=== PATIENT | male | born 1955 | race Caucasian/White ===

== ENCOUNTER 2020-07-02 05:57 | Outpatient (REF) | payer MEDICARE, SELFPAY ==
[2020-07-02 08:02] LABS: Alanine Aminotransferase 30 U/L (0-40); Albumin Level 4.5 g/dL (3.5-5.0); Alkaline Phosphatase 68 U/L (39-117); Anion Gap 14 (12-20); Aspartate Amino Transferase 27 U/L (5-37); Bilirubin Total 0.9 mg/dL (0.0-1.0); Blood Urea Nitrogen 17 mg/dL (9-16); Calcium 8.9 mg/dL (8.4-10.2); Carbon Dioxide 27 mmol/L (22-29); Chloride 102 mmol/L (96-108); Cholesterol 161 mg/dL; Estimated Glomerular Filt Rate > 60; Glucose Fasting 102 mg/dL (60-99); HDL Cholesterol 43 mg/dL; LDL Cholesterol Calculated 74 mg/dl; Potassium 4.5 mmol/l (3.3-5.1); Sodium 138 mmol/L (135-145); Total Protein 7.3 g/dL (6.5-8.0); Triglycerides 222 mg/dL
== END 2020-07-02 05:58 | disposition home or self-care (01) ==
LOC: HO.LAB 05:57
PROVIDERS: Visit Provider Internal Medicine
DX: E78.00 Pure hypercholesterolemia, unspecified (principal)
CPT/HCPCS: 80053; 80061

== ENCOUNTER 2021-02-05 06:29 | Outpatient (REF) | payer MEDICARE, SELFPAY ==
--- NOTE | ~2021-02-05 | US_ITS ---
EXAMINATION: US ABDOMEN COMPLETE CLINICAL INFORMATION: Other specified diseases of liver. COMPARISON: Ultrasound abdomen complete dated 11/26/2019 and 11/29/2018. TECHNIQUE: Real-time imaging of the abdominal viscera. FINDINGS: PANCREAS: Normal. ABDOMINAL AORTA: The proximal, mid, and distal segments are normal in caliber. INFERIOR VENA CAVA: Visualized portions are normal. LIVER: The liver is normal in size. The liver contour is normal. Liver echogenicity is slightly increased. There is a 4.2 x 4.8 x 4.8 cm complex cyst in the left lobe of the liver. This is decreased in size compared to November 2019 exam with measures 6.2 x 5.5 x 6.2 cm. Complexity appears increased with new internal echoes. There is no intrahepatic biliary duct dilatation seen. GALLBLADDER: The gallbladder is contracted. There are gallstones. COMMON BILE DUCT: Normal in caliber measuring 0.31 cm in diameter. RIGHT KIDNEY: There is a 2 x 1.7 x 1.7 cm cyst in the upper pole. No hydronephrosis or renal calculi. The kidney measures 11.0 cm in maximum dimension. LEFT KIDNEY: Normal. No hydronephrosis. No renal calculi or focal parenchymal lesions. The kidney measures 12.2 cm in maximum dimension. SPLEEN: Normal. The spleen measures 9.4 cm in maximum dimension. FREE FLUID: None. US/US abdomen complete IMPRESSION: Interval decrease in size in the cyst in the left lobe of the liver. This now appears to represent a complex cyst with new internal echoes. Liver echotexture is increased probably representing diffuse fatty infiltration. Contracted gallbladder with gallstones. 2 cm simple right renal cyst.
[2021-02-05 08:01] LABS: Alanine Aminotransferase 35 U/L (0-40); Albumin Level 4.5 g/dL (3.5-5.0); Alkaline Phosphatase 61 U/L (39-117); Anion Gap 12 (12-20); Aspartate Amino Transferase 30 U/L (5-37); Bilirubin Total 0.9 mg/dL (0.0-1.0); Blood Urea Nitrogen 15 mg/dL (9-16); Calcium 9.2 mg/dL (8.4-10.2); Carbon Dioxide 25 mmol/L (22-29); Chloride 107 mmol/L (96-108); Estimated Glomerular Filt Rate > 60; Glucose Fasting 103 mg/dL (60-99); Potassium 4.4 mmol/L (3.3-5.1); Sodium 140 mmol/L (135-145); Total Protein 6.9 g/dL (6.5-8.0)
[2021-02-05 08:06] LABS: Prostate Specific Antigen 0.44 ng/mL (<0.05-4.0)
== END 2021-02-05 06:30 | disposition home or self-care (01) ==
LOC: HO.US 06:29
PROVIDERS: Absent Provider Nurse Practitioner Family; PCP Internal Medicine; Visit Provider Internal Medicine
DX: Z12.5 Encounter for screening for malignant neoplasm of prostate (principal); Z13.1 Encounter for screening for diabetes mellitus; K76.89 Other specified diseases of liver
CPT/HCPCS: 36415; 76700; 80053; 84153

== ENCOUNTER → 2021-04-13 15:20 | Outpatient (BNV) | payer MEDICARE, SELFPAY | PROVIDERS: PCP Internal Medicine; Visit Provider Internal Medicine Medical Oncology | DX: C69.92 Malignant neoplasm of unspecified site of left eye (principal) | CPT/HCPCS: 99213 ==

== ENCOUNTER 2021-04-13 16:18 | Outpatient (REF) | payer MEDICARE, SELFPAY ==
--- NOTE | ~2021-04-13 | XR_ITS ---
EXAMINATION: XR CHEST CLINICAL INFORMATION: Followup staging for melanoma. COMPARISON: Chest 04/01/2020 TECHNIQUE: PA and lateral views of the chest are obtained. FINDINGS: No significant abnormality is noted involving the heart, lungs, mediastinum, bony thorax or soft tissues. XR/XR chest 2V IMPRESSION: Unremarkable examination.
== END 2021-04-13 16:19 | disposition home or self-care (01) ==
LOC: HO.XRAY 16:18
PROVIDERS: PCP Internal Medicine; Visit Provider Internal Medicine Medical Oncology
DX: C69.92 Malignant neoplasm of unspecified site of left eye (principal)
CPT/HCPCS: 71046

== ENCOUNTER 2021-09-02 06:05 | Outpatient (REF) | payer MEDICARE, SELFPAY ==
[2021-09-02 08:01] LABS: Alanine Aminotransferase 46 U/L (0-40); Albumin Level 4.5 g/dL (3.5-5.0); Alkaline Phosphatase 62 U/L (39-117); Anion Gap 13 (12-20); Aspartate Amino Transferase 38 U/L (5-37); Bilirubin Total 1.3 mg/dL (0.0-1.0); Blood Urea Nitrogen 14 mg/dL (9-16); Calcium 9.4 mg/dL (8.4-10.2); Carbon Dioxide 26 mmol/L (22-29); Chloride 106 mmol/L (96-108); Cholesterol 167 mg/dL; Estimated Glomerular Filt Rate > 60; Glucose Fasting 102 mg/dL (60-99); HDL Cholesterol 40 mg/dL; LDL Cholesterol Calculated 75 mg/dl; Potassium 4.2 mmol/L (3.3-5.1); Sodium 141 mmol/L (135-145); Total Protein 7.2 g/dL (6.5-8.0); Triglycerides 264 mg/dL
== END 2021-09-02 06:06 | disposition home or self-care (01) ==
LOC: HO.LAB 06:05
PROVIDERS: PCP Internal Medicine; Visit Provider Internal Medicine
DX: E78.5 Hyperlipidemia, unspecified (principal); N28.1 Cyst of kidney, acquired
CPT/HCPCS: 36415; 80053; 80061

== ENCOUNTER 2021-11-04 08:52 | Outpatient (REF) | payer MEDICARE, SELFPAY ==
--- NOTE | ~2021-11-04 | US_ITS ---
EXAMINATION: US COMPLETE ABDOMEN WITH LIVER ELASTOGRAPHY CLINICAL INFORMATION: Liver cyst COMPARISON: Previous abdominal ultrasound most recent January 2021 TECHNIQUE: Real-time imaging of the abdominal viscera. Noninvasive ultrasound liver fibrosis assessment is performed using Joe ElastPQ point quantification shear wave elastography (2D-SWE) with a C5-2 MHz transducer. Multiple elastography samples are obtained. FINDINGS: PANCREAS: The head of the pancreas is normal. The body and tail are not well visualized due to bowel gas. ABDOMINAL AORTA: The proximal, middle, and distal aortic segments are normal in caliber. INFERIOR VENA CAVA: Visualized portions are normal. LIVER: Liver echotexture is increased. There is a 4.0 x 2.9 x 3.9 cm complex cyst in the left lobe of the liver. This is slightly decreased in size measuring 4.2 x 4.8 x 4.8 cm on previous exam. No other focal liver lesion is seen. There is no biliary duct dilatation. The right lobe measures 13 cm in length. The left lobe measures 8.7 cm in length. Portal flow is normal/hepatopedal Shear wave liver elastography median stiffness is 1.2 m/s (reference: normal median stiffness is 1.3 m/s or less). IQR/median stiffness to assess sampling precision is 0.08 (reference: good quality data set is IQR/median stiffness of 0.15 or less). GALLBLADDER: Not well visualized. COMMON BILE DUCT: Normal in caliber measuring 0.4 cm in diameter. RIGHT KIDNEY: There is a 1.7 x 1.9 x 2.1 cm cyst in the upper pole No hydronephrosis. No renal calculi or mass. The kidney measures 11.7 cm in maximum dimension. LEFT KIDNEY: Normal. No hydronephrosis. No renal calculi or focal parenchymal lesions. The kidney measures 12.9 cm in maximum dimension. SPLEEN: Normal. The spleen measures 8 cm in maximum dimension. FREE FLUID: None. US/US abdomen comp w elastography IMPRESSION: 1. Impression: Echogenic liver probably representing fatty infiltration. 4 x 2.9 x 3.9 cm complex cyst in the left lobe of the liver. This is decreased in size from 4.2 x 4.8 x 4.8 cm January 2021. Limited visualization of the pancreas and gallbladder. Right renal cyst. 2. Liver elastography: Adequate liver sampling. Normal liver stiffness. REFERENCE: Society of Radiologists in Ultrasound Liver Stiffness Thresholds (2020): LIVER STIFFNESS THRESHOLDS: *Liver Stiffness equal or less than 1.3 m/s: High probability of being normal. *Liver Stiffness less than 1.7 m/s: In the absence of other known clinical signs, rules out compensated advanced chronic liver disease. *Liver Stiffness 1.7-2.1 m/s: Suggestive of compensated advanced chronic liver disease but need further test for confirmation. *Liver Stiffness over 2.1 m/s: Rules in compensated advanced chronic liver disease. *Liver Stiffness over 2.4 m/s: Suggestive of clinically significant portal hypertension. QUALITY OF DATA SET: *IQR/Median value equal or less than 0.15 implies a quality data set. *IQR/Median value over 0.15 implies a poor quality data set. SIGNIFICANT CHANGE FROM PRIOR EXAM: Significant change if liver stiffness measurement is 10% or greater from prior exam. OTHER CONSIDERATIONS: The stage of liver fibrosis may be overestimated in the setting of acute hepatitis, liver inflammation, elevated liver function tests, hepatic vascular congestion, obstructive cholestasis, non-fasting state, and infiltrative diseases such as amyloidosis and lymphoma. In some patients with NAFLD, the liver stiffness thresholds for compensated advanced chronic liver disease may be lower. In causes other than viral hepatitis and NAFLD, liver stiffness thresholds are not well established.
== END 2021-11-04 08:53 | disposition home or self-care (01) ==
LOC: HO.US 08:52
PROVIDERS: Visit Provider Internal Medicine
DX: K76.89 Other specified diseases of liver (principal)
CPT/HCPCS: 76705; 76981

== ENCOUNTER 2022-01-19 10:15 | Outpatient (REF) | payer MEDICARE, SELFPAY | END 2022-01-19 10:16 | disposition home or self-care (01) | LOC: HO.LAB 10:15 | PROVIDERS: Absent Provider Internal Medicine; PCP Internal Medicine; Visit Provider Internal Medicine Gastroenterology | DX: Z13.89 Encounter for screening for other disorder (principal) ==

== ENCOUNTER 2022-02-08 07:46 | Outpatient (REF) | payer MEDICARE, SELFPAY ==
[2022-02-08 08:57] LABS: Hematocrit 48.6 % (42.0-52.0); Hemoglobin 16.6 g/dl (14.0-18.0); Mean Corpuscular HGB Conc 34.2 g/dl (31.0-36.0); Mean Corpuscular Hemoglobin 32.7 pg (27.0-33.0); Mean Corpuscular Volume 95.9 fL (80.0-98.0); Mean Platelet Volume 9.6 fL (9.4-12.4); Platelet Count 216 X10*3/uL (160-400); Red Blood Count 5.07 X10*6/uL (4.60-5.80); White Blood Count 6.8 X10*3/uL (4.8-10.8)
[2022-02-08 09:23] LABS: Alanine Aminotransferase 39 U/L (0-40); Albumin Level 4.7 g/dL (3.5-5.0); Alkaline Phosphatase 63 U/L (39-117); Aspartate Amino Transferase 30 U/L (5-37); Bilirubin Direct 0.3 mg/dL (0.0-0.5); Bilirubin Total 0.8 mg/dL (0.0-1.0); Iron 202 mcg/dL (45-160); Percent Iron Saturation 55 % (15-50); Total Iron Binding Capacity 369 mcg/dL (228-428); Total Protein 7.2 g/dL (6.5-8.0); Unsaturated Iron Binding 167 ug/dL
[2022-02-08 09:35] LABS: Ferritin 114 ng/mL (20-250); HBS Num1 0.72 mIU/mL (0-7.99); HBc Num1 0.06 S/CO (0.00-0.79); HBsAGNum1 0.22 S/CO (0.00-0.99); Hepatitis B Core Antibody Nonreactive (Nonreactive); Hepatitis B Surface Antigen Negative (Negative); ~HepC Num1 0.07 S/CO (0.00-0.79); ~Hepatitis B Surface Antibody NONREACTIVE (Nonreactive); ~Hepatitis C Antibody Nonreactive (Nonreactive)
[2022-02-10 09:00] LABS: Hepatitis A Antibody IgG Nonreactive (Nonreactive); ~Hepatitis A Antibody IgG 0.26 S/CO (0.00-0.99)
[2022-02-10 14:31] LABS: Anti Nuclear Antibody Screen NEGATIVE (NEGATIVE)
[2022-02-11 23:23] LABS: Smooth Muscle Antibody <20 U (<20)
[2022-02-16 15:52] LABS: Mitochondrial Antibodies NEGATIVE (NEGATIVE)
== END 2022-02-08 07:47 | disposition home or self-care (01) ==
LOC: HO.LAB 07:46
PROVIDERS: PCP Internal Medicine; Visit Provider Internal Medicine Gastroenterology
DX: R94.5 Abnormal results of liver function studies (principal)
CPT/HCPCS: 36415; 80076; 82728; 83540; 85027; 86015; 86038; 86039; 86255; 86256; 86704; 86706; 86708; 86803; 87340

== ENCOUNTER 2023-02-18 05:54 | Outpatient (REF) | payer MEDICARE, SELFPAY | END 2023-02-18 05:55 | disposition home or self-care (01) | LOC: HO.LAB 05:54 | PROVIDERS: PCP Internal Medicine; Visit Provider Urology | DX: Z12.5 Encounter for screening for malignant neoplasm of prostate (principal); Z13.1 Encounter for screening for diabetes mellitus; N40.1 Benign prostatic hyperplasia with lower urinary tract symptoms; E78.5 Hyperlipidemia, unspecified | CPT/HCPCS: 36415; 80048; 80061; 84153; 84154 ==

== ENCOUNTER 2023-04-26 11:07 | Outpatient (AMB) | payer MEDICARE, SELFPAY ==
--- NOTE | 2023-04-26 11:10 | MHC.PC.OV ---
Vital Signs 04/26/23 11:11 Height 5 ft 2 in Weight 188 lb BMI 34.4 BP 144/90 H Blood Pressure Location Lt brachial Position Sitting Pulse 69 Pulse Source Pulse Oximeter Temp Source Skin Pulse Oximetry (%) 97 Oxygen Delivery Method Room Air Intake Visit Reasons: 6m F/U Intake Note: Patient is here to follow up on 6 months Allergies No Known Allergies [No Known Allergies*] Allergy (Verified 04/26/23 11:38) Medication List - Last Reconciled 04/26/23 by JULIOCESAR Shannon omeprazole 20 mg PO DAILY simvastatin 20 mg PO BEDTIME 90 days Tobacco use date assessed: 04/26/23 Fall risk assessment: No Falls in past year Last assessed Fall Risk: 04/26/23 Dental Screening Dental Screen Date: 04/26/23 Did you have a dental visit in the last 12 months?: Yes Did you have a dental problem in the last 6 months where you did not have access to dental care?: No Was dental information given to patient?: Patient has dentist HPI 6m F/U HPI Details Patient is a 67-year-old male presents today to follow-up his chronic conditions. Patient of Dr. Ratliff. Medical history significant for liver cyst-followed by Dr. Hawley-next appointment next month, hyperlipidemia-on simvastatin, GERD-stable with omeprazole-patient reports that acid reflux is well managed and he is wondering if he can stop taking omeprazole, patient can taper down omeprazole if he wants to stop, reports being on omeprazole for many years now. He denies shortness of breath or chest pain. Patient reports that 1 of his brothers due to kidney tumor and patient now is followed by Urology to rule out any kidney issues- patient has an upcoming appointment with Urology tomorrow. PFSH Medical History Transaminitis COVID-19 vaccine series completed Cyst of right kidney Screening for prostate cancer Screening for diabetes mellitus Liver cyst Surgical History History of colonoscopy History of knee replacement procedure of right knee History of eye surgery H/O carpal tunnel repair H/O basal cell carcinoma excision History of ear surgery Family History Father Esophageal cancer Mother Hodgkin disease Brother Kidney malignancy Sibling Brother Kidney malignancy Sibling Social History Household Members: Family Housing: House Are you a primary animal care service worker to a significant other at home: No Do you presently have visiting nurse or other home services: No Alcohol intake: never Patient Tobacco Use Status: Never used Tobacco e-Cigarette/Vaping Use: Never Used Second Hand Smoke Exposure: No service: No Current occupational status: employed and retired Cognitive needs: No Hearing needs: No Vision needs: No Questionnaire Thrive Questionnaire Date Thrive assessed: 10/06/22 AUDIT C Alcohol Use Questionnaire (AUDIT-C) 1. How often do you have a drink containing alcohol?: Never 3. How often do you have six or more drinks on one occasion?: Never Total Score: 0 Score Reviewed/Action Taken: No ERNIE-7 AMB Questionnaire ERNIE-7 Date ERNIE - 7 assessed: 10/06/22 Source: Developed by Drs. Payam Irene, Lora Brooks, Nathan Baker and colleagues, with an educational jovana from [employer]. Review of Systems Const Denies body aches, Denies chills, Denies fever(s) and Denies headache(s) Eyes Denies change in vision ENT Denies dizziness, Denies otalgia, Denies headache(s), Denies nasal discharge, Denies sinus pain and Denies sore throat Card Denies chest pain, Denies edema, Denies lightheadedness and Denies dyspnea Resp Denies chest congestion, Denies cough, Denies hemoptysis, Denies dyspnea and Denies wheezing GI Denies change in bowel habits, Denies diarrhea, Denies nausea and Denies vomiting Denies dysuria Musc Denies myalgias Skin/Breast Denies rash Neuro Denies dizziness and Denies headache(s) Aller/Immun Denies wheezing Physical exam (Primary Care) Vital Signs: Last Vital Signs Pulse 69 04/26/23 11:11 BP 144/90 H 04/26/23 11:11 Pulse Ox 97 04/26/23 11:11 Oxygen Delivery Method Room Air 04/26/23 11:11 BMI result Body Mass Index 34.4 Tobacco/Smoking Status: Tobacco use Status Tobacco use date assessed 04/26/23 04/26/23 11:14 Patient Tobacco Use Status Never used Tobacco 04/26/23 11:14 e-Cigarette/Vaping Use Never Used 04/26/23 11:14 Thrive Assessment: Date of Thrive Assessment Date Thrive assessed 10/06/22 04/26/23 11:14 Const General: cooperative and no acute distress Orientation/consciousness: patient oriented x3 HENMT Head: Yes normocephalic and Yes atraumatic Mouth: oropharynx normal and moist mucous membranes Throat: Yes posterior oropharynx normal Eyes General: appearance normal, both eyes and all related structures Neck Neck: Yes normal visual inspection, Yes full ROM and Yes no lymphadenopathy Resp Effort & Inspection: normal respiratory effort and able to speak in complete sentences Auscultation: clear to auscultation bilaterally, no crackles, no rales, no rhonchi and no wheezes Cardio Rate: regular rate Rhythm: regular rhythm Heart sounds: S1 normal heart sound present and S2 normal heart sound present GI Auscultation: normal bowel sounds Skin General skin exam: no rashes or lesions noted Neuro General: patient oriented x3 Gait exam (Neuro): Normal gait present Extrem General: Yes full ROM and No edema Assessment and Plan Assessment & Plan (1) Intraocular melanoma of left eye: Code(s): C69.92 - Malignant neoplasm of unspecified site of left eye Plan: Continue to follow-up with Dr. Schroeder and ophthalmology in [place] (2) GERD (gastroesophageal reflux disease): Code(s): K21.9 - Gastro-esophageal reflux disease without esophagitis Qualifiers: Esophagitis presence: esophagitis presence not specified Qualified Code(s): K21.9 - Gastro-esophageal reflux disease without esophagitis Plan: Avoid GERD trigger foods Do not lay down 2-3 hours after evening meal Continue omeprazole 20 mg daily-patient reports that he has been on omeprazole for many years now-reports acid reflux is well managed-would like to stop this medication-if he would like to stop this encouraged to taper omeprazole down (3) Hyperlipidemia: Code(s): E78.5 - Hyperlipidemia, unspecified Qualifiers: Hyperlipidemia type: pure hypercholesterolemia Qualified Code(s): E78.00 - Pure hypercholesterolemia, unspecified Plan: Continue simvastatin Low-cholesterol diet (4) Liver cyst: Code(s): K76.89 - Other specified diseases of liver Plan: Continue to follow-up with gastroenterology Dr. Hawley Coding Level of Care Code Est Pt Level 4 (76443) Diagnoses Intraocular melanoma of left eye C69.92 Gastroesophageal reflux disease, unspecified whether esophagitis present K21.9 Esophagitis presence: esophagitis presence not specified Pure hypercholesterolemia E78.00 Hyperlipidemia type: pure hypercholesterolemia Liver cyst K76.89
[2023-04-26 11:11] VITALS: BP 144/90; PULSE 69; O2SAT 97; BMI 34.4
== END 2023-04-26 11:52 | disposition home or self-care (01) ==
PROVIDERS: PCP Internal Medicine; Visit Provider Nurse Practitioner Family
DX: C69.92 Malignant neoplasm of unspecified site of left eye (principal); K21.9 Gastro-esophageal reflux disease without esophagitis; E78.00 Pure hypercholesterolemia, unspecified; K76.89 Other specified diseases of liver
CPT/HCPCS: 99214

== ENCOUNTER 2023-08-03 09:08 | Outpatient (REF) | payer MEDICARE, SELFPAY ==
--- NOTE | ~2023-08-03 | US_ITS ---
EXAMINATION: US ABDOMEN COMPLETE CLINICAL INFORMATION: Fatty change of liver, not elsewhere classified.. COMPARISON: Ultrasound abdomen complete with elastography 11/04/2021. Ultrasound abdomen complete 02/05/2021. TECHNIQUE: Real-time imaging of the abdominal viscera. FINDINGS: PANCREAS: Normal. ABDOMINAL AORTA: The proximal, mid, and distal segments are normal in caliber. INFERIOR VENA CAVA: Visualized portions are normal. LIVER: Diffuse increased echogenicity to the liver parenchyma. 1.7 x 1.7 x 1.8 cm avascular solid appearing left subcapsular lesion is seen. On previous study, surrounding cystic component was seen and is no longer identified. There is no intrahepatic biliary duct dilatation seen. GALLBLADDER: Gallbladder is not identified, patient denies cholecystectomy. No tenderness elicited during study. COMMON BILE DUCT: Common bile duct measures 0.8 cm in diameter. RIGHT KIDNEY: No hydronephrosis. The kidney measures 10.8 cm in maximum dimension. 2.7 x 2.0 x 2.9 cm upper pole cyst. 0.7 x 0.4 x 0.6 cm lower pole nonobstructing renal calculus. LEFT KIDNEY: No hydronephrosis or focal parenchymal lesions. The kidney measures 12.4 cm in maximum dimension. 0.4 x 0.3 x 0.4 cm nonobstructing mid pole calculus. SPLEEN: Normal. The spleen measures 9.5 cm in maximum dimension. FREE FLUID: None. US/US abdomen complete IMPRESSION: 1.8 cm subcapsular left hepatic lobe solid lesion. Surrounding cystic component seen previously is no longer identified. Nonvisualization of the gallbladder and prominent common bile duct in the right state. Liver protocol MRI recommended. Bilateral nonobstructing renal calculi. Right kidney cyst.
== END 2023-08-03 09:09 | disposition home or self-care (01) ==
LOC: HO.US 09:08
PROVIDERS: PCP Internal Medicine; Visit Provider Internal Medicine Gastroenterology
DX: K76.0 Fatty (change of) liver, not elsewhere classified (principal)
CPT/HCPCS: 76700

== ENCOUNTER 2023-09-08 09:38 | Outpatient (REF) | payer MEDICARE, SELFPAY ==
--- NOTE | ~2023-09-08 | MR_ITS ---
EXAMINATION: MR ABDOMEN WITHOUT AND WITH CONTRAST CLINICAL INFORMATION: Liver lesion on recent ultrasound. COMPARISON: Abdominal ultrasound 08/03/2023. TECHNIQUE: MR abdomen was performed without and with use of 9 mL intravenous Gadavist gadolinium contrast. Postcontrast images are performed in multiphase dynamic sequences. Imaging was performed in 3 planes. FINDINGS: LUNG BASES: Partially imaged left-sided hydropneumothorax. LIVER, GALLBLADDER, AND BILIARY TREE: There is signal loss in the opposed phase dual echo images consistent with hepatic steatosis. Otherwise, liver is normal in size and morphology. Corresponding to the abnormality in question in the left hepatic lobe on the recent ultrasound, there is a 1.7 x 1.3 cm observation in the left hepatic lobe (9:25), that demonstrates internal precontrast T1 bright signal, associated capsular retraction, and no definite internal enhancement on postcontrast images. There is a halo of delayed enhancement which is most likely perfusional. This correlates with a previously described complicated cyst on multiple prior ultrasounds study dating back to 02/05/2021, where it measured 4.2 x 4.8 cm. There is a 0.6 cm enhancing observation in the right hepatic lobe with enhancement that persists on delayed postcontrast images (102:19), demonstrating preserved signal compared to the remaining of the parenchyma in the out of phase dual echo images suggestive of fat sparing, and equivocal mild T2 bright signal (8:7), although it is overall not well seen on the T2 images possibly due to small size and volume averaging. PANCREAS: Fatty infiltration. No main ductal dilatation. No lesion. No peripancreatic inflammatory changes. SPLEEN: Normal. ADRENAL GLANDS: Normal. KIDNEYS AND URETERS: The kidneys are normal in size, shape, and enhance symmetrically. No hydronephrosis. No perinephric stranding. A few Bosniak 1 cortical and peripelvic cysts are noted, the largest in the posterior aspect of the upper right kidney measuring 2.7 cm. No imaging follow up is recommended for these cysts. GASTROINTESTINAL TRACT: Fat-containing periumbilical hernias, sac measuring in conjunction approximately 6.3 cm craniocaudally (3:2). No evidence of bowel obstruction. Colonic diverticulosis without significant pericolonic inflammatory changes to suspect acute diverticulitis. Equivocal mild hyperemia of the gastric antrum/duodenal bulb. No ascites. ABDOMINAL WALL: As above, fat-containing umbilical hernia. LYMPH NODES: No lymphadenopathy. VASCULAR: Normal caliber abdominal aorta. OSSEOUS STRUCTURES: Degenerative disease of the spine. No acute or aggressive appearing osseous findings. MR/MR abdomen wo/w con IMPRESSION: 1. Corresponding to the lesion in question on the most recent ultrasound in the left hepatic lobe, there is a 1.7 cm complicated cyst with internal proteinaceous/hemorrhagic products. This cyst has been present dating back to 02/05/2021 where it measured 4.8 cm. There is associated capsular retraction which is most likely sequela of infection/inflammatory process and rupture of the cyst with scarring. On postcontrast images, there is no concerning enhancement. 2. There is a 0.6 cm enhancing observation in the right hepatic lobe with enhancement that persist on later phases of contrast, and possibly demonstrating mild T2 bright signal although it is overall not well seen on the T2 images due to small size and volume averaging. This most likely represents a benign observation such as flash filling hemangioma, although due to its small size it is incompletely characterized and out of precaution follow-up with an abdominal MRI in 6 months is recommended. 3. Hepatic steatosis. 4. Equivocal mild hyperemia of the stomach antrum/duodenal bulb. Recommend clinical correlation for gastritis/peptic ulcer disease and further evaluation with upper endoscopy as clinically warranted. 5. Incidentally noted small left-sided hydropneumothorax. This critical result, specifically the presence of a hydropneumothorax, was discussed with Velma Lou MA at 09/09/2023 9:22 AM and it was ascertained that the content and urgency of the report was understood at the time of direct communication.
[2023-09-08] MEDS: gadobutroL 10 ML VIAL IVPUSH (10:39)
== END 2023-09-08 09:39 | disposition home or self-care (01) ==
LOC: HO.MRI 09:38
PROVIDERS: PCP Internal Medicine; Visit Provider Internal Medicine Gastroenterology
DX: K76.9 Liver disease, unspecified (principal); R93.2 Abnormal findings on diagnostic imaging of liver and biliary tract
CPT/HCPCS: 74183; A9585

== ENCOUNTER 2023-09-12 15:04 | Outpatient (AMB) | payer MEDICARE, SELFPAY ==
--- NOTE | 2023-09-12 15:07 | MHC.OFFVIS ---
Intake Vital Signs 09/12/23 15:15 Height 5 ft 2 in Weight 195 lb BMI 35.7 BP 179/89 H Blood Pressure Location Rt brachial Position Sitting Pulse 68 Intake Visit Reasons: Hydropnemothorax Intake Note: Patient referred by Dr. Hawley for hydropneumothorax. Recent Abdomen MRI on 09-08-23. Patient c/o: denies breathing difficulty, shortness of breath, fatigue. Chief Relay Tester Required: No Accompanied by: Self / Same As Patient Allergies No Known Allergies [No Known Allergies*] Allergy (Verified 09/12/23 15:13) HPI HPI Comments History of Present Illness Details Patient presents with an incidental finding of left hydropneumothorax. He denies any chest trauma respiratory symptoms. This was picked up on an MRI of the abdomen. Nonsmoker. Chart was reviewed patient evaluated. FOR[facility]LY [facility] Medical History Transaminitis COVID-19 vaccine series completed Cyst of right kidney Screening for prostate cancer Screening for diabetes mellitus Liver cyst Surgical History History of colonoscopy History of knee replacement procedure of right knee History of eye surgery H/O carpal tunnel repair H/O basal cell carcinoma excision History of ear surgery Family History Father Esophageal cancer Mother Hodgkin disease Brother Kidney malignancy Sibling Brother Kidney malignancy Sibling Social History Household Members: Family Housing: House Are you a primary rn transitional care to a significant other at home: No Do you presently have visiting nurse or other home services: No Alcohol intake: never Patient Tobacco Use Status: Never used Tobacco e-Cigarette/Vaping Use: Never Used Second Hand Smoke Exposure: No service: No Current occupational status: employed and retired Cognitive needs: No Hearing needs: No Vision needs: No Physical Exam Vital Signs: Last Vital Signs Pulse 68 09/12/23 15:15 BP 179/89 H 09/12/23 15:15 BMI result Body Mass Index 35.7 Neck Other: No obvious cervical, periclavicular, or axillary adenopathy bilaterally. Chest Other: Real chest breath sounds bilaterally. GI Other: Abdomen soft, corpulent, benign Assessment & Plan Assessment & Plan (1) Hemopneumothorax, left: Code(s): J94.2 - Hemothorax Plan: Current plan is to obtain a formal CT scan of the chest because the MRI had a incidental finding of with a limited view of the left hydropneumothorax. This was explained to the patient. He will see me after the study. All questions answered. Orders: Orders CT chest wo con - High Res Today J94.2 - Hemothorax Coding Level of Care Code New Pt Level 4 (39221) Diagnoses Hemopneumothorax, left J94.2
[2023-09-12 15:15] VITALS: BP 179/89; PULSE 68; BMI 35.7
== END 2023-09-12 15:23 | disposition home or self-care (01) ==
PROVIDERS: PCP Internal Medicine; Referring Provider Internal Medicine Gastroenterology; Visit Provider Surgery
DX: J94.2 Hemothorax (principal)
CPT/HCPCS: 99204

== ENCOUNTER → 2023-09-12 15:04 | Outpatient (BNVA) | payer MEDICARE, SELFPAY | PROVIDERS: PCP Internal Medicine; Referring Provider Internal Medicine Gastroenterology; Visit Provider Surgery | DX: J94.2 Hemothorax (principal) | CPT/HCPCS: 99202 ==

== ENCOUNTER 2023-10-12 10:00 | Outpatient (AMB) | payer MEDICARE, SELFPAY ==
--- NOTE | 2023-10-12 10:05 | A.OFFVIS_ITS ---
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 Left eye melanoma is follow by [facility] in [place]. Last colonoscopy was 2019 and needs to be repeated in 2024. He follows with Gastroenterology due to a liver lesion which looks like a benign hemangioma. Had MRI of the abdomen showing left hydropneumothorax and will have CT of the chest done next month. Has healthcare proxy already. PPP handed to patient. [facility] Medical History Transaminitis COVID-19 vaccine series completed Cyst of right kidney Screening for prostate cancer Screening for diabetes mellitus Liver cyst Surgical History History of colonoscopy History of knee replacement procedure of right knee History of eye surgery H/O carpal tunnel repair H/O basal cell carcinoma excision History of ear surgery Family History Father Esophageal cancer Mother Hodgkin disease Brother Kidney malignancy Sibling Brother Kidney malignancy Sibling Social History Household Members: Family Housing: House Are you a primary care connector to a significant other at home: No Do you presently have visiting nurse or other home services: No Alcohol intake: never Patient Tobacco Use Status: Never used Tobacco e-Cigarette/Vaping Use: Never Used Second Hand Smoke Exposure: No service: No Current occupational status: employed and retired Cognitive needs: No Hearing needs: No Vision needs: No Questionnaire Medicare Wellness Checkup [age] What gender do you identify with?: male During the past 4 weeks, how much have you been bothered by emotional problems such as feeling anxious, depressed, irritable, sad or downhearted, and blue?: not at all During the past 4 weeks, has your physical & emotional health limited your social activities with family, friends, neighbors, or groups?: not at all During the past 4 weeks, how much bodily pain have you generally had?: no pain During the past 4 weeks, was someone available to help you if you needed & wanted help?: yes, as much as I wanted During the past 4 weeks, what was the hardest physical activity you could do for at least 2 minutes?: heavy Can you get to places out of walking distance without help? (For eg., can you travel alone on buses, taxis or drive your car?): Yes Can you go shopping for groceries or clothes without someone's help?: Yes Can you prepare your own meals?: Yes Can you do your housework without help?: Yes Because of any health problems, do you need the help of another person with your personal care needs such as eating, bathing, dressing or getting around the house?: Yes Can you handle your own money without help?: Yes During the past 4 weeks, how would you rate your health in general?: excellent During the past 4 weeks how have things been going for you?: very well; could hardly better Are you having difficulties driving your car?: no Do you always fasten your seat belt when you are in a car?: yes, usually During past 4 weeks, have you been bothered by the following: never: Falling or dizzy when standing up, Sexual problems?, Trouble eating well?, Teeth or denture problems?, Problems using the telephone? and Tiredness or fatigue? Have you fallen 2 or more times in the past year?: No Are you afraid of falling?: No Are you a smoker?: no During the past 4 weeks, how many drinks of wine, beer, or other alcoholic beverages did you have?: no alcohol at all Do you exercise for about 20 minutes 3 or more times a week?: yes, most of the time Have you been given information to help with the following?: yes: Hazards in your house that might hurt you? and yes: Keeping track of your medications? How often do you have trouble taking medicines the way you have been told to take them?: I always take medicine as prescribed How confident are you that you can control & manage most of your health problems?: very confident What is your race?: White Mini Mental State Exam (MMSE) Orientation What is the (year) (season) (date) (day) (month)?: year, season, date, day and month Where are we (state) (county) (town or city) (hospital) (floor)?: state, county, town or city, hospital/clinic and floor Registration Name of 3 unrelated objects clearly and slowly, then ask patient to repeat all 3 of them. (1st repeat determines score. Make sure they can repeat all three): object 1, object 2 and object 3 Attention & Calculation (CHOOSE ONE) Spell WORLD backwards (DLROW): 4 letters Recall Ask patient to repeat the 3 items from question #3.: object 1 and object 2 Language Show patient a wristwatch & ask what it is. Repeat for pencil.: watch and pencil Ask the patient to repeat the phrase 'No ifs, ands, or buts' after you.: correct Ask the patient to 'take a piece of paper with their right hand' 'fold paper in half' 'place paper on floor': take paper in right hand, fold paper in half and place paper on floor Print the sentence 'CLOSE YOUR EYES' on a piece. If patient actually closes eyes then score.: followed written direction Give patient a blank piece of paper & ask to write a sentence. Score if it contains a noun & verb.: sentence contains subject and verb Ask patient to copy figure of intersecting pentagons exactly. Score if all 10 angles & 2 intersects are included.: all 10 angles present & 2 are intersected Score Score: 28 Activity of Daily Living Bathing - sponge bath, tub bath or shower: receives no assistance (gets in/out by self, if usual bathing means Dressing - getting clothes from closets & drawers, including inner/outer garments & fasteners.: gets clothes & gets completely dressed without help Toileting - going to the 'toilet room' for urine/bowel elimination & cleaning self/arranging clothes: goes to toilet room, cleans self, arranges clothes without help Transfer: moves in & out of bed and chair without help (may use support object) Continence: controls urination/bowel movements completely by self Feeding: feeds self without help Total Score: 0 Information obtained from: patient Using telephone: independent Traveling: independent Shopping: independent Preparing meals: independent Housework: independent Taking medicine: independent Managing money: independent PHQ-9 Over the last 2 weeks, how often have you been bothered by any of the following problems? 1. Little interest or pleasure in doing things: not at all 2. Feeling down, depressed, or hopeless: not at all 3. Trouble falling or staying asleep, or sleeping too much: not at all 4. Feeling tired or having little energy: not at all 5. Poor appetite or overeating: not at all 6. Feeling bad about yourself - or that you are a failure or have let yourself or your family down: not at all 7. Trouble concentrating on things, such as reading the newspaper or watching television: not at all 8. Moving or speaking so slowly that other people could have noticed. Or the opposite - being so fidgety or restless that you have been moving around a lot more than usual: not at all 9. Thoughts that you would be better off or of hurting yourself in some way: not at all Total score: 0 Depression Screening Interpretation: Negative Depression Screening Done: Yes 77821 - PHQ-9 Billing: Yes Source: Developed by Drs. Payam Irene, Lora Brooks, Nathan Baker and colleagues, with an educational jovana from [employer]. AUDIT C Alcohol Use Questionnaire (AUDIT-C) 1. How often do you have a drink containing alcohol?: Never Total Score: 0 Score Reviewed/Action Taken: No Thrive Questionnaire Date Thrive assessed: 10/12/23 I am a: Patient What is your living situation today?: I have a steady place to live Within the past 12 months, did the food you bought not last and you didn't have the money to get more?: Never true Within the past 12 months, did you worry whether your food would run out before you got money to buy more?: Never true Do you have trouble paying for medicines?: No Do you have trouble getting transportation to medical appointments?: No Do you have trouble paying your heating and electricity bill?: No Do you have trouble taking care of your child, family member or friend?: No Do you have trouble with day-to-day activities such as bathing, preparing meals, shopping, managing finances, etc.?: No Are you currently unemployed and looking for a job?: No Are you interested in more education?: No Please select the resources that you would like help with: None Currently or been in a relationship where the following occur: no concerns reported THRIVE Score: 0 ERNIE-7 AMB Questionnaire ERNIE-7 Date ERNIE - 7 assessed: 10/12/23 Feeling nervous, anxious, or on edge: 0 = Not at all Not being able to stop or control worryin = Not at all Worrying too much about different things: 0 = Not at all Trouble relaxin = Not at all Being so restless that it is hard to sit still: 0 = Not at all Becoming easily annoyed or irritable: 0 = Not at all Feeling afraid as if something awful might happen: 0 = Not at all Total ERNIE-7 score (0-4 normal; 5-9 mild; 10-14 moderate; 15-21 severe): 0 Source: Developed by Drs. Payam Irene, Lora Brooks, Nathan Baker and colleagues, with an educational jovana from [employer]. ERNIE-7 Assessment Billing ERNIE-7 Assessment Tool: ERNIE-7 Assessment 71012 Review of Systems Const All systems reviewed & are unremarkable except as noted in HPI and below Eyes Reports no additional complaints, Denies change in vision and Denies other visual disturbances Card Denies chest pain at rest, Denies chest pain with activity, Denies edema, Denies irregular heart rhythm, Denies claudication, Denies dyspnea, Denies dyspnea on exertion, Denies orthopnea, Denies paroxysmal nocturnal dyspnea and Denies slow heart rate Resp Denies cough, Denies dyspnea and Denies dyspnea on exertion GI Denies abdominal pain, Denies change in bowel habits, Denies excessive flatus, Denies nausea and Denies vomiting Denies urinary hesitancy, Denies urinary incontinence and Denies urinary urgency Physical Exam Vital Signs: Last Vital Signs BP 136/82 10/12/23 10:07 BMI result Body Mass Index 34.6 Neck Neck: Yes normal visual inspection and Yes supple Resp Effort & Inspection: normal respiratory effort Auscultation: clear to auscultation bilaterally Cardio Jugular venous distension: no JVD Rate: regular rate Rhythm: regular rhythm Heart sounds: S1 normal heart sound present and S2 normal heart sound present Neuro Romberg Test: Negative Extrem General: Yes full ROM Psych Appearance: grossly normal Assessment & Plan Assessment & Plan (1) Encounter for annual wellness exam in Medicare patient: Comment: Colonoscopy last 09/2019 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 (2) Intraocular melanoma of left eye: Code(s): C69.92 - Malignant neoplasm of unspecified site of left eye Plan: Follow-up with ophthalmology in [place]. Orders: Orders PSA,Total (Free>4and<10) Today Z12.5 - Encounter for screening for malignant neoplasm of prostate Lipid Panel Today E78.5 - Hyperlipidemia, unspecified Comprehensive [place]. Panel Fast Today R74.01 - Elevation of levels of liver transaminase levels Quality Reporting (2019) Depression/Bipolar (159/160/161/177) PHQ-9: Total score: 0 Coding Level of Care Code Medicare Subsequent (G0439) Diagnoses Encounter for annual wellness exam in Medicare patient Z00.00 Intraocular melanoma of left eye C69.92 CPT Codes Advance Care Planning - Advance Care Planning discussion: On file, no changes ([id number]) Additional Codes ERNIE-7 Assessment Billing - ERNIE-7 Assessment Tool: ERNIE-7 Assessment 80228 ([id number]) Time Spent (min) 33 Advance Care Planning Advance Care Planning discussion: On file, no changes
[2023-10-12 10:07] VITALS: BP 136/82; BMI 34.6
== END 2023-10-12 10:43 | disposition home or self-care (01) ==
PROVIDERS: Visit Provider Internal Medicine
DX: Z00.00 Encounter for general adult medical examination without abnormal findings (principal); C69.92 Malignant neoplasm of unspecified site of left eye
CPT/HCPCS: 1123F; G0439

== ENCOUNTER 2023-10-27 09:36 | Outpatient (REF) | payer MEDICARE, SELFPAY ==
--- NOTE | ~2023-10-27 | CT_ITS ---
EXAMINATION: CT CHEST WITHOUT CONTRAST CLINICAL INFORMATION: Hemothorax. COMPARISON: MR abdomen 09/08/2023: Incidentally noted small left-sided hydropneumothorax. TECHNIQUE: Multidetector volumetric CT imaging of the chest was done. Axial MIP volume rendering provided. Sagittal and coronal reformatted images were obtained. This CT examination was performed using dose optimization techniques as appropriate, variously including the following: *Automated exposure control *Adjustment of mA and/or kV according to patient size (this includes techniques or standardized protocols for targeted exams where dose is matched to indication/reason for exam; i.e. extremities or head) *Use of iterative reconstruction technique DLP: 206 mGy-cm FINDINGS: LUNGS AND PLEURA: There is a small left-sided hydropneumothorax present with air seen in the supine position at the left apex medially as well as around the lingula inferiorly. The largest pocket of air measures about 4.4 x 8.2 x 7.8 cm (5:426). A tiny amount of air is seen along the diaphragm deep in the left lateral costophrenic sulcus that probably is within a potential pleural space rather than below the diaphragm in the peritoneal cavity (see mckeon images). The size of the pleural air collection is not significantly changed when compared to the 08/19/2023 MRI, but there may be slightly more pleural fluid present. No right pleural effusion is seen. A few tiny micronodules are seen, none larger than 2 mm (for example 5:233 and 243). MEDIASTINUM: No pneumomediastinum. The thyroid is unremarkable. No mediastinal or hilar lymphadenopathy seen. Heart size is normal. CORONARY ARTERY CALCIFICATION: None visualized on this study. PLEURA: There is no pleural effusion. No pleural mass or thickening. AXILLA/CHEST WALL: No lymphadenopathy. Minimal bilateral gynecomastia. UPPER ABDOMEN: There is pneumobilia present status post cholecystectomy. A benign partially visualized right upper pole 2.8 cm Bosniak class I renal cyst is noted which requires no additional imaging or followup. No solid renal masses are seen. OSSEOUS STRUCTURES: Unremarkable. No rib fractures are seen. CT/CT chest wo IV con IMPRESSION: 1. Small left-sided hydropneumothorax. The size of the pleural air collection is not significantly changed when compared to 08/19/2023 MRI, but there may be slightly more pleural fluid present. 2. Incidental note made of pneumobilia status post cholecystectomy and a few tiny benign-appearing pulmonary micronodules. Fleischner guidelines were followed.
== END 2023-10-27 09:37 | disposition home or self-care (01) ==
LOC: HO.CT 09:36
PROVIDERS: PCP Internal Medicine; Visit Provider Surgery
DX: J94.2 Hemothorax (principal)
CPT/HCPCS: 71250

== ENCOUNTER 2023-11-09 15:11 | Outpatient (AMB) | payer MEDICARE, SELFPAY ==
--- NOTE | 2023-11-09 15:12 | MHC.OFFVIS ---
Intake Vital Signs 11/09/23 15:13 Height 5 ft 2 in Weight 194 lb BMI 35.5 BP 152/76 H Blood Pressure Location Rt brachial Position Sitting Pulse 73 Intake Visit Reasons: Left hemopneumothorax, CT results Intake Note: Patient here to discuss Lt hemopneumothorax, CT results. Patient c/o: no concerns. Chest CT: 10-27-23. Certified Orthotist/Pedorthist Required: No Accompanied by: Self / Same As Patient Allergies No Known Allergies [No Known Allergies*] Allergy (Verified 11/09/23 15:13) HPI HPI Comments History of Present Illness Details Patient presents for follow-up status post CT scan of chest of incidentally found left hydropneumothorax. Again patient has no respiratory symptoms. His activity levels are baseline. Scan shows the above which is small and stable. PFSH Medical History Transaminitis COVID-19 vaccine series completed Cyst of right kidney Screening for prostate cancer Screening for diabetes mellitus Liver cyst Surgical History History of colonoscopy History of knee replacement procedure of right knee History of eye surgery H/O carpal tunnel repair H/O basal cell carcinoma excision History of ear surgery Family History Father Esophageal cancer Mother Hodgkin disease Brother Kidney malignancy Sibling Brother Kidney malignancy Sibling Social History Household Members: Family Housing: House Are you a primary medicare contact specialist to a significant other at home: No Do you presently have visiting nurse or other home services: No Alcohol intake: never Patient Tobacco Use Status: Never used Tobacco e-Cigarette/Vaping Use: Never Used Second Hand Smoke Exposure: No service: No Current occupational status: employed and retired Cognitive needs: No Hearing needs: No Vision needs: No Physical Exam Vital Signs: Last Vital Signs Pulse 73 11/09/23 15:13 BP 152/76 H 11/09/23 15:13 BMI result Body Mass Index 35.5 HEENT Other: Patient has an incidental finding of a proximally 1/2 cm x 1/2 cm lesion/growth involving the right alar of his nose consistent with a squamous cell or basal cell neoplasm. Chest Other: Chest breath sounds bilaterally. GI Other: Abdomen corpulent, soft, benign Assessment & Plan Assessment & Plan (1) Hemopneumothorax, left: Code(s): J94.2 - Hemothorax (2) Lesion of ala of nose: Code(s): L98.9 - Disorder of the skin and subcutaneous tissue, unspecified Plan Radiating incidentally found hydropneumothorax, no further interventions were needed. Patient will be given a dermatologic consultation regarding the nose lesion. All questions answered. Patient will otherwise follow-up p.r.n.. Orders: Referrals Dermatology Referral L98.9 - Disorder of the skin and subcutaneous tissue, unspecified Coding Level of Care Code Est Pt Level 4 (12161) Diagnoses Hemopneumothorax, left J94.2 Lesion of ala of nose L98.9
[2023-11-09 15:13] VITALS: BP 152/76; PULSE 73; BMI 35.5
== END 2023-11-09 16:03 | disposition home or self-care (01) ==
PROVIDERS: PCP Internal Medicine; Visit Provider Surgery
DX: J94.2 Hemothorax (principal); L98.9 Disorder of the skin and subcutaneous tissue, unspecified
CPT/HCPCS: 99214

== ENCOUNTER → 2023-11-09 15:11 | Outpatient (BNVA) | payer MEDICARE, SELFPAY | PROVIDERS: PCP Internal Medicine; Visit Provider Surgery | DX: J94.2 Hemothorax (principal); L98.9 Disorder of the skin and subcutaneous tissue, unspecified | CPT/HCPCS: 99212 ==

== ENCOUNTER 2024-02-03 06:33 | Outpatient (REF) | payer MEDICARE, SELFPAY ==
--- NOTE | ~2024-02-03 | XR_ITS ---
EXAMINATION: XR KNEE, LEFT CLINICAL INFORMATION: Pain in left knee. COMPARISON: 07/27/2019. TECHNIQUE: AP standing view of bilateral knees as well as 2 views of the left knee. FINDINGS: AP STANDING VIEW RIGHT KNEE: Right knee total arthroplasty in satisfactory position. LEFT KNEE: Diffuse demineralization. Moderate joint effusion. Moderate narrowing of the medial compartment. Small medial marginal and posterior patellar osteophytes. XR/XR knee LT 3V IMPRESSION: Moderate degenerative changes in the left knee.
== END 2024-02-03 06:34 | disposition home or self-care (01) ==
LOC: HO.HOSX 06:33
PROVIDERS: Visit Provider Orthopaedic Surgery
DX: M17.12 Unilateral primary osteoarthritis, left knee (principal); M25.662 Stiffness of left knee, not elsewhere classified
CPT/HCPCS: 73562; 99202

== ENCOUNTER 2024-02-03 10:04 | Outpatient (AMB) | payer MEDICARE, SELFPAY ==
--- NOTE | 2024-02-03 10:16 | MHC.OFFVIS ---
Vital Signs 02/03/24 10:24 Height 5 ft 2 in Weight 195 lb BMI 35.7 Intake Visit Reasons: New Pt - Left Knee Pain Intake Note: Sampson is a 68 year old male who presents today as a new patient with complaints of Left knee pain. Patient reports a few weeks ago he was sitting in his garage and stood up when he stood up due to sudden aching pain and stiffness. He states it wa spainful to stand causing him to fall back and land on his car. He denies recent injury to his left knee knee stating this was random, denies numbness, tingling, and weakness. He expresses he has not had pain since and does not feel it is interferring with his ADLs. Hx of Right TKA 6 years ago in [facility] [place] Allergies No Known Allergies [No Known Allergies*] Allergy (Verified 02/03/24 10:23) HPI HPI New Pt - Left Knee Pain: Details: Sampson is a 68 year old male who presents today as a new patient with complaints of Left knee pain. Patient reports a few weeks ago he was sitting in his garage and stood up when he stood up due to sudden aching pain and stiffness. He states it wa spainful to stand causing him to fall back and land on his car. He denies recent injury to his left knee knee stating this was random, denies numbness, tingling, and weakness. He expresses he has not had pain since and does not feel it is interferring with his ADLs. Hx of Right TKA 6 years ago in [facility] [place] [facility] Medical History Transaminitis COVID-19 vaccine series completed Cyst of right kidney Screening for prostate cancer Screening for diabetes mellitus Liver cyst Surgical History History of colonoscopy History of knee replacement procedure of right knee History of eye surgery H/O carpal tunnel repair H/O basal cell carcinoma excision History of ear surgery Family History Father Esophageal cancer Mother Hodgkin disease Brother Kidney malignancy Sibling Brother Kidney malignancy Sibling Social History (Updated 02/03/24 @ 10:24 by KRISTEN Tim) Household Members: Family Housing: House Are you a primary rental boats caretaker to a significant other at home: No Do you presently have visiting nurse or other home services: No Alcohol intake: never Patient Tobacco Use Status: Never used Tobacco e-Cigarette/Vaping Use: Never Used Second Hand Smoke Exposure: No service: No Current occupational status: employed and 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 Resp Other: No audible wheezing Effort & Inspection: normal respiratory effort Back/Spine/Pelvis Cervical Spine: normal cervical lordosis Skin General skin exam: no rashes or lesions noted Neuro General: no focal motor deficits Extrem Other: 5-125 degrees motion Tenderness to palpation, mild, medial compartment Normal gait mechanics Psych Appearance: grossly normal and well kempt Mental Status: mental status grossly normal Speech and movement: Normal speech and movement present Affect: normal affect Attitude: cooperative Results Reviewed Results Reviewed: right total knee arthroplasty in expected post operative position with no hardware complications or evidence of loosening Left knee with moderate tricompartmental osteoarthritis Assessment & Plan Assessment & Plan (1) Osteoarthritis of left knee: Code(s): M17.12 - Unilateral primary osteoarthritis, left knee Category: Medical Plan: This is a very pleasant 68-year-old gentleman with left knee osteoarthritis. He had a successful right knee replacement many years ago. Had an incident that caused pain and swelling in his left knee but that has since resolved. I reviewed the pathophysiology of knee arthritis and if he has any problems in the future he will return to see me. At this time, however, there is no orthopedic intervention warranted. Orders: Orders XR knee LT 3V Today M25.562 - Pain in left knee Coding Level of Care Code New Pt Level 3 (58961) Diagnoses Osteoarthritis of left knee M17.12
[2024-02-03 10:24] VITALS: BMI 35.7
== END 2024-02-03 10:45 | disposition home or self-care (01) ==
PROVIDERS: PCP Internal Medicine; Visit Provider Orthopaedic Surgery
DX: M17.12 Unilateral primary osteoarthritis, left knee (principal)
CPT/HCPCS: 99203

== ENCOUNTER 2024-04-19 10:40 | Outpatient (REF) | payer MEDICARE, SELFPAY ==
--- NOTE | ~2024-04-19 | XR_ITS ---
EXAMINATION: XR CHEST CLINICAL INFORMATION: Pulmonary nodules. X-ray done with nipple markers. COMPARISON: CT chest 10/27/2023. TECHNIQUE: 2 views of the chest were obtained. FINDINGS: There is no gross pneumothorax. Lung volumes are low. Heart size is normal. Left basilar consolidation with [id number] left pleural effusion. Bilateral nipple markers placed as requested by referring provider. No gross pulmonary nodules appreciated. CT scan of the chest is much more sensitive for evaluation of pulmonary nodules and should be obtained if there is clinical concern. Moderate degenerative changes in the thoracic spine. XR/XR chest 2V IMPRESSION: 1. Left basilar consolidation with [id number] left pleural effusion. 2. Bilateral nipple markers placed as requested by referring provider. No gross pulmonary nodules appreciated. CT scan of the chest is much more sensitive for evaluation of pulmonary nodules and should be obtained if there is clinical concern. Electronically signed by: Sheeba Lucas MD 05/07/2024 02:13 PM EDT
== END 2024-04-19 10:41 | disposition home or self-care (01) ==
LOC: HO.XRAY 10:40
PROVIDERS: PCP Internal Medicine; Visit Provider Internal Medicine Medical Oncology
DX: C69.92 Malignant neoplasm of unspecified site of left eye (principal)
CPT/HCPCS: 71046

== ENCOUNTER 2024-05-28 06:01 | Outpatient (REF) | payer MEDICARE, SELFPAY ==
[2024-05-28 07:47] LABS: Alanine Aminotransferase 32 U/L (0-40); Albumin Level 4.3 g/dL (3.5-5.0); Alkaline Phosphatase 52 U/L (39-117); Anion Gap 13 (12-20); Aspartate Amino Transferase 28 U/L (5-37); Bilirubin Total 1.1 mg/dL (0.0-1.0); Blood Urea Nitrogen 17 mg/dL (9-16); Carbon Dioxide 25 mmol/L (22-29); Chloride 108 mmol/L (96-108); Cholesterol 174 mg/dL (<200); Estimated Glomerular Filt Rate > 60; Glucose Fasting 100 mg/dL (60-99); HDL Cholesterol 38 mg/dL (>40); LDL Cholesterol Calculated 96 mg/dL (<100); Potassium 4.1 mmol/L (3.3-5.1); Sodium 142 mmol/L (135-145); Total Protein 6.7 g/dL (6.5-8.0); Triglycerides 201 mg/dL (<150)
[2024-05-28 08:08] LABS: PSA,Total (Free>4and<10) 0.98 ng/mL (0.00-4.00)
== END 2024-05-28 06:02 | disposition home or self-care (01) ==
LOC: HO.LAB 06:01
PROVIDERS: PCP Internal Medicine; Visit Provider Internal Medicine
DX: R74.01 Elevation of levels of liver transaminase levels (principal); E78.5 Hyperlipidemia, unspecified; Z12.5 Encounter for screening for malignant neoplasm of prostate
CPT/HCPCS: 36415; 80053; 80061; 84153

== ENCOUNTER 2024-05-29 15:07 | Outpatient (AMB) | payer MEDICARE, SELFPAY ==
--- NOTE | 2024-05-29 15:12 | MHC.PC.OV ---
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 Left eye melanoma is follow by Ophthalmology in [place]. Complains of occasional knee pain due to osteoarthritis and this is follow by ortho. Recent labs were done showing elevated triglycerides and dietary changes were recommended. He has 2 liver lesion that are follow by Gastroenterology. One of them has been present since 2020 and has decrease in size. Denies any jaundice, chest pain or shortness on breath. [facility] Medical History (Updated 05/29/24 @ 17:31 by Elvira Grimes MD) Transaminitis COVID-19 vaccine series completed Cyst of right kidney Screening for prostate cancer Screening for diabetes mellitus Liver cyst Surgical History History of colonoscopy History of knee replacement procedure of right knee History of eye surgery H/O carpal tunnel repair H/O basal cell carcinoma excision History of ear surgery Family History Father Esophageal cancer Mother Hodgkin disease Brother Kidney malignancy Sibling Brother Kidney malignancy Sibling Social History Household Members: Family Housing: House Are you a primary child care worker to a significant other at home: No Do you presently have visiting nurse or other home services: No Alcohol intake: never Patient Tobacco Use Status: Never used Tobacco e-Cigarette/Vaping Use: Never Used Second Hand Smoke Exposure: No service: No Current occupational status: employed and retired 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 How often do you have a drink containing alcohol?: Never 3. How often do you have six or more drinks on one occasion?: Never Total Score: 0 Score Reviewed/Action Taken: No ERNIE-7 AMB Questionnaire ERNIE-7 Date ERNIE - 7 assessed: 10/12/23 Source: Developed by Drs. Payam Irene, Lora Brooks, Nathan Baker and colleagues, with an educational jovana from [employer]. Review of Systems Const All systems reviewed & are unremarkable except as noted in HPI and below Card Denies chest pain at rest, Denies chest pain with activity, Denies edema, Denies irregular heart rhythm, Denies claudication, Denies dyspnea, Denies dyspnea on exertion, Denies orthopnea, Denies paroxysmal nocturnal dyspnea and Denies slow heart rate Resp Denies cough, Denies dyspnea and Denies dyspnea on exertion GI Denies abdominal pain, Denies change in bowel habits, Denies excessive flatus, Denies nausea and Denies vomiting Physical exam (Primary Care) Vital Signs: Last Vital Signs Pulse 60 05/29/24 15:13 BP 140/82 H 05/29/24 15:13 Pulse Ox 96 05/29/24 15:13 Oxygen Delivery Method Room Air 05/29/24 15:13 BMI result Body Mass Index 34.9 BMI Assessment/Plan discussion: High BMI High, discussed plan: lifestyle, weight reduction, dietary and physical activity Tobacco/Smoking Status: Tobacco use Status Tobacco use date assessed 05/29/24 05/29/24 15:16 Patient Tobacco Use Status Never used Tobacco 05/29/24 15:16 e-Cigarette/Vaping Use Never Used 05/29/24 15:16 Thrive Assessment: Date of Thrive Assessment Date Thrive assessed 10/12/23 05/29/24 15:16 Resp Effort & Inspection: normal respiratory effort Auscultation: clear to auscultation bilaterally Cardio Jugular venous distension: no JVD Rate: regular rate Rhythm: regular rhythm Heart sounds: S1 normal heart sound present and S2 normal heart sound present Extrem General: Yes full ROM Office Procedures Flu Questionnaire Does the patient have a severe egg allergy?: No Does the patient have severe life threatening allergies?: No Does the patient have a fever or illness today?: No Has the patient ever had Guillain-[place] Syndrome?: No Has the patient ever had any past reaction to a flu shot?: No Immunizations Fluarix Triv [id number] (PF) 45 mcg (15 mcg x 3)/0.5 mL IM syringe Performing Provider: Elvira Grimes MD [place] [facility] [facility] [place] [facility] Administered by: KRISTEN Weinstein on 05/29/24 15:38 Dose Route Admin Location Dispensed Lot Number Expiration Date [facility] Multifocal Button Inspector 0.5 mL IM Left Deltoid 0.5 mL [id number] 02/11/25 [id number] [employer] VIS Given Date VIS Provided VIS Publication Date 05/29/24 Single Vaccine 21 Eligibility Eligibility Date Funding Source Not [facility] Eligible 05/29/24 Private Coding Level of Care Code Est Pt Level 4 (90697) Complex EM visit Add On G2211 Diagnoses Liver lesion K76.9 Primary osteoarthritis of left knee M17.12 Osteoarthritis type: primary Hypertriglyceridemia E78.1 Intraocular melanoma of left eye C69.92 Time Spent (min) 21 Assessment & Plan Assessment & Plan (1) Liver lesion: Code(s): K76.9 - Liver disease, unspecified Category: Medical Plan: Follow-up with Gastroenterology. (2) Osteoarthritis of left knee: Code(s): M17.12 - Unilateral primary osteoarthritis, left knee Category: Medical Qualifiers: Osteoarthritis type: primary Qualified Code(s): M17.12 - Unilateral primary osteoarthritis, left knee Plan: Follow-up with ortho. (3) Hypertriglyceridemia: Code(s): E78.1 - Pure hyperglyceridemia Category: Medical Plan: Advised to do some dietary changes. (4) Intraocular melanoma of left eye: Code(s): C69.92 - Malignant neoplasm of unspecified site of left eye Category: Medical Plan: Follow-up with ophthalmology. Orders: Orders Influenza [id number] Immunization Today Z23 - Encounter for immunization
[2024-05-29 15:13] VITALS: BP 140/82; PULSE 60; O2SAT 96; BMI 34.9
== END 2024-05-29 15:38 | disposition home or self-care (01) ==
PROVIDERS: PCP Internal Medicine; Visit Provider Internal Medicine
DX: K76.9 Liver disease, unspecified (principal); M17.12 Unilateral primary osteoarthritis, left knee; E78.1 Pure hyperglyceridemia; C69.92 Malignant neoplasm of unspecified site of left eye; Z23 Encounter for immunization

== ENCOUNTER → 2024-05-29 15:07 | Outpatient (BNVA) | payer MEDICARE, SELFPAY | PROVIDERS: PCP Internal Medicine; Visit Provider Internal Medicine | DX: Z23 Encounter for immunization (principal); M17.12 Unilateral primary osteoarthritis, left knee; K76.9 Liver disease, unspecified; E78.1 Pure hyperglyceridemia; C69.92 Malignant neoplasm of unspecified site of left eye | CPT/HCPCS: 90471; 90656; 99212 ==

== ENCOUNTER 2024-07-15 11:55 | Outpatient (REF) | payer MEDICARE, SELFPAY ==
--- NOTE | ~2024-07-15 | MR_ITS ---
EXAMINATION: MR ABDOMEN WITHOUT AND WITH CONTRAST CLINICAL INFORMATION: Liver lesion COMPARISON: MRI 09/08/2023 , CT chest 10/27/2023 TECHNIQUE: MR abdomen was performed without and with use of 8.5 mL intravenous Gadavist gadolinium contrast. Postcontrast images are performed in multiphase dynamic sequences. Imaging was performed in 3 planes. FINDINGS: LUNG BASES: There is a left-sided hydropneumothorax which appears similar to the prior MR August 2023. LIVER, GALLBLADDER, AND BILIARY TREE: The liver is normal in size and there is loss of signal intensity on in and out of phase imaging compatible with fatty infiltration, similar to the prior study. At the liver dome there is a 1.3 x 1 cm lesion with increased signal intensity on T1-weighted images (image 14, series 12), and is not well visualized on T2-weighted images. On the prior MRI this measured 5 to 6 mm. Postcontrast evaluation is slightly limited given the intense increased T1 signal intensity, though on subtraction images there is likely some degree of contrast enhancement. There is a similar 3 mm observation within the posterior lateral aspect of segment 7 (image 13, series 2) and within segment 5 (image 31, series 12). These were not well visualized on the prior study. The previously described probable degenerated cyst within the left hepatic lobe measures 1.5 x 1.3 cm and is overall not significant change from the prior study (image 27, series 12). There is a small distended cystic duct remnant. There is no intra or extra hepatic duct dilation. PANCREAS: Long the anterior aspect of the distal pancreatic body there is a 3 mm cystic structure with increased signal intensity in T2-weighted images and no postcontrast enhancement. No definite communication with the duct is identified. Pancreas is otherwise unremarkable. SPLEEN: Spleen is normal in size and overall signal Cardura 6. Adjacent to the lower pole of the spleen there is a 1.1 cm splenule. ADRENAL GLANDS: Normal. KIDNEYS AND URETERS: The kidneys are normal in size, shape, and enhance symmetrically. At the midpole the right kidney there is a nonenhancing 2.7 x 2.2 cm simple cyst which would not require routine radiographic follow-up. There are a few small renal sinus cysts on the left without concerning features. No hydronephrosis. No perinephric stranding. GASTROINTESTINAL TRACT: No bowel obstruction. No ascites or fluid collection. ABDOMINAL WALL: On sagittal images there is a fat-containing periumbilical hernia that measures 2.3 cm craniocaudal. LYMPH NODES: No lymphadenopathy. VASCULAR: Unremarkable. OSSEOUS STRUCTURES: Marrow signal normal. MR/MR abdomen wo/w con IMPRESSION: Left-sided hydropneumothorax. The appearance is overall similar to the prior MRI and CT. This finding was communicated with Sanchez Hawley M.D by Isael Gasca M.D. at approximately 1601 hours. Increase in the size of a 1.3 x 1 cm observation at the liver dome with increased signal intensity in T1-weighted images and possible postcontrast enhancement. Previously this measured 0.6 cm. There is likely some degree of postcontrast enhancement. There is also development of 2 additional 3 mm lesions with increased signal intensity on T1-weighted images. 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 3 mm cystic structure associated with the anterior aspect of the distal body of the pancreas. Follow-up imaging in 6-12 months should be considered. Unchanged appearance of complicated cyst within the anterior left hepatic lobe. Electronically signed by: Bishop Gasca MD 07/16/2024 04:23 PM [facility]
[2024-07-15] MEDS: gadobutroL 10 ML VIAL IVPUSH (13:16)
== END 2024-07-15 11:56 | disposition home or self-care (01) ==
LOC: HO.MRI 11:55
PROVIDERS: PCP Internal Medicine; Visit Provider Internal Medicine Gastroenterology
DX: R93.2 Abnormal findings on diagnostic imaging of liver and biliary tract (principal)
CPT/HCPCS: 74183; A9585

== ENCOUNTER 2024-07-31 09:58 | Outpatient (AMB) | payer MEDICARE, SELFPAY ==
--- NOTE | 2024-07-31 09:55 | MHC.OFFVIS ---
Vital Signs 07/31/24 10:01 Height 5 ft 2 in Weight 192 lb BMI 35.1 BP 165/73 H Blood Pressure Location Rt brachial Position Sitting Pulse 75 Intake Visit Reasons: Liver lesion~MRI 07-15-24 Intake Note: Patient referred by Dr. Hawley for lesion on liver noted on Abdomen/ MRI 07-15-2024. Patient c/o: overwhelmed with too many appointments. 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 Patient is known to me from a thoracic issue/Hydrogel pneumothorax as well as from previously diagnosed bridge of nose basal cell carcinoma. Patient states he is doing well. Starting a diet. Having regular bowel habits. He is energy, appetite, weight are stable. Chart was reviewed and patient evaluated. 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 [facility] Medical History Transaminitis COVID-19 vaccine series completed Cyst of right kidney Screening for prostate cancer Screening for diabetes mellitus Liver cyst Surgical History History of colonoscopy History of knee replacement procedure of right knee History of eye surgery H/O carpal tunnel repair H/O basal cell carcinoma excision History of ear surgery Family History Father Esophageal cancer Mother Hodgkin disease Brother Kidney malignancy Sibling Brother Kidney malignancy Sibling Social History Household Members: Family Housing: House Are you a primary urgent care physician to a significant other at home: No Do you presently have visiting nurse or other home services: No Alcohol intake: never Patient Tobacco Use Status: Never used Tobacco e-Cigarette/Vaping Use: Never Used Second Hand Smoke Exposure: No service: No Current occupational status: employed and retired 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 GI Other: Abdomen corpulent, soft, benign. Moderately sized umbilical hernia (3 cm reducible) Assessment & Plan Assessment & Plan (1) Liver mass: Code(s): R16.0 - Hepatomegaly, not elsewhere classified Category: Surgical Plan: Options were reviewed with the patient which would include repeating a scan in 3-6 months time or biopsy of his liver lesion. I recommend the latter. This will be done by Interventional Radiology. Discussion with the patient he is in agreement with this. Arrangements were made for the above-mentioned procedure and patient will see me afterwards to review the pathology indirect further interventions and studies based on the results. All questions answered. Orders: Orders CT biopsy liver Today R16.0 - Hepatomegaly, not elsewhere classified Coding Level of Care Code Est Pt Level 4 (47481) Diagnoses Liver mass R16.0
[2024-07-31 10:01] VITALS: BP 165/73; PULSE 75; BMI 35.1
== END 2024-07-31 10:08 | disposition home or self-care (01) ==
PROVIDERS: PCP Internal Medicine; Visit Provider Surgery
DX: R16.0 Hepatomegaly, not elsewhere classified (principal)
CPT/HCPCS: 99214

== ENCOUNTER → 2024-07-31 09:58 | Outpatient (BNVA) | payer MEDICARE, SELFPAY | PROVIDERS: PCP Internal Medicine; Visit Provider Surgery | DX: R16.0 Hepatomegaly, not elsewhere classified (principal) | CPT/HCPCS: 99212 ==

== ENCOUNTER 2024-08-27 08:21 | Day surgery (SDC) | payer MEDICARE, SELFPAY ==
--- OUTSIDE RECORDS SUMMARY | 2024-08-03 08:36 | XMS_ITS ---
Author Organization [facility] Address [address] [place] [id number] Care Team Providers Care Banana Carrier Name Role Phone Elvira Pang Primary Care Provider Unavailab Sanchez Perez Jr Unavailable ALLERGIES No Known Allergies REASON FOR VISIT Patient presents today for abdominal pain VITAL SIGNS BMI 32.28 kg/m2 06/27/2024 Blood pressure systolic 000 mm Hg 06/27/20 24 Blood pressure diastolic 00 mm Hg 024 Height 64.5 in 06/27/2024 Temperature 97.5 degrees Fahrenheit 06/27/20 24 Weight 191 lbs 06/27/2024 Encounters Encounter Location Date Provider Diagnosis [facility] [address] [place] [phone] 06/27/2024 Sanchez Hawley Jr Colon cancer screening Z12.11 ; Abnormal magnetic resonance imaging of liver R93.2 and Gastroesophageal reflux disease without esophagitis K21.9 ASSESSMENTS Encounter Date Diagnosis Assessment Notes Treatment Notes Treatment Clinical Notes 06/27/2024 Colon cancer screeni ng (ICD-10 - Z12.11) Colonoscopy material was printed 06/27/2024 Abnormal magnetic resonance imaging of liver (ICD-10 - R93.2) 06/27/2024 Gastroesophageal reflux disease without esophagitis (ICD-10 - K21.9) PLAN OF TREATMENT Treatment Notes Assessment Notes Colon cancer screening Colonoscopy mater ial was printed Pending Test Test Name Order Date BUN 06/27/2024 CREATININE 06/27/2024 LIVER PROFILE 06/27/2024 CBC w/o DIFF 06/27/2024 MRI ABD W&WO CONTRAST 06/27/2024 Future Test Test Name Order Date COLONOSCOPY 06/27/2024 Next Appt Details Follow Up: 1 Year, Reason: Provider Name:Sanchez levin Jr, 10/09/2024 08:30:00 AM, [address] [place] [address] , [place], [place], [phone],
--- OUTSIDE RECORDS SUMMARY | 2024-08-03 08:36 | XMS_ITS | Patient Health Record ---
Author Organization [facility] [place] Address [address] [place] [address] Care Team Providers Care Otologist Name Role Phone Elvira Pang Primary Care Provider Unavailab Sanchez Perez Jr Unavailable [phone] ALLERGIES No Known Allergies RESULTS Component Value Reference Range Notes US abdomen complete Reviewed date:08/18/2023 11:06:24 AM Interpretation: Performing Lab: Notes/Report: [address] [address] Ultrasound Report Signed Patient: Sampson Mackey MR#: [id number] 963 : 1955 Acct:[id number] Age/Sex: 68 / M ADM Date: 08/03/23 Loc: HO.US Attending Dr: Sanchez Hawley MD Ordering Physician: Sanchez Hawley MD Date of Service: 08/03/23 Procedure(s): US abdomen complete Accession Number(s): [id number] cc: Sanchez Hawley MD; Elvira Pang MD EXAMINATION: US ABDOMEN COMPLETE CLINICAL INFORMATION: Fatty change of liver, not elsewhere classified.. COMPARISON: Ultrasound abdomen complete with elastography 11/04/2021. Ultrasound abdomen complete 02/05/2021. TECHNIQUE: Real-time imaging of the abdominal viscera. FINDINGS: PANCREAS: Normal. ABDOMINAL AORTA: The proximal, mid, and distal segments are normal in caliber. INFERIOR VENA CAVA: Visualized portions are normal. LIVER: Diffuse increased echogenicity to the liver parenchyma. 1.7 x 1.7 x 1.8 cm avascular solid appearing left subcapsular lesion is seen. On previous study, surrounding cystic component was seen and is no longer identified. There is no intrahepatic biliary duct dilatation seen. GALLBLADDER: Gallbladder is not identified, patient denies cholecystectomy. No tenderness elicited during study. COMMON BILE DUCT: Common bile duct measures 0.8 cm in diameter. RIGHT KIDNEY: No hydronephrosis. The kidney measures 10.8 cm in maximum dimension. 2.7 x 2.0 x 2.9 cm upper pole cyst. 0.7 x 0.4 x 0.6 cm lower pole nonobstructing renal calculus. LEFT KIDNEY: No hydronephrosis or focal parenchymal lesions. The kidney measures 12.4 cm in maximum dimension. 0.4 x 0.3 x 0.4 cm nonobstructing mid pole calculus. SPLEEN: Normal. The spleen measures 9.5 cm in maximum dimension. FREE FLUID: None. US/US abdomen complete IMPRESSION: 1.8 cm subcapsular left hepatic lobe solid lesion. Surrounding cystic component seen previously is no longer identified. Nonvisualization of the gallbladder and prominent common bile duct in the right state. Liver protocol MRI recommended. Bilateral nonobstructing renal calculi. Right kidney cyst. Dictated By: Anamika Camp MD Signed By: <Electronically signed by Anamika Camp MD in OV> 08/09/23 1708 DD/ 0955 TD/TT: Customs Collector: MR abdomen wo/w leilani Reviewed date:09/09/2023 02:00:16 PM Interpretation: Performing Lab: Notes/Report: [address] [address] Magnetic Resonance Report Signed Patient: Sampson Mackey MR#: [id number] 963 : 1955 Acct:[id number] Age/Sex: 68 / M ADM Date: 09/08/23 Loc: HO.MRI Attending Dr: Sanchez Hawley MD Ordering Physician: Sanchez Hawley MD Date of Service: 09/08/23 Procedure(s): MR abdomen wo/w con Accession Number(s): [id number] cc: Sanchez Hawley MD; Evlira Pang MD EXAMINATION: MR ABDOMEN WITHOUT AND WITH CONTRAST CLINICAL INFORMATION: Liver lesion on recent ultrasound. COMPARISON: Abdominal ultrasound 08/03/2023. TECHNIQUE: MR abdomen was performed without and with use of 9 mL intravenous Gadavist gadolinium contrast. Postcontrast images are performed in multiphase dynamic sequences. Imaging was performed in 3 planes. FINDINGS: LUNG BASES: Partially imaged left-sided hydropneumothorax. LIVER, GALLBLADDER, AND BILIARY TREE: There is signal loss in the opposed phase dual echo images consistent with hepatic steatosis. Otherwise, liver is normal in size and morphology. Corresponding to the abnormality in question in the left hepatic lobe on the recent ultrasound, there is a 1.7 x 1.3 cm observation in the left hepatic lobe (9:25), that demonstrates internal precontrast T1 bright signal, associated capsular retraction, and no definite internal enhancement on postcontrast images. There is a halo of delayed enhancement which is most likely perfusional. This correlates with a previously described complicated cyst on multiple prior ultrasounds study dating back to 02/05/2021, where it measured 4.2 x 4.8 cm. There is a 0.6 cm enhancing observation in the right hepatic lobe with enhancement that persists on delayed postcontrast images (102:19), demonstrating preserved signal compared to the remaining of the parenchyma in the out of phase dual echo images suggestive of fat sparing, and equivocal mild T2 bright signal (8:7), although it is overall not well seen on the T2 images possibly due to small size and volume averaging. PANCREAS: Fatty infiltration. No main ductal dilatation. No lesion. No peripancreatic inflammatory changes. SPLEEN: Normal. ADRENAL GLANDS: Normal. KIDNEYS AND URETERS: The kidneys are normal in size, shape, and enhance symmetrically. No hydronephrosis. No perinephric stranding. A few Bosniak 1 cortical and peripelvic cysts are noted, the largest in the posterior aspect of the upper right kidney measuring 2.7 cm. No imaging follow up is recommended for these cysts. GASTROINTESTINAL TRACT: Fat-containing periumbilical hernias, sac measuring in conjunction approximately 6.3 cm craniocaudally (3:2). No evidence of bowel obstruction. Colonic diverticulosis without significant pericolonic inflammatory changes to suspect acute diverticulitis. Equivocal mild hyperemia of the gastric antrum/duodenal bulb. No ascites. ABDOMINAL WALL: As above, fat-containing umbilical hernia. LYMPH NODES: No lymphadenopathy. VASCULAR: Normal caliber abdominal aorta. OSSEOUS STRUCTURES: Degenerative disease of the spine. No acute or aggressive appearing osseous findings. MR/MR abdomen wo/w con IMPRESSION: 1. Corresponding to the lesion in question on the most recent ultrasound in the left hepatic lobe, there is a 1.7 cm complicated cyst with internal proteinaceous/hemorrhagic products. This cyst has been present dating back to 02/05/2021 where it measured 4.8 cm. There is associated capsular retraction which is most likely sequela of infection/inflammatory process and rupture of the cyst with scarring. On postcontrast images, there is no concerning enhancement. 2. There is a 0.6 cm enhancing observation in the right hepatic lobe with enhancement that persist on later phases of contrast, and possibly demonstrating mild T2 bright signal although it is overall not well seen on the T2 images due to small size and volume averaging. This most likely represents a benign observation such as flash filling hemangioma, although due to its small size it is incompletely characterized and out of precaution follow-up with an abdominal MRI in 6 months is recommended. 3. Hepatic steatosis. 4. Equivocal mild hyperemia of the stomach antrum/duodenal bulb. Recommend clinical correlation for gastritis/peptic ulcer disease and further evaluation with upper endoscopy as clinically warranted. 5. Incidentally noted small left-sided hydropneumothorax. This critical result, specifically the presence of a hydropneumothorax, was discussed with Velma Lou MA at 09/09/2023 9:22 AM and it was ascertained that the content and urgency of the report was understood at the time of direct communication. Dictated By: Tiara Irizarry Signed By: <Electronically signed by Tiara Irizarry in OV> 09/09/23 0939 DD/ 1030 TD/TT: Customs Collector: MR abdomen wo/w con Reviewed date:07/18/2024 08:21:58 AM Interpretation: Performing Lab: Notes/Report: [address] [address] Magnetic Resonance Report Signed Patient: Sampson Mackey MR#: [id number] 963 : 1955 Acct:[id number] Age/Sex: 69 / M ADM Date: 07/15/24 Loc: HO.MRI Attending Dr: Sanchez Hawley MD Ordering Physician: Sanchez Hawley MD Date of Service: 07/15/24 Procedure(s): MR abdomen wo/w con Accession Number(s): [id number] cc: Sanchez Hawley MD; Elvira Pang MD EXAMINATION: MR ABDOMEN WITHOUT AND WITH CONTRAST CLINICAL INFORMATION: Liver lesion COMPARISON: MRI 09/08/2023 , CT chest 10/27/2023 TECHNIQUE: MR abdomen was performed without and with use of 8.5 mL intravenous Gadavist gadolinium contrast. Postcontrast images are performed in multiphase dynamic sequences. Imaging was performed in 3 planes. FINDINGS: LUNG BASES: There is a left-sided hydropneumothorax which appears similar to the prior MR August 2023. LIVER, GALLBLADDER, AND BILIARY TREE: The liver is normal in size and there is loss of signal intensity on in and out of phase imaging compatible with fatty infiltration, similar to the prior study. At the liver dome there is a 1.3 x 1 cm lesion with increased signal intensity on T1-weighted images (image 14, series 12), and is not well visualized on T2-weighted images. On the prior MRI this measured 5 to 6 mm. Postcontrast evaluation is slightly limited given the intense increased T1 signal intensity, though on subtraction images there is likely some degree of contrast enhancement. There is a similar 3 mm observation within the posterior lateral aspect of segment 7 (image 13, series 2) and within segment 5 (image 31, series 12). These were not well visualized on the prior study. The previously described probable degenerated cyst within the left hepatic lobe measures 1.5 x 1.3 cm and is overall not significant change from the prior study (image 27, series 12). There is a small distended cystic duct remnant. There is no intra or extra hepatic duct dilation. PANCREAS: Long the anterior aspect of the distal pancreatic body there is a 3 mm cystic structure with increased signal intensity in T2-weighted images and no postcontrast enhancement. No definite communication with the duct is identified. Pancreas is otherwise unremarkable. SPLEEN: Spleen is normal in size and overall signal Cardura 6. Adjacent to the lower pole of the spleen there is a 1.1 cm splenule. ADRENAL GLANDS: Normal. KIDNEYS AND URETERS: The kidneys are normal in size, shape, and enhance symmetrically. At the midpole the right kidney there is a nonenhancing 2.7 x 2.2 cm simple cyst which would not require routine radiographic follow-up. There are a few small renal sinus cysts on the left without concerning features. No hydronephrosis. No perinephric stranding. GASTROINTESTINAL TRACT: No bowel obstruction. No ascites or fluid collection. ABDOMINAL WALL: On sagittal images there is a fat-containing periumbilical hernia that measures 2.3 cm craniocaudal. LYMPH NODES: No lymphadenopathy. VASCULAR: Unremarkable. OSSEOUS STRUCTURES: Marrow signal normal. MR/MR abdomen wo/w con IMPRESSION: Left-sided hydropneumothorax. The appearance is overall similar to the prior MRI and CT. This finding was communicated with Sanchez Hawley M.D by Isael Gasca M.D. at approximately 1601 hours. Increase in the size of a 1.3 x 1 cm observation at the liver dome with increased signal intensity in T1-weighted images and possible postcontrast enhancement. Previously this measured 0.6 cm. There is likely some degree of postcontrast enhancement. There is also development of 2 additional 3 mm lesions with increased signal intensity on T1-weighted images. 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 3 mm cystic structure associated with the anterior aspect of the distal body of the pancreas. Follow-up imaging in 6-12 months should be considered. Unchanged appearance of complicated cyst within the anterior left hepatic lobe. Electronically signed by: Bishop Gasca MD 07/16/2024 04:23 PM [facility] Workstation: [id number] Dictated By: Isael Gasca MD Signed By: <Electronically signed by Isael Gasca MD in OV> 07/16/24 1623 DD/ 1240 TD/TT: 07/15/24 1315 Customs Collector: JANENE REASON FOR REFERRAL No Information IMMUNIZATIONS Vaccine Route Administration Date Status Comme nts Influenza Unknown 07/15/2019 Administered Influenza Unknown 03/15/2021 Administered Influenza Unknown 06/20/2024 Administered Influenza Unknown 06/27/2023 Refused SOCIAL HISTORY Sex Assigned At : Social History Observation Description Sex Assigned At Unknown PROBLEMS Problem Type ICD Code Onset Dates Problem Status W/U Status Risk SNOMED Code Notes Problem Colon cancer screening (Z12.11) Active confirmed 301742023 Problem Diverticulosis (K57.90) Active confirmed Diverticular disease of colon (489189936) Problem Gastroesophageal reflux disease without esophagitis (K21.9) Active confirmed 006639245 Problem Fatty liver (K76.0) Active confirmed 19 2185581 Problem Liver lesion (K76.9) Active confirmed 090817753 Problem Abnormal magnetic resonance imaging of liver (R93.2) Active confirmed 533422794 VITAL SIGNS Temperature 97.5 degrees Fahrenheit 06/27/2024 Blood pressure diastolic 00 mm Hg 06/27/2024 Height 64.5 in 06/27/2024 Blood pressure systolic 000 mm Hg 06/27/2024 Weight 191 lbs 06/27/2024 BMI 32.28 kg/m2 06/27/2024 Encounters Encounter Location Date Provider Diagnosis [facility] [address] [place] [phone] 06/27/2024 Sanchez Hawley Jr Colon cancer screening Z12.11 ; Abnormal magnetic resonance imaging of liver R93.2 and Gastroesophageal reflux disease without esophagitis K21.9 [facility] [address] [place] [phone] 08/18/2023 Sanchez Hawley Jr Liver lesion K76.9 and Abnormal ultrasound of liver R93.2 [facility] [address] [place] [phone] 09/09/2023 Sanchez Hawley Jr Abnormal magnetic resonance imaging of liver R93.2 [facility] [address] [place] [phone] 07/18/2024 Sanchez Hawley Jr Abnormal magnetic resonance imaging of liver R93.2 ASSESSMENTS Encounter Date Diagnosis Assessment Notes Treatment Notes Treatment Clinical Notes 06/27/2024 Colon cancer screeni ng (ICD-10 - Z12.11) Colonoscopy material was printed 06/27/2024 Abnormal magnetic resonance imaging of liver (ICD-10 - R93.2) 08/18/2023 Liver lesion (ICD-10 - K76.9) 08/18/2023 Abnormal ultrasound of liver (ICD-10 - R93.2) 09/09/2023 Abnormal magnetic resonance imaging of liver (ICD-10 - R93.2) MRI to be done in 6 months 07/18/2024 Abnormal magnetic resonance imaging of liver (ICD-10 - R93.2) 06/27/2024 Gastroesophageal reflux disease without esophagitis (ICD-10 - K21.9) PLAN OF TREATMENT Pending Test Test Name Order Date BUN 06/27/2024 CREATININE 06/27/2024 LIVER PROFILE 06/27/2024 CBC w/o DIFF 06/27/2024 MRI ABD W&WO CONTRAST 08/18/2023 MRI ABD W&WO CONTRAST 06/27/2024 MRI ABD W&WO CONTRAST 09/09/2023 XR GI SERIES 11/01/2012 XR GI SERIES 11/01/2013 US ABD 06/27/2023 MR abdomen wo/w con 07/18/2024 Future Test Test Name Order Date UPPER GI ENDOSCOPY 08/28/2012 COLONOSCOPY 01/28/2016 COLONOSCOPY 07/25/2019 COLONOSCOPY 06/27/2024 Next Appt Details Provider Name:Sanchez levin , 10/09/2024 08:30:00 AM, [address] [place] [address] , [place], [place], [phone], Insurance Providers Payer Name Payer Address Payer Phone Subscriber Number Group Number Insured Name Patient Relationship to Insured Coverage Start Date Coverage End Date MEDICARE OF [place] [address] [place] [address] [id number] SAMPSON MACKEY Self - patient is the insured [employer] ATTN CLAIMS [address] [place] [address] [id number] SAMPSON MACKEY Self - patient is the insured MEDICAL (GENERAL) HISTORY Medical History History ICD Code colonoscopy 10/12/19, tubular adenoma x1, five-year followup onychomycosis carpal tunnel syndrome Basal cell skin cancers GERD, EGD 11/01/12 elevated cholesterol Intraocular melanoma, left eye, 2018, 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 Bach carpal tunnel
--- OUTSIDE RECORDS SUMMARY | 2024-08-03 08:36 | XMS_ITS ---
Author Organization [facility] Address [address] [place] [phone] Care Team Providers Care Forest Fire Lookout Name Role Phone Elvira Pang Primary Care Provider Unavailab Sanchez Perez Jr REASON FOR VISIT MRI results PROBLEMS Problem Type ICD Code Onset Dates Problem Status W/U Status Risk SNOMED Code Notes Problem Abnormal magnetic resonance imaging of liver (R93.2) Active confirmed 156953206 Encounters Encounter Location Date Provider Diagnosis [facility] [address] [place] [phone] 09/09/2023 Sanchez Hawley Jr Abnormal magnetic resonance imaging of liver R93.2 ASSESSMENTS Encounter Date Diagnosis Assessment Notes Treatment Notes Treatment Clinical Notes 09/09/2023 Abnormal magnetic resonance imaging of liver (ICD-10 - R93.2) MRI to be done in 6 months PLAN OF TREATMENT Treatment Notes Assessment Notes Abnormal magnetic resonance imaging of l iver MRI to be done in 6 months Pending Test Test Name Order Date MRI ABD W&WO CONTRAST 09/09/2023 Next Appt Details Provider Name:Sanchez levin Jr, 10/09/2024 08:30:00 AM, [address] [place] [address] , [place], [place], [phone],
[2024-08-27] VITALS (19 sets, daily range): BP systolic 109–160; BP diastolic 71–93; PULSE 59–68; RESP 10–16; TEMP 36.5–36.7; O2SAT 93–97; BMI 31.4
--- NOTE | ~2024-08-27 | US_ITS ---
History of ocular melanoma. Right lobe liver lesion in dome of liver. PROCEDURES: 1. Limited preprocedure ultrasound of the abdomen. Permanent images saved in PACS. 2. Ultrasound-guided biopsy of the right lobe liver mass. 3. Limited preprocedure ultrasound of the abdomen. Permanent images saved in PACS. CLINICIANS: Isael Hart PA-C MEDICATIONS: -Versed 1.5 mg, Fentanyl 75 mcg, and lidocaine 1% 10 mL SQ -Antibiotics: None -For additional details, please see nursing flowsheet. COMPLICATIONS: None ESTIMATED BLOOD LOSS: < 5 ml CONTRAST: None SPECIMENS: 3 x 20 g cores were sent to pathology MODERATE SEDATION TIME: 30 min PROCEDURE NOTE: The procedure, risks, benefits, and alternatives were carefully explained to the patient and written informed consent was obtained. The patient was placed supine on the exam table. A timeout was performed. A limited ultrasound of the abdomen was performed to localize the right lobe liver lesion and choose appropriate needle entry and trajectory. The patient was prepped and draped in usual sterile fashion. The skin and deeper soft tissues were anesthetized with lidocaine. Under ultrasound guidance, a 19 gague trocar needle was advanced to the liver lesion. A 20 gauge biopsy device was inserted through the trocar needle advanced into the liver lesion. A total of 3, 20 gague cores were performed. The specimens were placed in formalin. A total of 2 Gelfoam torpedoes were then administered through the trocar needle into the biopsy tract and at the level of the liver capsule. The needle was removed. A limited post procedure ultrasound was then performed. Images were saved in PACS. A dry dressing was applied and secured with Tegaderm. There were no immediate complications. The patient was stable after the procedure and was transferred to the post anesthesia care unit. The procedure was done under moderate sedation with a dedicated nurse for monitoring of vital signs. US/US biopsy liver Impression: Ultrasound-guided biopsy of a right lobe liver mass. This procedure was performed by Isael Hart PA-C and supervised by Dr. Scott. Electronically signed by: Tej Scott MD 08/31/2024 02:18 PM [facility]
--- OUTSIDE RECORDS SUMMARY | 2024-08-27 08:31 | XMS_ITS ---
Author Organization [facility] Address [address] [place] [phone] Care Team Providers Care Wet Cotton Feeder Name Role Phone Elvira Pang Primary Care Provider Unavailab Sanchez Perez Jr Unavailable [phone] REASON FOR VISIT records Encounters Encounter Location Date Provider Diagnosis [facility] [address] [place] [phone] 08/03/2024 Sanchez Hawley Jr PLAN OF TREATMENT Next Appt Details Provider Name:Sanchez levin Jr, 10/09/2024 08:30:00 AM, [address] [place] [address] , [place], [place], [phone],
--- OUTSIDE RECORDS SUMMARY | 2024-08-27 08:31 | XMS_ITS ---
Author Organization [facility] Address [address] [place] [phone] Care Team Providers Care Geothermal Powerplant Mechanic Name Role Phone Elvira Pang Primary Care [...] 06/27/2024 Encounters Encounter Location Date Provider Diagnosis [facility] [address] [place] [phone] 06/27/2024 Sanchez Hawley Jr Colon cancer screening [...] Provider Name:Sanchez levin Jr, 10/09/2024 08:30:00 AM, [address] [place] [address] , [place], [place], [phone],
--- OUTSIDE RECORDS SUMMARY | 2024-08-27 08:31 | XMS_ITS ---
Author Organization [facility] Address [address] [place] [phone] Care Team Providers Care Straddle Truck Operator Name Role Phone Elvira Pang Primary Care Provider Unavailab Sanchez Perez Jr REASON FOR VISIT MRI Encounters Encounter Location Date Provider Diagnosis [facility] [address] [place] [phone] 07/18/2024 Sanchez Hawley Jr Abnormal magnetic resonance imaging of liver R93.2 ASSESSMENTS Encounter Date Diagnosis Assessment Notes Treatment Notes Treatment Clinical Notes 07/18/2024 Abnormal magnetic resonance imaging of liver (ICD-10 - R93.2) PLAN OF TREATMENT Pending Test Test Name Order Date MR abdomen wo/w con 07/18/2024 Next Appt Details Provider Name:Sanchez levin Jr, 10/09/2024 08:30:00 AM, [address] [place] [address] , [place], [place], [phone],
--- OUTSIDE RECORDS SUMMARY | 2024-08-27 08:32 | XMS_ITS | Patient Health Record ---
Author Organization [facility] Address [address] [place] [address] Care Team Providers Care Automotive Engineering Teacher Name Role Phone Elvira Pang Primary Care Provider Unavailab Sanchez Perez Jr Unavailable ALLERGIES No Known Allergies RESULTS Component Value Reference Range Notes MR abdomen wo/w con Reviewed date:09/09/2023 02:00:16 PM Interpretation: Performing Lab: Notes/Report: [address] [address] Magnetic Resonance Report Signed Patient: Sampson Mackey MR#: [id number] 963 : 1955 Acct:[id number] Age/Sex: 68 / M ADM Date: 09/08/23 Loc: HO.MRI Attending Dr: Sanchez Hawley MD Ordering Physician: Sanchez Hawley MD Date of Service: 09/08/23 Procedure(s): MR abdomen wo/w con Accession Number(s): [id number] cc: Sanchez Hawley MD; Elvira Pang MD [...] in OV> 09/09/23 0939 DD/ 1030 TD/TT: Hogshead Packer: MR abdomen wo/w con Reviewed date:07/18/2024 08:21:58 AM Interpretation: Performing Lab: Notes/Report: [address] [address] Magnetic Resonance Report Signed Patient: Sampson Mackey MR#: [id number] 963 : 1955 Acct:[id number] Age/Sex: 69 / M ADM Date: 07/15/24 Loc: HO.MRI Attending Dr: Sanchez Hawley MD Ordering Physician: Sanchez Hawley MD Date of Service: 07/15/24 Procedure(s): MR abdomen wo/w con Accession Number(s): [id number] cc: Sanchez Hawley MD; Elvira Pang MD [...] by: Bishop Gasca MD 07/16/2024 04:23 PM [facility] Workstation: Fondu Dictated By: Isael Gasca MD Signed By: <Electronically signed by Isael Gasca MD in OV> 07/16/24 1623 DD/ 1240 TD/TT: 07/15/24 1315 Hogshead Packer: JANENE REASON FOR REFERRAL No Information IMMUNIZATIONS [...] Problem Colon cancer screening (Z12.11) Active confirmed 435990938 Problem Diverticulosis (K57.90) Active confirmed Diverticular disease of colon (928356202) Problem Gastroesophageal reflux disease without esophagitis (K21.9) Active confirmed 943832549 Problem Fatty liver (K76.0) Active confirmed 19 6571059 Problem Liver lesion (K76.9) Active confirmed 375203143 Problem Abnormal magnetic resonance imaging of liver (R93.2) Active confirmed 466111353 VITAL SIGNS Temperature 97.5 degrees Fahrenheit 06/27/2024 Blood pressure diastolic 00 mm Hg 06/27/2024 Height 64.5 in 06/27/2024 Blood pressure systolic 000 mm Hg 06/27/2024 Weight 191 lbs 06/27/2024 BMI 32.28 kg/m2 06/27/2024 Encounters Encounter Location Date Provider Diagnosis [facility] [address] [place] [address] [place] [address] 06/27/2024 Sanchez Hawley Jr Colon cancer screening Z12.11 ; Abnormal magnetic resonance imaging of liver R93.2 and Gastroesophageal reflux disease without esophagitis K21.[address] [facility] [address] [place] [phone] 09/09/2023 Sanchez Hawley Jr Abnormal magnetic resonance imaging of liver R93.[address] [facility] [address] [place] [address] 07/18/2024 Sanchez Hawley Jr Abnormal magnetic resonance imaging of liver R93.[address] [facility] [address] [place] [phone] 08/03/2024 Sanchez Hawley Jr ASSESSMENTS Encounter Date Diagnosis Assessment Notes Treatment Notes Treatment Clinical Notes 06/27/2024 Colon cancer screeni ng (ICD-10 - Z12.11) Colonoscopy material was printed 06/27/2024 Abnormal magnetic resonance imaging of liver (ICD-10 - R93.2) 09/09/2023 Abnormal [...] COLONOSCOPY 06/27/2024 Next Appt Details Provider Name:Sanchez Chester levin Jr, 10/09/2024 08:30:00 AM, [address] [place] [address] , [place], [place], [phone], Insurance Providers Payer Name Payer Address Payer Phone Subscriber Number Group Number Insured Name Patient Relationship to Insured Coverage Start Date Coverage End Date MEDICARE [place] [address] [place] [address] [id number] SAMPSON MACKEY Self - patient is the insured MEDEX ATTN CLAIMS [address] [place] [address] [phone] [id number] SAMPSON MACKEY Self - patient is the insured MEDICAL (GENERAL) HISTORY Medical History History ICD Code colonoscopy 10/12/19, tubular adenoma x1, five-year followup onychomycosis carpal tunnel syndrome Basal cell skin cancers GERD, EGD 11/01/12 elevated cholesterol Intraocular melanoma, left eye, 2018, 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 Bach carpal tunnel
--- NOTE | 2024-08-27 10:34 | MHC.SHP ---
Pre-Procedural Eval Section A - 24 Hr Update-Section A only Date of Service: 08/27/24 Section B - Complete if H&P > 30 days Chief Complaint: liver disease Details of Present Illness: 69 y/o man with an enlarging right lobe 1.3 cm liver lesion. Relevant Family History (Specify if Yes): No Relevant Social History: None Present Medications: see Short Stay Collaborative assessment Medical History: Significant History (ocular melanoma) History of Previous Operations: Relevant previous surgery/procedure and date(s) Allergies: Allergies Allergy/AdvReac Type Severity Reaction Status Date / Time No Known Allergies Allergy Verified 07/31/24 10:03 [No Known Allergies*] Review of Systems Sugical H&P ROS: Negative: Constitution, Cardiovascular, Respiratory and Gastrointestinal Exam Surgical H&P Exam: Normal: Heart, Normal: Lungs, Normal: Abdomen, Normal: Skin and Normal: Neurological Plan Diagnosis/Plan: Unchanged 69 y/o man with hx of ocular melanoma and an enlarging right lobe liver lesion on MRI. -Image guided liver lesion biopsy. Time Spent With Patient Time: Total time managing care of this patient today ____ minutes.
[2024-08-27 11:11] LABS: MANUAL DIFF FLAG NO
[2024-08-27 11:21] LABS: Prothrombin Time 11.2 SEC (10.9-12.4)
--- NOTE | 2024-08-27 11:22 | PC.NURSE ---
Case delayed as no screening labs drawn in preop.labs drawn in exam room.awaiting results
[2024-08-27 11:24] LABS: Partial Thromboplastin Time 29.5 SEC (26.0-36.8)
[2024-08-27 11:24] LABS: Basophils Percent Auto 0.3 % (0-2); Eosinophils Percent Auto 0.3 % (0-4); Hematocrit 47.1 % (42.0-52.0); Hemoglobin 16.4 g/dl (14.0-18.0); Imm Gran Abs Auto 0.02 X10*3/uL (0.00-0.03); Imm Gran Pct Auto 0.3 % (0.0-0.4); Lymphocytes Absolute Auto 1.7 X10*3/uL (1.2-4.9); Lymphocytes Percent Auto 26.5 % (20-40); Mean Corpuscular HGB Conc 34.8 g/dl (31.0-36.0); Mean Corpuscular Hemoglobin 33.5 pg (27.0-33.0); Mean Corpuscular Volume 96.3 fL (80.0-98.0); Mean Platelet Volume 9.6 fL (9.4-12.4); Monocytes Absolute Auto 0.7 X10*3/uL (0.1-1.2); Monocytes Percent Auto 10.5 % (2-11); Neutrophils Absolute Auto 4.1 x10*3/uL (2.0-8.3); Neutrophils Percent Auto 62.1 % (45-73); Platelet Count 188 X10*3/uL (160-400); Red Blood Count 4.89 X10*6/uL (4.60-5.80); Red Cell Distribution Width 11.9 % (11.0-16.0); White Blood Count 6.6 X10*3/uL (4.8-10.8)
[2024-08-27] MEDS: Acetaminophen 1,000 MG/100 ML PIGGYBACK 400 MG IV (11:27)
[2024-08-27] MEDS: Midazolam HCl 2 MG/2 ML VIAL 1 MG IVPUSH ×2 (11:30→11:35)
[2024-08-27] MEDS: fentaNYL citrate/PF 100 MCG/2 ML VIAL 50 MCG IVPUSH (11:30)
[2024-08-27] MEDS: fentaNYL citrate/PF 100 MCG/2 ML VIAL 25 MCG IVPUSH (11:36)
[2024-08-27] MEDS: Lidocaine HCl 1 % MPF 5 ML VIAL 10 ML SUBCUT (12:09)
== END 2024-08-27 14:29 | disposition home or self-care (01) ==
PROVIDERS: Pathology Anatomic Pathology & Clinical Pathology; Physician Assistant Surgical; Student in an Organized Health Care Education/Training Program; PCP Internal Medicine; Visit Provider Internal Medicine Medical Oncology
DX: C78.7 Secondary malignant neoplasm of liver and intrahepatic bile duct (principal); Z85.820 Personal history of malignant melanoma of skin; Z85.840 Personal history of malignant neoplasm of eye
CPT/HCPCS: 36415; 47000; 76942; 85025; 85610; 85730; 86850; 86900; 86901; 88307; 88313; 88341; 88342; 99152; 99153; J0131; J2003; J2250; J2310; J3010

== ENCOUNTER → 2024-08-27 10:06 | Outpatient (BNV) | payer MEDICARE, SELFPAY | PROVIDERS: PCP Internal Medicine; Visit Provider Physician Assistant Surgical | DX: K76.89 Other specified diseases of liver (principal) | CPT/HCPCS: 47000; 76942 ==

== ENCOUNTER → 2024-09-24 11:06 | Day surgery (SDC) | payer MEDICARE, SELFPAY ==
[2024-09-24 12:12] VITALS: BP 141/102; PULSE 143; RESP 16; TEMP 36.4; O2SAT 95
--- NOTE | 2024-09-24 12:23 | PC.NURSE ---
denies chest pain, sob or dizziness. states the last couple days hes been having some congestion. nonproductive cough. dry cough. denies a smoker. reached out to khushi linton pa regarding patients vital signs.
[2024-09-24 12:35] VITALS: BP 129/104; PULSE 138; RESP 16; TEMP 36.8
[2024-09-24 13:53] VITALS: BP 160/107; PULSE 138; RESP 16; TEMP 37.7
--- NOTE | 2024-09-24 13:53 | PM.EVENT ---
Event Note Date of Service: 09/24/24 Event Note: Patient arrives to [facility] for repeat biopsy of his right lobe liver lesion for molecular testing. He reports facial congestion and illness. He is afebrile and tachycardic to 140s. He denies chest pain or shortness of breath. He is hypertensive. Discussed with Dr. Scott. Will postpone biopsy at this time. Offered patient transfer to ED given tachycardia, however, he wishes to be seen by his PCP rather than go to the ED. Isael FERGUSON Time Spent With Patient Time: Total time managing care of this patient today ____ minutes.
[2024-09-24 14:09] VITALS: O2SAT 96
--- NOTE | 2024-09-24 14:13 | PC.NURSE ---
tried calling pcp brandon figueroa for an appt for the patient and no answer put on hold over 15 minutes. patient left and was going to call himself or go to a walk in clinic.
== END ==
LOC: HO.SSS 11:08
PROVIDERS: Student in an Organized Health Care Education/Training Program; PCP Internal Medicine; Visit Provider Internal Medicine Medical Oncology
DX: K76.9 Liver disease, unspecified (principal); C43.9 Malignant melanoma of skin, unspecified; Z53.09 Procedure and treatment not carried out because of other contraindication; R00.0 Tachycardia, unspecified; I10 Essential (primary) hypertension; R09.81 Nasal congestion
CPT/HCPCS: 86850; 86900; 86901; J2003

== ENCOUNTER 2024-09-25 13:20 | Outpatient (REF) | payer MEDICARE, SELFPAY ==
[2024-09-25 14:15] LABS: Influenza A PCR NEGATIVE (Negative); Influenza B PCR NEGATIVE (Negative); Resp Syncy Virus RNA Qual PCR NEGATIVE (Negative); SARS COV2 PCR INHOUSE NEGATIVE (Negative)
--- OUTSIDE RECORDS SUMMARY | 2024-09-25 14:29 | XMS_ITS ---
Author Organization [facility] Address [address] [place] [address] Care Team Providers Care Supervisor Engine Repair Name Role Phone Elvira Pang Primary Care [...] 06/27/2024 Encounters Encounter Location Date Provider Diagnosis [facility] [address] [place] [phone] 06/27/2024 Sanchez Hawley Jr Colon cancer screening [...] Provider Name:Sanchez levin Jr, 10/09/2024 08:30:00 AM, [address] [place] [address] , [place], [place], [phone],
--- OUTSIDE RECORDS SUMMARY | 2024-09-25 14:29 | XMS_ITS ---
Author Organization [facility] Address [address] [place] [address] Care Team Providers Care Director Informatics Name Role Phone Elvira Pang Primary Care Provider Unavailab Sanchez Perez Jr Unavailable [phone] REASON FOR VISIT records Encounters Encounter Location Date Provider Diagnosis [facility] [address] [place] [phone] 08/03/2024 Sanchez Hawley Jr PLAN OF TREATMENT Next Appt Details Provider Name:Sanchez levin Jr, 10/09/2024 08:30:00 AM, [address] [place] [address] , [place], [place], [phone],
--- OUTSIDE RECORDS SUMMARY | 2024-09-25 14:29 | XMS_ITS | Patient Health Record ---
Author Organization [facility] Address [address] [place] [address] Care Team Providers Care Road Mechanic Name Role Phone Elvira Pang Primary Care Provider Unavailab Sanchez Perez Jr Unavailable ALLERGIES No Known Allergies RESULTS Component Value Reference Range Notes MR abdomen wo/w con Reviewed date:07/18/2024 08:21:58 AM Interpretation: Performing Lab: Notes/Report: [address] [address] Magnetic Resonance Report Signed Patient: Sampson Mackey MR#: [id number] 963 : 1955 Acct:[id number] Age/Sex: 69 / M ADM Date: 07/15/24 Loc: HO.MRI Attending Dr: Sanchez Hawley MD Ordering Physician: Sanchez Hawley MD Date of Service: 07/15/24 Procedure(s): MR abdomen wo/w con Accession Number(s): [id number] cc: Sanchez Hawley MD; Elvira Pang MD [...] by: Bishop Gasca MD 07/16/2024 04:23 PM [facility] Dictated By: Isael Gasca MD Signed By: <Electronically signed by Isael Gasca MD in OV> 07/16/24 1623 DD/ 1240 TD/TT: 07/15/24 1315 Senior Staff Consultant: JANENE REASON FOR REFERRAL No Information IMMUNIZATIONS [...] Problem Colon cancer screening (Z12.11) Active confirmed 981276111 Problem Diverticulosis (K57.90) Active confirmed Diverticular disease of colon (424471702) Problem Gastroesophageal reflux disease without esophagitis (K21.9) Active confirmed 355174362 Problem Fatty liver (K76.0) Active confirmed 19 4411685 Problem Liver lesion (K76.9) Active confirmed 736299566 Problem Abnormal magnetic resonance imaging of liver (R93.2) Active confirmed 490988162 VITAL SIGNS Temperature 97.5 degrees Fahrenheit 06/27/2024 Blood pressure diastolic 00 mm Hg 06/27/2024 Height 64.5 in 06/27/2024 Blood pressure systolic 000 mm Hg 06/27/2024 Weight 191 lbs 06/27/2024 BMI 32.28 kg/m2 06/27/2024 Encounters Encounter Location Date Provider Diagnosis [facility] [address] [place] [address] 06/27/2024 Sanchez Hawley Jr Colon cancer screening Z12.11 ; Abnormal magnetic resonance imaging of liver R93.2 and Gastroesophageal reflux disease without esophagitis K21.9 [facility] [address] [place] [address] 07/18/2024 Sanchez Hawley Jr Abnormal magnetic resonance imaging of liver R93.2 [facility] [address] [place] [address] 08/03/2024 Sanchez Hawley Jr ASSESSMENTS Encounter Date Diagnosis Assessment Notes Treatment Notes Treatment Clinical Notes 06/27/2024 Colon cancer screeni ng (ICD-10 - Z12.11) Colonoscopy material was printed 06/27/2024 Abnormal magnetic resonance imaging of liver (ICD-10 - R93.2) 07/18/2024 Abnormal magnetic resonance imaging of liver [...] 06/27/2024 Next Appt Details Provider Name:Sanchez levin Jr, 10/09/2024 08:30:00 AM, [address] [facility] , [place], [place], [phone], Insurance Providers Payer Name Payer Address Payer Phone Subscriber Number Group Number Insured Name Patient Relationship to Insured Coverage Start Date Coverage End Date MEDICARE [place] [address] [place] [address] [id number] SAMPSON MACKEY Self - patient is the insured MED[employer] ATTN CLAIMS [address] [place] [address] [id number] SAMPSON MACKEY Self - patient is the insured MEDICAL (GENERAL) HISTORY Medical History History ICD Code colonoscopy 10/12/19, tubular adenoma x1, five-year followup onychomycosis carpal tunnel syndrome Basal cell skin cancers GERD, EGD 11/01/12 elevated cholesterol Intraocular melanoma, left eye, 2018, 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 Bach carpal tunnel
--- OUTSIDE RECORDS SUMMARY | 2024-09-25 14:30 | XMS_ITS ---
Author Organization [facility] Address [address] [place] [address] Care Team Providers Care Counter Waitress/Waiter Name Role Phone Elvira Pang Primary Care Provider Unavailab Sanchez Perez Jr [phone] REASON FOR VISIT MRI Encounters Encounter Location Date Provider Diagnosis [facility] [address] [place] [phone] 07/18/2024 Sanchez Hawley Jr Abnormal magnetic resonance imaging of liver R93.2 ASSESSMENTS Encounter Date Diagnosis Assessment Notes Treatment Notes Treatment Clinical Notes 07/18/2024 Abnormal magnetic resonance imaging of liver (ICD-10 - R93.2) PLAN OF TREATMENT Pending Test Test Name Order Date MR abdomen wo/w con 07/18/2024 Next Appt Details Provider Name:Sanchez levin Jr, 10/09/2024 08:30:00 AM, [address] [place] [address] , [place], [place], [phone],
== END 2024-09-25 13:21 | disposition home or self-care (01) ==
LOC: HO.LAB 13:20
PROVIDERS: PCP Internal Medicine; Visit Provider Internal Medicine
DX: Z13.89 Encounter for screening for other disorder (principal)
CPT/HCPCS: 0241U

== ENCOUNTER 2024-09-26 15:31 | Outpatient (AMB) | payer MEDICARE, SELFPAY ==
--- NOTE | 2024-09-26 15:40 | A.OFFPC_ITS ---
Vital Signs 09/26/24 15:42 Height 5 ft 5 in Weight 184 lb 2 oz BMI 30.6 BP 130/90 H Blood Pressure Location Lt brachial Position Sitting Pulse 80 Pulse Source Pulse Oximeter Temp 97.3 F Temp Source Skin Pulse Oximetry (%) 93 Oxygen Delivery Method Room Air Intake Visit Reasons: same day tested neg for flu, covid, rsv Intake Note: Patient is here to follow up on Coughing, difficulty breathing, congestion, elevated bp and heart rate. No fever or chills. Covid, RSV and Flu was neg. Mainframe Systems Administrator Required: No Mission Analyst: Not Required per policy Accompanied by: Self / Same As Patient Allergies No Known Allergies [No Known Allergies*] Allergy (Verified 09/27/24 02:04) Medication List - Last Reconciled 09/26/24 by SOPHIA Lozano No Known Home Meds Tobacco use date assessed: 09/26/24 Fall risk assessment: No Falls in past year Last assessed Fall Risk: 09/26/24 Dental Screening Dental Screen Date: 09/26/24 Did you have a dental visit in the last 12 months?: Yes Did you have a dental problem in the last 6 months where you did not have access to dental care?: No Was dental information given to patient?: Patient has dentist HPI same day tested neg for flu, covid, rsv HPI Details The patient is a 69-year-old male with significant past medical history of 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, intra-ocular melanoma of the left eye, pancreatic cancer Patient is presenting today with ongoing cough and mild shortness of breath Reports that he had been tested for COVID, flu and RSV and all came back negative Reports that he has been using cough medicine with no improvement Reports that other day his heart rate was extremely high and he had some difficulty breathing Patient reports that his cough is productive, at first it was yellow stuff for a while and now it is phlegm He denies nasal congestion, sore throat and sinus pressure Patient also denies chest pain On exam: The patient was noted to have diminished sounds in lower lobes We will send the patient for a stat chest x-ray to rule out pneumonia or potential lung mass [facility] Medical History Transaminitis COVID-19 vaccine series completed Cyst of right kidney Screening for prostate cancer Screening for diabetes mellitus Liver cyst Surgical History History of colonoscopy History of knee replacement procedure of right knee History of eye surgery H/O carpal tunnel repair H/O basal cell carcinoma excision History of ear surgery Family History Father Esophageal cancer Mother Hodgkin disease Brother Kidney malignancy Sibling Brother Kidney malignancy Sibling Social History Household Members: None Housing: House Are you a primary resident care assistant to a significant other at home: No Do you presently have visiting nurse or other home services: No Alcohol intake: never Patient Tobacco Use Status: Never used Tobacco e-Cigarette/Vaping Use: Never Used Second Hand Smoke Exposure: No service: No Current occupational status: employed and 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 1. Little interest or pleasure in doing things: not at all 2. Feeling down, depressed, or hopeless: not at all 3. Trouble falling or staying asleep, or sleeping too much: not at all 4. Feeling tired or having little energy: not at all 5. Poor appetite or overeating: not at all 6. Feeling bad about yourself - or that you are a failure or have let yourself or your family down: not at all 7. Trouble concentrating on things, such as reading the newspaper or watching television: not at all 8. Moving or speaking so slowly that other people could have noticed. Or the opposite - being so fidgety or restless that you have been moving around a lot more than usual: not at all 9. Thoughts that you would be better off or of hurting yourself in some way: not at all Total score: 0 Depression Screening Interpretation: Negative Depression Screening Done: Yes 96708 - PHQ-9 Billing: Yes Source: Developed by Drs. Payam Irene, Lora Brooks, Nathan Baker and colleagues, with an educational jovana from [employer]. Thrive Questionnaire Date Thrive assessed: 09/26/24 I am a: Patient What is your living situation today?: I have a steady place to live Within the past 12 months, did the food you bought not last and you didn't have the money to get more?: Never true Within the past 12 months, did you worry whether your food would run out before you got money to buy more?: Never true Do you have trouble paying for medicines?: No Do you have trouble getting transportation to medical appointments?: No Do you have trouble paying your heating and electricity bill?: No Do you have trouble taking care of your child, family member or friend?: No Do you have trouble with day-to-day activities such as bathing, preparing meals, shopping, managing finances, etc.?: No Are you currently unemployed and looking for a job?: No Are you interested in more education?: No Please select the resources that you would like help with: None Currently or been in a relationship where the following occur: No concerns reported THRIVE Score: 0 AUDIT C Alcohol Use Questionnaire (AUDIT-C) 1. How often do you have a drink containing alcohol?: Never 3. How often do you have six or more drinks on one occasion?: Never Total Score: 0 Score Reviewed/Action Taken: Yes ERNIE-7 AMB Questionnaire ERNIE-7 Date ERNIE - 7 assessed: 09/26/24 Feeling nervous, anxious, or on edge: 0 = Not at all Not being able to stop or control worryin = Not at all Worrying too much about different things: 0 = Not at all Trouble relaxin = Not at all Being so restless that it is hard to sit still: 0 = Not at all Becoming easily annoyed or irritable: 0 = Not at all Feeling afraid as if something awful might happen: 0 = Not at all Total ERNIE-7 score (0-4 normal; 5-9 mild; 10-14 moderate; 15-21 severe): 0 Source: Developed by Drs. Payam Irene, Lora Brooks, Nathan Baker and colleagues, with an educational jovana from [employer]. ERNIE-7 Assessment Billing ERNIE-7 Assessment Tool: ERNIE-7 Assessment 96322 Review of Systems Const Details: Denies chills, Denies fatigue, Denies fever(s), Denies headache(s) and Denies weakness HEENT Denies change in vision, Denies dizziness, Denies headache(s), Denies hearing loss, +intermittent nasal congestion, Denies sinus pain, Denies sinus pressure and Denies sore throat Card Denies chest pain, Denies lightheadedness, + mild dyspnea and Denies other ( palpitations) + elevated blood pressure Resp + productive cough, + mild dyspnea and Denies wheezing GI Denies abdominal pain, Denies melena, Denies hematochezia, Denies change in bowel habits, Denies dyspepsia and Denies nausea Denies hematuria and Denies dysuria Musc Denies abnormal gait, Denies myalgias, Denies arthralgias, Denies numbness and Denies tingling Skin/Breast Denies rash, Denies unusual bruising and Denies wounds Neuro Denies abnormal gait, Denies dizziness, Denies headache(s), Denies memory loss, Denies numbness, Denies Sensory deficit (Neuro), Denies tingling and Denies weakness Psych Denies anxiety, Denies depression and Denies memory loss Endo Denies cold intolerance, Denies fatigue, Denies heat intolerance, Denies polydipsia and Denies polyuria Tal/Lymph Denies easy bleeding and Denies easy bruising Aller/Immun Denies wheezing Physical exam (Primary Care) Vital Signs: Last Vital Signs Temp 97.3 F 09/26/24 15:42 Pulse 80 09/26/24 15:42 BP 130/90 H 09/26/24 15:42 Pulse Ox 93 09/26/24 15:42 Oxygen Delivery Method Room Air 09/26/24 15:42 BMI result Body Mass Index 30.6 Tobacco/Smoking Status: Tobacco use Status Tobacco use date assessed 09/26/24 09/26/24 15:49 Patient Tobacco Use Status Never used Tobacco 09/26/24 15:49 e-Cigarette/Vaping Use Never Used 09/26/24 15:49 PHQ-9: PHQ-9 Score PHQ-9: Total score 0 09/27/24 02:17 Depression Screening Interpretation: Negative Thrive Assessment: Date of Thrive Assessment Date Thrive assessed 09/26/24 09/26/24 15:49 Currently or been in a relationship where the following occur: No concerns reported Const Other: General: no acute distress, well developed, alert and awake Nutritional Appearance: well nourished Orientation/consciousness: patient oriented x3 HENMT Head: Yes normocephalic and Yes atraumatic Ears: hearing grossly normal bilaterally and TM's normal bilaterally General nose exam: Normal external nose present and bilateral nares erythema Mouth: Normal oral and palatal mucosa present and moist mucous membranes Eyes Pupils: Equal, round and reactive pupils present and Pupil accommodation reflex normal EOM: EOMs intact bilaterally Neck Neck: Yes normal visual inspection, Yes no lymphadenopathy Thyroid: Thyroid normal Lymphatic: no lymphadenopathy noted Chest Chest palpation & inspection: normal inspection of the chest Resp Effort & Inspection: normal respiratory effort Auscultation: clear to auscultation bilaterally upper lobes, diminished lower lobes bilaterally Cardio Rate: regular rate Rhythm: regular rhythm Heart sounds: S1 normal heart sound present, S2 normal heart sound present, no gallops, no murmurs and no rubs Bruits: no abdominal aortic bruits and no carotid bruits GI Palpation (GI): No Abdominal aortic bruit present, Soft to palpation, nontender, No hepatosplenomegaly present and No Rebound tenderness present Auscultation: normal bowel sounds General: Yes no CVA tenderness Skin General: warm and dry. Normal skin color. Normal skin turgor Lesions: no lesions Nails: normal Neuro General: patient oriented x3, gait normal Cranial nerves: Yes Equal, round and reactive pupils present Cognition (Neuro): normal cognition Gait exam (Neuro): Normal gait present Extrem General: Yes normal to inspection, No edema and No calf tenderness Psych Appearance: grossly normal Affect: normal affect Attitude: cooperative Thought process: Normal thought process present Coding Level of Care Code Est Pt Level 4 (13673) Diagnoses Pneumonia due to infectious organism, unspecified laterality, unspecified part of lung J18.9 Laterality: unspecified laterality Lung location: unspecified part of lung Pneumonia type: due to unspecified organism Melanoma metastatic to liver C78.7 Cough, unspecified type R05.9 Cough type: unspecified Mild shortness of breath R06.02 Additional Codes ERNIE-7 Assessment Billing - ERNIE-7 Assessment Tool: ERNIE-7 Assessment 81951 ([id number]) PHQ-9 - 90259 - PHQ-9 Billing: Yes ([id number]) Time Spent (min) 26 Assessment & Plan Assessment & Plan (1) Pneumonia: Code(s): J18.9 - Pneumonia, unspecified organism Category: Medical Qualifiers: Laterality: unspecified laterality Lung location: unspecified part of lung Pneumonia type: due to unspecified organism Qualified Code(s): J18.9 - Pneumonia, unspecified organism Plan: Emergent chest x-ray ordered (2) Melanoma metastatic to liver: Code(s): C78.7 - Secondary malignant neoplasm of liver and intrahepatic bile duct Category: Medical Plan: Concern for lung mass, chest x-ray ordered (3) Cough: Code(s): R05.9 - Cough, unspecified Category: Medical Qualifiers: Cough type: unspecified Qualified Code(s): R05.9 - Cough, unspecified Plan: Prolonged cough with unknown cause, considering allergy, pneumonia or lung mass Chest x-ray ordered, Flonase nose spray and loratadine ordered; dextromethorphan ER prescribed for symptomatic relief (4) Mild shortness of breath: Code(s): R06.02 - Shortness of breath Category: Medical Plan: Chest x-ray are ordered Plan Follow-up with PCP as scheduled next month Orders: Orders XR chest 2V 09/26/24 C43.9 - Malignant melanoma of skin, unspecified, J18.9 - Pneumonia, unspecified organism, R06.89 - Other abnormalities of breathing, R16.0 - Hepatomegaly, not elsewhere classified Medications: New dextromethorphan polistirex ER (Delsym 12 hour) 10 mL PO Q12H PRN 89 mL 0RF cough loratadine (Allergy Relief (loratadine)) 10 mg PO DAILY PRN 30 tabs 1RF allergy symptoms fluticasone propionate 50 mcg/actuation (Flonase Allergy Relief) administer into each nostril 1 spray intranasal BID 16 grams 0RF
[2024-09-26 15:42] VITALS: BP 130/90; PULSE 80; TEMP 36.3; O2SAT 93; BMI 30.6
--- OUTSIDE RECORDS SUMMARY | 2024-09-26 16:22 | XMS_ITS ---
Author Organization [facility] Address [address] [place] [phone] Care Team Providers Care Armored Car Guard Name Role Phone Elvira Pang Primary Care Provider Unavailab Sanchez Perez Jr [phone] REASON FOR VISIT MRI Encounters Encounter Location Date Provider Diagnosis [facility] [address] [place] [phone] 07/18/2024 Sanchez Hawley Jr Abnormal magnetic resonance imaging of liver R93.2 ASSESSMENTS Encounter Date Diagnosis Assessment Notes Treatment Notes Treatment Clinical Notes 07/18/2024 Abnormal magnetic resonance imaging of liver (ICD-10 - R93.2) PLAN OF TREATMENT Pending Test Test Name Order Date MR abdomen wo/w con 07/18/2024 Next Appt Details Provider Name:Sanchez levin Jr, 10/09/2024 08:30:00 AM, [address] [place] [address] , [place], [place], [phone],
--- OUTSIDE RECORDS SUMMARY | 2024-09-26 16:22 | XMS_ITS ---
Author Organization [facility] Address [address] [place] [phone] Care Team Providers Care Hot Box Operator Name Role Phone Elvira Pang Primary Care Provider Unavailab Sanchez Perez Jr Unavailable REASON FOR VISIT records Encounters Encounter Location Date Provider Diagnosis [facility] [address] [place] [phone] 08/03/2024 Sanchez Hawley Jr PLAN OF TREATMENT Next Appt Details Provider Name:Sanchez levin Jr, 10/09/2024 08:30:00 AM, [address] [place] [address] , [place], [place], [phone],
--- OUTSIDE RECORDS SUMMARY | 2024-09-26 16:22 | XMS_ITS ---
Author Organization [facility] Address [address] [place] [phone] Care Team Providers Care Intertype Operator Name Role Phone Elvira Pang Primary [...] 06/27/2024 Encounters Encounter Location Date Provider Diagnosis [facility] [address] [place] [phone] 06/27/2024 Sanchez Hawley Jr Colon cancer screening [...] Provider Name:Sanchez levin Jr, 10/09/2024 08:30:00 AM, [address] [place] [address] , [place], [place], [phone],
--- OUTSIDE RECORDS SUMMARY | 2024-09-26 16:22 | XMS_ITS | Patient Health Record ---
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 Name Role Phone Elvira Pang Primary Care Provider Unavailab Sanchez Perez Jr Unavailable ALLERGIES No Known Allergies RESULTS Component Value Reference Range Notes MR abdomen wo/w con Reviewed date:07/18/2024 08:21:58 AM Interpretation: Performing Lab: Notes/Report: [address] [address] Magnetic Resonance Report Signed Patient: Sampson Mackey MR#: [id number] : 1955 Acct:[id number] Age/Sex: 69 / M ADM Date: 07/15/24 Loc: HO.MRI Attending Dr: Sanchez Hawley MD Ordering Physician: Sanchez Hawley MD Date of Service: 07/15/24 Procedure(s): MR abdomen wo/w con Accession Number(s): [id number] cc: Sanchez Hawley MD; Elvira Pang MD [...] by: Bishop Gasca MD 07/16/2024 04:23 PM [facility] Dictated By: Isael Gasca MD Signed By: <Electronically signed by Isael Gasca MD in OV> 07/16/24 1623 DD/ 1240 TD/TT: 07/15/24 1315 System Auditor: JANENE REASON FOR REFERRAL No Information IMMUNIZATIONS [...] Problem Colon cancer screening (Z12.11) Active confirmed 036571764 Problem Diverticulosis (K57.90) Active confirmed Diverticular disease of colon (715136016) Problem Gastroesophageal reflux disease without esophagitis (K21.9) Active confirmed 128851479 Problem Fatty liver (K76.0) Active confirmed 19 9778454 Problem Liver lesion (K76.9) Active confirmed 525485672 Problem Abnormal magnetic resonance imaging of liver (R93.2) Active confirmed 311957316 VITAL SIGNS Temperature 97.5 degrees Fahrenheit 06/27/2024 Blood pressure diastolic 00 mm Hg 06/27/2024 Height 64.5 in 06/27/2024 Blood pressure systolic 000 mm Hg 06/27/2024 Weight 191 lbs 06/27/2024 BMI 32.28 kg/m2 06/27/2024 Encounters Encounter Location Date Provider Diagnosis [facility] [address] [place] [address] 06/27/2024 Sanchez Hawley Jr Colon cancer screening Z12.11 ; Abnormal magnetic resonance imaging of liver R93.2 and Gastroesophageal reflux disease without esophagitis K21.9 [facility] [address] [place] [address] 07/18/2024 Sanchez Hawley Jr Abnormal magnetic resonance imaging of liver R93.2 [facility] [address] [place] [address] 08/03/2024 Sanchez Hawley Jr ASSESSMENTS Encounter Date [...] Name:Sanchez levin Jr, 10/09/2024 08:30:00 AM, [address] [facility] , [place], [place], [phone], Insurance Providers Payer Name Payer Address Payer Phone Subscriber Number Group Number Insured Name Patient Relationship to Insured Coverage Start Date Coverage End Date MEDICARE OF [place] [address] [place] [address] [id number] SAMPSON MACKEY Self - patient is the insured [employer] ATT[employer] CLAIMS [address] [place] [address] [id number] SAMPSON MACKEY Self - patient is the insured MEDICAL (GENERAL) HISTORY Medical History History ICD Code colonoscopy 10/12/19, tubular adenoma x1, five-year followup onychomycosis carpal tunnel syndrome Basal cell skin cancers GERD, EGD 11/01/12 elevated cholesterol Intraocular melanoma, left eye, 2018, 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 Bach carpal tunnel
== END 2024-09-26 16:09 | disposition home or self-care (01) ==
PROVIDERS: PCP Internal Medicine
DX: J18.9 Pneumonia, unspecified organism (principal); C78.7 Secondary malignant neoplasm of liver and intrahepatic bile duct; R05.9 Cough, unspecified; R06.02 Shortness of breath

== ENCOUNTER 2024-09-26 15:31 | Outpatient (REF) | payer MEDICARE, SELFPAY ==
--- NOTE | ~2024-09-26 | XR_ITS ---
EXAMINATION: XR CHEST CLINICAL INFORMATION: R16.0 - Hepatomegaly, not elsewhere classified COMPARISON: 04/19/2024. TECHNIQUE: 2 views of the chest were obtained. FINDINGS: The cardiac, hilar, and mediastinal contours are normal. There is a moderate to large left-sided pneumothorax with associated hydrothorax. This is new from the prior. Patchy opacity in the partially collapsed left lung base is present. Mild apical left pleural thickening, with mild tethering of the partially collapsed left lung. Right lung is clear. No right effusion or right-sided pneumothorax. There is no focal osseous or soft tissue abnormality. XR/XR chest 2V IMPRESSION: Moderate to large LEFT PNEUMOTHORAX with associated effusion. These results were communicated to our Farrukh Ruiz NP, via secure text at 4:49 PM, 09/26/2024. Electronically signed by: Epi Nolasco MD 09/26/2024 04:51 PM [facility] [place]
== END 2024-09-26 15:32 | disposition home or self-care (01) ==
LOC: HO.XRAY 15:31
PROVIDERS: PCP Internal Medicine
DX: Z13.89 Encounter for screening for other disorder (principal)
CPT/HCPCS: 71046

== ENCOUNTER → 2024-09-26 16:21 | Outpatient (BNV) | payer MEDICARE, SELFPAY | PROVIDERS: PCP Internal Medicine; Visit Provider Radiology Diagnostic Radiology | DX: J93.9 Pneumothorax, unspecified (principal) | CPT/HCPCS: 71046 ==

== ENCOUNTER 2024-09-26 17:03 | Inpatient (IN) | payer MEDICARE, SELFPAY ==
--- NOTE | ~2024-09-26 | XR_ITS ---
EXAMINATION: XR CHEST CLINICAL INFORMATION: confirm chest tube placement COMPARISON: September 26, 2024. TECHNIQUE: Frontal view of the chest was obtained. FINDINGS: Left-sided pigtail chest catheter inserted in the left lateral mid hemithorax and 7 the medial upper left hemithorax. There is an opacity with a meniscal shaped pattern from the mid to lower left hemithorax. There is an expanded left lung with questionable residual tiny left apical pneumothorax. Cardiomediastinal silhouette is midline and slightly to the left hemithorax due to patient's positioning. No gross acute airspace disease in the right lung. Degenerative changes in the right shoulder. XR/XR chest 1V IMPRESSION: Status post left-sided pigtail catheter chest tube placement in the upper medial left hemithorax with the newly complete reexpansion of the left lung. Left-sided pleural effusion, moderate volume. Questionable tiny left apical pneumothorax. Recommend follow-up. Electronically signed by: Weston Herbert MD 09/27/2024 08:10 AM [facility]
--- NOTE | ~2024-09-26 | XR_ITS ---
CLINICAL HISTORY: f u left pneumo 1 view chest x-ray Comparison: CR/SR - XR CHEST 1V - 09/28/24 06:47 EST Findings: Pigtail catheter within the left upper chest is again seen. Tiny left apical pneumothorax is suggested measuring less than 5 mm in size. There is consolidation within the medial aspect of the left lung base with small left pleural effusion. Cardiac silhouette is unchanged in size. No mediastinal shift. IMPRESSION: 1. Likely small left apical pneumothorax with chest tube in place. 2. Left basilar consolidation with small left pleural effusion. This document has been electronically signed by: Henri Ghotra MD on 09/29/2024 08:15:40
--- NOTE | ~2024-09-26 | XR_ITS ---
EXAMINATION: XR CHEST 1 VIEW HISTORY: f/u left pneumothorax COMPARISON: Comparison is made with the prior examination dated 09/27/2024. FINDINGS: A single AP portable view of the chest performed at 6:47 AM is submitted. A left-sided chest tube is again seen in place. There are low lung volumes. Patchy opacity at the left lung base may represent atelectasis or pneumonia. The right lung is clear. There is no pleural effusion, pneumothorax, or pulmonary vascular congestion. The heart is normal in size. The bones are intact. XR/XR chest 1V IMPRESSION: Left chest tube in place. No pneumothorax. Left basilar atelectasis versus pneumonia. Electronically signed by: Payam Alberts MD 09/28/2024 08:17 AM [facility]
--- NOTE | ~2024-09-26 | XR_ITS ---
CLINICAL HISTORY: follow up on pneumothorax 1 view chest x-ray Comparison: CR - XR CHEST 1V - 09/29/24 15:40 EST Findings: AP lordotic chest x-ray is obtained. The tiny left apical pneumothorax seen on the study from 1 day prior is no longer identified. Cardiac silhouette is within normal limits. Continued consolidation within the left cardiophrenic angle. Right lung is clear. IMPRESSION: Left apical pneumothorax seen on the patient's study from 1 day prior is no longer identified. Unchanged left basilar consolidation. This document has been electronically signed by: Henri Ghotra MD on 09/30/2024 08:14:30
--- NOTE | ~2024-09-26 | CT_ITS ---
CLINICAL HISTORY: Further clarify left-sided hydropneumothorax CT chest with contrast Comparison: CR/SR - XR CHEST 2V - 09/26/24 16:[address]/AR/SR - CT CHEST WO IV CON - 10/27/23 09:44 EDT Findings: The heart size is normal. The visualized thyroid and mediastinum are unremarkable. Large left pneumothorax. Moderate left pleural effusion. Atelectasis of the left upper lobe and lower lobe. Hepatic steatosis. Status post cholecystectomy. There is pneumobilia. The bones are intact. IMPRESSION: Large left pneumothorax. Moderate left pleural effusion. This document has been electronically signed by: Mendez Greene MD on 09/26/2024 20:49:12
--- NOTE | ~2024-09-26 | XR_ITS ---
CLINICAL HISTORY: Status post left chest tube removal 1 view chest x-ray Comparison: CR - XR CHEST 1V - 09/29/24 07:56 EST Findings: The left chest tube has been removed. There is a tiny left apical pneumothorax. No shift. Heart size is stable. Trace left effusion. IMPRESSION: 1. Tiny left apical pneumothorax after chest tube removal. This document has been electronically signed by: Fifi Negrete MD on 09/29/2024 18:23:58
--- NOTE | 2024-09-26 17:51 | ED.SOB ---
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 Schroeder) with plan for immunotherapy with ipilimumab and nivolumab who presents to the emergency department due to ?1 month? of shortness of breath which worsened over the last couple of days and has been associated with a cough productive of sputum. Patient states he had testing for COVID-19 and influenza yesterday that was unremarkable. He was sent to the emergency department after outpatient chest x-ray today showed a moderate to large left-sided pneumothorax with associated fusion. The patient denies any other symptoms today. He denies any recent falls or trauma. He denies ever using tobacco products. Related Data Previous Rx's ?Medication ?Instructions ?Recorded dextromethorphan polistirex 30 10 ml PO Q12H PRN cough #89 mL 09/26/24 mg/5 mL oral susp ext.release 12hr (Delsym 12 hour) fluticasone propionate 50 1 spray intranasal BID #16 grams 09/26/24 mcg/actuation nasal spray,suspension (Flonase Allergy Relief) loratadine 10 mg disintegrating 10 mg PO DAILY PRN allergy 09/26/24 tablet (Allergy Relief symptoms #30 tabs (loratadine)) Allergies Allergy/AdvReac Type Severity Reaction Status Date / Time No Known Allergies Allergy Verified 09/26/24 19:16 [No Known Allergies*] Review of Systems Review of Systems: Yes all other systems are reviewed and are negative PMFSH Past Medical History Medical History Transaminitis COVID-19 vaccine series completed Cyst of right kidney Screening for prostate cancer Screening for diabetes mellitus Liver cyst Surgical History History of colonoscopy History of knee replacement procedure of right knee History of eye surgery H/O carpal tunnel repair H/O basal cell carcinoma excision History of ear surgery Family History Family History Father Esophageal cancer Mother Hodgkin disease Brother Kidney malignancy Sibling Brother Kidney malignancy Sibling Social History Social History Household Members: Family Housing: House Are you a primary home health care coordinator to a significant other at home: No Do you presently have visiting nurse or other home services: No Alcohol intake: never Patient Tobacco Use Status: Never used Tobacco e-Cigarette/Vaping Use: Never Used Second Hand Smoke Exposure: No Advance Directives: No Advance Directives Information Provided: No Do you have a plan to hurt others: No Plan service: No Current occupational status: employed and retired 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 ?Moist mucous membranes Eyes: ?PERRL, EOMI Neck: ?Supple, nontender Chest: ?No chest wall tenderness, no crepitus. Respiratory: ?Diminished breath sounds noted to the left-sided lung del cid, no increased work of breathing. Cardio: ?Regular rate and rhythm, no murmur, 2+ radial and DP pulses symmetrically GI: ?Soft, nondistended, nontender Back: ?Normal range of motion, nontender Skin: ?No rash, no lesions Neuro: ?Alert and oriented to person, place and time, moves all 4 extremities, no focal deficits Extremities: ?No swelling or tenderness, full range of motion Psych: ?Calm, alert and cooperative, appropriate behavior Medications Administered Discontinued Medications Generic Name Dose Route Start Last Admin Trade Name Freq PRN Reason Stop Dose Admin Iohexol 85 ml 09/26/24 20:01 09/26/24 20:02 Iohexol 350 Mg/Ml 100 Ml Infus..Btl IV 09/26/24 20:02 85 ml ONCE ONE Administration Medical Decision Making Medical Decision Making [facility] Narrative: Patient presenting with increased shortness of breath and cough and positive left-sided pneumothorax with no tension physiology. This appears to be spontaneous. There is concern for malignant effusion. The patient is saturating well at 94-96% with good waveform. Page sent out to his oncologist who is on-call. Case discussed with oncologist who agrees with plan for admission with thoracic surgery with planned procedure. CT imaging has been ordered. Venous blood gas shows some evidence of falling off CO2 but is otherwise unremarkable. BMP and CBC are unremarkable, no severe leukocytosis. Case also discussed with thoracic surgery and hospitalist. Patient will be admitted to medicine for further management with thoracic surgery consultation. I reassessed the patient multiple times and he had no desaturations or increased work of breathing. Admission/Observation Consideration of admission/observation: Escalation of care including admission/observation considered Consult Healthcare Provider Management of the patient was discussed with: Hospitalist and Director [employer] (Oncologist, thoracic surgery) Lab Data [facility] Lab Attestation statement: I reviewed the patient's lab results. 09/26/24 19:07 09/26/24 19:07 Labs: Lab Results 09/26/24 09/26/24 Range/Units 19:07 19:10 WBC 8.4 (4.8-10.8) X10*3/uL RBC 4.81 (4.60-5.80) X10*6/uL Hgb 16.2 (14.0-18.0) g/dl Hct 45.5 (42.0-52.0) % MCV 94.6 (80.0-98.0) fL MCH 33.7 H (27.0-33.0) pg MCHC 35.6 (31.0-36.0) g/dl RDW 12.0 (11.0-16.0) % Plt Count 191 (160-400) X10*3/uL MPV 9.0 L (9.4-12.4) fL Immature Gran % (Auto) 0.4 (0.0-0.4) % Neut % (Auto) 57.7 (45-73) % Lymph % (Auto) 29.6 (20-40) % [place] % (Auto) 10.6 (2-11) % Eos % (Auto) 1.3 (0-4) % Baso % (Auto) 0.4 (0-2) % Lymph # (Auto) 2.5 (1.2-4.9) X10*3/uL [place] # (Auto) 0.9 (0.1-1.2) X10*3/uL Eos # (Auto) 0.1 (0.0-0.4) X10*3/uL Baso # (Auto) 0.0 (0.0-0.2) X10*3/uL Abs Immat Gran (auto) 0.03 (0.00-0.03) X10*3/uL Absolute Neuts (auto) 4.8 (2.0-8.3) x10*3/uL Absolute Nucleated RBC 0.000 (0.0-0.012) X10*3/uL Nucleated RBC % (auto) 0.0 (0.0-0.2) /100WBC VBG pH 7.47 H (7.32-7.43) VBG pCO2 33 mmHg VBG pO2 58 mmHg VBG HCO3 24 (22-26) mmol/L VBG O2 Saturation 92.0 % VBG Base Excess 1.8 mmol/L Sodium 141 (135-145) mmol/L Potassium 4.0 (3.3-5.1) mmol/L Chloride 112 H (96-108) mmol/L Carbon Dioxide 20 L (22-29) mmol/L Anion Gap 13 (12-20) BUN 20 H (9-16) mg/dL Creatinine 0.88 (0.5-1.4) mg/dL Estim Creat Clear Calc 78.5 Estimated GFR > 60 Random Glucose 105 (60-115) mg/dL Calcium 8.4 (8.4-10.2) mg/dL Independent Interpretation I performed an independent interpretation of an: Plain X-Ray Interpretation: Chest x-ray per my independent interpretation shows a left-sided pneumothorax with a left-sided effusion. No tension pneumothorax noted. Discharge Plan Discharge Clinical Impression: Hydropneumothorax, Melanoma metastatic to liver Patient Disposition: Admitted As Inpatient Prescriptions: No Action dextromethorphan polistirex [Delsym 12 hour] 30 mg/5 mL suspension,extended rel 12 hr 10 ml PO Q12H PRN (Reason: cough) Qty: 89 0RF fluticasone propionate [Flonase Allergy Relief] 50 mcg/actuation spray,suspension 1 spray intranasal BID Qty: 16 0RF Rx Instructions: administer into each nostril loratadine [Allergy Relief (loratadine)] 10 mg tablet,disintegrating 10 mg PO DAILY PRN (Reason: allergy symptoms) Qty: 30 1RF Print Language: Ukrainian
[2024-09-26 18:26] VITALS: BP 135/82; PULSE 75; RESP 14; O2SAT 94
[2024-09-26 19:12] LABS: MANUAL DIFF FLAG NO
[2024-09-26 19:14] VITALS: BP 133/88; PULSE 75; RESP 16; TEMP 36.6; O2SAT 95; BMI 32.3
[2024-09-26 19:15] LABS: Basophils Percent Auto 0.4 % (0-2); Eosinophils Absolute Auto 0.1 X10*3/uL (0.0-0.4); Eosinophils Percent Auto 1.3 % (0-4); Hematocrit 45.5 % (42.0-52.0); Hemoglobin 16.2 g/dl (14.0-18.0); Imm Gran Abs Auto 0.03 X10*3/uL (0.00-0.03); Imm Gran Pct Auto 0.4 % (0.0-0.4); Lymphocytes Absolute Auto 2.5 X10*3/uL (1.2-4.9); Lymphocytes Percent Auto 29.6 % (20-40); Mean Corpuscular HGB Conc 35.6 g/dl (31.0-36.0); Mean Corpuscular Hemoglobin 33.7 pg (27.0-33.0); Mean Corpuscular Volume 94.6 fL (80.0-98.0); Monocytes Absolute Auto 0.9 X10*3/uL (0.1-1.2); Monocytes Percent Auto 10.6 % (2-11); Neutrophils Absolute Auto 4.8 x10*3/uL (2.0-8.3); Neutrophils Percent Auto 57.7 % (45-73); Platelet Count 191 X10*3/uL (160-400); Red Blood Count 4.81 X10*6/uL (4.60-5.80); White Blood Count 8.4 X10*3/uL (4.8-10.8)
[2024-09-26 19:17] LABS: VBG Base Excess 1.8 mmol/L; VBG HCO3 24 mmol/L (22-26); VBG pCO2 33 mmHg; VBG pH 7.47 (7.32-7.43); VBG pO2 58 mmHg
[2024-09-26 19:17] LABS: Venous Blood Gas Refer to POC result
[2024-09-26 19:26] LABS: Anion Gap 13 (12-20); Blood Urea Nitrogen 20 mg/dL (9-16); Calcium 8.4 mg/dL (8.4-10.2); Carbon Dioxide 20 mmol/L (22-29); Chloride 112 mmol/L (96-108); Creatinine Clr Calc Pharmacy 78.5; Estimated Glomerular Filt Rate > 60; Glucose Random 105 mg/dL (60-115); Sodium 141 mmol/L (135-145)
[2024-09-26] MEDS: iohexoL 350 MG/ML 100 ML INFUS..BTL 85 ML IV (20:02)
--- NOTE | 2024-09-26 21:00 | P.HPHOSP_ITS ---
History of Present Illness Date of Service: 09/26/24 Chief Complaint: Chest pain This is a 69-year-old male with pertinent history of metastatic melanoma, former tobacco use disorder, mixed hyperlipidemia who presents to the emergency department for evaluation of abnormal chest x-ray. Patient was seen outpatient at his PCP's office for evaluation of chest pain which is worse with inspiration, coughing and upper respiratory symptoms. Patient states his symptoms have been ongoing for a week. Patient's cough was initially productive but has been improving over the last few days. Tested negative for COVID-19 and Influenza A. No fever or chills. Chest x-ray outpatient revealed moderate pneumothorax and patient was sent to the ER for further evaluation. Patient states he stopped smoking many years ago. No History of COPD that he knows of. No trauma. No history of pneumothorax in the past. Does complain of mild intermittent dyspnea with exertion but denies any complaints at the time of my evaluation at rest. States his pleuritic chest discomfort is also better. No palpitations, abdominal pain, changes in urinary or bowel habits. In the emergency department, patient maintaining normal oxygen saturation on room air. Normotensive with vital signs within normal limits. Thoracic surgery was consulted who requested admission to hospitalist service. CT imaging with large left pneumothorax with moderate left effusion. Review of Systems 2 Constitutional: Constitutional: Reports no additional constitutional complaints Cardiovascular: Cardiovascular: Reports chest pain Respiratory: Respiratory: Reports cough Gastrointestinal: Gastrointestinal: Reports no additional gastrointestinal complaints Genitourinary: Genitourinary: Reports no additional male genitourinary complaints [facility] Medical History Transaminitis COVID-19 vaccine series completed Cyst of right kidney Screening for prostate cancer Screening for diabetes mellitus Liver cyst Family History Father Esophageal cancer Mother Hodgkin disease Brother Kidney malignancy Sibling Brother Kidney malignancy Sibling Surgical History History of colonoscopy History of knee replacement procedure of right knee History of eye surgery H/O carpal tunnel repair H/O basal cell carcinoma excision History of ear surgery Social History Household Members: Family Housing: House Are you a primary disabilities caregiver to a significant other at home: No Do you presently have visiting nurse or other home services: No Alcohol intake: never Patient Tobacco Use Status: Never used Tobacco e-Cigarette/Vaping Use: Never Used Second Hand Smoke Exposure: No Advance Directives: No Advance Directives Information Provided: No Do you have a plan to hurt others: No Plan service: No Current occupational status: employed and retired 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 Cognitive needs: No Hearing needs: No Vision needs: No Meds Allergies Allergy/AdvReac Type Severity Reaction Status Date / Time No Known Allergies Allergy Verified 09/26/24 19:16 [No Known Allergies*] Physical Exam 2 Vital Signs and Narrative: Vital Signs: Last Vital Signs Temp 98 F 09/26/24 19:14 Pulse 75 09/26/24 19:14 Resp 16 09/26/24 19:14 BP 133/88 09/26/24 19:14 Pulse Ox 95 09/26/24 19:14 O2 Del Method Room Air 09/26/24 19:14 BMI result Body Mass Index 32.3 Middle-aged male lying in bed in no distress Neck supple, no JVD Regular rate and rhythm, S1-S2 heard Diminished left-sided breath sounds Abdomen soft nontender, no guarding, no rigidity Patient is awake, alert and oriented to self, place, time and person ; no focal motor deficit Psych: Normal mood No pedal edema Results Labs 09/26/24 19:07 09/26/24 19:07 Labs: Laboratory Results - last 24 hr 09/26/24 09/26/24 19:07 19:10 MCV 94.6 MCH 33.7 H MCHC 35.6 RDW 12.0 Plt Count 191 MPV 9.0 L Immature Gran % (Auto) 0.4 Neut % (Auto) 57.7 Lymph % (Auto) 29.6 [place] % (Auto) 10.6 Eos % (Auto) 1.3 Baso % (Auto) 0.4 Lymph # (Auto) 2.5 [place] # (Auto) 0.9 Eos # (Auto) 0.1 Baso # (Auto) 0.0 Abs Immat Gran (auto) 0.03 Absolute Neuts (auto) 4.8 Absolute Nucleated RBC 0.000 Nucleated RBC % (auto) 0.0 VBG pH 7.47 H VBG pCO2 33 VBG pO2 58 VBG HCO3 24 VBG O2 Saturation 92.0 VBG Base Excess 1.8 Anion Gap 13 Estim Creat Clear Calc 78.5 Estimated GFR > 60 Random Glucose 105 Calcium 8.4 Assessment and Plan (1) Hydropneumothorax: Status: Acute Plan This is a 69-year-old male with pertinent history of metastatic melanoma, former tobacco use disorder, mixed hyperlipidemia who presents to the emergency department for evaluation of abnormal chest x-ray. #. Left-sided pneumothorax, primary spontaneous: Large pneumothorax noted on CT. Patient is hemodynamically stable and maintaining normal oxygen saturation on room air. Able to speak in full sentences. Consulted thoracic surgery, appreciate assistance. Analgesia p.r.n.. Denies current tobacco use or history of COPD. #. Metastatic melanoma: Outpatient follow-up with Oncology Med rec pending DVT prophylaxis: SCDs DNR/DNI. Discussed with patient at bedside Admit as inpatient and will require two night minimum hospital stay for evaluation and management of large pneumothorax (as above), which is not possible in a lesser acute setting. Thoracic surgery consult pending Quality Stroke Does the patient have a stroke diagnosis?: No VTE Prior VTE?: No VTE Risk Level:: Medical - moderate - high VTE Device Contraindication: N/A - Device Ordered VTE Drug Contraindication: Treatment Not Indicated
--- NOTE | 2024-09-26 21:42 | PHA.MEDREC ---
Addendum entered by Juan Manuel Abbott 09/26/24 21:44: reviewed Original Note: Pharmacy Consult ? Medication Reconciliation Pharmacy has completed the medication reconciliation. Spoke with patient and he confirmed he is not taking any medications; prescription or OTC at this time.
--- NOTE | 2024-09-26 22:05 | PC.NURSE ---
Provider into discuss plan of care, belongings completed, pt assisted with urinal, provided pt with sandwich, chips and a drink.
[2024-09-26 22:10] LABS: Appearance Urine Cloudy; Color Urine Yellow; Glucose Urine UA Negative (Negative); Leukocyte Esterase Urine Negative (Negative); Nitrite Urine Negative (Negative); UMIC TRIGGER UACC YES; Urine Blood Trace (Negative); Urine Ketones Negative (Negative); Urine Protein Negative (Neg-Trace)
[2024-09-26 22:15] LABS: Bacteria Urine None Seen (None Seen); Squamous Epithelial Cell Urine 0-2 /HPF (0-2); WBC Urine 0-5 /HPF (0-5)
[2024-09-27] VITALS (8 sets, daily range): BP systolic 112–160; BP diastolic 55–88; PULSE 62–73; RESP 12–18; TEMP 36.3–36.9; O2SAT 93–97
--- NOTE | 2024-09-27 02:31 | PC.NURSE ---
no pain at this time pt is sleeping, no sign of distress.
[2024-09-27] MEDS: 0.9 % Sodium Chloride Flush 3 ML SYRINGE IVFLUSH ×4 (05:59→23:05)
[2024-09-27 06:04] LABS: MANUAL DIFF FLAG NO
[2024-09-27 06:14] LABS: Anion Gap 12 (12-20); Blood Urea Nitrogen 19 mg/dL (9-16); Calcium 8.4 mg/dL (8.4-10.2); Carbon Dioxide 22 mmol/L (22-29); Chloride 111 mmol/L (96-108); Creatinine Clr Calc Pharmacy 80.3; Estimated Glomerular Filt Rate > 60; Glucose Random 98 mg/dL (60-115); Potassium 4.1 mmol/L (3.3-5.1); Sodium 141 mmol/L (135-145)
[2024-09-27 06:16] LABS: Basophils Percent Auto 0.5 % (0-2); Eosinophils Absolute Auto 0.2 X10*3/uL (0.0-0.4); Eosinophils Percent Auto 2.5 % (0-4); Hematocrit 45.8 % (42.0-52.0); Hemoglobin 15.9 g/dl (14.0-18.0); Imm Gran Abs Auto 0.01 X10*3/uL (0.00-0.03); Imm Gran Pct Auto 0.2 % (0.0-0.4); Lymphocytes Absolute Auto 1.9 X10*3/uL (1.2-4.9); Lymphocytes Percent Auto 29.3 % (20-40); Mean Corpuscular HGB Conc 34.7 g/dl (31.0-36.0); Mean Corpuscular Hemoglobin 33.6 pg (27.0-33.0); Mean Corpuscular Volume 96.8 fL (80.0-98.0); Mean Platelet Volume 9.1 fL (9.4-12.4); Monocytes Absolute Auto 0.7 X10*3/uL (0.1-1.2); Monocytes Percent Auto 11.1 % (2-11); Neutrophils Absolute Auto 3.7 x10*3/uL (2.0-8.3); Neutrophils Percent Auto 56.4 % (45-73); Platelet Count 185 X10*3/uL (160-400); Red Blood Count 4.73 X10*6/uL (4.60-5.80); Red Cell Distribution Width 11.9 % (11.0-16.0); White Blood Count 6.5 X10*3/uL (4.8-10.8)
--- NOTE | 2024-09-27 06:56 | PC.NURSE ---
pt oob to bathroom with a steady gait.
[2024-09-27] MEDS: HYDROmorphone HCl 0.5 MG/0.5 ML SYRINGE IVPUSH (07:28)
[2024-09-27] MEDS: Lidocaine HCl 1 % 20 ML VIAL INFILTRATI (07:29)
--- NOTE | 2024-09-27 07:41 | PC.NURSE ---
Dr Kendrick at bedside to insert L sided chest tube; pt pre-medicated per orders; pt tolerated procedure well and denies any pain; pigtail tube to L upper chest connected to suction with yellow, serous fluid out
--- NOTE | 2024-09-27 08:08 | HO.PM.IMPN ---
Subjective Subjective Date of Service: 09/27/24 Interval History: f/u on spontaneous pneumothorax s/p chest tube this morning and doing well Physical Exam Vital Signs: Vital Signs: Last Vital Signs Temp 97.7 F 09/27/24 06:25 Pulse 68 09/27/24 06:25 Resp 16 09/27/24 06:25 BP 118/55 L 09/27/24 06:25 Pulse Ox 96 09/27/24 06:25 O2 Del Method Room Air 09/27/24 06:25 BMI result Body Mass Index 32.3 Const: Other: General: AO X 3, no acute distress Resp: clear mirta, normal effort CVS: S1,S2,RRR GI: +BS, NT, no distention Skin: No rash Neuro: motor grossly intact Psych: appropriate affect Objective Data Active Medications Acetaminophen (Acetaminophen 325 Mg Tablet) 650 mg PO Q6H PRN PRN Reason: Pain, Mild 1-3,fever,headache Calcium Carbonate (Calcium Carbonate 750 Mg Tab.Chew) 750 mg PO Q4H PRN PRN Reason: Heartburn Magnesium Hydroxide (Milk Of Magnesia 30 Ml Oral.Susp) 30 ml PO DAILY PRN PRN Reason: Constipation Melatonin (Melatonin 3 Mg Tablet) 6 mg PO BEDTIME PRN PRN Reason: Insomnia Morphine Sulfate (Morphine Sulfate 4 Mg/Ml Cartridge) 3 mg IVPUSH Q4H PRN; Protocol PRN Reason: Pain, Severe (Pain Scale 7-10) Ondansetron HCl (Ondansetron Hcl 4 Mg/2 Ml Vial) 4 mg IVPUSH Q8H PRN PRN Reason: Nausea and Vomiting Sodium Chloride (0.9 % Sodium Chloride Flush 3 Ml Syringe) 3 ml IVFLUSH [facility] Last Admin: 09/27/24 07:29 Dose: 3 ml Documented By: GWENDOLYN Labs 09/27/24 05:55 09/27/24 05:55 Labs: Laboratory Results - last 24 hr 09/26/24 09/26/24 09/26/24 19:07 19:10 21:56 MCV 94.6 MCH 33.7 H MCHC 35.6 RDW 12.0 Plt Count 191 MPV 9.0 L Immature Gran % (Auto) 0.4 Neut % (Auto) 57.7 Lymph % (Auto) 29.6 [place] % (Auto) 10.6 Eos % (Auto) 1.3 Baso % (Auto) 0.4 Lymph # (Auto) 2.5 [place] # (Auto) 0.9 Eos # (Auto) 0.1 Baso # (Auto) 0.0 Abs Immat Gran (auto) 0.03 Absolute Neuts (auto) 4.8 Absolute Nucleated RBC 0.000 Nucleated RBC % (auto) 0.0 VBG pH 7.47 H VBG pCO2 33 VBG pO2 58 VBG HCO3 24 VBG O2 Saturation 92.0 VBG Base Excess 1.8 Anion Gap 13 Estim Creat Clear Calc 78.5 Estimated GFR > 60 Random Glucose 105 Calcium 8.4 Urine Color Yellow Urine Appearance Cloudy Urine pH 7.0 Ur Specific [place] 1.020 Urine Protein Negative Urine Glucose (UA) Negative Urine Ketones Negative Urine Blood Trace H Urine Nitrite Negative Ur Leukocyte Esterase Negative Urine RBC 6-10 H Urine WBC 0-5 Ur Squamous Epith Cells 0-2 Urine Bacteria None Seen Hyaline Casts 3-5 09/27/24 05:55 MCV 96.8 MCH 33.6 H MCHC 34.7 RDW 11.9 Plt Count 185 MPV 9.1 L Immature Gran % (Auto) 0.2 Neut % (Auto) 56.4 Lymph % (Auto) 29.3 [place] % (Auto) 11.1 H Eos % (Auto) 2.5 Baso % (Auto) 0.5 Lymph # (Auto) 1.9 [place] # (Auto) 0.7 Eos # (Auto) 0.2 Baso # (Auto) 0.0 Abs Immat Gran (auto) 0.01 Absolute Neuts (auto) 3.7 Absolute Nucleated RBC 0.000 Nucleated RBC % (auto) 0.0 VBG pH VBG pCO2 VBG pO2 VBG HCO3 VBG O2 Saturation VBG Base Excess Anion Gap 12 Estim Creat Clear Calc 80.3 Estimated GFR > 60 Random Glucose 98 Calcium 8.4 Urine Color Urine Appearance Urine pH Ur Specific [place] Urine Protein Urine Glucose (UA) Urine Ketones Urine Blood Urine Nitrite Ur Leukocyte Esterase Urine RBC Urine WBC Ur Squamous Epith Cells Urine Bacteria Hyaline Casts Assessment and Plan (1) Hemopneumothorax, left: Status: Acute Plan 69-year-old male with pertinent history of metastatic melanoma, former tobacco use disorder, mixed hyperlipidemia who presents to the emergency department for evaluation of abnormal chest x-ray. Left-sided, large spontaneous pneumothorax on CT. hemodynamically, on room air s/p chest tube this morning without complications morphine for pain serial CXRs Metastatic melanoma: Outpatient follow-up with Oncology DVT prophylaxis: SCDs, heparin DNR/DNI. Discussed with patient at bedside need for inpt: spontaneous PTX needing chest tub Quality Stroke Does the patient have a stroke diagnosis?: No VTE Prior VTE?: No VTE Risk Level:: Medical - moderate - high VTE Device Contraindication: N/A - Device Ordered VTE Drug Contraindication: Treatment Not Indicated
--- NOTE | 2024-09-27 09:15 | HO.THORCON_ITS ---
History of Present Illness Consult details Consult date: 09/27/24 Reason for consult: other (left pneumothorax) Requesting physician: Siria Borja Narrative: 69-year-old male with pertinent history of metastatic melanoma, former tobacco use disorder, mixed hyperlipidemia who presented to the ED for evaluation of abnormal chest x-ray. Patient was seen at his PCP's office for evaluation of chest pain and shortness of breath, coughing and congestion. His symptoms have been ongoing for a week. No fever or chills. Chest x-ray outpatient revealed moderate pneumothorax and patient was sent to the ER for further evaluation. Patient states he stopped smoking many years ago. No trauma to the chest. He had a history of hydropneumothorax found as incidental finding on abdominal MRI in early 2023. He had f/u CT scan chest and he denied any respiratory symptoms and no intervention was needed. Work up in the ED showed CXR and CT scan chest with large left pneumothorax with moderate left effusion. He was maintaining normal oxygen saturation on room air, regular rate, normotensive. Thoracic surgery was consulted for further treatment of the left pneumothorax. Review of Systems 2 Review of Systems: Yes all other systems are reviewed and are negative [facility] Past Medical History Medical History Transaminitis COVID-19 vaccine series completed Cyst of right kidney Screening for prostate cancer Screening for diabetes mellitus Liver cyst Family History Family History Father Esophageal cancer Mother Hodgkin disease Brother Kidney malignancy Sibling Brother Kidney malignancy Sibling Surgical History Surgical History History of colonoscopy History of knee replacement procedure of right knee History of eye surgery H/O carpal tunnel repair H/O basal cell carcinoma excision History of ear surgery Social History Social History Household Members: Family Housing: House Are you a primary care professionals to a significant other at home: No Do you presently have visiting nurse or other home services: No Alcohol intake: never Patient Tobacco Use Status: Never used Tobacco Smoked in Last 30 Days: No e-Cigarette/Vaping Use: Never Used Second Hand Smoke Exposure: No Use of substances other than those prescribed or required for medical reasons: No Advance Directives: No Advance Directives Information Provided: No Do you have a plan to hurt others: No Plan service: No Current occupational status: employed and retired 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 [employer] Cognitive needs: No Hearing needs: No Vision needs: No Meds Allergies Allergy/AdvReac Type Severity Reaction Status Date / Time No Known Allergies Allergy Verified 09/27/24 02:04 [No Known Allergies*] Active Medications: Current Medications Acetaminophen (Acetaminophen 325 Mg Tablet) 650 mg PO Q6H PRN PRN Reason: Pain, Mild 1-3,fever,headache Calcium Carbonate (Calcium Carbonate 750 Mg Tab.Chew) 750 mg PO Q4H PRN PRN Reason: Heartburn Magnesium Hydroxide (Milk Of Magnesia 30 Ml Oral.Susp) 30 ml PO DAILY PRN PRN Reason: Constipation Melatonin (Melatonin 3 Mg Tablet) 6 mg PO BEDTIME PRN PRN Reason: Insomnia Morphine Sulfate (Morphine Sulfate 4 Mg/Ml Cartridge) 3 mg IVPUSH Q4H PRN; Protocol PRN Reason: Pain, Severe (Pain Scale 7-10) Ondansetron HCl (Ondansetron Hcl 4 Mg/2 Ml Vial) 4 mg IVPUSH Q8H PRN PRN Reason: Nausea and Vomiting Sodium Chloride (0.9 % Sodium Chloride Flush 3 Ml Syringe) 3 ml IVFLUSH [facility] Last Admin: 09/27/24 07:29 Dose: 3 ml Home Medications ?Medication ?Instructions ?Recorded ?Confirmed ?Last Taken ?Type No Known Home Meds 09/26/24 09/26/24 Unknown History Physical Exam 2 Vital Signs: Vital Signs: Last Vital Signs Temp 97.9 F 09/27/24 08:24 Pulse 66 09/27/24 08:24 Resp 12 09/27/24 08:24 BP 136/88 09/27/24 08:24 Pulse Ox 96 09/27/24 08:24 O2 Del Method Room Air 09/27/24 08:24 BMI result Body Mass Index 32.3 Const: General: comfortable, no acute distress and alert; No ill appearing Orientation/consciousness: patient oriented x3 Chest: Chest palpation & inspection: normal inspection of the chest and normal palpation of entire chest wall Resp: Effort & Inspection: normal respiratory effort, not tachypneic, no tracheal deviation and no use of accessory muscles Skin: General skin exam: no rashes or lesions noted Neuro: General: patient oriented x3 and moves all extremities Results Labs 09/27/24 05:55 09/27/24 05:55 Labs: Abnormal lab results 09/26/24 09/26/24 09/26/24 Range/Units 19:07 19:10 21:56 MCH 33.7 H (27.0-33.0) pg MPV 9.0 L (9.4-12.4) fL [place] % (Auto) (2-11) % VBG pH 7.47 H (7.32-7.43) Chloride 112 H (96-108) mmol/L Carbon Dioxide 20 L (22-29) mmol/L BUN 20 H (9-16) mg/dL Urine Blood Trace H (Negative) Urine RBC 6-10 H (0-2) /HPF 09/27/24 Range/Units 05:55 MCH 33.6 H (27.0-33.0) pg MPV 9.1 L (9.4-12.4) fL [place] % (Auto) 11.1 H (2-11) % VBG pH (7.32-7.43) Chloride 111 H (96-108) mmol/L Carbon Dioxide (22-29) mmol/L BUN 19 H (9-16) mg/dL Urine Blood (Negative) Urine RBC (0-2) /HPF Short CBC 09/26/24 09/27/24 Range/Units 19:07 05:55 WBC 8.4 6.5 (4.8-10.8) X10*3/uL Hgb 16.2 15.9 (14.0-18.0) g/dl Hct 45.5 45.8 (42.0-52.0) % Plt Count 191 185 (160-400) X10*3/uL BMP 09/26/24 09/27/24 19:07 05:55 Sodium 141 141 Potassium 4.0 4.1 Chloride 112 H 111 H Carbon Dioxide 20 L 22 BUN 20 H 19 H Creatinine 0.88 0.86 Calcium 8.4 8.4 Urine 09/26/24 Range/Units 21:56 Urine Color Yellow Urine Appearance Cloudy Urine pH 7.0 (5.0-9.0) Ur Specific [place] 1.020 (1.005-1.025) Urine Protein Negative (Neg-Trace) mg/dL Urine Glucose (UA) Negative (Negative) mg/dL All other labs normal. Imaging Chest x-ray: report reviewed and image reviewed CT scan - chest: report reviewed and image reviewed Assessment and Plan (1) Hydropneumothorax: Status: Acute Plan 69-year-old male with pertinent history of metastatic melanoma, former tobacco use disorder, mixed hyperlipidemia presenting with dyspnea on exertion found to have left hydropneumothorax on imaging. Treatment options were discussed with the patient and recommended left chest tube insertion. He is in agreement and this was performed at bedside uneventfully. See procedure note below. Post procedure film shows improvement in the left pneumothorax and pleural fluid. Chest tube management orders placed. Repeat CXR in AM. Cytology orders sent. The risks and benefits, alternatives were discussed with the patient and informed consent was obtained. An area of the patient's left anterior chest was prepped with chloraprep and draped in the usual sterile fashion. 10 mL of 1% lidocaine was used for local anesthesia of the skin and subcutaneous tissues. A hypodermic needle was introduced to demonstrate a safe access route with alvarez of air obtained. A [employer] catheter was then used to access the pleural cavity. A guidewire was then placed through the catheter and into the chest cavity. The access site was then dilated. A 14 fr locking catheter was then advanced over the wire and into the chest cavity. The wire was removed and the catheter was secured to the skin with a single silk suture and a sterile dressing was applied over the site. The catheter was then connected to a closed chest drainage system. The patient tolerated the procedure well. No immediate complications. Post procedure film obtained as above. Procedures Date of Service Date of Service: 09/27/24 Chest Tube Chest Tube 1: Chest tube location: Mid-Clavicular Chest Size of tube: 14 Chest tube procedure: Yes sterile drapes applied (chloraprep) Tube sutured to skin: Yes Sterile dressing applied: Yes Anesthesia: 1% Lidocaine Volume anesthetic (ml): 10 Incision made with: #11 blade Post procedure: sutured to skin and sterile dressing applied Alvarez of air heard: Yes Tube Drainage: fluid (serous, scant ) Post procedure CXR?: Yes Patient tolerated procedure: Yes
[2024-09-27] MEDS: Heparin Sodium,Porcine 5,000 UNIT/ML VIAL 5000 UNIT SUBCUT ×2 (14:00→23:03)
--- NOTE | 2024-09-27 15:47 | PC.NURSE ---
Pt arrived from ED to s3 A&Ox4 and cooperative with care. Pt was able to take a few steps into bed. Pt lung sounds dim throughout 95% on room air, chest tube located in anterior left upper chest, no crepitus noted, -20 water seal and wall suction, 70ml of serosanguineous noted in chest tube (marked with tape and maker), no air leak noted. All needs met at this time, safety measures in place. MD Swartz notified Jardiance ordered, per pt, pt does not take any medications at home and is not diabetic. Per hold med.
--- NOTE | 2024-09-27 16:03 | MHC.CM.PN ---
PT REPORTS HE LIVES ALONE AND IS INDEPENDENT WITH CARE PT HAS NO DME AND NO SERVICES PT SAYS HE HAS A HCP, COPY REQUESTED PCP: ERIN ELIAS IMM DELIVERED DCP: HOME NO SERVICES PTS CAR IS IN LOT, HE WILL DRIVE HOME IF MD FEELS IT IS SAFE TO DO SO
[2024-09-28 03:45] VITALS: BP 139/80; PULSE 60; RESP 16; TEMP 36.5; O2SAT 93
[2024-09-28 07:28] VITALS: BP 127/84; PULSE 68; RESP 16; TEMP 36.7; O2SAT 93
--- NOTE | 2024-09-28 08:00 | PC.NURSE ---
MARTY Reveles at bedside, removed suction from chest tube, per MARTY ok to be at water seal. Pt tolerated well, denies SOB.
[2024-09-28] MEDS: 0.9 % Sodium Chloride Flush 3 ML SYRINGE IVFLUSH ×3 (08:06→23:03)
--- NOTE | 2024-09-28 08:57 | PM.PNTS ---
Subjective Subjective Date of Service: 09/28/24 Interval history: Feels well. Denies shortness of breath. Physical Exam Vital Signs: Vital Signs: Last Vital Signs Temp 98.0 F 09/28/24 07:28 Pulse 68 09/28/24 07:28 Resp 16 09/28/24 07:28 BP 127/84 09/28/24 07:28 Pulse Ox 93 09/28/24 07:28 O2 Del Method Room Air 09/28/24 07:28 BMI result Body Mass Index 30.0 Const: General: comfortable, no acute distress and alert Orientation/consciousness: patient oriented x3 Chest: Other: chest tube in place anterior left chest no air leak on pleurvac Resp: Effort & Inspection: normal respiratory effort Skin: General skin exam: no rashes or lesions noted Neuro: General: patient oriented x3 Procedures Date of Service Date of Service: 09/28/24 Progress Note: A&P Assessment and plan (1) Hydropneumothorax: Status: Acute Plan Underwent left anterior chest tube placement for left hydropneumothorax yesterday. Lung remains up, improvement in effusion on this morning CXR. Will place to water seal and repeat CXR tomorrow. Place back to suction if becomes symptomatic. Await cytology results- if fluid comes back malignant, would benefit from sclerosis prior to chest tube removal. Time Spent With Patient Time: Total time managing care of this patient today ____ minutes. Quality Stroke Does the patient have a stroke diagnosis?: No VTE Prior VTE?: No VTE Risk Level:: Medical - moderate - high VTE Device Contraindication: N/A - Device Ordered VTE Drug Contraindication: Treatment Not Indicated
--- NOTE | 2024-09-28 10:32 | HO.PM.IMPN ---
Subjective Subjective Date of Service: 09/28/24 Interval History: s/p chest tube for left spontaneous pneumothorax status post chest tube No chest pain, no shortness of breath vital stable. Physical Exam Vital Signs: Vital Signs: Last Vital Signs Temp 98.0 F 09/28/24 07:28 Pulse 68 09/28/24 07:28 Resp 16 09/28/24 07:28 BP 127/84 09/28/24 07:28 Pulse Ox 93 09/28/24 07:28 O2 Del Method Room Air 09/28/24 07:28 BMI result Body Mass Index 30.0 Const: Other: General: AO X 3, no acute distress Resp: clear mirta, normal effort, left chest tube in CVS: S1,S2,RRR GI: +BS, NT, no distention Skin: No rash Neuro: motor grossly intact Psych: appropriate affect Objective Data Active Medications Acetaminophen (Acetaminophen 325 Mg Tablet) 650 mg PO Q6H PRN PRN Reason: Pain, Mild 1-3,fever,headache Calcium Carbonate (Calcium Carbonate 750 Mg Tab.Chew) 750 mg PO Q4H PRN PRN Reason: Heartburn Heparin Sodium (Porcine) (Heparin Sodium,Porcine 5,000 Unit/Ml Vial) 5,000 unit SUBCUT Q12H [facility] Last Admin: 09/27/24 23:03 Dose: 5,000 unit Documented By: ELISE Magnesium Hydroxide (Milk Of Magnesia 30 Ml Oral.Susp) 30 ml PO DAILY PRN PRN Reason: Constipation Melatonin (Melatonin 3 Mg Tablet) 6 mg PO BEDTIME PRN PRN Reason: Insomnia Morphine Sulfate (Morphine Sulfate 4 Mg/Ml Cartridge) 3 mg IVPUSH Q4H PRN; Protocol PRN Reason: Pain, Severe (Pain Scale 7-10) Ondansetron HCl (Ondansetron Hcl 4 Mg/2 Ml Vial) 4 mg IVPUSH Q8H PRN PRN Reason: Nausea and Vomiting Sodium Chloride (0.9 % Sodium Chloride Flush 3 Ml Syringe) 3 ml IVFLUSH QSHIFT [facility] Last Admin: 09/28/24 08:06 Dose: 3 ml Documented By: HUMBERTO Labs 09/27/24 05:55 09/27/24 05:55 Assessment and Plan (1) Hemopneumothorax, left: Status: Acute Plan 69-year-old male with pertinent history of metastatic melanoma, former tobacco use disorder, mixed hyperlipidemia who presents to the emergency department for evaluation of abnormal chest x-ray. Left-sided, large spontaneous pneumothorax on CT. hemodynamically, on room air s/p chest tube this morning without complications morphine for pain CXR today, no PTX, Pleural fluid cytology pending Metastatic melanoma: Outpatient follow-up with Oncology DVT prophylaxis: SCDs, heparin DNR/DNI. Discussed with patient at bedside need for inpt: spontaneous PTX needing chest tub Quality Stroke Does the patient have a stroke diagnosis?: No VTE Prior VTE?: No VTE Risk Level:: Medical - moderate - high VTE Device Contraindication: N/A - Device Ordered VTE Drug Contraindication: Treatment Not Indicated
--- NOTE | 2024-09-28 10:53 | PC.NURSE ---
Per MARTY Reveles pt needs cytology lab off of plural fluid and to send via chest tube container. Jeffery in histology contacted and stated it was ok to send the whole chest tube with fluid down to lab. Chest tube container changed via sterile technique, old chest tube container labeled and walked down to cytology by this RN.
[2024-09-28] MEDS: Heparin Sodium,Porcine 5,000 UNIT/ML VIAL 5000 UNIT SUBCUT ×2 (11:14→23:01)
[2024-09-28 11:57] VITALS: BP 143/82; PULSE 74; RESP 18; TEMP 36.7; O2SAT 97
--- NOTE | 2024-09-28 13:52 | MHC.CM.PN ---
EMR reviewed and per MD rounds, pt is not medically cleared for discharge due to management of pneumothorax with chest tube in place.
[2024-09-28 15:20] VITALS: BP 138/74; PULSE 75; RESP 18; TEMP 36.6; O2SAT 96
[2024-09-28 19:33] VITALS: BP 155/85; PULSE 80; RESP 18; TEMP 37.7; O2SAT 92
[2024-09-28] MEDS: guaiFEN/Codeine SF 200/20/10ML 10 ML LIQUID 5 ML PO (23:37)
[2024-09-28 23:50] VITALS: BP 137/80; PULSE 77; RESP 18; TEMP 37.7; O2SAT 91
[2024-09-29 03:26] VITALS: BP 111/64; PULSE 71; RESP 18; TEMP 36.7; O2SAT 93
[2024-09-29 06:56] LABS: Anion Gap 14 (12-20); Blood Urea Nitrogen 20 mg/dL (9-16); Calcium 8.7 mg/dL (8.4-10.2); Carbon Dioxide 22 mmol/L (22-29); Chloride 109 mmol/L (96-108); Creatinine Clr Calc Pharmacy 71.7; Estimated Glomerular Filt Rate > 60; Glucose Random 105 mg/dL (60-115); Potassium 4.6 mmol/L (3.3-5.1); Sodium 140 mmol/L (135-145)
[2024-09-29 07:14] LABS: Hematocrit 49.8 % (42.0-52.0); Hemoglobin 17.1 g/dl (14.0-18.0); Mean Corpuscular HGB Conc 34.3 g/dl (31.0-36.0); Mean Corpuscular Hemoglobin 33.4 pg (27.0-33.0); Mean Corpuscular Volume 97.3 fL (80.0-98.0); Mean Platelet Volume 9.7 fL (9.4-12.4); Platelet Count 179 X10*3/uL (160-400); Red Blood Count 5.12 X10*6/uL (4.60-5.80); Red Cell Distribution Width 11.9 % (11.0-16.0); White Blood Count 8.8 X10*3/uL (4.8-10.8)
[2024-09-29 08:00] VITALS: BP 133/81; RESP 16; TEMP 36.7; O2SAT 94
[2024-09-29] MEDS: Milk of Magnesia 30 ML ORAL.SUSP PO (09:16)
--- NOTE | 2024-09-29 09:55 | HO.PM.IMPN ---
Subjective Subjective Date of Service: 09/29/24 Interval History: s/p chest tube for left spontaneous pneumothorax status post chest tube No chest pain, no shortness of breath vital stable. Physical Exam Vital Signs: Vital Signs: Last Vital Signs Temp 98.1 F 09/29/24 08:00 Pulse 71 09/29/24 03:26 Resp 16 09/29/24 08:00 BP 133/81 09/29/24 08:00 Pulse Ox 94 09/29/24 08:00 O2 Del Method Room Air 09/29/24 08:00 BMI result Body Mass Index 30.0 Const: Other: General: AO X 3, no acute distress Resp: clear mirta, normal effort, left chest tube in CVS: S1,S2,RRR GI: +BS, NT, no distention Skin: No rash Neuro: motor grossly intact Psych: appropriate affect Objective Data Active Medications Acetaminophen (Acetaminophen 325 Mg Tablet) 650 mg PO Q6H PRN PRN Reason: Pain, Mild 1-3,fever,headache Calcium Carbonate (Calcium Carbonate 750 Mg Tab.Chew) 750 mg PO Q4H PRN PRN Reason: Heartburn Guaifenesin/Codeine Phosphate (Guaifen/Codeine Sf 200/20/10ml 10 Ml Liquid) 5 ml PO Q6H PRN PRN Reason: Cough Last Admin: 09/28/24 23:37 Dose: 5 ml Documented By: ROXI Heparin Sodium (Porcine) (Heparin Sodium,Porcine 5,000 Unit/Ml Vial) 5,000 unit SUBCUT Q12H [facility] Last Admin: 09/28/24 23:01 Dose: 5,000 unit Documented By: ROXI Magnesium Hydroxide (Milk Of Magnesia 30 Ml Oral.Susp) 30 ml PO DAILY PRN PRN Reason: Constipation Last Admin: 09/29/24 09:16 Dose: 30 ml Documented By: GERMAN Melatonin (Melatonin 3 Mg Tablet) 6 mg PO BEDTIME PRN PRN Reason: Insomnia Morphine Sulfate (Morphine Sulfate 4 Mg/Ml Cartridge) 3 mg IVPUSH Q4H PRN; Protocol PRN Reason: Pain, Severe (Pain Scale 7-10) Ondansetron HCl (Ondansetron Hcl 4 Mg/2 Ml Vial) 4 mg IVPUSH Q8H PRN PRN Reason: Nausea and Vomiting Sodium Chloride (0.9 % Sodium Chloride Flush 3 Ml Syringe) 3 ml IVFLUSH QSHIFT [facility] Last Admin: 09/29/24 08:59 Dose: Not Given Documented By: GERMAN Non-Admin Reason: Previously Administered Labs 09/29/24 06:07 09/29/24 06:07 Labs: Laboratory Results - last 24 hr 09/29/24 06:07 MCV 97.3 MCH 33.4 H MCHC 34.3 RDW 11.9 Plt Count 179 MPV 9.7 Absolute Nucleated RBC 0.000 Nucleated RBC % (auto) 0.0 Anion Gap 14 Estim Creat Clear Calc 71.7 Estimated GFR > 60 Random Glucose 105 Calcium 8.7 Assessment and Plan (1) Hemopneumothorax, left: Status: Acute Plan 69-year-old male with pertinent history of metastatic melanoma, former tobacco use disorder, mixed hyperlipidemia who presents to the emergency department for evaluation of abnormal chest x-ray. Left-sided, large spontaneous pneumothorax on CT. hemodynamically, on room air s/p chest tube this morning without complications morphine for pain CXR today, small left apical pneumothorax Pleural fluid cytology pending He might need pleurodesis depending on cytology Metastatic melanoma: Outpatient follow-up with Oncology DVT prophylaxis: SCDs, heparin DNR/DNI. Discussed with patient at bedside need for inpt: spontaneous PTX needing chest tub Quality Stroke Does the patient have a stroke diagnosis?: No VTE Prior VTE?: No VTE Risk Level:: Medical - moderate - high VTE Device Contraindication: N/A - Device Ordered VTE Drug Contraindication: Treatment Not Indicated
[2024-09-29 12:00] VITALS: BP 133/75; PULSE 72; RESP 16; TEMP 37.3; O2SAT 93
[2024-09-29] MEDS: Heparin Sodium,Porcine 5,000 UNIT/ML VIAL 5000 UNIT SUBCUT ×2 (12:35→23:11)
--- NOTE | 2024-09-29 14:51 | PM.PNTS ---
Subjective Subjective Date of Service: 09/29/24 Interval history: No respiratory issues or complaints. Minimal output from Pleur-evac. No air leak. Chest x-ray demonstrated essentially no pneumothorax. Physical Exam Vital Signs: Vital Signs: Last Vital Signs Temp 99.1 F 09/29/24 12:00 Pulse 72 09/29/24 12:00 Resp 16 09/29/24 12:00 BP 133/75 09/29/24 12:00 Pulse Ox 93 09/29/24 12:00 O2 Del Method Room Air 09/29/24 12:00 BMI result Body Mass Index 30.0 Chest: Other: Chest tube dressing clean dry and intact. Chest tube removed uneventfully with occlusive dressing. Well-tolerated. Procedures Date of Service Date of Service: 09/29/24 Progress Note: A&P Assessment and plan (1) Pneumothorax, left: Status: Acute Plan Patient is status post chest tube removal. For postprocedure chest x-ray. Follow up with me in the office once discharged in roughly 1 week's time. Time Spent With Patient Time: Total time managing care of this patient today ____ minutes. Quality Stroke Does the patient have a stroke diagnosis?: No VTE Prior VTE?: No VTE Risk Level:: Medical - moderate - high VTE Device Contraindication: N/A - Device Ordered VTE Drug Contraindication: Treatment Not Indicated
[2024-09-29 16:00] VITALS: BP 124/74; PULSE 71; RESP 16; TEMP 36.6; O2SAT 95
[2024-09-29] MEDS: guaiFEN/Codeine SF 200/20/10ML 10 ML LIQUID 5 ML PO ×2 (17:43→23:16)
[2024-09-29 19:35] VITALS: BP 127/64; PULSE 76; RESP 18; TEMP 37.1; O2SAT 93
[2024-09-29] MEDS: 0.9 % Sodium Chloride Flush 3 ML SYRINGE IVFLUSH (23:10)
[2024-09-29 23:32] VITALS: BP 124/67; PULSE 79; RESP 17; TEMP 36.7; O2SAT 94
[2024-09-30 03:06] VITALS: BP 134/76; PULSE 65; RESP 16; TEMP 37.2; O2SAT 93
[2024-09-30 07:47] VITALS: BP 117/64; PULSE 70; RESP 16; TEMP 36.4; O2SAT 95
--- NOTE | 2024-09-30 11:45 | PM.DS ---
DS: Providers Provider Date of Service: 09/30/24 Date of admission: 09/26/24 20:58 Date of discharge: 09/30/24 Primary care physician: Elvira Grimes MD Consults: 09/26/24 20:58 Consult to Thoracic Surgery Routine Consulting Provider: Mayo Kendrick Reason for consultation: Large left pneumothorax. Moderate left pleural effusion. DS: Diagnosis Discharge Diagnosis (1) Pneumothorax, left: Status: Acute DS: Summary Hospital Course Hospital Course: admission hpi Chief Complaint: Chest pain This is a 69-year-old male with pertinent history of metastatic melanoma, former tobacco use disorder, mixed hyperlipidemia who presents to the emergency department for evaluation of abnormal chest x-ray. Patient was seen outpatient at his PCP's office for evaluation of chest pain which is worse with inspiration, coughing and upper respiratory symptoms. Patient states his symptoms have been ongoing for a week. Patient's cough was initially productive but has been improving over the last few days. Tested negative for COVID-19 and Influenza A. No fever or chills. Chest x-ray outpatient revealed moderate pneumothorax and patient was sent to the ER for further evaluation. Patient states he stopped smoking many years ago. No History of COPD that he knows of. No trauma. No history of pneumothorax in the past. Does complain of mild intermittent dyspnea with exertion but denies any complaints at the time of my evaluation at rest. States his pleuritic chest discomfort is also better. No palpitations, abdominal pain, changes in urinary or bowel habits. In the emergency department, patient maintaining normal oxygen saturation on room air. Normotensive with vital signs within normal limits. Thoracic surgery was consulted who requested admission to hospitalist service. CT imaging with large left pneumothorax with moderate left effusion. Hospital course: Patient presented with left-sided chest pain and was found to have a left pneumothorax with a moderate left pleural effusion. Thoracic surgery inserted a chest tube on 09/27/24, resulting in the resolution of the pneumothorax. A small amount of fluid was also drained and sent for cytology, which is pending. He had daily chest X-rays, and the chest tube was eventually removed on 09/29 after being on a water seal without a leak for 24 hours. A chest X-ray on 09/30/24 showed no pneumothorax. He will follow up with thoracic surgery (Dr. Kendrick) on an outpatient basis. Time Attestation Discharge Coordination Time (in mins): 40 Quality: Safe Use of Opioids Does Pt have an Active Cancer Diagnosis on the Problem List?: No Quality: Stroke Does the patient have a stroke diagnosis?: No Physical Exam Vital Signs: Vital Signs: Last Vital Signs Temp 97.5 F 09/30/24 07:47 Pulse 70 09/30/24 07:47 Resp 16 09/30/24 07:47 BP 117/64 09/30/24 07:47 Pulse Ox 95 09/30/24 07:47 O2 Del Method Room Air 09/30/24 07:47 BMI result Body Mass Index 30.0 DS: Data Data Completed and Pending Pending studies at discharge: Pending at discharge 09/27/24 09:34 Cytology [PTH] Routine Discharge Plan Discharge Anticipated Discharge Date/Time: 09/30/24 11:41 Patient Disposition: Home, Self-Care Discharge Diagnosis: Spontanous pneumothorax Referrals: Elvira Pang MD [Primary Care Provider] - 1 Week Mayo Kendrick MD [Physician] - 1 Week Discharge Medications: No Action No Known Home Meds Discharge Orders: Discharge Order (Routine); Ordered 09/30/24 Ordered By: Aric Swartz Diet: Advance to usual diet Activity on Discharge: No heavy lifting Stand Alone Forms: Patient Portal Discharge page Print Language: Azeri Activity Restrictions/Additional Instructions: Change chest tube dressing every other day or as needed. Care Plan Goals: recovery from pneumothorax Health Concerns: underlying melanoma pneumothorax now resolved Plan of Treatment: Outpatient follow up with thoracic surgery (Dr. Kendrick) Assessment: see above Patient Instructions: Spontaneous Pneumothorax (DC)
[2024-09-30 12:17] VITALS: BP 133/68; PULSE 72; RESP 20; TEMP 36.6; O2SAT 94
== END 2024-09-30 12:25 | disposition home or self-care (01) | DRG 200 ==
LOC: HO.ED 20:18 → HO.EDOVER 21:04 → HO.S3 09-27 14:36
PROVIDERS: Admitting Provider Student in an Organized Health Care Education/Training Program; Emergency Provider Emergency Medicine; PCP Internal Medicine; Visit Provider Internal Medicine
DX: J93.11 Primary spontaneous pneumothorax (principal); C78.7 Secondary malignant neoplasm of liver and intrahepatic bile duct; J91.8 Pleural effusion in other conditions classified elsewhere; Z66 Do not resuscitate; E78.2 Mixed hyperlipidemia; C69.92 Malignant neoplasm of unspecified site of left eye; Z87.891 Personal history of nicotine dependence; Z79.899 Other long term (current) drug therapy
CPT/HCPCS: 0241U; 36415; 71045; 71046; 71260; 80048; 81001; 82803; 85025; 85027; 86850; 86900; 86901; 88112; 88305; 88341; 88342; 99285; J1171; J1644; J2003; Q9967

== ENCOUNTER 2024-09-26 20:58 | Outpatient (BNV) | payer MEDICARE, SELFPAY | END 2024-09-28 07:00 | PROVIDERS: Admitting Provider Student in an Organized Health Care Education/Training Program; Emergency Provider Emergency Medicine; PCP Internal Medicine; Visit Provider Radiology Diagnostic Radiology | DX: Z46.82 Encounter for fitting and adjustment of non-vascular catheter (principal) | CPT/HCPCS: 71045 ==

== ENCOUNTER 2024-09-26 20:58 | Outpatient (BNV) | payer MEDICARE, SELFPAY | END 2024-09-27 08:00 | PROVIDERS: Admitting Provider Student in an Organized Health Care Education/Training Program; Emergency Provider Emergency Medicine; PCP Internal Medicine; Visit Provider Radiology Diagnostic Radiology | DX: J90 Pleural effusion, not elsewhere classified (principal) | CPT/HCPCS: 71045 ==

== ENCOUNTER 2024-09-26 20:58 | Outpatient (BNV) | payer MEDICARE, SELFPAY | END 2024-09-30 07:45 | PROVIDERS: Admitting Provider Student in an Organized Health Care Education/Training Program; Emergency Provider Emergency Medicine; PCP Internal Medicine; Visit Provider Radiology Diagnostic Radiology | DX: J93.9 Pneumothorax, unspecified (principal) | CPT/HCPCS: 71045 ==

== ENCOUNTER 2024-09-26 20:58 | Outpatient (BNV) | payer MEDICARE, SELFPAY | END 2024-09-29 07:00 | PROVIDERS: Admitting Provider Student in an Organized Health Care Education/Training Program; Emergency Provider Emergency Medicine; PCP Internal Medicine; Visit Provider Radiology Diagnostic Radiology | DX: J90 Pleural effusion, not elsewhere classified (principal); Z46.82 Encounter for fitting and adjustment of non-vascular catheter | CPT/HCPCS: 71045 ==

== ENCOUNTER → 2024-09-26 20:58 | Outpatient (BNV) | payer MEDICARE, SELFPAY | PROVIDERS: Admitting Provider Student in an Organized Health Care Education/Training Program; Emergency Provider Emergency Medicine; PCP Internal Medicine; Visit Provider Student in an Organized Health Care Education/Training Program | DX: J94.2 Hemothorax (principal) | CPT/HCPCS: 99222; 99232 ==

== ENCOUNTER → 2024-09-26 20:58 | Outpatient (BNV) | payer MEDICARE, SELFPAY | PROVIDERS: Admitting Provider Student in an Organized Health Care Education/Training Program; Emergency Provider Emergency Medicine; PCP Internal Medicine; Visit Provider Physician Assistant Surgical | DX: J93.9 Pneumothorax, unspecified (principal) | CPT/HCPCS: 32556; 99223; 99232 ==

== ENCOUNTER 2024-10-03 09:13 | Outpatient (AMB) | payer MEDICARE, SELFPAY ==
--- OUTSIDE RECORDS SUMMARY | 2024-10-03 09:26 | XMS_ITS ---
Author Organization [facility] Address [address] [place] [phone] Care Team Providers Care Shake Table Operator Name Role Phone Elvira Pang Primary Care Provider Unavailab Sanchez Perez Jr Unavailable REASON FOR VISIT records Encounters Encounter Location Date Provider Diagnosis [facility] [address] [place] [id number] 08/03/2024 Sanchez Hawley Jr PLAN OF TREATMENT Next Appt Details Provider Name:Sanchez levin Jr, 10/09/2024 08:30:00 AM, [address] [place] [address] , [place], [place], [phone],
--- OUTSIDE RECORDS SUMMARY | 2024-10-03 09:26 | XMS_ITS | Patient Health Record ---
Author Organization [facility] Address [address] [place] [address] Care Team Providers Care Hotel Operations Manager Name Role Phone Elvira Pang Primary Care Provider Unavailab Sanchez Perez Jr Unavailable ALLERGIES No Known Allergies RESULTS Component Value Reference Range Notes MR abdomen wo/w con Reviewed date:07/18/2024 08:21:58 AM Interpretation: Performing Lab: Notes/Report: [address] [address] Magnetic Resonance Report Signed Patient: Sampson Mackey MR#: [id number] : 1955 Acct:[id number] Age/Sex: 69 / M ADM Date: 07/15/24 Loc: HO.MRI Attending Dr: Sanchez Hawley MD Ordering Physician: Sanchez Hawley MD Date of Service: 07/15/24 Procedure(s): MR abdomen wo/w con Accession Number(s): [id number] cc: Sanchez Hawley MD; Elvira Pang MD [...] by: Bishop Gasca MD 07/16/2024 04:23 PM [facility] Dictated By: Isael Gasca MD Signed By: <Electronically signed by Isael Gasca MD in OV> 07/16/24 1623 DD/ 1240 TD/TT: 07/15/24 1315 Removable Prosthodontist: JANENE REASON FOR REFERRAL No Information IMMUNIZATIONS [...] Problem Colon cancer screening (Z12.11) Active confirmed 529932196 Problem Diverticulosis (K57.90) Active confirmed Diverticular disease of colon (963878887) Problem Gastroesophageal reflux disease without esophagitis (K21.9) Active confirmed 482483876 Problem Fatty liver (K76.0) Active confirmed 19 1348544 Problem Liver lesion (K76.9) Active confirmed 357156693 Problem Abnormal magnetic resonance imaging of liver (R93.2) Active confirmed 661362347 VITAL SIGNS Temperature 97.5 degrees Fahrenheit 06/27/2024 Blood pressure diastolic 00 mm Hg 06/27/2024 Height 64.5 in 06/27/2024 Blood pressure systolic 000 mm Hg 06/27/2024 Weight 191 lbs 06/27/2024 BMI 32.28 kg/m2 06/27/2024 Encounters Encounter Location Date Provider Diagnosis [facility] [address] [place] [address] 06/27/2024 Sanchez Hawley Jr Colon cancer screening Z12.11 ; Abnormal magnetic resonance imaging of liver R93.2 and Gastroesophageal reflux disease without esophagitis K21.9 [facility] [address] [place] [address] 07/18/2024 Sanchez Hawley Jr Abnormal magnetic resonance imaging of liver R93.2 [facility] [address] [place] [address] 08/03/2024 Sanchez Hawley Jr ASSESSMENTS Encounter Date [...] Name:Sanchez levin Jr, 10/09/2024 08:30:00 AM, [address] [facility] [place] , [place], [place], [phone], Insurance Providers Payer Name Payer Address Payer Phone Subscriber Number Group Number Insured Name Patient Relationship to Insured Coverage Start Date Coverage End Date [place] [address] [place] [address] [id number] SAMPSON MACKEY Self - patient is the insured [employer] ATTN CLAIMS [address] [place] [address] [id number] SAMPSON MACKEY Self - patient is the insured MEDICAL (GENERAL) HISTORY Medical History History ICD Code colonoscopy 10/12/19, tubular adenoma x1, five-year followup onychomycosis carpal tunnel syndrome Basal cell skin cancers GERD, EGD 11/01/12 elevated cholesterol Intraocular melanoma, left eye, 2018, 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 Bach carpal tunnel
--- OUTSIDE RECORDS SUMMARY | 2024-10-03 09:26 | XMS_ITS ---
Author Organization [facility] Address [address] [place] [address] Care Team Providers Care Solar Project Manager Name Role Phone Elvira Pang Primary Care Provider Unavailab Sanchez Perez Jr Unavailable [phone] ALLERGIES No Known Allergies REASON FOR VISIT Patient presents today for abdominal pain VITAL SIGNS BMI 32.28 kg/m2 06/27/2024 Blood pressure systolic 000 mm Hg 06/27/20 24 Blood pressure diastolic 00 mm Hg 024 Height 64.5 in 06/27/2024 Temperature 97.5 degrees Fahrenheit 06/27/20 24 Weight 191 lbs 06/27/2024 Encounters Encounter Location Date Provider Diagnosis [facility] [address] [place] [phone] 06/27/2024 Sanchez Hawley Jr Colon cancer screening [...] Name:Sanchez levin Jr, 10/09/2024 08:30:00 AM, [address] [place] [address] , [place], [place], [phone],
--- OUTSIDE RECORDS SUMMARY | 2024-10-03 09:26 | XMS_ITS ---
Author Organization [facility] Address [address] [place] [address] Care Team Providers Care Call Worker Person Name Role Phone Elvira Pang Primary Care Provider Unavailab Sanchez Perez Jr REASON FOR VISIT MRI Encounters Encounter Location Date Provider Diagnosis [facility] [address] [place] [phone] 07/18/2024 Sanchez Hawley Jr Abnormal magnetic resonance imaging of liver R93.2 ASSESSMENTS Encounter Date Diagnosis Assessment Notes Treatment Notes Treatment Clinical Notes 07/18/2024 Abnormal magnetic resonance imaging of liver (ICD-10 - R93.2) PLAN OF TREATMENT Pending Test Test Name Order Date MR abdomen wo/w con 07/18/2024 Next Appt Details Provider Name:Sanchez levin Jr, 10/09/2024 08:30:00 AM, [address] [place] [address] , [place], [place], [phone],
--- NOTE | 2024-10-03 09:36 | MHC.PC.OV ---
Vital Signs 10/03/24 09:38 Height 5 ft 5 in Weight 181 lb BMI 30.1 BP 112/68 Blood Pressure Location Lt brachial Position Sitting Pulse 81 Pulse Source Pulse Oximeter Temp 96.9 F Temp Source Temporal Artery Scan Pulse Oximetry (%) 96 Oxygen Delivery Method Room Air Intake Visit Reasons: TCM 10/02 CHEST XRAY AND DEPRESSION Intake Note: Patient is here for hospital discharge follow up. Patient was [place] [facility] [place]. Air Dispatcher Required: No Greenhouse Transplanter: Not Required per policy Accompanied by: Self / Same As Patient Allergies No Known Allergies [No Known Allergies*] Allergy (Verified 10/03/24 09:37) Medication List - Last Reconciled 10/03/24 by Jennifer Amato PA-C No Known Home Meds Tobacco use date assessed: 10/03/24 Fall risk assessment: No Falls in past year Last assessed Fall Risk: 10/03/24 Dental Screening Dental Screen Date: 09/26/24 HPI TCM 10/02 CHEST XRAY AND DEPRESSION HPI Details 69-year-old male with past medical history of hyperlipidemia, GERD, liver mass, pancreatic cancer, melanoma last seen 09/26/2024 by nurse practitioner coming in for hospital discharge follow up. In review of the notes, patient was seen in [facility] 09/26/2024 for evaluation of abnormal chest x-ray found to have left pneumothorax with moderate left pleural effusion.?Chest tube was inserted 09/27/2024 with resolution of pneumothorax and fluid was sent for cytology.?Chest tube was removed 09/29/2024 and chest x-ray on 09/30 showed no pneumothorax advised to follow up with Dr. Kendrick. Patient was discharged home 09/30/2024 to follow up with PCP, Oncology for metastatic melanoma and thoracic surgery. Patient tells us today he has an appointment with Dr. Kendrick tomorrow to follow up on his lungs. He is also being followed by Dr. Schroeder but is unsure of his next appointment and will reach out to her to reschedule. He endorses a mild dry cough that has been persistent since hospitilization. He also endorses feelings of depression surrouding his current diagnosis and highlights family stressors that contribute to these feelings. [facility] TCM Information Date of Discharge 09/30/24 Discharged From [facility] Interactive Contact Date (Reference documentation from this date) 10/02/24 [facility] Medical History Melanoma metastatic to liver Transaminitis COVID-19 vaccine series completed Cyst of right kidney Screening for prostate cancer Screening for diabetes mellitus Liver cyst Surgical History History of colonoscopy History of knee replacement procedure of right knee History of eye surgery H/O carpal tunnel repair H/O basal cell carcinoma excision History of ear surgery Family History Father Esophageal cancer Mother Hodgkin disease Brother Kidney malignancy Sibling Brother Kidney malignancy Sibling Social History Household Members: None Housing: House Are you a primary behavioral health care manager to a significant other at home: No Do you presently have visiting nurse or other home services: No Alcohol intake: never Patient Tobacco Use Status: Never used Tobacco e-Cigarette/Vaping Use: Never Used Second Hand Smoke Exposure: No service: No Current occupational status: employed and 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 Payam Irene, Lora Brooks, Nathan Baker and colleagues, with an educational jovana from [employer]. Review of Systems Const Denies body aches, Denies chills, Denies fever(s), Denies headache(s) and Denies poor appetite Eyes Reports no additional complaints ENT Denies dysphagia, Denies dizziness, Denies headache(s) and Denies odynophagia Card Denies chest pain, Denies syncope, Denies edema, Denies irregular heart rhythm, Denies lightheadedness and Denies dyspnea Resp Denies cough and Denies dyspnea GI Denies abdominal pain, Denies constipation, Denies dysphagia, Denies diarrhea, Denies nausea, Denies odynophagia and Denies vomiting Reports no additional complaints Musc Reports no additional complaints and Denies abnormal gait Skin/Breast Reports system reviewed and no additional complaints, except as documented Neuro Denies abnormal gait, Denies dizziness, Denies syncope and Denies headache(s) Psych Reports no additional complaints Physical exam (Primary Care) Vital Signs: Last Vital Signs Temp 96.9 F 10/03/24 09:38 Pulse 81 10/03/24 09:38 BP 112/68 10/03/24 09:38 Pulse Ox 96 10/03/24 09:38 Oxygen Delivery Method Room Air 10/03/24 09:38 BMI result Body Mass Index 30.1 Tobacco/Smoking Status: Tobacco use Status Tobacco use date assessed 10/03/24 10/03/24 09:41 Patient Tobacco Use Status Never used Tobacco 10/03/24 09:41 e-Cigarette/Vaping Use Never Used 10/03/24 09:41 Thrive Assessment: Date of Thrive Assessment Date Thrive assessed 09/27/24 10/03/24 09:41 Const General: cooperative, healthy appearing, comfortable and no acute distress Orientation/consciousness: patient oriented x3 HENMT Head: Yes normocephalic Ears: hearing grossly normal bilaterally General nose exam: Normal external nose present Eyes General: appearance normal, both eyes and all related structures Conjunctivae: conjunctivae normal Neck Neck: Yes full ROM and Yes no lymphadenopathy Resp Effort & Inspection: normal respiratory effort Auscultation: clear to auscultation bilaterally, no crackles, no rales, no rhonchi and no wheezes Cardio Rate: regular rate Rhythm: regular rhythm Skin General skin exam: no rashes or lesions noted Neuro General: patient oriented x3 Gait exam (Neuro): Normal gait present Extrem General: Yes normal to inspection, Yes full ROM and No edema Psych Affect: normal affect Attitude: cooperative Insight: Good insight present (Psych) Judgement: Good judgement present (Psych) Coding Level of Care Code TCM Mod MDM <= 7 Days Complex EM visit Add On G2211 Diagnoses Melanoma C43.9 Liver mass R16.0 Pancreatic cancer C25.9 Gastroesophageal reflux disease, unspecified whether esophagitis present K21.9 Esophagitis presence: esophagitis presence not specified Pure hypercholesterolemia E78.00 Hyperlipidemia type: pure hypercholesterolemia Pleural effusion J90 Depression F32.A Assessment & Plan Assessment & Plan (1) Melanoma: Code(s): C43.9 - Malignant melanoma of skin, unspecified Category: Medical Plan: Continue to follow with hematology/oncology. (2) Liver mass: Code(s): R16.0 - Hepatomegaly, not elsewhere classified Category: Surgical Plan: Following with hematology/oncology for this concern. Agrees to reach out to the office today to reschedule his appointment. (3) Pancreatic cancer: Code(s): C25.9 - Malignant neoplasm of pancreas, unspecified Category: Medical Plan: Following with hematology/oncology for this concern. Agrees to reach out to the office today to reschedule his appointment. (4) GERD (gastroesophageal reflux disease): Code(s): K21.9 - Gastro-esophageal reflux disease without esophagitis Category: Medical Qualifiers: Esophagitis presence: esophagitis presence not specified Qualified Code(s): K21.9 - Gastro-esophageal reflux disease without esophagitis Plan: Avoid trigger foods such as citrus, tomato products, soda, caffeine, spicy foods and other foods that may be irritating to your stomach. Avoid laying flat 3-4 hours after eating and elevate the head of the bed 30 degrees to prevent acid from moving into the esophagus. (5) Hyperlipidemia: Code(s): E78.5 - Hyperlipidemia, unspecified Category: Medical Qualifiers: Hyperlipidemia type: pure hypercholesterolemia Qualified Code(s): E78.00 - Pure hypercholesterolemia, unspecified Plan: Avoid foods that are high in cholesterol such as red meat, fried foods, eggs and baked goods. (6) Pleural effusion: Code(s): J90 - Pleural effusion, not elsewhere classified Category: Medical Plan: Patient states he is seeing Dr. Kendrick tomorrow for follow up and to discuss further steps. Continue to follow with cardiothoracic surgeon and I reviewed with the patient red flag symptoms and when to present for reevaluation. Cytology still pending. (7) Depression: Code(s): F32.A - Depression, unspecified Category: Medical Plan: Patient endorsing feelings of depression surrounding his current diagnosis. He is interested in support groups and other social supports. I referred him to community navigation as I feel they would be helpful in this case. I also started his on Zoloft but did inform him it could take some time to take effect. HE will follow up with his PCP at his next visit to review this concern. Plan This note was constructed using voice recognition software. While every effort has been made to ensure accuracy and wharf builder, still areas may have been included sometimes these areas may affect the content or meeting of the given symptoms. Total time spent caring for the patient today was 30 minutes. This includes time spent before the visit reviewing the chart, time spent during the visit, and time spent after the visit and documentation. Orders: Referrals Nurse Navigator Referral C43.9 - Malignant melanoma of skin, unspecified, F32.A - Depression, unspecified Medications: New sertraline 25 mg PO DAILY 90 tabs 1RF benzonatate 100 mg PO BID PRN 20 caps 0RF cough
[2024-10-03 09:38] VITALS: BP 112/68; PULSE 81; TEMP 36.1; O2SAT 96; BMI 30.1
== END 2024-10-03 10:24 | disposition home or self-care (01) ==
PROVIDERS: PCP Internal Medicine
DX: C43.9 Malignant melanoma of skin, unspecified (principal); C25.9 Malignant neoplasm of pancreas, unspecified; R16.0 Hepatomegaly, not elsewhere classified; K21.9 Gastro-esophageal reflux disease without esophagitis; E78.00 Pure hypercholesterolemia, unspecified; J90 Pleural effusion, not elsewhere classified; F32.A Depression, unspecified

== ENCOUNTER → 2024-10-03 09:13 | Outpatient (BNVA) | payer MEDICARE, SELFPAY | PROVIDERS: PCP Internal Medicine | DX: C43.9 Malignant melanoma of skin, unspecified (principal); R16.0 Hepatomegaly, not elsewhere classified; C25.9 Malignant neoplasm of pancreas, unspecified; K21.9 Gastro-esophageal reflux disease without esophagitis; E78.00 Pure hypercholesterolemia, unspecified; J90 Pleural effusion, not elsewhere classified; F32.A Depression, unspecified | CPT/HCPCS: 99495 ==

== ENCOUNTER 2024-10-08 08:53 | Outpatient (AMB) | payer MEDICARE, SELFPAY ==
--- NOTE | 2024-10-08 08:53 | MHC.OFFVIS ---
Intake Visit Reasons: status post chest tube removal Intake Note: Patient here s/o chest tube removal. Hx of Lt pneumothorax. Patient c/o: Lt leg feels swollen since yesterday. Chest X-ray: 09-30-2024 Flying Shear Operator Required: No Accompanied by: Self / Same As Patient Allergies No Known Allergies [No Known Allergies*] Allergy (Verified 10/08/24 08:57) HPI Comments Details: Patient presents for follow-up. He was complaining of some chest heaviness as well as significant left lower leg swelling. Patient is status post recent hospitalization for a spontaneous left pneumothorax. Cytology was negative for neoplasia. [facility] Medical History (Updated 10/05/24 @ 13:37 by Michelle Joseph RN) Hyperlipidemia Arthritis GERD (gastroesophageal reflux disease) Depression Melanoma metastatic to liver Transaminitis Cyst of right kidney Liver cyst Surgical History (Updated 10/08/24 @ 09:27 by Mayo Kendrick MD) History of liver biopsy History of colonoscopy History of knee replacement procedure of right knee History of eye surgery H/O carpal tunnel repair H/O basal cell carcinoma excision History of ear surgery Family History Father Esophageal cancer Mother Hodgkin disease Brother Kidney malignancy Sibling Brother Kidney malignancy Sibling Social History Household Members: None Housing: House Are you a primary rn medicare to a significant other at home: No Do you presently have visiting nurse or other home services: No Alcohol intake: never Patient Tobacco Use Status: Never used Tobacco e-Cigarette/Vaping Use: Never Used Second Hand Smoke Exposure: No service: No Current occupational status: employed and retired 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 He was ambulating with difficulty secondary to the left leg swelling. Chest Other: Chest markedly diminished breath sounds left. Right clear. Chest tube site well healed GI Other: Abdomen corpulent, soft, benign Extrem Other: Right lower extremity within normal limits marked swelling/edema of left lower extremity. Grossly neurovascularly intact. Assessment & Plan Assessment & Plan (1) Melanoma: Code(s): C43.9 - Malignant melanoma of skin, unspecified Category: Surgical (2) Edema of left lower extremity: Code(s): R60.0 - Localized edema Category: Surgical (3) Decreased breath sounds at left lung base: Code(s): R06.89 - Other abnormalities of breathing Category: Surgical Plan Patient will be transferred directly to the ER to rule out DVT left lower extremity as well as to rule out recurrent left pneumothorax. Patient understands. Further interventions and studies will be directed by ER workup. Patient was accompanied to ER by YEISON Mackenzie. Coding Level of Care Code Est Pt Level 4 (47243) Diagnoses Melanoma C43.9 Edema of left lower extremity R60.0 Decreased breath sounds at left lung base R06.89
--- OUTSIDE RECORDS SUMMARY | 2024-10-08 09:23 | XMS_ITS ---
Author Organization [facility] Address [address] [place] [address] Care Team Providers Care Paste Plant Supervisor Name Role Phone Elvira Pang Primary Care Provider Unavailab Sanchez Perez Jr REASON FOR VISIT records Encounters Encounter Location Date Provider Diagnosis [facility] [address] [place] [address] 08/03/2024 Sanchez Hawley Jr PLAN OF TREATMENT No Information
--- OUTSIDE RECORDS SUMMARY | 2024-10-08 09:23 | XMS_ITS ---
Author Organization [facility] Address [address] [place] [address] Care Team Providers Care Chain Saw Operator Name Role Phone Elvira Pang Primary Care Provider Unavailab Sanchez Perez Jr Unavailable [phone] REASON FOR VISIT MRI Encounters Encounter Location Date Provider Diagnosis [facility] [address] [place] [address] 07/18/2024 Sanchez Hawley Jr Abnormal magnetic resonance imaging of liver R93.2 ASSESSMENTS Encounter Date Diagnosis Assessment Notes Treatment Notes Treatment Clinical Notes 07/18/2024 Abnormal magnetic resonance imaging of liver (ICD-10 - R93.2) PLAN OF TREATMENT Pending Test Test Name Order Date MR abdomen wo/w con 07/18/2024
== END 2024-10-08 09:09 | disposition home or self-care (01) ==
LOC: HO.HGS 08:53
PROVIDERS: PCP Internal Medicine; Visit Provider Surgery
DX: C43.9 Malignant melanoma of skin, unspecified (principal); R60.0 Localized edema; R06.89 Other abnormalities of breathing
CPT/HCPCS: 99024

== ENCOUNTER 2024-10-08 09:10 | Inpatient (IN) | payer MEDICARE, SELFPAY ==
--- NOTE | ~2024-10-08 | XR_ITS ---
EXAMINATION: XR CHEST CLINICAL INFORMATION: Follow-up left pneumothorax status post pleurodesi COMPARISON: October 11, 2024. TECHNIQUE: Frontal view of the chest was obtained. FINDINGS: Left-sided tunneled catheter overlaps the medial upper left hemithorax. Questionable small volume left sided pneumothorax. Opacity of the left lower hemithorax with the horizontal morphology. Poor inspiration. Aerated right lung. Cardiomediastinal silhouette size is normal. XR/XR chest 1V IMPRESSION: Questionable small volume left-sided pneumothorax. Left-sided pleural effusion, moderate volume. Stable position of the left-sided pigtail chest tube. Electronically signed by: Weston Herbert MD 10/12/2024 10:42 AM [facility]
--- NOTE | ~2024-10-08 | XR_ITS ---
EXAMINATION: XR CHEST CLINICAL INFORMATION: f/u lfet hydropneumothorax COMPARISON: Prior day at 12:08 PM. TECHNIQUE: Frontal view of the chest was obtained. FINDINGS: Left pleural catheter again present, tip terminating in the medial left apex. The cardiac, hilar, and mediastinal contours are normal. Previously seen tiny apical left pneumothorax is again noted, unchanged. No right pneumothorax. Stable minimal blunting left costophrenic angle. Right lung clear. No focal osseous or soft tissue abnormality. XR/XR chest 1V IMPRESSION: No significant interval change. Electronically signed by: Epi Nolasco MD 10/11/2024 08:05 AM [facility]
--- NOTE | ~2024-10-08 | XR_ITS ---
EXAMINATION: XR CHEST 1 VIEW HISTORY: f/u left pneumo COMPARISON: Comparison is made with the prior examination dated 10/09/2024. FINDINGS: Two AP portable views of the chest performed at 7:09 AM are submitted. A left-sided chest tube is unchanged in position. Again seen is a trace left apical pneumothorax. The lungs are clear. There is no pleural effusion or pulmonary vascular congestion. The heart is normal in size. The bones are intact. XR/XR chest 1V IMPRESSION: Left chest tube in place. Trace left apical pneumothorax. Electronically signed by: Payam Alberts MD 10/10/2024 08:13 AM [facility] [place]
--- NOTE | ~2024-10-08 | XR_ITS ---
EXAMINATION: XR CHEST CLINICAL INFORMATION: SOB COMPARISON: September 30, 2024. TECHNIQUE: 2 views of the chest were obtained. FINDINGS: There is a large volume of fluid and gas within the left hemithorax with a collapsed appearance of the left lung. Cardiomediastinal silhouette is midline. Right lung is aerated and expanded. No acute cortical disruption in the ribs. XR/XR chest 2V IMPRESSION: Large volume hydropneumothorax/hydro hemothorax, left-sided. Collapsed left lung. Discussed with the emergency department the physician bilingual teacher assistant at 10:25 AM.. Electronically signed by: Weston Herbert MD 10/08/2024 10:25 AM [facility]
--- NOTE | ~2024-10-08 | XR_ITS ---
CLINICAL HISTORY: Status post left chest tube removal 1 view chest x-ray Comparison: CR/SR - XR CHEST 1V - 10/12/24 09:59 EST Findings: Left-sided chest tube removed. Very small recurrent left apical pneumothorax. Cardiac and mediastinal contours are prominent but stable. Elevation of the left hemidiaphragm with blunting of the left costophrenic margin. No acute fracture. IMPRESSION: Very small recurrent left apical pneumothorax. Follow-up recommended. This document has been electronically signed by: Pito Middleton MD on 10/13/2024 08:03:57
--- NOTE | ~2024-10-08 | XR_ITS ---
EXAMINATION: XR CHEST 1 VIEW HISTORY: f/u left hydropneumothorax COMPARISON: Comparison is made with the prior examination dated 10/08/2024. FINDINGS: A single AP portable view of the chest performed at 7:06 AM is submitted. A left-sided chest tube is again noted. There is a trace left apical pneumothorax. There is improved aeration of the left lung base since the prior study. The right lung is clear. No pleural effusion is seen. The heart is normal in size. The bones are intact. XR/XR chest 1V IMPRESSION: Left chest tube in place. Trace left apical pneumothorax. Improved aeration of the left lung base. Electronically signed by: Payam Alberts MD 10/09/2024 08:14 AM [facility]
--- NOTE | ~2024-10-08 | US_ITS ---
EXAMINATION: US TRIPLEX LOWER EXTREMITY, LEFT CLINICAL INFORMATION: Left lower extremity swelling. COMPARISON: None available. TECHNIQUE: Color-flow triplex imaging with spectral analysis and compression Doppler were performed on the left lower extremity. FINDINGS: There is noncompressible thrombus within the left femoral vein, mid and distal aspect, the popliteal vein, and throughout the deep calf veins. There is no Isaac's cyst. US/US venous duplex LE IMPRESSION: POSITIVE examination for left lower extremity DVT, with noncompressible thrombus within the left mid and distal femoral vein, popliteal vein, and throughout the deep calf veins. Electronically signed by: Epi Nolasco MD 10/08/2024 12:13 PM [facility]
--- NOTE | ~2024-10-08 | XR_ITS ---
EXAMINATION: XR CHEST CLINICAL INFORMATION: f/u left pneumo on water seal COMPARISON: None available. TECHNIQUE: Frontal view of the chest was obtained. FINDINGS: Left pleural catheter again present, tip terminating in the medial left apex. The cardiac, hilar, and mediastinal contours are normal. Previously seen small apical left pneumothorax is again noted but appears slightly smaller. It is trace. No right pneumothorax. Stable minimal blunting left costophrenic angle. Right lung clear. No focal osseous or soft tissue abnormality. XR/XR chest 1V IMPRESSION: 1. Left apical pleural catheter unchanged in position. 2. Slightly smaller trace left apical pneumothorax. 3. Similar mild blunting left costophrenic sulcus. 4. Right lung remains clear. Electronically signed by: Epi Nolasco MD 10/10/2024 12:34 PM [facility]
--- NOTE | ~2024-10-08 | XR_ITS ---
EXAMINATION: XR CHEST 1 VIEW HISTORY: chest tube placement COMPARISON: Comparison is made with the prior examination performed earlier in the day at 10:15 AM. FINDINGS: A single AP portable view of the chest performed at 12:45 PM is submitted. There is been interval insertion of a left chest tube. There is a tiny residual left apical pneumothorax. There is patchy airspace opacity at the left lung base which may represent atelectasis or pneumonia. The right lung is clear. There is no pulmonary vascular congestion. The heart is normal in size. The bones are intact. XR/XR chest 1V IMPRESSION: Interval placement of a left chest tube. Tiny residual left apical pneumothorax. Electronically signed by: Payam Alberts MD 10/08/2024 01:02 PM [facility]
--- NOTE | ~2024-10-08 | XR_ITS ---
CLINICAL HISTORY: f up L small ptx 1 view chest x-ray. Comparison: 10/13/2024 Findings: The lungs are adequately expanded. No focal consolidation. Trace left apical pneumothorax, stable. Cardiac and mediastinal contours are within normal limits. No acute osseous abnormality Impression: Stable trace left apical pneumothorax. This document has been electronically signed by: Pito Middleton MD on 10/13/2024 13:37:09
[2024-10-08 09:39] VITALS: BP 129/87; PULSE 79; RESP 18; TEMP 36.7; O2SAT 96; BMI 29.6
--- NOTE | 2024-10-08 09:42 | ECG_ITS ---
Test Reason : sob Blood Pressure : */* mmHG Vent. Rate : 78 BPM Atrial Rate : 78 BPM P-R Int : 88 ms QRS Dur : 126 ms QT Int : 416 ms P-R-T Axes : 68 72 251 degrees QTcB Int : 474 ms Sinus rhythm with short MA Non-specific intra-ventricular conduction block Nonspecific ST and T wave abnormality Abnormal ECG No significant changes seen Referred By: Generic ED Physician Electronically Signed By: JOSE CARLOS LEWIS
[2024-10-08 10:05] LABS: MANUAL DIFF FLAG NO
[2024-10-08 10:07] LABS: Basophils Percent Auto 0.3 % (0-2); Eosinophils Percent Auto 0.3 % (0-4); Hemoglobin 15.8 g/dl (14.0-18.0); Imm Gran Abs Auto 0.05 X10*3/uL (0.00-0.03); Imm Gran Pct Auto 0.4 % (0.0-0.4); Lymphocytes Absolute Auto 1.1 X10*3/uL (1.2-4.9); Mean Corpuscular HGB Conc 34.3 g/dl (31.0-36.0); Mean Corpuscular Hemoglobin 33.3 pg (27.0-33.0); Mean Platelet Volume 9.4 fL (9.4-12.4); Monocytes Absolute Auto 1.3 X10*3/uL (0.1-1.2); Neutrophils Absolute Auto 9.3 x10*3/uL (2.0-8.3); Platelet Count 223 X10*3/uL (160-400); Red Blood Count 4.74 X10*6/uL (4.60-5.80); White Blood Count 11.8 X10*3/uL (4.8-10.8)
[2024-10-08 10:26] LABS: Alanine Aminotransferase 30 U/L (0-40); Albumin Level 3.9 g/dL (3.5-5.0); Alkaline Phosphatase 66 U/L (39-117); Anion Gap 14 (12-20); Aspartate Amino Transferase 29 U/L (5-37); Bilirubin Total 1.2 mg/dL (0.0-1.0); Blood Urea Nitrogen 20 mg/dL (9-16); Calcium 8.6 mg/dL (8.4-10.2); Carbon Dioxide 22 mmol/L (22-29); Chloride 107 mmol/L (96-108); Creatinine Clr Calc Pharmacy 73.7; Estimated Glomerular Filt Rate > 60; Glucose Random 123 mg/dL (60-115); Sodium 139 mmol/L (135-145); Total Protein 6.9 g/dL (6.5-8.0)
[2024-10-08 10:30] LABS: B Type Natriuretic Peptide 46 pg/mL (<100)
--- NOTE | 2024-10-08 10:42 | PC.NURSE ---
Addendum entered by Mishel Rivers RN 10/08/24 10:45: patient resp even and unlabored, patient left sided auscultation no breath sounds, normal breath sounds on right. Original Note: patient presents to the ED with increased sob, patient noticed this morning when he got in shower that his left leg was swollen. patient left leg noted to be swollen, 2+ pitting edema, no redness/abnormal warmth. patient has bilat pedal pulses present. patient is alert and oriented x4, ambulatory. patient placed on 2lNC for comfort as ED provider requested. patient changed into hospital attire, placed on tele monitor sinus rhythm 70s-80s. #20 placed in left hand.
--- NOTE | 2024-10-08 10:43 | ED_ITS ---
HPI - SOB/Dyspnea General Chief Complaint: Extremity Injury, Lower Stated Complaint: quest l leg DVT Time Seen by Provider: 10/08/24 10:41 Source: patient Mode of arrival: ambulatory Limitations: no limitations History of Present Illness HPI Narrative: This is a 69 years old male with a history of pneumothorax presented to the emergency room complaining of shortness of breath. He was sent here by Dr. Kendrick office. He denies any fever chills vomiting and diarrhea. He has a history of melanoma of the left eye history of depression MD elicited complaint: shortness of breath Onset (ago): day(s) (1) Severity: moderate Exacerbating factors: nothing Associated symptoms: denies other symptoms Related Data Previous Rx's ?Medication ?Instructions ?Recorded benzonatate 100 mg capsule 100 mg PO BID PRN cough #20 caps 10/03/24 sertraline 25 mg tablet 25 mg PO DAILY #90 tabs 10/03/24 Allergies Allergy/AdvReac Type Severity Reaction Status Date / Time No Known Allergies Allergy Verified 10/08/24 09:40 [No Known Allergies*] Review of Systems 2 Constitutional: Constitutional: Reports no additional constitutional complaints ENT: Reports system reviewed and no additional complaints, except as documented Endocrine: Endocrine: Reports no additional endocrine complaints PMFSH Past Medical History Attestation statement: The following information was validated with the patient. Medical History Hyperlipidemia Arthritis GERD (gastroesophageal reflux disease) Depression Melanoma metastatic to liver Transaminitis Cyst of right kidney Liver cyst Surgical History History of liver biopsy History of colonoscopy History of knee replacement procedure of right knee History of eye surgery H/O carpal tunnel repair H/O basal cell carcinoma excision History of ear surgery Family History Family History Father Esophageal cancer Mother Hodgkin disease Brother Kidney malignancy Sibling Brother Kidney malignancy Sibling Social History Social History Household Members: None Housing: House Are you a primary home care rn to a significant other at home: No Do you presently have visiting nurse or other home services: No Alcohol intake: never Patient Tobacco Use Status: Never used Tobacco e-Cigarette/Vaping Use: Never Used Second Hand Smoke Exposure: No Advance Directives: Yes Advance Directives Information Provided: No Advance Directives on File: No service: No Current occupational status: employed and retired 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 Cognitive needs: No Hearing needs: No Vision needs: No Physical Exam 2 Vital Signs: Vital Signs: Last Vital Signs Temp 98.1 F 10/08/24 09:39 Pulse 76 10/08/24 11:55 Resp 20 10/08/24 11:55 BP 126/76 10/08/24 11:55 Pulse Ox 95 10/08/24 11:55 O2 Del Method Nasal Cannula 10/08/24 11:55 O2 Flow Rate 2 10/08/24 11:55 BMI result Body Mass Index 29.6 Not acute distress Const: General: cooperative Orientation/consciousness: patient oriented x3 Limitations: no limitations HEENT: Head: Yes normal to inspection General nose exam: Normal external nose present Face and sinus: Yes normal facial exam Mouth: Normal oral and palatal mucosa present Neck: Neck: Yes normal visual inspection Chest: Chest palpation & inspection: normal inspection of the chest Resp: Other: Decreased breath sound in the left Cardio: Jugular venous distension: no JVD Rate: regular rate Rhythm: r egular rhythm GI: Inspection: Yes normal to inspection Palpation (GI): Soft to palpation, not firm and nontender Skin: General skin exam: no rashes or lesions noted and elasticity normal L esions: no lesions Rashes: no rashes Neuro: General: patient oriented x3 Course Reevaluation(s) Reevaluation #1: Chest x-ray showed recurrent hydropneumothorax in the left discussed with Dr. Kendrick will see the patient shortly Time: 10:54 Reevaluation #2: Seen by Dr Kendrick Chest tube placed by dr Kendrick Time: 12:51 Medical Decision Making Medical Decision Making MDM Narrative: Patient is here complaining of shortness of breath we will do a chest x-ray Differential Diagnosis Pneumonia/pneumothorax Admission/Observation Consideration of admission/observation: Escalation of care including admission/observation considered Consult Healthcare Provider Management of the patient was discussed with: Product Manufacturing Professional Dr Kendrick Thoracic surgery Lab Data [facility] Lab Attestation statement: I reviewed the patient's lab results. 10/08/24 09:57 10/08/24 00:08 Labs: Lab Results 10/08/24 10/08/24 Range/Units 00:08 09:57 WBC 11.8 H (4.8-10.8) X10*3/uL RBC 4.74 (4.60-5.80) X10*6/uL Hgb 15.8 (14.0-18.0) g/dl Hct 46.0 (42.0-52.0) % MCV 97.0 (80.0-98.0) fL MCH 33.3 H (27.0-33.0) pg MCHC 34.3 (31.0-36.0) g/dl RDW 12.0 (11.0-16.0) % Plt Count 223 (160-400) X10*3/uL MPV 9.4 (9.4-12.4) fL Immature Gran % (Auto) 0.4 (0.0-0.4) % Neut % (Auto) 79.0 H (45-73) % Lymph % (Auto) 9.0 L (20-40) % [place] % (Auto) 11.0 (2-11) % Eos % (Auto) 0.3 (0-4) % Baso % (Auto) 0.3 (0-2) % Lymph # (Auto) 1.1 L (1.2-4.9) X10*3/uL [place] # (Auto) 1.3 H (0.1-1.2) X10*3/uL Eos # (Auto) 0.0 (0.0-0.4) X10*3/uL Baso # (Auto) 0.0 (0.0-0.2) X10*3/uL Abs Immat Gran (auto) 0.05 H (0.00-0.03) X10*3/uL Absolute Neuts (auto) 9.3 H (2.0-8.3) x10*3/uL Absolute Nucleated RBC 0.000 (0.0-0.012) X10*3/uL Nucleated RBC % (auto) 0.0 (0.0-0.2) /100WBC Sodium 139 (135-145) mmol/L Potassium 4.0 (3.3-5.1) mmol/L Chloride 107 (96-108) mmol/L Carbon Dioxide 22 (22-29) mmol/L Anion Gap 14 (12-20) BUN 20 H (9-16) mg/dL Creatinine 0.90 (0.5-1.4) mg/dL Estim Creat Clear Calc 73.7 Estimated GFR > 60 Random Glucose 123 H (60-115) mg/dL Calcium 8.6 (8.4-10.2) mg/dL Total Bilirubin 1.2 H (0.0-1.0) mg/dL AST 29 (5-37) U/L ALT 30 (0-40) U/L Alkaline Phosphatase 66 (39-117) U/L B-Natriuretic Peptide 46 (<100) pg/mL Total Protein 6.9 (6.5-8.0) g/dL Albumin 3.9 (3.5-5.0) g/dL Independent Interpretation I performed an independent interpretation of an: Plain X-Ray Interpretation: I personally reviewed interpreted the chest x-ray as left-sided pneumothorax Radiology Impression Discussion of test interpretation with radiology: I have reviewed the radiologist's reading. Radiologist Impression: FINDINGS: There is a large volume of fluid and gas within the left hemithorax with a collapsed appearance of the left lung. Cardiomediastinal silhouette is midline. Right lung is aerated and expanded. No acute cortical disruption in the ribs. XR/XR chest 2V IMPRESSION: Large volume hydropneumothorax/hydro hemothorax, left-sided. Collapsed left lung. Discussed with the emergency department the physician obstetric assistant at 10:25 AM.. Electronically signed by: Weston Herbert MD 10/08/2024 10:25 AM [facility] Dictated By: Weston Taylor MD Signed By: <Electronically signed by Weston Lozano MD in OV> 10/08/24 1025 External Record Review External record reviewed: Inpatient record Chronic Conditions Patient?s care impacted by: Cancer Critical Care Time Critical Care Time Critical Care Time: Yes Total Critical Care Time: 60 Attestation: Taking care of the pt consulting Dr Kendrick thoracic surgery Discharge Plan Discharge Clinical Impression: Pneumothorax Qualifiers: Pneumothorax type: unspecified pneumothorax Qualified Code(s): J93.9 - Pneumothorax, unspecified DVT (deep venous thrombosis) Qualifiers: DVT location: lower extremity Affected thrombotic vein of extremity: femoral C hronicity: acute Laterality: left Qualified Code(s): I82.412 - Acute embolism and thrombosis of left femoral vein Patient Disposition: Admitted As Inpatient Print Language: S[place]an
[2024-10-08 11:55] VITALS: BP 126/76; PULSE 76; RESP 20; O2SAT 95
--- OUTSIDE RECORDS SUMMARY | 2024-10-08 12:17 | XMS_ITS ---
Author Organization [facility] Address [address] [place] [address] Care Team Providers Care Process Planner Name Role Phone Elvira Pang Primary Care Provider Unavailab Sanchez Perez Jr REASON FOR VISIT cancelling his colonoscopy for 09/2024 Encounters Encounter Location Date Provider Diagnosis [facility] [address] [place] [address] 10/03/2024 Sanchez Hawley Jr PLAN OF TREATMENT No Information
--- OUTSIDE RECORDS SUMMARY | 2024-10-08 12:17 | XMS_ITS | Patient Health Record ---
Author Organization [facility] Address [address] [place] [address] Care Team Providers Care Shove Up Name Role Phone Elvira Pang Primary Care Provider Unavailab Sanchez Perez Jr Unavailable ALLERGIES No Known Allergies RESULTS Component Value Reference Range Notes MR abdomen wo/w con Reviewed date:07/18/2024 08:21:58 AM Interpretation: Performing Lab: Notes/Report: [address] [address] Magnetic Resonance Report Signed Patient: Sampson Mackey MR#: [id number] : 1955 Acct:[id number] Age/Sex: 69 / M ADM Date: 07/15/24 Loc: HO.MRI Attending Dr: Sanchez Hawley MD Ordering Physician: Sanchez Hawley MD Date of Service: 07/15/24 Procedure(s): MR abdomen wo/w con Accession Number(s): [id number] cc: Sanchez Hawley MD; Elvira Pang MD [...] by: Bishop Gasca MD 07/16/2024 04:23 PM [facility] Dictated By: Isael Gasca MD Signed By: <Electronically signed by Isael Gasca MD in OV> 07/16/24 1623 DD/ 1240 TD/TT: 07/15/24 1315 Traffic Circuit Engineer: JANENE REASON FOR REFERRAL No Information IMMUNIZATIONS [...] Problem Colon cancer screening (Z12.11) Active confirmed 861280269 Problem Diverticulosis (K57.90) Active confirmed Diverticular disease of colon (089791833) Problem Gastroesophageal reflux disease without esophagitis (K21.9) Active confirmed 607499886 Problem Fatty liver (K76.0) Active confirmed 19 9087501 Problem Liver lesion (K76.9) Active confirmed 185640221 Problem Abnormal magnetic resonance imaging of liver (R93.2) Active confirmed 157545520 VITAL SIGNS Temperature 97.5 degrees Fahrenheit 06/27/2024 Blood pressure diastolic 00 mm Hg 06/27/2024 Height 64.5 in 06/27/2024 Blood pressure systolic 000 mm Hg 06/27/2024 Weight 191 lbs 06/27/2024 BMI 32.28 kg/m2 06/27/2024 Encounters Encounter Location Date Provider Diagnosis [facility] [address] [place] [address] 06/27/2024 Sanchez Hawley Jr Colon cancer screening Z12.11 ; Abnormal magnetic resonance imaging of liver R93.2 and Gastroesophageal reflux disease without esophagitis K21.9 [facility] [address] [place] [address] 07/18/2024 Sanchez Hawley Jr Abnormal magnetic resonance imaging of liver R93.2 [facility] [address] [place] [phone] 08/03/2024 Sanchez Hawley Jr [facility] [address] [place] [address] 10/03/2024 Sanchez Hawley Jr ASSESSMENTS Encounter Date Diagnosis [...] DIFF 06/27/2024 MRI ABD W&WO CONTRAST 06/27/2024 MRI ABD W&WO CONTRAST 08/18/2023 MRI ABD W&WO CONTRAST 09/09/2023 XR GI SERIES 11/01/2012 XR GI SERIES 11/01/2013 US ABD 06/27/2023 MR abdomen wo/w con 07/18/2024 Future Test Test Name Order Date UPPER GI ENDOSCOPY 08/28/2012 COLONOSCOPY 01/28/2016 COLONOSCOPY 07/25/2019 COLONOSCOPY 06/27/2024 Insurance Providers Payer Name Payer Address Payer Phone Subscriber Number Group Number Insured Name Patient Relationship to Insured Coverage Start Date Coverage End Date MEDICARE OF [place] [address] [place] [address] [id number] SAMPSON MACKEY Self - patient is the insured MEDEX ATTN CLAIMS [address] [place] [address] [id number] SAMPSON MACKEY Self - patient is the insured MEDICAL (GENERAL) HISTORY Medical History History ICD Code colonoscopy 10/12/19, tubular adenoma x1, five-year followup onychomycosis carpal tunnel syndrome Basal cell skin cancers GERD, EGD 11/01/12 elevated cholesterol Intraocular melanoma, left eye, 2018, 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 Bach carpal tunnel
[2024-10-08] MEDS: Lidocaine HCl 1 % 10 ML VIAL 30 ML INFILTRATI (12:24)
[2024-10-08] MEDS: HYDROmorphone HCl 0.5 MG/0.5 ML SYRINGE IVPUSH (12:24)
--- NOTE | 2024-10-08 12:50 | PM.PROC ---
Brief Operative Note Date of procedure: 10/08/24 Pre-op diagnosis: left pneumothorax Post-op diagnosis: same (hydropneumothorax) Procedure: The risks and benefits, alternatives were discussed with the patient and informed consent was obtained. An area of the patient's left anterior chest at the second intercostal space was prepped with chloraprep and draped in the usual sterile fashion. 10 mL of 1% lidocaine was used for local anesthesia of the skin and subcutaneous tissues. A argentine Yueh catheter was then used to access the pleural cavity. A alvarez of air was obtained. A guidewire was then placed through the catheter and into the chest cavity. The access site was then dilated. A 14 fr locking catheter was then advanced over the wire and into the chest cavity. The wire was removed and the catheter was secured to the skin with a single silk suture and a sterile dressing was applied over the site. The catheter was then connected to a closed chest drainage system. The patient tolerated the procedure well. No immediate complications. Post procedure CXR was obtained which showed improvement in the left pneumothorax and the left lung was up. Anesthesia: local Surgeon: Clarita Reveles Estimated blood loss (mL): 2 Pathology: none sent Condition: stable Disposition: no change
--- NOTE | 2024-10-08 12:58 | PC.NURSE ---
Dr Kendrick and Clarita FERGUSON at bedside in ED for left chest tube placement, patient pre medicated with .5mg Dilaudid IVP for procedure, patient remained at baseline mentation alert and oriented x4. chest tube insertion successful, dressing done by ENRIKE, dry and intact. patient set up to -20 on pleura evac, 80MM on wall suction. patient had 110ml of serous drainage after insertion, patient remains on 3lNc for comfort but states he feels better after chest tube insertion. patient resp even and unlabored.
--- NOTE | 2024-10-08 13:15 | PHA.MEDREC ---
Addendum entered by Gagandeep Cadena RPh 10/08/24 13:33: Med rec was reviewed by Lucas. Original Note: Pharmacy Consult ? Medication Reconciliation Pharmacy has completed the medication reconciliation. Spoke with patient to confirm. he is not taking sertraline or anything for cough. No OTC.
--- NOTE | 2024-10-08 13:46 | HO.THORCONS ---
History of Present Illness Consult details Consult date: 10/08/24 Reason for consult: other Narrative: 69 year old male with PMH of metastatic melanoma, former tobacco use disorder, mixed hyperlipidemia who initially presented to the office today for follow up. He was recently admitted to [facility] 09/27-09/30 for left hydropneumothorax requiring chest tube placement. This was uneventfully removed on 09/29/24 and he was discharged to home feeling improved. Cytology came back negative. He had complaints of some chest heaviness as well as significant left lower leg swelling in the office today and his left lower leg was markedly enlarged and edematous and there was concern for DVT of the left lower extremity and possible recurrent left pneumothorax. He was therefore brought to the ED. Work up included CXR which showed large volume left hydropneumothorax with collapsed left lung. US left lower extremity was positive for left lower extremity DVT, with noncompressible thrombus within the left mid and distal femoral vein, popliteal vein, and throughout the deep calf veins. Thoracic surgery was consulted for management of the left hydropneumothorax. Review of Systems Constitutional: Constitutional: Denies chills, Reports fatigue and Denies fever(s) ENT: Denies dizziness Cardiovascular: Cardiovascular: Reports chest pain, Denies radiating jaw, neck or arm pain and Denies palpitations Gastrointestinal: Gastrointestinal: Denies abdominal pain and Denies vomiting Integumentary/Breasts: Skin/Breast: Denies rash and Denies jaundice Neurologic: Denies dizziness Endocrine: Endocrine: Reports fatigue and Denies palpitations PMFSH Past Medical History Medical History Hyperlipidemia Arthritis GERD (gastroesophageal reflux disease) Depression Melanoma metastatic to liver Transaminitis Cyst of right kidney Liver cyst Family History Family History Father Esophageal cancer Mother Hodgkin disease Brother Kidney malignancy Sibling Brother Kidney malignancy Sibling Surgical History Surgical History History of liver biopsy History of colonoscopy History of knee replacement procedure of right knee History of eye surgery H/O carpal tunnel repair H/O basal cell carcinoma excision History of ear surgery Social History Social History Household Members: None Housing: House Are you a primary multi care technician to a significant other at home: No Do you presently have visiting nurse or other home services: No Alcohol intake: never Patient Tobacco Use Status: Never used Tobacco e-Cigarette/Vaping Use: Never Used Second Hand Smoke Exposure: No Advance Directives: Yes Advance Directives Information Provided: No Advance Directives on File: No service: No Current occupational status: employed and retired 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 Cognitive needs: No Hearing needs: No Vision needs: No Meds Allergies Allergy/AdvReac Type Severity Reaction Status Date / Time No Known Allergies Allergy Verified 10/08/24 09:40 [No Known Allergies*] Home Medications ?Medication ?Instructions ?Recorded ?Confirmed ?Last Taken ?Type No Known Home Meds 10/08/24 10/08/24 Unknown History Physical Exam Vital Signs: Vital Signs: Last Vital Signs Temp 98.1 F 10/08/24 09:39 Pulse 76 10/08/24 11:55 Resp 20 10/08/24 11:55 BP 126/76 10/08/24 11:55 Pulse Ox 95 10/08/24 11:55 O2 Del Method Nasal Cannula 10/08/24 11:55 O2 Flow Rate 2 10/08/24 11:55 BMI result Body Mass Index 29.6 Const: General: alert and tired appearing; No acute distress Orientation/consciousness: patient oriented x3 Neck: Neck: Yes no JVD Resp: Effort & Inspection: normal respiratory effort, able to speak in complete sentences, not labored, not tachypneic and no use of accessory muscles Cardio: Rate: regular rate Skin: General skin exam: no rashes or lesions noted Neuro: General: patient oriented x3 Extrem: Other: LLE markedly edematous and enlarged when compared to RLE, tender at the left calf, no erythema Results Labs 10/08/24 09:57 10/08/24 00:08 Labs: Abnormal lab results 10/08/24 10/08/24 Range/Units 00:08 09:57 WBC 11.8 H (4.8-10.8) X10*3/uL MCH 33.3 H (27.0-33.0) pg Neut % (Auto) 79.0 H (45-73) % Lymph % (Auto) 9.0 L (20-40) % Lymph # (Auto) 1.1 L (1.2-4.9) X10*3/uL [place] # (Auto) 1.3 H (0.1-1.2) X10*3/uL Abs Immat Gran (auto) 0.05 H (0.00-0.03) X10*3/uL Absolute Neuts (auto) 9.3 H (2.0-8.3) x10*3/uL BUN 20 H (9-16) mg/dL Random Glucose 123 H (60-115) mg/dL Total Bilirubin 1.2 H (0.0-1.0) mg/dL Short CBC 10/08/24 Range/Units 09:57 WBC 11.8 H (4.8-10.8) X10*3/uL Hgb 15.8 (14.0-18.0) g/dl Hct 46.0 (42.0-52.0) % Plt Count 223 (160-400) X10*3/uL BMP 10/08/24 00:08 Sodium 139 Potassium 4.0 Chloride 107 Carbon Dioxide 22 BUN 20 H Creatinine 0.90 Calcium 8.6 Liver Function 10/08/24 Range/Units 00:08 Total Bilirubin 1.2 H (0.0-1.0) mg/dL AST 29 (5-37) U/L ALT 30 (0-40) U/L Alkaline Phosphatase 66 (39-117) U/L Albumin 3.9 (3.5-5.0) g/dL All other labs normal. Imaging Chest x-ray: report reviewed and image reviewed Assessment and Plan (1) DVT (deep venous thrombosis): Qualifiers: Affected thrombotic vein of extremity: femoral Chronicity: acute DVT location: lower extremity Laterality: left Qualified Code(s): I82.412 - Acute embolism and thrombosis of left femoral vein Status: Acute (2) Pneumothorax: Qualifiers: Pneumothorax type: unspecified pneumothorax Qualified Code(s): J93.9 - Pneumothorax, unspecified Status: Acute Plan 69 year old male with PMH of metastatic melanoma, former tobacco use disorder, mixed hyperlipidemia presenting with recurrent left hydropneumothorax and collapsed left lung and LLE DVT. Left chest tube insertion was discussed at bedside with the patient who was in agreement and this was performed uneventfully (please see separate procedure note). Discussed pleurodesis during the stay to prevent recurrence once effusion resolves. Medical management as per hospitalist team, ok to start anticoagulation from surgical aspect. Will continue to follow. Procedures Date of Service Date of Service: 10/08/24
[2024-10-08 14:11] VITALS: BP 118/60; PULSE 68; RESP 16; O2SAT 97
[2024-10-08 14:25] LABS: Hematocrit 44.3 % (42.0-52.0); Hemoglobin 15.5 g/dl (14.0-18.0); Mean Corpuscular Hemoglobin 34.1 pg (27.0-33.0); Mean Corpuscular Volume 97.4 fL (80.0-98.0); Mean Platelet Volume 9.5 fL (9.4-12.4); Platelet Count 201 X10*3/uL (160-400); Red Blood Count 4.55 X10*6/uL (4.60-5.80); Red Cell Distribution Width 12.2 % (11.0-16.0); White Blood Count 10.8 X10*3/uL (4.8-10.8)
--- NOTE | 2024-10-08 14:25 | P.HPHOSP_ITS ---
History of Present Illness Date of Service: 10/08/24 Chief Complaint: sent from thoracic clinic The patient is a 69-year-old male with a past medical history of metastatic malignant melanoma, former tobacco use disorder, mixed hyperlipidemia who presents from the thoracic surgery clinic after he heard for left DVT and left- sided hydropneumothorax. The patient states that he was following up with the thoracic clinic for a routine visit after recent hospitalization for a large left hydropneumothorax. He reports that after his discharge from the hospital on 09/30/2024, he felt his shortness of breath was improved, however about 3-4 days prior to this hospitalization he began feeling increasing short of breath with minimal exertion. He denied any chest pain but did endorse chest discomfort. He reports intermittently productive cough. He denies any fevers or chills. He denies any trauma. Workup thus far shows a chest x-ray with large left hydropneumothorax. DVT studies are positive for left lower extremity DVT in the left mid and distal femoral vein, popliteal vein and throughout the deep calf veins. The patient has been evaluated by thoracic surgery, with chest tube placement. Post chest tube insertion chest x-ray shows, tiny residual left apical pneumothorax. Patient is seen and examined in the emergency room. He reports significant improvement after chest tube placement. He denies any current pain. He reports discomfort in his left leg. Review of Systems 2 Review of Systems: Negative except HPI/interval history. [facility] Medical History Hyperlipidemia Arthritis GERD (gastroesophageal reflux disease) Depression Melanoma metastatic to liver Transaminitis Cyst of right kidney Liver cyst Family History Father Esophageal cancer Mother Hodgkin disease Brother Kidney malignancy Sibling Brother Kidney malignancy Sibling Surgical History History of liver biopsy History of colonoscopy History of knee replacement procedure of right knee History of eye surgery H/O carpal tunnel repair H/O basal cell carcinoma excision History of ear surgery Social History Household Members: None Housing: House Are you a primary coronary care unit nurse to a significant other at home: No Do you presently have visiting nurse or other home services: No Alcohol intake: never Patient Tobacco Use Status: Never used Tobacco e-Cigarette/Vaping Use: Never Used Second Hand Smoke Exposure: No Advance Directives: Yes Advance Directives Information Provided: No Advance Directives on File: No service: No Current occupational status: employed and 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 Cognitive needs: No Hearing needs: No Vision needs: No Meds Allergies Allergy/AdvReac Type Severity Reaction Status Date / Time No Known Allergies Allergy Verified 10/08/24 09:40 [No Known Allergies*] Home Medications ?Medication ?Instructions ?Recorded ?Confirmed ?Last Taken ?Type No Known Home Meds 10/08/24 10/08/24 Unknown History Physical Exam 2 Vital Signs and Narrative: Vital Signs: Last Vital Signs Temp 98.1 F 10/08/24 09:39 Pulse 68 10/08/24 14:11 Resp 16 10/08/24 14:11 BP 118/60 10/08/24 14:11 Pulse Ox 97 10/08/24 14:11 O2 Del Method Nasal Cannula 10/08/24 14:11 O2 Flow Rate 3 10/08/24 14:11 BMI result Body Mass Index 29.6 Const: Other: Constitutional - Awake and Alert, No apparent distress Eyes - PERRLA, EOMI Cardiovascular - S1S2, RRR, No edema Respiratory - +b/l air entry; no respiratory distress Gastrointestinal - NT / ND; +BS; No rebound or guarding - No CVA tenderness Extremities - LLE diffuse edema Musculoskeletal - Normal inspection, normal ROM Skin - Warm/Dry Neurological - Alert & oriented x3, No focal deficit Psychological - Appropriate affect Results Labs 10/08/24 14:19 10/08/24 00:08 Labs: Laboratory Results - last 24 hr 10/08/24 10/08/24 00:08 09:57 MCV 97.0 MCH 33.3 H MCHC 34.3 RDW 12.0 Plt Count 223 MPV 9.4 Immature Gran % (Auto) 0.4 Neut % (Auto) 79.0 H Lymph % (Auto) 9.0 L [place] % (Auto) 11.0 Eos % (Auto) 0.3 Baso % (Auto) 0.3 Lymph # (Auto) 1.1 L [place] # (Auto) 1.3 H Eos # (Auto) 0.0 Baso # (Auto) 0.0 Abs Immat Gran (auto) 0.05 H Absolute Neuts (auto) 9.3 H Absolute Nucleated RBC 0.000 Nucleated RBC % (auto) 0.0 Anion Gap 14 Estim Creat Clear Calc 73.7 Estimated GFR > 60 Random Glucose 123 H Calcium 8.6 Total Bilirubin 1.2 H AST 29 ALT 30 Alkaline Phosphatase 66 B-Natriuretic Peptide 46 Total Protein 6.9 Albumin 3.9 Imaging Radiologist's Impressions: Impressions Chest X-Ray 10/08/24 09:42 IMPRESSION: Large volume hydropneumothorax/hydro hemothorax, left-sided. Collapsed left lung. Discussed with the emergency department the physician neurology physician assistant at 10:25 AM.. Electronically signed by: Weston Herbert MD 10/08/2024 10:25 AM EST RP Venous Duplex 10/08/24 11:00 IMPRESSION: POSITIVE examination for left lower extremity DVT, with noncompressible thrombus within the left mid and distal femoral vein, popliteal vein, and throughout the deep calf veins. Electronically signed by: Epi Nolasco MD 10/08/2024 12:13 PM EST RP Chest X-Ray 10/08/24 12:40 IMPRESSION: Interval placement of a left chest tube. Tiny residual left apical pneumothorax. Electronically signed by: Payam Alberts MD 10/08/2024 01:02 PM EST RP Assessment and Plan (1) DVT (deep venous thrombosis): Qualifiers: Affected thrombotic vein of extremity: femoral Chronicity: acute DVT location: lower extremity Laterality: left Qualified Code(s): I82.412 - Acute embolism and thrombosis of left femoral vein Status: Acute (2) Hydropneumothorax: Status: Acute Plan 69-year-old male with a history of malignant metastatic melanoma who presents with left lower extremity swelling and left-sided chest discomfort. Diagnosed with acute left DVT as well as large left hydropneumothorax. He is status post chest tube insertion and will be admitted to the hospital for further care. 1. Recurrent Large left hydropneumothorax Status post chest tube insertion by thoracic surgery Possibly due to underlying metastatic disease - will send pleural fluid for analysis including cytology, gram stain, culture Chest tube management per thoracic surgery 2. Left-sided DVT Likely related to underlying cancer On Lovenox 1 mg/kg bid We will ask vascular to see if any surgical intervention is appropriate 3. Metastatic melanoma possibly the underlying cause of #1 and #2 will need outpt f/u DNR/DNI (confirmed with pt) Reports Son is HCP Patient with large left-sided hydropneumothorax requiring chest tube placement and management as well as left-sided DVT possibly requiring vascular intervention, therefore expected to require at least 2 midnights in the hospital for management. Hence, the patient will be admitted to inpatient. Quality Stroke Does the patient have a stroke diagnosis?: No VTE Prior VTE?: No VTE Risk Level:: Medical - moderate - high VTE Device Contraindication: Treatment Not Indicated VTE Drug Contraindication: N/A - Med Ordered
[2024-10-08 14:31] LABS: INTERNATIONAL NORM RATIO 1.2 (0.9-1.1); Prothrombin Time 13.6 SEC (10.9-12.4)
[2024-10-08 14:34] LABS: Partial Thromboplastin Time 26.7 SEC (26.0-36.8)
[2024-10-08] MEDS: Enoxaparin Sodium 80 MG/0.8 ML SYRINGE SUBCUT (15:01)
[2024-10-08 17:05] VITALS: BP 122/63; PULSE 80; RESP 12; TEMP 36.5; O2SAT 99
[2024-10-08 19:36] VITALS: BP 116/67; PULSE 73; RESP 21; TEMP 37.1; O2SAT 93
[2024-10-08 23:13] VITALS: BP 112/67; PULSE 73; RESP 21; TEMP 36.8; O2SAT 95
[2024-10-09] VITALS (9 sets, daily range): BP systolic 107–125; BP diastolic 60–74; PULSE 64–76; RESP 16–20; TEMP 36.1–37.1; O2SAT 93–97; BMI 28.7
[2024-10-09] MEDS: Enoxaparin Sodium 80 MG/0.8 ML SYRINGE SUBCUT ×2 (01:31→14:57)
[2024-10-09 04:16] LABS: MN% 51.5 %; PMN% 48.5 %; RBC Pleural Fluid 0.002 X10*6/uL; WBC Pleural Fluid 1.609 X10*3/uL
[2024-10-09 04:42] LABS: BF Shift QC OK YES; Eosinophils Pleural Fluid 11 %; Lymphocytes Pleural Fluid 34 %; Monocytes Pleural Fluid 24 %; Neutrophils Pleural Fluid 31 %
--- NOTE | 2024-10-09 07:51 | P.PNIM_ITS ---
Subjective Subjective Date of Service: 10/09/24 Interval History: f/u on recurrent hydropneumothorax and now left LE DVT Physical Exam 2 Vital Signs: Vital Signs: Last Vital Signs Temp 97.4 F 10/09/24 03:12 Pulse 64 10/09/24 03:12 Resp 18 10/09/24 03:12 BP 108/60 10/09/24 03:12 Pulse Ox 97 10/09/24 03:12 O2 Del Method Nasal Cannula 10/09/24 03:12 O2 Flow Rate 2 10/09/24 03:12 BMI result Body Mass Index 28.7 Const: Other: General: AO X 3, no acute distress Resp: CTA bilateral CVS: S1,S2,RRR GI: +BS, NT, no distention Skin: No rash ext: Neuro: motor grossly intact Psych: appropriate affect Objective Data Active Medications Enoxaparin Sodium (Enoxaparin Sodium 80 Mg/0.8 Ml Syringe) 80 mg SUBCUT Q12H LEILANI Last Admin: 10/09/24 01:31 Dose: 80 mg Documented By: [facility] Labs 10/10/24 08:41 10/10/24 08:41 Labs: Laboratory Results - last 24 hr 10/08/24 10/08/24 10/08/24 00:08 09:57 14:19 MCV 97.0 97.4 MCH 33.3 H 34.1 H MCHC 34.3 35.0 RDW 12.0 12.2 Plt Count 223 201 MPV 9.4 9.5 Immature Gran % (Auto) 0.4 Neut % (Auto) 79.0 H Lymph % (Auto) 9.0 L [place] % (Auto) 11.0 Eos % (Auto) 0.3 Baso % (Auto) 0.3 Lymph # (Auto) 1.1 L [place] # (Auto) 1.3 H Eos # (Auto) 0.0 Baso # (Auto) 0.0 Abs Immat Gran (auto) 0.05 H Absolute Neuts (auto) 9.3 H Absolute Nucleated RBC 0.000 0.000 Nucleated RBC % (auto) 0.0 0.0 PT 13.6 H D INR 1.2 H APTT 26.7 Anion Gap 14 Estim Creat Clear Calc 73.7 Estimated GFR > 60 Random Glucose 123 H Calcium 8.6 Total Bilirubin 1.2 H AST 29 ALT 30 Alkaline Phosphatase 66 B-Natriuretic Peptide 46 Total Protein 6.9 Albumin 3.9 Pleural WBC Pleural RBC Pleural Neutrophils Pleural Lymphocytes Pleural Monocytes Pleural Eosinophils 10/09/24 03:15 MCV MCH MCHC RDW Plt Count MPV Immature Gran % (Auto) Neut % (Auto) Lymph % (Auto) [place] % (Auto) Eos % (Auto) Baso % (Auto) Lymph # (Auto) [place] # (Auto) Eos # (Auto) Baso # (Auto) Abs Immat Gran (auto) Absolute Neuts (auto) Absolute Nucleated RBC Nucleated RBC % (auto) PT INR APTT Anion Gap Estim Creat Clear Calc Estimated GFR Random Glucose Calcium Total Bilirubin AST ALT Alkaline Phosphatase B-Natriuretic Peptide Total Protein Albumin Pleural WBC 1.609 Pleural RBC 0.002 Pleural Neutrophils 31 Pleural Lymphocytes 34 Pleural Monocytes 24 Pleural Eosinophils 11 Assessment and Plan (1) Liver lesion: Status: Acute (2) Liver mass: Status: Acute (3) Pleural effusion: Status: Acute (4) Hydropneumothorax: Status: Acute (5) Left leg DVT: Status: Acute Plan 69-year-old male with a history of malignant metastatic melanoma who presents with left lower extremity swelling and left-sided chest discomfort. Diagnosed with acute left DVT as well as large left hydropneumothorax. He is status post chest tube insertion and will be admitted to the hospital for further care. 1. Recurrent Large left hydropneumothorax, probably malignant cytology from last hospitalization was negative Status post chest tube insertion by thoracic surgery Possibly due to underlying metastatic disease - sent pleural fluid for analysis including cytology, gram stain, culture Chest tube management per thoracic surgery, may need pleurodesis 2. Left-sided DVT Likely related to underlying cancer On Lovenox 1 mg/kg bid, change to eliquis at discharge Vascular surgery evaluation for possible clot extraction 3. Metastatic melanoma possibly the underlying cause of #1 and #2 will need outpt f/u DNR/DNI (confirmed with pt) Reports Son is HCP Patient with large left-sided hydropneumothorax requiring chest tube placement and management as well as left-sided DVT possibly requiring vascular intervention, therefore expected to require at least 2 midnights in the hospital for management. Hence, the patient will be admitted to inpatient. Quality Stroke Does the patient have a stroke diagnosis?: No VTE Prior VTE?: No VTE Risk Level:: Medical - moderate - high VTE Device Contraindication: Treatment Not Indicated VTE Drug Contraindication: N/A - Med Ordered
--- NOTE | 2024-10-09 08:30 | P.PNTS_ITS ---
Subjective Subjective Date of Service: 10/09/24 Interval history: Feels ok. Denies shortness of breath. Denies pain at chest tube site. Physical Exam Vital Signs: Vital Signs: Last Vital Signs Temp 96.9 F 10/09/24 08:00 Pulse 68 10/09/24 08:00 Resp 19 10/09/24 08:00 BP 110/67 10/09/24 08:00 Pulse Ox 95 10/09/24 08:00 O2 Del Method Nasal Cannula 10/09/24 08:00 O2 Flow Rate 2 10/09/24 08:00 BMI result Body Mass Index 28.7 Const: General: comfortable, no acute distress and alert Chest: Other: left anterior chest tube in place, dressing dry pleurvac with serous drainage, very small air leak this morning Resp: Effort & Inspection: normal respiratory effort, able to speak in complete sentences, not tachypneic, no tracheal deviation and no use of accesso ry muscles Skin: General skin exam: no rashes or lesions noted Procedures Date of Service Date of Service: 10/09/24 Progress Note: A&P Assessment and plan (1) Hydropneumothorax: Status: Acute Plan Admitted with recurrent left hydropneumothorax, s/p left chest tube insertion yesterday. Stable from respiratory standpoint. Chest tube with >1.5 L drainage yesterday. Small air leak on exam this morning. Will therefore continue chest tube to suction. Reassess in the AM. Will perform sclerosis once hydropneumothorax resolves to hopefully prevent recurrence. Encouraged incentive spirometer, OOB to recliner at least. Time Spent With Patient Time: Total time managing care of this patient today ____ minutes. Quality Stroke Does the patient have a stroke diagnosis?: No VTE Prior VTE?: No VTE Risk Level:: Medical - moderate - high VTE Device Contraindication: Treatment Not Indicated VTE Drug Contraindication: N/A - Med Ordered
[2024-10-09 08:46] LABS: Mean Corpuscular HGB Conc 33.3 g/dl (31.0-36.0); Mean Corpuscular Hemoglobin 33.2 pg (27.0-33.0); Mean Corpuscular Volume 99.6 fL (80.0-98.0); Mean Platelet Volume 9.5 fL (9.4-12.4); Platelet Count 223 X10*3/uL (160-400); Red Blood Count 4.52 X10*6/uL (4.60-5.80); Red Cell Distribution Width 12.1 % (11.0-16.0); White Blood Count 9.4 X10*3/uL (4.8-10.8)
[2024-10-09 09:05] LABS: Anion Gap 12 (12-20); Blood Urea Nitrogen 19 mg/dL (9-16); Calcium 8.5 mg/dL (8.4-10.2); Carbon Dioxide 24 mmol/L (22-29); Chloride 108 mmol/L (96-108); Creatinine Clr Calc Pharmacy 75.9; Estimated Glomerular Filt Rate > 60; Glucose Random 100 mg/dL (60-115); Sodium 139 mmol/L (135-145)
--- NOTE | 2024-10-09 10:00 | P.CONGS_ITS ---
<Statement entered by Sigifredo Roca MD - 10/09/24 11:54> No intervention indicated. Can follow up with primary care team in regards to anticoagulation. Thank you for allowing us to participate in his care. History of Present Illness Consult details Consult date: 10/09/24 Narrative: We are consulted on Sampson, a pleasant 69-year-old male patient, for findings DVT in the left lower extremity. He presented to the ER yesterday after a follow up with Dr. Kendrick for shortness of breath. He recently was discharged on 09/30 due to a left-sided pneumothorax with moderate pleural effusions, requiring a chest tube. In the ER yesterday he required another chest tube due to collapsed lung, secondary to recurrent hydropneumothorax. A venous duplex ultrasound was performed, which revealed non compressible thrombus within the left mid and distal femoral vein, popliteal, and deep calf veins. Was placed on Lovenox. The patient states this morning that he was having left lower extremity pain since Tuesday, but was more concerned about his shortness of breath. He denies any pain in his left lower extremity today. He denies any shortness of breath, difficulty breathing, or chest pain. The chest tube remains in. Review of Systems 2 Constitutional: Constitutional: Reports as per HPI and Denies weakness ENT: Reports Normal hearing present and Denies dizziness Cardiovascular: Cardiovascular: Reports as per HPI, Denies chest pain, Denies chest pain at rest, Denies chest pain with activity, Denies dyspnea and Denies dyspnea on exertion Respiratory: Respiratory: Reports as per HPI, Denies cough, Denies dyspnea and Denies dyspnea on exertion Gastrointestinal: Gastrointestinal: Reports as per HPI, Denies abdominal pain, Denies nausea and Denies vomiting Musculoskeletal: Musculoskeletal: Denies numbness Integumentary/Breasts: Skin/Breast: Reports as per HPI, Denies erythema and Denies wounds Neurologic: Reports Normal hearing present, Denies dizziness, Denies numbness, Denies Sensory deficit (Neuro) and Denies weakness Psychiatric: Psychiatric: Reports no additional psychiatric complaints Endocrine: Endocrine: Reports no additional endocrine complaints [facility] Past Medical History Medical History Hyperlipidemia Arthritis GERD (gastroesophageal reflux disease) Depression Melanoma metastatic to liver Transaminitis Cyst of right kidney Liver cyst Family History Family History Father Esophageal cancer Mother Hodgkin disease Brother Kidney malignancy Sibling Brother Kidney malignancy Sibling Surgical History Surgical History History of liver biopsy History of colonoscopy History of knee replacement procedure of right knee History of eye surgery H/O carpal tunnel repair H/O basal cell carcinoma excision History of ear surgery Social History Social History Household Members: None Housing: House Are you a primary respiratory care assistant to a significant other at home: No Do you presently have visiting nurse or other home services: No Alcohol intake: never Patient Tobacco Use Status: Former Tobacco user e-Cigarette/Vaping Use: Never Used Second Hand Smoke Exposure: No Use of substances other than those prescribed or required for medical reasons: No Have you been hit, kicked, punched, or otherwise hurt by someone within the past year? If so, by whom?: No Do you feel safe in your current relationship?: Yes Is there a partner from a previous relationship who is making you feel unsafe now?: No Are you made to feel afraid or neglected: No Advance Directives: Yes Advance Directives Information Provided: No Advance Directives on File: No Advance Directives Date on File: 10/08/24 Do you have a plan to hurt others: No Plan Recently lost weight without trying: Yes How much weight loss: 2-13 pounds Eating poorly because of decreased appetite: No Nutrition screen score: 3 Nutrition Risks: No Nutritional Risk Poor oral hygiene: No service: No Current occupational status: employed and retired 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 Cognitive needs: No Hearing needs: No Vision needs: No Meds Allergies Allergy/AdvReac Type Severity Reaction Status Date / Time No Known Allergies Allergy Verified 10/08/24 09:40 [No Known Allergies*] Active Medications: Current Medications Enoxaparin Sodium (Enoxaparin Sodium 80 Mg/0.8 Ml Syringe) 80 mg SUBCUT Q12H LEILANI Last Admin: 10/09/24 01:31 Dose: 80 mg Home Medications ?Medication ?Instructions ?Recorded ?Confirmed ?Last Taken ?Type No Known Home Meds 10/08/24 10/08/24 Unknown History Physical Exam 2 Vital Signs: Vital Signs: Last Vital Signs Temp 96.9 F 10/09/24 08:00 Pulse 68 10/09/24 08:00 Resp 19 10/09/24 08:00 BP 110/67 10/09/24 08:00 Pulse Ox 95 10/09/24 08:00 O2 Del Method Nasal Cannula 10/09/24 08:00 O2 Flow Rate 2 10/09/24 08:00 BMI result Body Mass Index 28.7 Const: General: comfortable and no acute distress O rientation/consciousness: patient oriented x3 HEENT: Ears: hearing grossly normal bilaterally Resp: Effort & Inspection: normal respiratory effort and able to speak in complete sentences Auscultation: clear to auscultation bilaterally Cardio: Rate: regular rate Rhythm: regular rhythm Heart sounds: S1 normal heart sound present and S2 normal heart sound present Bruits: no abdominal aortic bruits, no carotid bruits, no femoral bruits and no renal bruits GI: Palpation (GI): No Abdominal aortic bruit present Neuro: General: patient oriented x3 Cranial nerves: Yes Normal hearing present Sensory Exam: No Sensory deficit (Neuro) Extrem: Other: Left lower extremity: Palpable DP pulses. No erythema or discoloration noted. Not painful to palpation. Trace peripheral edema noted. Results Labs 10/09/24 08:16 10/09/24 08:16 Labs: Abnormal lab results 10/08/24 10/08/24 10/08/24 Range/Units 00:08 09:57 14:19 WBC 11.8 H (4.8-10.8) X10*3/uL RBC 4.55 L (4.60-5.80) X10*6/uL MCV (80.0-98.0) fL MCH 33.3 H 34.1 H (27.0-33.0) pg Neut % (Auto) 79.0 H (45-73) % Lymph % (Auto) 9.0 L (20-40) % Lymph # (Auto) 1.1 L (1.2-4.9) X10*3/uL [place] # (Auto) 1.3 H (0.1-1.2) X10*3/uL Abs Immat Gran (auto) 0.05 H (0.00-0.03) X10*3/uL Absolute Neuts (auto) 9.3 H (2.0-8.3) x10*3/uL PT 13.6 H D (10.9-12.4) SEC INR 1.2 H (0.9-1.1) BUN 20 H (9-16) mg/dL Random Glucose 123 H (60-115) mg/dL Total Bilirubin 1.2 H (0.0-1.0) mg/dL 10/09/24 Range/Units 08:16 WBC (4.8-10.8) X10*3/uL RBC 4.52 L (4.60-5.80) X10*6/uL MCV 99.6 H (80.0-98.0) fL MCH 33.2 H (27.0-33.0) pg Neut % (Auto) (45-73) % Lymph % (Auto) (20-40) % Lymph # (Auto) (1.2-4.9) X10*3/uL [place] # (Auto) (0.1-1.2) X10*3/uL Abs Immat Gran (auto) (0.00-0.03) X10*3/uL Absolute Neuts (auto) (2.0-8.3) x10*3/uL PT (10.9-12.4) SEC INR (0.9-1.1) BUN 19 H (9-16) mg/dL Random Glucose (60-115) mg/dL Total Bilirubin (0.0-1.0) mg/dL Short CBC 10/08/24 10/08/24 10/09/24 Range/Units 09:57 14:19 08:16 WBC 11.8 H 10.8 9.4 (4.8-10.8) X10*3/uL Hgb 15.8 15.5 15.0 (14.0-18.0) g/dl Hct 46.0 44.3 45.0 (42.0-52.0) % Plt Count 223 201 223 (160-400) X10*3/uL BMP 10/08/24 10/09/24 00:08 08:16 Sodium 139 139 Potassium 4.0 5.0 D Chloride 107 108 Carbon Dioxide 22 24 BUN 20 H 19 H Creatinine 0.90 0.86 Calcium 8.6 8.5 Liver Function 10/08/24 Range/Units 00:08 Total Bilirubin 1.2 H (0.0-1.0) mg/dL AST 29 (5-37) U/L ALT 30 (0-40) U/L Alkaline Phosphatase 66 (39-117) U/L Albumin 3.9 (3.5-5.0) g/dL All other labs normal. Assessment and Plan (1) DVT (deep venous thrombosis): Qualifiers: Affected thrombotic vein of extremity: femoral Chronicity: acute DVT location: lower extremity Laterality: left Qualified Code(s): I82.412 - Acute embolism and thrombosis of left femoral vein Status: Acute Plan We are consulted on Sampson, a pleasant 69-year-old male patient, for findings of DVT on venous duplex. He states he was having some left lower extremity pain since Tuesday but denies any pain today. He states his left leg was a little swollen but is much less swollen today. He was started on Lovenox. We recommend continuing on anticoagulation. There is no acute vascular surgery intervention needed at this time. We will continue to monitor. If there are any questions or concerns, please do not hesitate to reach out to us. Procedures Date of Service Date of Service: 10/09/24
--- NOTE | 2024-10-09 11:11 | P.CONPL_ITS ---
History of Present Illness History of Present Illness Consult date: 10/09/24 Chief complaint: hydropneomothorax Narrative: 69-year-old gentleman with underlying history of metastatic melanoma with recent admission for dyspnea and associated left-sided hydropneumothorax at that trying drained with chest tube, readmitted on 10/08/2024 with dyspnea and recurrence of left sided hydropneumothorax, now status post left-sided chest with dementia current 1 L and improvement in his symptoms. Patient has been followed by thoracic surgery with provisional plan for pleurodesis. Review of Systems 2 Constitutional: Constitutional: Denies daytime sleepiness, Denies excessive sweating, Denies fatigue, Denies fever(s), Denies lethargy, Denies malaise, Denies night sweats, Denies snoring and Denies weight loss Eyes: Eyes: Denies blurry vision and Denies itchy eyes ENT: Denies nasal congestion, Denies post nasal drip, Denies sinus pain, Denies sinus pressure and Denies other ( Thrush) Cardiovascular: Cardiovascular: Denies chest pain, Denies pedal edema, Denies dyspnea, Denies orthopnea and Denies paroxysmal nocturnal dyspnea Respiratory: Respiratory: Denies cough, Denies hemoptysis, Denies excessive phlegm production, Denies dyspnea, Denies snoring and Denies wheezing Gastrointestinal: Gastrointestinal: Denies abdominal pain and Denies heartburn Musculoskeletal: Musculoskeletal: Denies myalgias, Denies arthralgias and Denies joint swelling Integumentary/Breasts: Skin/Breast: Denies rash Neurologic: Denies memory loss and Denies seizure-like activity Psychiatric: Psychiatric: Denies abnormal sleep pattern, Denies anxiety and Denies memory loss Endocrine: Endocrine: Denies excessive sweating, Denies fatigue and Denies heat intolerance Hematologic/Lymphatic: Hematologic/Lymphatic: Denies easy bruising Allergic/Immunologic: Allergic/Immunologic: Denies itchy eyes, Denies seasonal rhinorrhea and Denies wheezing PMFSH Past Medical History Medical History Hyperlipidemia Arthritis GERD (gastroesophageal reflux disease) Depression Melanoma metastatic to liver Transaminitis Cyst of right kidney Liver cyst Family History Family History Father Esophageal cancer Mother Hodgkin disease Brother Kidney malignancy Sibling Brother Kidney malignancy Sibling Surgical History Surgical History History of liver biopsy History of colonoscopy History of knee replacement procedure of right knee History of eye surgery H/O carpal tunnel repair H/O basal cell carcinoma excision History of ear surgery Social History Social History Household Members: None Housing: House Are you a primary human services care specialist to a significant other at home: No Do you presently have visiting nurse or other home services: No Alcohol intake: never Patient Tobacco Use Status: Former Tobacco user e-Cigarette/Vaping Use: Never Used Second Hand Smoke Exposure: No Use of substances other than those prescribed or required for medical reasons: No Have you been hit, kicked, punched, or otherwise hurt by someone within the past year? If so, by whom?: No Do you feel safe in your current relationship?: Yes Is there a partner from a previous relationship who is making you feel unsafe now?: No Are you made to feel afraid or neglected: No Advance Directives: Yes Advance Directives Information Provided: No Advance Directives on File: No Advance Directives Date on File: 10/08/24 Do you have a plan to hurt others: No Plan Recently lost weight without trying: Yes How much weight loss: 2-13 pounds Eating poorly because of decreased appetite: No Nutrition screen score: 3 Nutrition Risks: No Nutritional Risk Poor oral hygiene: No service: No Current occupational status: employed and retired 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 Cognitive needs: No Hearing needs: No Vision needs: No Meds Allergies Allergy/AdvReac Type Severity Reaction Status Date / Time No Known Allergies Allergy Verified 10/08/24 09:40 [No Known Allergies*] Active Medications: Current Medications Enoxaparin Sodium (Enoxaparin Sodium 80 Mg/0.8 Ml Syringe) 80 mg SUBCUT Q12H LEILANI Last Admin: 10/09/24 01:31 Dose: 80 mg Home Medications ?Medication ?Instructions ?Recorded ?Confirmed ?Last Taken ?Type No Known Home Meds 10/08/24 10/08/24 Unknown History Physical Exam 2 Vital Signs: Vital Signs: Last Vital Signs Temp 96.9 F 10/09/24 08:00 Pulse 68 10/09/24 08:00 Resp 19 10/09/24 08:00 BP 110/67 10/09/24 08:00 Pulse Ox 95 10/09/24 08:00 O2 Del Method Nasal Cannula 10/09/24 08:00 O2 Flow Rate 2 10/09/24 08:00 BMI result Body Mass Index 28.7 Const: General: no acute distress and alert Nutritional Appearance: not obese Orientation/consciousness: Other orientation findings ( oriented) HEENT: Head: Yes atraumatic Eyes: General: appearance normal, both eyes and all related structures S clerae: sclerae normal EOM: EOMs intact bilaterally Neck: Neck: Yes supple Lymphatic: no lymphadenopathy noted Resp: Effort & Inspection: normal respiratory effort and no use of accessory muscles Auscultation: clear to auscultation bilaterally Cardio: Rate: regular rate Rhythm: regular rhythm Heart sounds: no gallops, no murmurs and no rubs Skin: General skin exam: other ( warm) Extrem: General: No clubbing, No cyanosis and No edema Results Laboratory Findings 10/09/24 08:16 10/09/24 08:16 ABG, PT/INR, D-dimer: PT/INR, D-dimer PT 13.6 SEC (10.9-12.4) H D 10/08/24 14:19 INR 1.2 (0.9-1.1) H 10/08/24 14:19 Abnormal lab findings: Abnormal Labs 10/08/24 10/08/24 10/08/24 00:08 09:57 14:19 WBC 11.8 H RBC 4.55 L MCV MCH 33.3 H 34.1 H Neut % (Auto) 79.0 H Lymph % (Auto) 9.0 L Lymph # (Auto) 1.1 L [place] # (Auto) 1.3 H Abs Immat Gran (auto) 0.05 H Absolute Neuts (auto) 9.3 H PT 13.6 H D INR 1.2 H BUN 20 H Random Glucose 123 H Total Bilirubin 1.2 H 10/09/24 08:16 WBC RBC 4.52 L MCV 99.6 H MCH 33.2 H Neut % (Auto) Lymph % (Auto) Lymph # (Auto) [place] # (Auto) Abs Immat Gran (auto) Absolute Neuts (auto) PT INR BUN 19 H Random Glucose Total Bilirubin Microbiology: Microbiology 10/09/24 03:15 Thoracentesis Fluid Gram Stain - Final Assessment and Plan (1) Trapped lung: Status: Acute (2) Hydropneumothorax: Status: Acute Plan Impression: 69-year-old gentleman with underlying metastatic melanoma readmitted with recurrence of large left-sided hydropneumothorax on a background of trapped lung. Recommendation: Would suggest considering placement of PleurX catheter before proceeding with decortication with mechanical pleurodesis. Procedures Date of Service Date of Service: 10/09/24
--- NOTE | 2024-10-09 12:17 | MHC.CM.PN ---
Addendum entered by Lucy Hearn RN 10/09/24 12:23: REF ALSO PLACED TO [facility] IN CASE OF NEED FOR VNA/PT Original Note: IMM 10/09/24, PT W/HYDROPNEUMOTHORAX AND DVT, CM MET W/PT WHO IS A&O, PT REPORTS HIS LEG WAS SWOLLEN AND WHEN HE WENT TO HIS FOLLOW-UP W/DR. BUCIO PT WAS SENT TO ED. PT REPORTS HE LIVES ALONE, DENIES USE OF DME/SERVICES AND REPORTS HE NEEDS HELP AROUND THE HOUSE, PT AGREEABLE TO A REF TO [facility], TASK SENT. PT ALSO OPEN TO [facility] SERVICES IF RECOMMENDED. PT VERIFIES PC AND HCP ON FILE, HCP FOUND IN [employer] AND UPLOADED TO [employer] AND COPY PLACED IN CHART. [facility] ALSO ON ON FILE UNDER SCANNED DOCUMENTS/LEGAL. CM WILL CONT TO FOLLOW DC NEEDS.
[2024-10-09 14:22] LABS: INTERNATIONAL NORM RATIO 1.1 (0.9-1.1); Prothrombin Time 13.2 SEC (10.9-12.4)
[2024-10-10 03:13] VITALS: BP 121/75; PULSE 71; RESP 17; TEMP 36.6; O2SAT 96
[2024-10-10] MEDS: Enoxaparin Sodium 80 MG/0.8 ML SYRINGE SUBCUT ×2 (03:16→16:20)
[2024-10-10 06:56] VITALS: BP 115/63; PULSE 66; RESP 17; TEMP 36; O2SAT 93
[2024-10-10 07:58] LABS: Albumin Pleural Fluid 2.5; Total Protein Pleural Fluid 3.5
[2024-10-10 07:59] LABS: Glucose Pleural Fluid 98; LDH Pleural Fluid 666
--- NOTE | 2024-10-10 08:08 | P.PNTS_ITS ---
Subjective Subjective Date of Service: 10/10/24 Interval history: Feels well this morning. Denies shortness of breath. Physical Exam Vital Signs: Vital Signs: Last Vital Signs Temp 96.8 F 10/10/24 06:56 Pulse 66 10/10/24 06:56 Resp 17 10/10/24 06:56 BP 115/63 10/10/24 06:56 Pulse Ox 93 10/10/24 06:56 O2 Del Method Room Air 10/10/24 06:56 O2 Flow Rate 2 10/09/24 08:00 BMI result Body Mass Index 28.7 Const: General: comfortable, no acute distress and alert Orientation/con sciousness: patient oriented x3 Chest: Other: chest tube left anterior chest, dressing intact scant serous drainage over past 24h very minimal air leak vs titaling Resp: Effort & Inspection: normal respiratory effort Neuro: General: patient oriented x3 and moves all extremities Procedures Date of Service Date of Service: 10/10/24 Progress Note: A&P Assessment and plan (1) Hydropneumothorax: Status: Acute Plan Appears clinically improved this morning. Scant drainage from chest tube now, very minimal if any air leak. Left lung completely reexpanded on f/u imaging and effusion improved, clinically no trapped lung. Continue to recommend pleurodesis as this will hopefully help prevent the recurrent pneumothorax and effusion. Will place to water seal and repeat CXR later this morning. If lung remains up, plan to sclerose with doxycycline later today and then hopefully remove chest tube in AM. Can discuss pleurx catheter if effusion recurs but this would not treat the recurrent pneumo. Time Spent With Patient Time: Total time managing care of this patient today ____ minutes. Quality Stroke Does the patient have a stroke diagnosis?: No VTE Prior VTE?: No VTE Risk Level:: Medical - moderate - high VTE Device Contraindication: Treatment Not Indicated VTE Drug Contraindication: N/A - Med Ordered
[2024-10-10 09:19] LABS: Hematocrit 44.4 % (42.0-52.0); Hemoglobin 15.2 g/dl (14.0-18.0); Mean Corpuscular HGB Conc 34.2 g/dl (31.0-36.0); Mean Corpuscular Volume 99.3 fL (80.0-98.0); Mean Platelet Volume 9.5 fL (9.4-12.4); Platelet Count 256 X10*3/uL (160-400); Red Blood Count 4.47 X10*6/uL (4.60-5.80); White Blood Count 8.6 X10*3/uL (4.8-10.8)
[2024-10-10 09:27] LABS: Anion Gap 12 (12-20); Blood Urea Nitrogen 16 mg/dL (9-16); Calcium 8.4 mg/dL (8.4-10.2); Carbon Dioxide 26 mmol/L (22-29); Chloride 108 mmol/L (96-108); Creatinine Clr Calc Pharmacy 82.7; Estimated Glomerular Filt Rate > 60; Glucose Random 98 mg/dL (60-115); Potassium 4.7 mmol/L (3.3-5.1); Sodium 141 mmol/L (135-145)
--- NOTE | 2024-10-10 11:14 | P.PNIM_ITS ---
Subjective Subjective Date of Service: 09/09/24 Interval History: f/u on recurrent hydropneumothorax and now left LE DVT Physical Exam 2 Vital Signs: Vital Signs: Last Vital Signs Temp 96.8 F 10/10/24 06:56 Pulse 66 10/10/24 06:56 Resp 17 10/10/24 06:56 BP 115/63 10/10/24 06:56 Pulse Ox 93 10/10/24 06:56 O2 Del Method Room Air 10/10/24 06:56 O2 Flow Rate 2 10/09/24 08:00 BMI result Body Mass Index 28.7 Objective Data Active Medications Enoxaparin Sodium (Enoxaparin Sodium 80 Mg/0.8 Ml Syringe) 80 mg SUBCUT Q12H LEILANI Last Admin: 10/10/24 03:16 Dose: 80 mg Documented By: HERMELINDA Labs 10/10/24 08:41 10/10/24 08:41 Labs: Laboratory Results - last 24 hr 10/09/24 10/09/24 10/10/24 03:15 13:57 08:41 MCV 99.3 H MCH 34.0 H MCHC 34.2 RDW 12.0 Plt Count 256 MPV 9.5 Absolute Nucleated RBC 0.000 Nucleated RBC % (auto) 0.0 PT 13.2 H INR 1.1 Anion Gap 12 Estim Creat Clear Calc 82.7 Estimated GFR > 60 Random Glucose 98 Calcium 8.4 Pleural Total Protein 3.5 Pleural Albumin 2.5 Pleural LDH 666 Pleural Glucose 98 Microbiology Microbiology Results: Microbiology 10/09/24 03:15 Gram Stain - Final Thoracentesis Fluid Anaerobic Culture - Preliminary No growth to date. Body Fluid Culture - Preliminary No growth to date. Assessment and Plan (1) Liver lesion: Status: Acute (2) Liver mass: Status: Acute (3) Pleural effusion: Status: Acute (4) Hydropneumothorax: Status: Acute (5) Left leg DVT: Status: Acute Plan 69-year-old male with a history of malignant metastatic melanoma who presents with left lower extremity swelling and left-sided chest discomfort. Diagnosed with acute left DVT as well as large left hydropneumothorax. He is status post chest tube insertion and will be admitted to the hospital for further care. 1. Recurrent Large left hydropneumothorax, probably malignant cytology from last hospitalization was negative, repeat cytology Status post chest tube insertion by thoracic surgery Possibly due to underlying metastatic disease - sent pleural fluid for analysis including cytology, gram stain, culture Chest tube management per thoracic surgery, may need pleurodesis 2. Left-sided DVT Likely related to underlying cancer On Lovenox 1 mg/kg bid, change to eliquis at discharge Vascular surgery evaluation for possible clot extraction 3. Metastatic melanoma possibly the underlying cause of #1 and #2 will need outpt f/u DNR/DNI (confirmed with pt) Reports Son is HCP Patient with large left-sided hydropneumothorax requiring chest tube placement and management as well as left-sided DVT possibly requiring vascular intervention, therefore expected to require at least 2 midnights in the hospital for management. Hence, the patient will be admitted to inpatient. Quality Stroke Does the patient have a stroke diagnosis?: No VTE Prior VTE?: No VTE Risk Level:: Medical - moderate - high VTE Device Contraindication: Treatment Not Indicated VTE Drug Contraindication: N/A - Med Ordered
--- NOTE | 2024-10-10 11:19 | MHC.CM.PN ---
Per MD rounds patient not medically cleared for dc. Plan for chest tube removal tomorrow. [facility] following.
[2024-10-10] MEDS: Lidocaine HCl 1 % MPF 30 ML VIAL INTRAPLEUR (14:39)
[2024-10-10] MEDS: Doxycycline Hyclate 400 MG in Syringe 60 ML 999 MG INTRAPLEUR (14:42)
[2024-10-10] MEDS: Morphine Sulfate 2 MG/ML CARTRIDGE IVPUSH ×2 (14:54→15:16)
--- NOTE | 2024-10-10 14:59 | PM.EVENT ---
Event Note Date of Service: 10/10/24 Event Note: Pleurodesis performed at bedside at 1445. 30cc 1% lidocaine followed by 60cc doxycyline was administered into the chest tube uneventfully. Chest tube clamped for 1hr. Will unclamp following and place back to water seal. RN at bedside during procedure and aware of plan. Can unclamp sooner if he develops shortness of breath. Time Spent With Patient Time: Total time managing care of this patient today ____ minutes.
[2024-10-10 15:00] VITALS: BP 174/86; PULSE 84; RESP 20; TEMP 37.2; O2SAT 95
[2024-10-10] MEDS: Acetaminophen 1,000 MG/100 ML PIGGYBACK 400 MG IV (15:26)
[2024-10-10 15:42] VITALS: BP 140/84; PULSE 86; RESP 18; TEMP 36.6; O2SAT 94
--- NOTE | 2024-10-10 17:26 | PC.NURSE ---
Pt had significant pain with the 60cc injection of doxy for the pleuraldesis performed by MD to prepare for removal of chest tube (tomorrow). PA/ alerted to pain, pt received extra one time dose of morphine and IV tylenol. Much improved. PT resting more comfortably now.
[2024-10-10 19:13] VITALS: BP 133/81; PULSE 75; RESP 18; TEMP 36.6; O2SAT 97
[2024-10-11] MEDS: Enoxaparin Sodium 80 MG/0.8 ML SYRINGE SUBCUT ×2 (02:33→15:33)
[2024-10-11 04:00] VITALS: BP 131/80; PULSE 68; RESP 18; TEMP 36; O2SAT 98
[2024-10-11 08:02] VITALS: BP 129/72; PULSE 77; RESP 18; TEMP 37; O2SAT 95
--- NOTE | 2024-10-11 08:45 | PM.PNTS ---
Subjective Subjective Date of Service: 10/11/24 Interval history: Had pain following sclerosis but improved this morning. Denies shortness of breath. Physical Exam Vital Signs: Vital Signs: Last Vital Signs Temp 98.6 F 10/11/24 08:02 Pulse 77 10/11/24 08:02 Resp 18 10/11/24 08:02 BP 129/72 10/11/24 08:02 Pulse Ox 95 10/11/24 08:02 O2 Del Method Room Air 10/11/24 08:02 O2 Flow Rate 2 10/10/24 19:13 BMI result Body Mass Index 28.7 Const: Orientation/consciousness: patient oriented x3 Chest: Other: left anterior chest tube in place ~100cc drainage since yesterday, consistent with fluid from sclerosis no air leak this AM Resp: Effort & Inspection: normal respiratory effort, able to speak in complete sentences and not tachypneic Neuro: General: patient oriented x3 and moves all extremities Procedures Date of Service Date of Service: 10/11/24 Progress Note: A&P Assessment and plan (1) Hydropneumothorax: Status: Acute Plan Underwent sclerosis with doxycycline yesterday. Small pneumothorax on CXR this morning, unchanged. Cont chest tube to water seal for now. Time Spent With Patient Time: Total time managing care of this patient today ____ minutes. Quality Stroke Does the patient have a stroke diagnosis?: No VTE Prior VTE?: No VTE Risk Level:: Medical - moderate - high VTE Device Contraindication: Treatment Not Indicated VTE Drug Contraindication: N/A - Med Ordered
[2024-10-11 10:12] VITALS: BP 129/72; PULSE 77; O2SAT 95
--- NOTE | 2024-10-11 10:25 | P.PNIM_ITS ---
Subjective Subjective Date of Service: 10/11/24 Interval History: f/u on recurrent hydropneumothorax and now left LE DVT Pleurodesis performed on 10/10 Physical Exam 2 Vital Signs: Vital Signs: Last Vital Signs Temp 98.6 F 10/11/24 08:02 Pulse 77 10/11/24 10:12 Resp 18 10/11/24 08:02 BP 129/72 10/11/24 10:12 Pulse Ox 95 10/11/24 10:12 O2 Del Method Room Air 10/11/24 08:02 O2 Flow Rate 2 10/10/24 19:13 BMI result Body Mass Index 28.7 Const: Other: General: AO X 3, no acute distress Resp: CTA bilateral, left sided chest tube still in place CVS: S1,S2,RRR GI: +BS, NT, no distention Skin: No rash Neuro: motor grossly intact Psych: appropriate affect Objective Data Active Medications Acetaminophen (Acetaminophen 325 Mg Tablet) 650 mg PO Q6H PRN PRN Reason: Pain, Mild 1-3,fever,headache Docusate Sodium (Docusate Sodium 100 Mg Capsule) 100 mg PO BID LEILANI Enoxaparin Sodium (Enoxaparin Sodium 80 Mg/0.8 Ml Syringe) 80 mg SUBCUT Q12H LEILANI Last Admin: 10/11/24 02:33 Dose: 80 mg Documented By: HERMELINDA Magnesium Hydroxide (Milk Of Magnesia 30 Ml Oral.Susp) 30 ml PO DAILY PRN PRN Reason: Constipation Morphine Sulfate (Morphine Sulfate 2 Mg/Ml Cartridge) 2 mg IVPUSH Q2H PRN; Protocol PRN Reason: Pain, Severe (Pain Scale 7-10) Last Admin: 10/10/24 14:54 Dose: 2 mg Documented By: SHAYY Oxycodone HCl (Oxycodone Hcl Immed Release 5 Mg Tablet) 5 mg PO Q4H PRN PRN Reason: Pain, Moderate(Pain Scale 4-6) Polyethylene Glycol (Polyethylene Glycol 3350 17 Gm Powd.Pack) 17 gm PO DAILY PRN PRN Reason: Constipation Labs 10/10/24 08:41 10/10/24 08:41 Microbiology Microbiology Results: Microbiology 10/09/24 03:15 Gram Stain - Final Thoracentesis Fluid Anaerobic Culture - Preliminary No growth to date. Body Fluid Culture - Final No growth after 2 days Assessment and Plan (1) Liver lesion: Status: Acute (2) Liver mass: Status: Acute (3) Pleural effusion: Status: Acute (4) Hydropneumothorax: Status: Acute (5) Left leg DVT: Status: Acute Plan 69-year-old male with a history of malignant metastatic melanoma who presents with left lower extremity swelling and left-sided chest discomfort. Diagnosed with acute left DVT as well as large left hydropneumothorax. He is status post chest tube insertion and will be admitted to the hospital for further care. 1. Recurrent Large left hydropneumothorax, probably malignant cytology from last hospitalization was negative, repeat cytology Status post chest tube insertion by thoracic surgery Possibly due to underlying metastatic disease - sent pleural fluid for analysis including cytology, gram stain, culture Chest tube management per thoracic surgery, pleurodesis performed 10/10 2. Left-sided DVT Likely related to underlying cancer On Lovenox 1 mg/kg bid, change to eliquis at discharge Vascular surgery evaluation for possible clot extraction 3. Metastatic melanoma possibly the underlying cause of #1 and #2 will need outpt f/u DNR/DNI (confirmed with pt) Reports Son is HCP PT eval Patient with large left-sided hydropneumothorax requiring chest tube placement and management as well as left-sided DVT possibly requiring vascular intervention, therefore expected to require at least 2 midnights in the hospital for management. Hence, the patient will be admitted to inpatient. Quality Stroke Does the patient have a stroke diagnosis?: No VTE Prior VTE?: No VTE Risk Level:: Medical - moderate - high VTE Device Contraindication: Treatment Not Indicated VTE Drug Contraindication: N/A - Med Ordered
--- NOTE | 2024-10-11 11:11 | MHC.CM.PN ---
PT rec STR. CM reviewed w/ patient who is agreeable to plan. No facility preference. Referrals to local facilities via [facility]. Awaiting bed offer. Potential plan for dc tomorrow if medically cleared.
[2024-10-11] MEDS: Docusate Sodium 100 MG CAPSULE PO ×2 (11:30→20:47)
[2024-10-11 16:16] VITALS: BP 130/68; PULSE 68; RESP 18; TEMP 36.4; O2SAT 95
[2024-10-11 19:08] VITALS: BP 118/63; PULSE 74; RESP 18; TEMP 36.2; O2SAT 93
[2024-10-12] MEDS: Enoxaparin Sodium 80 MG/0.8 ML SYRINGE SUBCUT ×2 (02:54→15:31)
[2024-10-12 03:22] VITALS: BP 122/72; PULSE 66; RESP 18; TEMP 36.7; O2SAT 94
--- NOTE | 2024-10-12 05:42 | PC.NURSE ---
no new output noted for chest tube [id number]
[2024-10-12] MEDS: Docusate Sodium 100 MG CAPSULE PO ×2 (08:03→20:02)
[2024-10-12 08:04] VITALS: BP 118/74; PULSE 65; RESP 12; TEMP 36.7; O2SAT 93
--- NOTE | 2024-10-12 08:13 | PM.PNTS ---
Subjective Subjective Date of Service: 10/12/24 Interval history: Feels well. Denies shortness of breath. Has not gotten out of bed much. Plan for STR upon discharge. Physical Exam Vital Signs: Vital Signs: Last Vital Signs Temp 98.1 F 10/12/24 08:04 Pulse 65 10/12/24 08:04 Resp 12 10/12/24 08:04 BP 118/74 10/12/24 08:04 Pulse Ox 93 10/12/24 08:04 O2 Del Method Room Air 10/12/24 08:04 O2 Flow Rate 2 10/10/24 19:13 BMI result Body Mass Index 28.7 Const: General: comfortable, no acute distress and alert Orientation/consciousness: patient oriented x3 Chest: Other: chest tube in place left anterior chest no air leak ~100cc drainage overnight Resp: Effort & Inspection: normal respiratory effort, not labored, no respiratory distress, not tachypneic and no tracheal deviation Skin: General skin exam: no rashes or lesions noted Neuro: General: patient oriented x3 Procedures Date of Service Date of Service: 10/12/24 Progress Note: A&P Assessment and plan (1) Hydropneumothorax: Status: Acute (2) Left leg DVT: Status: Acute Plan Chest tube drainage 100cc over 12hrs. Possibly due to inflammation created due to sclerosis. Will monitor for now, if output remains low and lung up on imaging tomorrow, can remove chest tube and f/u in office in 1 week. Time Spent With Patient Time: Total time managing care of this patient today ____ minutes. Quality Stroke Does the patient have a stroke diagnosis?: No VTE Prior VTE?: No VTE Risk Level:: Medical - moderate - high VTE Device Contraindication: Treatment Not Indicated VTE Drug Contraindication: N/A - Med Ordered
[2024-10-12 08:23] VITALS: BP 118/74; PULSE 65; O2SAT 93
[2024-10-12] MEDS: polyethylene glycoL 3350 17 GM POWD.PACK PO (09:50)
--- NOTE | 2024-10-12 11:40 | P.PNIM_ITS ---
Subjective Subjective Date of Service: 10/12/24 Interval History: f/u on recurrent hydropneumothorax and now left LE DVT Pleurodesis performed on 10/10, doing well. Physical Exam 2 Vital Signs: Vital Signs: Last Vital Signs Temp 98.1 F 10/12/24 08:04 Pulse 65 10/12/24 08:23 Resp 12 10/12/24 08:04 BP 118/74 10/12/24 08:23 Pulse Ox 93 10/12/24 08:23 O2 Del Method Room Air 10/12/24 08:04 O2 Flow Rate 2 10/10/24 19:13 BMI result Body Mass Index 28.7 Objective Data Active Medications Acetaminophen (Acetaminophen 325 Mg Tablet) 650 mg PO Q6H PRN PRN Reason: Pain, Mild 1-3,fever,headache Docusate Sodium (Docusate Sodium 100 Mg Capsule) 100 mg PO BID [facility] Last Admin: 10/12/24 08:03 Dose: 100 mg Documented By: SRINIVAS Enoxaparin Sodium (Enoxaparin Sodium 80 Mg/0.8 Ml Syringe) 80 mg SUBCUT Q12H [facility] Last Admin: 10/12/24 02:54 Dose: 80 mg Documented By: ALEJANDRINA Magnesium Hydroxide (Milk Of Magnesia 30 Ml Oral.Susp) 30 ml PO DAILY PRN PRN Reason: Constipation Morphine Sulfate (Morphine Sulfate 2 Mg/Ml Cartridge) 2 mg IVPUSH Q2H PRN; Protocol PRN Reason: Pain, Severe (Pain Scale 7-10) Last Admin: 10/10/24 14:54 Dose: 2 mg Documented By: SHAYY Oxycodone HCl (Oxycodone Hcl Immed Release 5 Mg Tablet) 5 mg PO Q4H PRN PRN Reason: Pain, Moderate(Pain Scale 4-6) Polyethylene Glycol (Polyethylene Glycol 3350 17 Gm Powd.Pack) 17 gm PO DAILY PRN PRN Reason: Constipation Last Admin: 10/12/24 09:50 Dose: 17 gm Documented By: SRINIVAS Labs 10/10/24 08:41 10/10/24 08:41 Microbiology Microbiology Results: Microbiology 10/09/24 03:15 Gram Stain - Final Thoracentesis Fluid Anaerobic Culture - Preliminary No growth to date. Body Fluid Culture - Final No growth after 2 days Assessment and Plan (1) Liver lesion: Status: Acute (2) Liver mass: Status: Acute (3) Pleural effusion: Status: Acute (4) Hydropneumothorax: Status: Acute (5) Left leg DVT: Status: Acute Plan 69-year-old male with a history of malignant metastatic melanoma who presents with left lower extremity swelling and left-sided chest discomfort. Diagnosed with acute left DVT as well as large left hydropneumothorax. He is status post chest tube insertion and will be admitted to the hospital for further care. 1. Recurrent Large left hydropneumothorax, probably malignant cytology from last hospitalization was negative, repeat cytology Status post chest tube insertion by thoracic surgery Possibly due to underlying metastatic disease - sent pleural fluid for analysis including cytology, gram stain, culture Chest tube management per thoracic surgery, pleurodesis performed 10/10, probably to be removed today 2. Left-sided DVT Likely related to underlying cancer On Lovenox 1 mg/kg bid, change to eliquis at discharge Vascular surgery evaluation for possible clot extraction, but opeted for med management 3. Metastatic melanoma possibly the underlying cause of #1 and #2 will need outpt f/u DNR/DNI (confirmed with pt) Reports Son is HCP PT rec STR Patient with large left-sided hydropneumothorax requiring chest tube placement and management as well as left-sided DVT possibly requiring vascular intervention, therefore expected to require at least 2 midnights in the hospital for management. Hence, the patient will be admitted to inpatient. Quality Stroke Does the patient have a stroke diagnosis?: No VTE Prior VTE?: No VTE Risk Level:: Medical - moderate - high VTE Device Contraindication: Treatment Not Indicated VTE Drug Contraindication: N/A - Med Ordered
--- NOTE | 2024-10-12 15:29 | MHC.CM.PN ---
Patient not medically cleared for dc. Chest tube in place. DP remains STR @ [facility]. CM will continue to follow.
[2024-10-12 15:49] VITALS: BP 134/78; PULSE 74; RESP 18; TEMP 36.1; O2SAT 93
[2024-10-12 19:09] VITALS: BP 134/74; PULSE 68; RESP 16; TEMP 36.6; O2SAT 94
--- NOTE | 2024-10-12 19:34 | PC.NURSE ---
Dr. Kendrick instructed pt to lay on left side and put chest tube to wall suction for @ 30 min. 15cc yellow drainage after disconnected from suction. Dr. Kendrick notified.
[2024-10-13] MEDS: Enoxaparin Sodium 80 MG/0.8 ML SYRINGE SUBCUT (01:48)
[2024-10-13 04:00] VITALS: BP 120/68; PULSE 63; RESP 16; TEMP 36.4; O2SAT 93
--- NOTE | 2024-10-13 07:06 | PM.PNTS ---
Subjective Subjective Date of Service: 10/13/24 Interval history: No acute respiratory issues or complaints. Pleur-evac with minimal output and no air leak demonstrated. Physical Exam Vital Signs: Vital Signs: Last Vital Signs Temp 97.6 F 10/13/24 04:00 Pulse 63 10/13/24 04:00 Resp 16 10/13/24 04:00 BP 120/68 10/13/24 04:00 Pulse Ox 93 10/13/24 04:00 O2 Del Method Room Air 10/13/24 04:00 O2 Flow Rate 2 10/10/24 19:13 BMI result Body Mass Index 28.7 Chest: Other: With the occlusive dressing, patient underwent uneventfully chest tube removal. Well tolerated. Procedures Date of Service Date of Service: 10/13/24 Progress Note: A&P Assessment and plan (1) Pneumothorax: Status: Acute (2) Pleural effusion: Status: Acute Plan Post chest x-ray removal ordered. From surgical perspective, patient can be discharged with follow-up with me next week. Discharge instructions reviewed with the patient. Time Spent With Patient Time: Total time managing care of this patient today ____ minutes. Quality Stroke Does the patient have a stroke diagnosis?: No VTE Prior VTE?: No VTE Risk Level:: Medical - moderate - high VTE Device Contraindication: Treatment Not Indicated VTE Drug Contraindication: N/A - Med Ordered
[2024-10-13 07:10] LABS: Hematocrit 46.1 % (42.0-52.0); Hemoglobin 15.3 g/dl (14.0-18.0); Mean Corpuscular HGB Conc 33.2 g/dl (31.0-36.0); Mean Corpuscular Hemoglobin 32.6 pg (27.0-33.0); Mean Corpuscular Volume 98.3 fL (80.0-98.0); Mean Platelet Volume 9.5 fL (9.4-12.4); Platelet Count 346 X10*3/uL (160-400); Red Blood Count 4.69 X10*6/uL (4.60-5.80); White Blood Count 7.3 X10*3/uL (4.8-10.8)
[2024-10-13 07:36] VITALS: BP 129/75; PULSE 62; RESP 18; TEMP 36.5; O2SAT 93
[2024-10-13] MEDS: Docusate Sodium 100 MG CAPSULE PO (08:48)
--- NOTE | 2024-10-13 08:57 | PC.NURSE ---
chest tube removed at bedside by Dr. Kendrick at 0700. STAT CXR ordered.
--- NOTE | 2024-10-13 11:14 | P.DS_ITS ---
DS: Providers Provider Date of Service: 10/13/24 Date of admission: 10/08/24 14:24 Date of discharge: 10/13/24 Primary care physician: Elvira Grimes MD Consults: 10/08/24 14:34 Consult to Thoracic Surgery Routine Consulting Provider: Mayo Kendrick Reason for consultation: left hydropneumothorax Has provider been notified: Yes Consult to Vascular Surgery Routine Consulting Provider: [facility] Reason for consultation: extensive LLE dvt 10/09/24 09:12 Consult to Pulmonology Routine Consulting Provider: [facility] Reason for consultation: recurrent hydropneumothrorax Has provider been notified: No DS: Diagnosis Discharge Diagnosis (1) Pneumothorax: Status: Acute (2) Pleural effusion: Status: Acute DS: Summary Hospital Course Hospital Course: Chief Complaint: sent from thoracic clinic The patient is a 69-year-old male with a past medical history of metastatic malignant melanoma, former tobacco use disorder, mixed hyperlipidemia who presents from the thoracic surgery clinic after he heard for left DVT and left- sided hydropneumothorax. The patient states that he was following up with the thoracic clinic for a routine visit after recent hospitalization for a large left hydropneumothorax. He reports that after his discharge from the hospital on 09/30/2024, he felt his shortness of breath was improved, however about 3-4 days prior to this hospitalization he began feeling increasing short of breath with minimal exertion. He denied any chest pain but did endorse chest discom fort. He reports intermittently productive cough. He denies any fevers or chills. He denies any trauma. Workup thus far shows a chest x-ray with large left hydropneumothorax. DVT studies are positive for left lower extremity DVT in the left mid and distal femoral vein, popliteal vein and throughout the deep calf veins. The patient has been evaluated by thoracic surgery, with chest tube placement. Post chest tube insertion chest x-ray shows, tiny residual left apical pneumothorax. Patient is seen and examined in the emergency room. He reports significant improvement after chest tube placement. He denies any current pain. He reports discomfort in his left leg. hsoptial course: 69-year-old male with a history of malignant metastatic melanoma who presents with left lower extremity swelling and left-sided chest discomfort. Diagnosed with acute left DVT as well as large left hydropneumothorax. He is status post chest tube insertion and will be admitted to the hospital for further care. 1. Recurrent Large left hydropneumothorax, probably malignant. He previously had achest tube during last hospitalization with resolution. Another chest tube was inserted on this occasion. Cytology cytology from last hospitalization was negative, repeat cytology is pending. Patient was evaluated by thoracic surgery, had pleuridisy on with doxycyline and chest tube removed on 10/13/24. Post removal CXR showed a tiny apical pneumothorax. 2. Left lowe extremity ided DVT left mid and distal femoral vein, popliteal vein, and throughout the deep calf veins. likely related to underlying cancer Started on Lovenox which is being changed to eliquis 10 mg bid x 7 days, followed by 5 mg daily. Vascular surgery evaluation for possible clot extraction, but opeted for med management 3. Metastatic melanoma possibly the underlying cause of #1 and #2 will need outpt f/u with Dr. Schroeder Time Attestation Discharge Coordination Time (in mins): 45 Quality: Safe Use of Opioids Does Pt have an Active Cancer Diagnosis on the Problem List?: Yes Opioid Measure Date for [facility] Report: 09/13/24 Opioid Measure Time for [facility] Report: 15:24 Quality: Stroke Does the patient have a stroke diagnosis?: No Physical Exam Vital Signs: Vital Signs: Last Vital Signs Temp 97.7 F 10/13/24 07:36 Pulse 62 10/13/24 07:36 Resp 18 10/13/24 07:36 BP 129/75 10/13/24 07:36 Pulse Ox 93 10/13/24 07:36 O2 Del Method Room Air 10/13/24 07:36 O2 Flow Rate 2 10/10/24 19:13 BMI result Body Mass Index 28.7 Const: Other: General: AO X 3, no acute distress Resp: CTA bilateral CVS: S1,S2,RRR GI: +BS, NT, no distention Skin: No rash Neuro: motor grossly intact Psych: appropriate affect DS: Data Data Completed and Pending Completed studies during hospitalization [Text1]: Procedures Drainage of Left Pleural Cavity with Drainage Device, Percutaneous Approach (09/26/24) Pending studies at discharge: Pending at discharge 10/08/24 14:20 Cytology [PTH] Routine Labs on day of discharge: Laboratory Results - last 24 hr 10/13/24 05:48 WBC 7.3 RBC 4.69 Hgb 15.3 Hct 46.1 MCV 98.3 H MCH 32.6 MCHC 33.2 RDW 12.0 Plt Count 346 D MPV 9.5 Absolute Nucleated RBC 0.000 Nucleated RBC % (auto) 0.0 Preliminary micro results at discharge 10/09/24 03:15 Anaerobic Culture - Preliminary Thoracentesis Fluid No growth to date. Discharge Plan Discharge Anticipated Discharge Date/Time: 10/13/24 11:14 Patient Disposition: Xfer SNF Discharge Diagnosis: Hydropneumothorax Referrals: [facility] [Outside] - 1 Week Elvira Pang MD [Primary Care Provider] - 1 Week Mayo Kendrick MD [Physician] - 1 Week Discharge Medications: New Eliquis DVT-PE Treat 30D Start 5 mg (74 tabs) tablets,dose pack See Rx Instructions .ROUTE .COMPLEX Qty: 74 0RF Rx Instructions: Tae 2 tabs (10 mg ) twice daily for 7 days, then 5 mg twice daily Continued ondansetron 8 mg Tablet,Disintegrating 8 mg PO Q8H Qty: 60 3RF Discharge Orders: Discharge Order (Routine); Ordered 10/13/24 Ordered By: Aric Swartz Diet: Advance to usual diet Activity on Discharge: As tolerated Stand Alone Forms: Patient Portal Discharge page Print Language: Lao Care Plan Goals: recovery from pneumothorax DVT Health Concerns: metastatic melananoma recurent hydropneumothorax Plan of Treatment: Take Eliqis as directe: 10 mg twice daily for 7 days (27 more doses), then 5 mg twice daily (First dose given in the hospital before DC around 4pm, next dose can be around 6 am tomorrow) and then continued at a reasonbable bid timing Assessment: Occlusive dressing over chest tube site. May shower tomorrow. Call office for follow-up next week. No strenuous activities.
--- NOTE | 2024-10-13 12:40 | MHC.CM.PN ---
PT EXPECTED TO BE CLEARED TO DC TODAY [facility] PT IS AWARE AND FEELS HE WILL NEED BLS TRANSPORT TRANSPORT BOOKED WITH [facility] FOR 1500 HOURS CM SPOKE TO SNF RN, HYACINTH [phone] AND DCS WAS FAXED TO HER AT [phone]
[2024-10-13 15:21] VITALS: BP 138/54; PULSE 65; RESP 18; TEMP 36.4; O2SAT 96
[2024-10-13] MEDS: Apixaban 5 MG TABLET 10 MG PO (15:30)
== END 2024-10-13 15:55 | disposition skilled nursing facility (03) | DRG 200 ==
LOC: HO.ED 12:49 → HO.EDOVER 14:25 → HO.IMC 23:42 → HO.S3 10-09 17:38
PROVIDERS: Admitting Provider Family Medicine; Emergency Provider Emergency Medicine; PCP Internal Medicine; Visit Provider Internal Medicine
DX: J93.9 Pneumothorax, unspecified (principal); C78.02 Secondary malignant neoplasm of left lung; I82.412 Acute embolism and thrombosis of left femoral vein; J98.19 Other pulmonary collapse; E78.2 Mixed hyperlipidemia; Z66 Do not resuscitate; C69.92 Malignant neoplasm of unspecified site of left eye; Z87.891 Personal history of nicotine dependence; Z79.899 Other long term (current) drug therapy
CPT/HCPCS: 36415; 71045; 71046; 80048; 80053; 82042; 82945; 83615; 83880; 84157; 85025; 85027; 85610; 85730; 87070; 87073; 87205; 88112; 88305; 88341; 88342; 89051; 93005; 93971; 97116; 97162; 99212; 99285; J0131; J1171; J1650; J2003; J2270

== ENCOUNTER → 2024-10-08 09:42 | Outpatient (BNV) | payer MEDICARE, SELFPAY | PROVIDERS: Admitting Provider Family Medicine; Emergency Provider Emergency Medicine; PCP Internal Medicine; Visit Provider Internal Medicine | DX: R94.31 Abnormal electrocardiogram [ECG] [EKG] (principal); R06.02 Shortness of breath | CPT/HCPCS: 93010 ==

== ENCOUNTER → 2024-10-08 09:42 | Outpatient (BNV) | payer MEDICARE, SELFPAY | PROVIDERS: Emergency Provider Emergency Medicine; PCP Internal Medicine; Visit Provider Radiology Diagnostic Radiology | DX: J93.9 Pneumothorax, unspecified (principal); Z45.02 Encounter for adjustment and management of automatic implantable cardiac defibrillator; I82.402 Acute embolism and thrombosis of unspecified deep veins of left lower extremity | CPT/HCPCS: 71046; 93971 ==

== ENCOUNTER → 2024-10-08 10:49 | Outpatient (BNV) | payer MEDICARE, SELFPAY | PROVIDERS: Emergency Provider Emergency Medicine; PCP Internal Medicine; Visit Provider Physician Assistant Surgical | DX: I82.412 Acute embolism and thrombosis of left femoral vein (principal); J93.9 Pneumothorax, unspecified | CPT/HCPCS: 32556; 99222 ==

== ENCOUNTER 2024-10-08 14:24 | Outpatient (BNV) | payer MEDICARE, SELFPAY | END 2024-10-13 07:25 | PROVIDERS: Admitting Provider Family Medicine; Emergency Provider Emergency Medicine; PCP Internal Medicine; Visit Provider Radiology Vascular & Interventional Radiology | DX: J93.9 Pneumothorax, unspecified (principal) | CPT/HCPCS: 71045 ==

== ENCOUNTER 2024-10-08 14:24 | Outpatient (BNV) | payer MEDICARE, SELFPAY | END 2024-10-11 07:00 | PROVIDERS: Admitting Provider Family Medicine; Emergency Provider Emergency Medicine; PCP Internal Medicine; Visit Provider Radiology Diagnostic Radiology | DX: J93.9 Pneumothorax, unspecified (principal) | CPT/HCPCS: 71045 ==

== ENCOUNTER 2024-10-08 14:24 | Outpatient (BNV) | payer MEDICARE, SELFPAY | END 2024-10-10 07:00 | PROVIDERS: Admitting Provider Family Medicine; Emergency Provider Emergency Medicine; PCP Internal Medicine; Visit Provider Radiology Diagnostic Radiology | DX: J93.9 Pneumothorax, unspecified (principal) | CPT/HCPCS: 71045 ==

== ENCOUNTER 2024-10-08 14:24 | Outpatient (BNV) | payer MEDICARE, SELFPAY | END 2024-10-12 10:05 | PROVIDERS: Admitting Provider Family Medicine; Emergency Provider Emergency Medicine; PCP Internal Medicine; Visit Provider Radiology Diagnostic Radiology | DX: J93.9 Pneumothorax, unspecified (principal) | CPT/HCPCS: 71045 ==

== ENCOUNTER 2024-10-08 14:24 | Outpatient (BNV) | payer MEDICARE, SELFPAY | END 2024-10-09 07:00 | PROVIDERS: Admitting Provider Family Medicine; Emergency Provider Emergency Medicine; PCP Internal Medicine; Visit Provider Radiology Diagnostic Radiology | DX: J93.9 Pneumothorax, unspecified (principal) | CPT/HCPCS: 71045 ==

== ENCOUNTER → 2024-10-08 14:24 | Outpatient (BNV) | payer MEDICARE, SELFPAY | PROVIDERS: Admitting Provider Family Medicine; Emergency Provider Emergency Medicine; PCP Internal Medicine; Visit Provider Internal Medicine Pulmonary Disease | DX: J98.19 Other pulmonary collapse (principal); J94.8 Other specified pleural conditions | CPT/HCPCS: 99222 ==

== ENCOUNTER → 2024-10-08 14:24 | Outpatient (BNV) | payer MEDICARE, SELFPAY | PROVIDERS: Admitting Provider Family Medicine; Emergency Provider Emergency Medicine; PCP Internal Medicine; Visit Provider Family Medicine | DX: K76.9 Liver disease, unspecified (principal); R16.0 Hepatomegaly, not elsewhere classified; J90 Pleural effusion, not elsewhere classified; J94.8 Other specified pleural conditions; I82.402 Acute embolism and thrombosis of unspecified deep veins of left lower extremity | CPT/HCPCS: 99232; 99233 ==

== ENCOUNTER → 2024-10-08 14:24 | Outpatient (BNV) | payer MEDICARE, SELFPAY | PROVIDERS: Admitting Provider Family Medicine; Emergency Provider Emergency Medicine; PCP Internal Medicine; Visit Provider Physician Assistant Surgical | DX: I82.412 Acute embolism and thrombosis of left femoral vein (principal) | CPT/HCPCS: 99222 ==

== ENCOUNTER 2024-10-19 09:17 | Outpatient (AMB) | payer MEDICARE, SELFPAY ==
[2024-10-19 09:19] VITALS: BP 122/82; PULSE 82; TEMP 36.3; O2SAT 99
--- NOTE | 2024-10-19 09:19 | MHC.PC.OV ---
Vital Signs 10/19/24 09:19 Weight 179 lb BP 122/82 Blood Pressure Location Lt brachial Position Sitting Pulse 82 Pulse Source Pulse Oximeter Temp 97.3 F Temp Source Oral Pulse Oximetry (%) 99 Oxygen Delivery Method Room Air Intake Visit Reasons: [facility] 10/18 [employer] Scheduler Required: No Accompanied by: Self / Same As Patient Allergies No Known Allergies [No Known Allergies*] Allergy (Verified 10/19/24 09:20) Tobacco use date assessed: 10/19/24 Fall risk assessment: No Falls in past year Last assessed Fall Risk: 10/19/24 Dental Screening Dental Screen Date: 10/19/24 Did you have a dental visit in the last 12 months?: Yes Did you have a dental problem in the last 6 months where you did not have access to dental care?: No Was dental information given to patient?: Patient has dentist HPI HPI Comments History of Present Illness Details 69 y/o male patient who presents to the clinic for HDF. Pmhx significant for past medical history of metastatic malignant melanoma, former tobacco use disorder, mixed hyperlipidemia who was admitted at [facility] on 10/08/24 for left DVT and left-sided hydropneumothorax. DVT studies are positive for left lower extremity DVT in the left mid and distal femoral vein, popliteal vein and throughout the deep calf veins. He was started on Eliquis 5 mg Daily. [facility]. He continues to follow up with Thoracic General surgeons (last seen 10/13/24 and next Appointment 10/25/24). Chest Tube was removed with complications. Pt is to start Chemo next week with his Oncologist. [facility] Medical History Hyperlipidemia Arthritis GERD (gastroesophageal reflux disease) Depression Melanoma metastatic to liver Transaminitis Cyst of right kidney Liver cyst Surgical History History of liver biopsy History of colonoscopy History of knee replacement procedure of right knee History of eye surgery H/O carpal tunnel repair H/O basal cell carcinoma excision History of ear surgery Family History Father Esophageal cancer Mother Hodgkin disease Brother Kidney malignancy Sibling Brother Kidney malignancy Sibling Social History Household Members: None Housing: House Are you a primary manager progressive care to a significant other at home: No Do you presently have visiting nurse or other home services: No Alcohol intake: never Patient Tobacco Use Status: Former Tobacco user e-Cigarette/Vaping Use: Never Used Second Hand Smoke Exposure: No Advance Directives Date on File: 10/08/24 service: No Current occupational status: employed and retired 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 Payam Irene, Lora Brooks, Nathan Baker and colleagues, with an educational jovana from [employer]. Review of Systems Const All systems reviewed & are unremarkable except as noted in HPI and below Physical exam (Primary Care) Vital Signs: Last Vital Signs Temp 97.3 F 10/19/24 09:19 Pulse 82 10/19/24 09:19 BP 122/82 10/19/24 09:19 Pulse Ox 99 10/19/24 09:19 Oxygen Delivery Method Room Air 10/19/24 09:19 Tobacco/Smoking Status: Tobacco use Status Tobacco use date assessed 10/19/24 10/19/24 09:27 Patient Tobacco Use Status Former Tobacco user 10/19/24 09:27 e-Cigarette/Vaping Use Never Used 10/19/24 09:27 Thrive Assessment: Date of Thrive Assessment Date Thrive assessed 10/09/24 10/19/24 09:27 Const General: cooperative and no acute distress Nutritional Appearance: overweight Orientation/consciousness: patient oriented x3 HENMT Head: Yes normocephalic Resp Effort & Inspection: normal respiratory effort and able to speak in complete sentences Auscultation: clear to auscultation bilaterally, no crackles, no rales, no rhonchi and no wheezes Cardio Heart sounds: S1 normal heart sound present and S2 normal heart sound present Neuro General: patient oriented x3, gait normal and moves all extremities Psych Speech and movement: Normal speech and movement present Coding Level of Care Code Est Pt Level 4 (87334) Diagnoses Acute deep vein thrombosis (DVT) of left lower extremity, unspecified vein I82.402 Affected thrombotic vein of extremity: unspecified vein of extremity Chronicity: acute Hydropneumothorax J94.8 Time Spent (min) 20 Comment Spent on reviewing hospital notes Assessment & Plan Assessment & Plan (1) Left leg DVT: Code(s): I82.402 - Acute embolism and thrombosis of unspecified deep veins of left lower extremity Category: Medical Qualifiers: Affected thrombotic vein of extremity: unspecified vein of extremity Chronicity: acute Qualified Code(s): I82.402 - Acute embolism and thrombosis of unspecified deep veins of left lower extremity Plan: Continue on Eliquis as directed. (2) Hydropneumothorax: Code(s): J94.8 - Other specified pleural conditions Category: Medical Plan: Chest Tube was removed at the hospital He continues to f/u with Thoracic surgeons. Next Appointment 10/25/24
--- OUTSIDE RECORDS SUMMARY | 2024-10-19 09:56 | XMS_ITS | Encounter Summary ---
Author Organization [facility] Address [address] [place] [address] Care Team Providers Care Hotel Administrative Assistant Name Role Phone Bari Rick MD Primary Care Provider [phone] Encounter Details Date Type Department Care Team (Late st Contact Info) Description 10/15/2024 Lab Requisition [facility] - Main Lab [address] [facility] [place] [address] Bari Rick MD [address] [place] [address] Acute embolism and thrombosis of unspecified deep veins of unspecified lower extremity (CMS/HCC); Weakness; Malignant melanoma of skin, unspecified (CMS/HCC) Social History Tobacco Use Types Packs/Day Years Used Date Smoking Tobacco: Never Assessed Sex and Gender Information Value Date Recorded Sex Assigned at Not on file Legal Sex Male 4:06 PM EST Gender Identity Not on file Sexual Orientation Not on file documented as of this encounter Plan of Treatment Not on file documented as of this encounter Procedures Procedure Name Priority Date/Time Associated Diagnosis Comments COMPLETE BLOOD COUNT Routine 10/15/2024 5:42 AM EST Acute embolism and thrombosis of unspecified deep veins of unspecified lower extremity (CMS/HCC) Weakness Malignant melanoma of skin, unspecified (CMS/HCC) COMPREHENSIVE METABOLIC PANEL Routine 10/15/2024 5:42 AM EST Acute embolism and thrombosis of unspecified deep veins of unspecified lower extremity (CMS/HCC) Weakness Malignant melanoma of skin, unspecified (CMS/HCC) documented in this encounter Results * (ABNORMAL) Comprehensive metabolic panel (10/15/2024 5:42 AM EST) Sodium 142 133 - 145 mmol/L LAB CHEMISTRY METHOD 10/15/2024 1:40 PM [facility] Potassium 5.0 3.5 - 5.5 mmol/L LAB CHEMISTRY METHOD 10/15/2024 1:40 PM [facility] Chloride 108 96 - 110 mmol/L LAB CHEMISTRY METHOD 10/15/2024 1:40 PM [facility] CO2 23 21 - 32 mmol/L LAB CHEMISTRY METHOD 10/15/2024 1:40 PM [facility] Anion Gap 11 3 - 11 LAB CHEMISTRY METHOD 10/15/2024 1:40 PM [facility] Glucose 71 70 - 100 mg/dL LAB CHEMISTRY METHOD 10/15/2024 1:40 PM [facility] BUN 18 5 - 25 mg/dL LAB CHEMISTRY METHOD 10/15/2024 1:40 PM [facility] Creatinine 0.81 0.70 - 1.30 mg/dL LAB CHEMISTRY METHOD 10/15/2024 1:40 PM [facility] eGFR 94 >=60 mL/min/1. 73m2 LAB CHEMISTRY METHOD 10/15/2024 1:40 PM [facility] Comment:Calculation based on the??Chronic Kidney Disease Epidemiology Collaboration (CKD-EPI) equation refit??without adjustment for race. BUN/Creatinine Ratio 22.2 LAB CHEMISTRY METHOD 10/15/2024 1:40 PM [facility] Calcium 8.4(L) 8.5 - 10.5 mg/dL LAB CHEMISTRY METHOD 10/15/2024 1:40 PM [facility] AST (SGOT) 36 10 - 42 unit/L LAB CHEMISTRY METHOD 10/15/2024 1:40 PM [facility] ALT (SGPT) 49 10 - 60 unit/L LAB CHEMISTRY METHOD 10/15/2024 1:40 PM [facility] Alkaline Phosphatase 68 42 - 121 unit/L LAB CHEMISTRY METHOD 10/15/2024 1:40 PM [facility] Total Protein 5.6(L) 6.0 - 8.0 g/dL LAB CHEMISTRY METHOD 10/15/2024 1:40 PM [facility] Albumin 2.8(L) 3.2 - 5.0 g/dL LAB CHEMISTRY METHOD 10/15/2024 1:40 PM [facility] Total Bilirubin 0.3 0.0 - 1.4 mg/dL LAB CHEMISTRY METHOD 10/15/2024 1:40 PM [facility] Blood Venous blood specimen / Unknown Venipuncture / Unknown 10/15/2024 5:42 AM EST 10/15/2024 11:58 AM EST us Bari Rick MD LAB BLOOD ORDERABLES Final Resu lt [facility] [address] [place] [address], * (ABNORMAL) Complete blood count (10/15/2024 5:42 AM EST) WBC 7.4 4.8 - 10.8 K/mcL LAB HEMETOLOGY METHOD 10/15/2024 1:21 PM [facility] RBC 4.50 4.50 - 5.50 M/mcL LAB HEMETOLOGY METHOD 10/15/2024 1:21 PM [facility] Hemoglobin 14.8 13.5 - 17.5 g/dL LAB HEMETOLOGY METHOD 10/15/2024 1:21 PM [facility] Hematocrit 45.7 42.0 - 54.0 % LAB HEMETOLOGY METHOD 10/15/2024 1:21 PM [facility] MCV 102.7(H) 79.0 - 98.0 FL LAB HEMETOLOGY METHOD 10/15/2024 1:21 PM EST [facility] MCH 33.3(H) 27.0 - 32.0 pcg LAB HEMETOLOGY METHOD 10/15/2024 1:21 PM EST [facility] MCHC 32.4 32.0 - 37.0 g/dL LAB HEMETOLOGY METHOD 10/15/2024 1:21 PM [facility] RDW 11.9 11.0 - 15.0 % LAB HEMETOLOGY METHOD 10/15/2024 1:21 PM [facility] Platelets 347 130 - 400 K/mcL LAB HEMETOLOGY METHOD 10/15/2024 1:21 PM [facility] MPV 9.6 7.0 - 11.0 FL LAB HEMETOLOGY METHOD 10/15/2024 1:21 PM [facility] NRBC 0.0 <1.0 % LAB HEMETOLOGY METHOD 10/15/2024 1:21 PM [facility] NRBC Absolute 0.00 <0.10 K/mcL LAB HEMETOLOGY METHOD 10/15/2024 1:21 PM [facility] Blood Venous blood specimen / Unknown Venipuncture / Unknown 10/15/2024 5:42 AM EST 10/15/2024 11:58 AM EST us Bari Rick MD LAB BLOOD ORDERABLES Final Resu lt [facility] [address] [place] [address], documented in this encounter Visit Diagnoses Diagnosis Acute embolism and thrombosis of unspecified deep veins of unspecified lower extremity (CMS/HCC) Weakness Other malaise and fatigue Malignant melanoma of skin, unspecified (CMS/HCC) documented in this encounter Care Teams Hotel Administrative Assistant Relationship Specialty Start Date End Date Bari Rick MD [address] [place] [address] PCP - General Internal Medicine 10/14/24 documented as of this encounter
--- OUTSIDE RECORDS SUMMARY | 2024-10-19 09:57 | XMS_ITS | Continuity of Care Document ---
Author Organization [facility] Kelly jacklyn Address [address] [place] [address] [address] [place] [address]- Care Team Providers Care Ingot Stripper Name Role Phone Gaudencio Grimes MD, Elvira Luo [id number]): [facility]23[facility] - 10/10/24 [facility] [address] [address] Attending Physician: Junior Gordillo MD Referring Physician: Tej Barahona MD Encounter Type: Pre Office Visit Allergies, Adverse Reactions, Alerts No Known Allergies Immunizations Given and Recorded Vaccine Date Status Refusal Reason Influenza Virus Vaccine (oldterm) 1 04/28/09 Given tetanus-diphtheria toxoids (Td) 08/15/04 Given 1Admin Note: declines Medications aspirin 81 mg oral enteric coated tablet 1 tablet = 81 mg, By Mouth, Daily, # 30 tablet, 0 Refills, Maintenance, 06/24/12 12:05:31 PM EST, EC Tablet Start Date: 06/24/12 Status: Ordered Quantity: 30.0 Unit: tablet Repeat number: 1 clopidogrel 75 mg oral tablet 1 tablet = 75 mg, By Mouth, Daily, # 90 tablet, 2 Refills, Maintenance, 10/05/12 8:40:09 AM EST, Tablet, [id number] Start Date: 10/05/12 Stop Date: 07/02/13 Status: Ordered Quantity: 90.0 Unit: tablet Repeat number: 3 Nitrostat 0.4 mg sublingual tablet See Instructions, PRN for chest pain, 1 tablet Sublingual PRN, 0 Refills, Maintenance, 07/19/12 4:58:58 PM EST, Tablet Start Date: 07/19/12 Status: Ordered Repeat number: 1 ranitidine 300 mg oral capsule 1 capsule = 300 mg, By Mouth, Daily at bedtime, # 30 capsule, 0 Refills, Maintenance, 07/19/12 4:37:01 PM EST, Capsule Start Date: 07/19/12 Status: Ordered Quantity: 30.0 Unit: capsule Repeat number: 1 simvastatin 20 mg oral tablet 1 tablet = 20 mg, By Mouth, Daily at bedtime, # 90 tablet, 3 Refills, Maintenance, 05/15/12 1:12:45 PM EDT, Tablet, [id number] Start Date: 05/15/12 Status: Ordered Quantity: 90.0 Unit: tablet Repeat number: 4 Problem List Condition Confirmation Course Effective Dates Status H ealth Status Informant Adenomatous polyposis coli 1, 2 Confirmed Active Basal cell carcinoma Confirmed Active BPH - Benign prostatic hypertrophy Confirmed Active Carpal tunnel Confirmed Active Depression Confirmed Active Erectile dysfunction Confirmed Active Hyperlipidemia Confirmed Active Onychomycosis Confirmed 04/28/09 Active Prediabetes Confirmed Active 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 Active Sialolithiasis 3 Confirmed Active 1gi md steinberg 2colo 2011 polyp, repeat 2016 surgery Patient Care team information Care Team Personnel Name: Gaudencio Grimes MD , Elvira Luo Position: Reference Physician Member Role: PCP Address: [address] [place] [address] [address] [place] [address]- Telecom: Care Team Related Persons Name: TY SARMIENTO Insurance Providers Guarantor name: SHARMIN SARMIENTO Health Plan Information #: 2 Payer: [employer] Member Number: [id number] Policy Number: NA Group Number: NA Health Plan Information #: 1 Payer: MEDICARE PART B OUTPT Member Number: [id number] Policy Number: NA Group Number: NA
--- OUTSIDE RECORDS SUMMARY | 2024-10-19 09:57 | XMS_ITS | Encounter Summary ---
Author Organization [facility] Address [address] [place] [address] Care Team Providers Care Sustainability Communicator Name Role Phone Bari Rick MD Primary Care Provider [phone] Encounter Details Date Type Department Care Team (Late st Contact Info) Description 10/14/2024 Lab Requisition [facility] - Main Lab [address] [facility] [place] [address] Bari Rick MD [address] [place] [address] Chronic embolism and thrombosis of unspecified vein Social History Tobacco Use Types Packs/Day Years [...] Associated Diagnosis Comments COMPLETE BLOOD COUNT Routine 10/14/2024 6:59 AM EST Chronic embolism and thrombosis of unspecified vein COMPREHENSIVE METABOLIC PANEL Routine 10/14/2024 6:59 AM EST Chronic embolism and thrombosis of unspecified vein documented in this encounter Results * (ABNORMAL) Comprehensive metabolic panel (10/14/2024 6:59 AM EST) Sodium 141 133 - 145 mmol/L LAB CHEMISTRY METHOD 10/14/2024 10:15 AM EST [facility] Potassium 4.6 3.5 - 5.5 mmol/L LAB CHEMISTRY METHOD 10/14/2024 10:15 AM EST [facility] Chloride 109 96 - 110 mmol/L LAB CHEMISTRY METHOD 10/14/2024 10:15 AM [facility] CO2 24 21 - 32 mmol/L LAB CHEMISTRY METHOD 10/14/2024 10:15 AM [facility] Anion Gap 8 3 - 11 LAB CHEMISTRY METHOD 10/14/2024 10:15 AM [facility] Glucose 86 70 - 100 mg/dL LAB CHEMISTRY METHOD 10/14/2024 10:15 AM [facility] BUN 18 5 - 25 mg/dL LAB CHEMISTRY METHOD 10/14/2024 10:15 AM [facility] Creatinine 0.80 0.70 - 1.30 mg/dL LAB CHEMISTRY METHOD 10/14/2024 10:15 AM [facility] eGFR 95 >=60 mL/min/1. 73m2 LAB CHEMISTRY METHOD 10/14/2024 10:15 AM [facility] Comment:Calculation based on the??Chronic Kidney Disease Epidemiology Collaboration (CKD-EPI) equation refit??without adjustment for race. BUN/Creatinine Ratio 22.5 LAB CHEMISTRY METHOD 10/14/2024 10:15 AM [facility] Calcium 8.6 8.5 - 10.5 mg/dL LAB CHEMISTRY METHOD 10/14/2024 10:15 AM [facility] AST (SGOT) 39 10 - 42 unit/L LAB CHEMISTRY METHOD 10/14/2024 10:15 AM [facility] ALT (SGPT) 59 10 - 60 unit/L LAB CHEMISTRY METHOD 10/14/2024 10:15 AM [facility] Alkaline Phosphatase 71 42 - 121 unit/L LAB CHEMISTRY METHOD 10/14/2024 10:15 AM [facility] Total Protein 5.8(L) 6.0 - 8.0 g/dL LAB CHEMISTRY METHOD 10/14/2024 10:15 AM [facility] Albumin 2.8(L) 3.2 - 5.0 g/dL LAB CHEMISTRY METHOD 10/14/2024 10:15 AM [facility] Total Bilirubin 0.6 0.0 - 1.4 mg/dL LAB CHEMISTRY METHOD 10/14/2024 10:15 AM [facility] Blood Venous blood specimen / Unknown Venipuncture / Unknown 10/14/2024 6:59 AM EST 10/14/2024 9:11 AM EST us Bari Rick MD LAB BLOOD ORDERABLES Final Resu lt [facility] [address] [place] [address], * (ABNORMAL) Complete blood count (10/14/2024 6:59 AM EST) WBC 7.1 4.8 - 10.8 K/mcL LAB HEMETOLOGY METHOD 10/14/2024 10:21 AM [facility] RBC 4.70 4.50 - 5.50 M/mcL LAB HEMETOLOGY METHOD 10/14/2024 10:21 AM [facility] Hemoglobin 15.7 13.5 - 17.5 g/dL LAB HEMETOLOGY METHOD 10/14/2024 10:21 AM [facility] Hematocrit 47.3 42.0 - 54.0 % LAB HEMETOLOGY METHOD 10/14/2024 10:21 AM [facility] MCV 100.9(H) 79.0 - 98.0 FL LAB HEMETOLOGY METHOD 10/14/2024 10:21 AM [facility] MCH 33.5(H) 27.0 - 32.0 pcg LAB HEMETOLOGY METHOD 10/14/2024 10:21 AM [facility] MCHC 33.2 32.0 - 37.0 g/dL LAB HEMETOLOGY METHOD 10/14/2024 10:21 AM [facility] RDW 11.9 11.0 - 15.0 % LAB HEMETOLOGY METHOD 10/14/2024 10:21 AM EST [facility] Platelets 354 130 - 400 K/mcL LAB HEMETOLOGY METHOD 10/14/2024 10:21 AM EST [facility] MPV 9.4 7.0 - 11.0 FL LAB HEMETOLOGY METHOD 10/14/2024 10:21 AM EST [facility] NRBC 0.0 <1.0 % LAB HEMETOLOGY METHOD 10/14/2024 10:21 AM EST [facility] NRBC Absolute 0.00 <0.10 K/mcL LAB HEMETOLOGY METHOD 10/14/2024 10:21 AM EST [facility] Blood Venous blood specimen / Unknown Venipuncture / Unknown 10/14/2024 6:59 AM EST 10/14/2024 10:20 AM EST us Bari Rick MD LAB BLOOD ORDERABLES Final Resu lt [facility] [address] [place] [address], documented in this encounter Visit Diagnoses Diagnosis Chronic embolism and thrombosis of unspecified vein documented in this encounter Care Teams Sustainability Communicator Relationship Specialty Start Date End Date Bari Rick MD [address] [place] [address] PCP - General Internal Medicine 10/14/24 documented as of this encounter
--- OUTSIDE RECORDS SUMMARY | 2024-10-19 09:57 | XMS_ITS ---
Author Organization [facility] Address [address] [place] [phone] Care Team Providers Care Stem Teacher Name Role Phone Elvira Pang Primary Care Provider Sanchez Floyd Jr [phone] REASON FOR VISIT cancelling his colonoscopy for 09/2024 Encounters Encounter Location Date Provider Diagnosis [facility] [address] [place] [phone] 10/03/2024 Sanchez Hawley Jr Plan Of Treatment No Information Progress Notes * SHARMIN SARMIENTODOB:1955 (69 yo M)Acc No.[id number]:10/03/2024 Patient:?SHARMIN SARMIENTO :1955???Age:69 Y???Sex:Male Address:[address] [place] [address] * true * Date:? Generated for Phyllis miner/Yas/eTransmitting on:?10/19/2024 09:56 AM EST
--- OUTSIDE RECORDS SUMMARY | 2024-10-19 09:57 | XMS_ITS | Patient Health Record ---
Author Organization [facility] Address [address] [place] [address] Care Team Providers Care In Store Representative Name Role Phone Elvira Pang Primary Care Provider Unavailab Sanchez Perez Jr Unavailable [phone] Allergies No Known Allergies Results Component Value Reference Range Notes MR abdomen wo/w con Reviewed date:07/18/2024 08:21:58 AM Interpretation: Performing Lab: Notes/Report: [address] [address] Magnetic Resonance Report Signed Patient: Sampson Mackey MR#: [id number] : 1955 Acct:[id number] Age/Sex: 69 / M ADM Date: 07/15/24 Loc: HO.MRI Attending Dr: Sanchez Hawley MD Ordering Physician: Sanchez Hawley MD Date of Service: 07/15/24 Procedure(s): MR abdomen wo/w con Accession Number(s): [id number] cc: Sanchez Hawley MD; Elvira Pang MD [...] by: Bishop Gasca MD 07/16/2024 04:23 PM [facility] Dictated By: Isael Gasca MD Signed By: <Electronically signed by Isael Gasca MD in OV> 07/16/24 1623 DD/ 1240 TD/TT: 07/15/24 1315 Manager Recruiting: [place] [address] Magnetic Resonance Report Signed Patient: Neil Mackey MR#: [id number] : 1955 Acct:[id number] Age/Sex: 69 / M ADM Date: 07/15/24 Loc: HO.MRI Attending Dr: Yonathan Hawley MD Ordering Physician: Sanchez Hawley MD Date of Service: 07/15/24 Procedure(s): MR alisha byers wo/w con Accession Number(s): [id number] cc: Sanchez Hawley MD; Elvira Pang MD EXAMINATION: MR ABDOMEN WITHOUT A ND WITH CONTRAST CLINICAL INFORMATION: Liver lesion COMPARISON: MRI 09/08/2023 , CT c hest 10/27/2023 TECHNIQUE: MR abdomen was perfo rmed without and with use of 8.5 mL intravenous Gadavist gadolinium contrast. Postcontrast images are performed in multiphase dynamic s equences. Imaging was performed in 3 planes. FINDINGS: LUNG BASES: There is a left-sided hydropneumothorax which appears similar to the prior MR August 2023. LIVER, GALLBLADDER, AND BILIARY TREE: The liver is normal in size and there is loss of sig nal intensity on in and out of phase imaging compatible with fatt y infiltration, similar to the prior study. At the liver dome there is a 1.3 x 1 cm lesion with increased signal intensity on T1-weighted image s (image 14, series 12), and is not well visualized on T2-weighted image s. On the prior MRI this measured 5 to 6 mm. Postcontrast evaluat ion is slightly limited given the intense increased T1 signal intensity, though on subtraction images there is likely some degree of contrast e nhancement. There is a similar 3 mm observation within the posterior lateral aspect of segment 7 (image 13, series 2) and within segment 5 (image 31, series 12). These were not well visualized on the prior study. The previously descr ibed probable degenerated cyst within the left hepatic lobe measure s 1.5 x 1.3 cm and is overall not significant change from the prio r study (image 27, series 12). There is a small dis tended cystic duct remnant. There is no intra or extra hepatic duct dilation. PANCREAS: Long the a nterior aspect of the distal pancreatic body there is a 3 mm cystic str ucture with increased signal intensity in T2-weighted images a nd no postcontrast enhancement. No definite communication with t he duct is identified. Pancreas is otherwise unremarkable. SPLEEN: Spleen is no rmal in size and overall signal Cardura 6. Adjacent to the lower pole of the spleen there is a 1.1 cm splenule. ADRENAL GLANDS: Normal. KIDNEYS AND URETERS: The kidneys are normal in size, shape, and enhance symmetrically. At th e midpole the right kidney there is a nonenhancing 2.7 x 2.2 cm simple cyst which would not require routine radiographic follow-up. There are a few small renal sinus cysts on the left without concerning features. No hydronephrosis. No perinephric stranding. GASTROINTESTINAL TRA CT: No bowel obstruction. No ascites or fluid collection. ABDOMINAL WALL: On s agittal images there is a fat-containing periumbilical hernia that measures 2.3 cm craniocaudal. LYMPH NODES: No lymphadenopathy. VASCULAR: Unremarkable. OSSEOUS STRUCTURES: Marrow signal normal. M R/MR abdomen wo/w con IMPRESSION: Left-sided hydropneu mothorax. The appearance is overall similar to the prior MRI and CT. Th is finding was communicated with Sanchez Hawley M.D by Isael koch M.D. at approximately 1601 hours. Increase in the size of a 1.3 x 1 cm observation at the liver dome with increased signal int ensity in T1-weighted images and possible postcontrast enhance ment. Previously this measured 0.6 cm. There is likely some degree o f postcontrast enhancement. There is also development of 2 add itional 3 mm lesions with increased signal intensity on T1-weig hted images. 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 3 mm cystic structur e associated with the anterior aspect of the distal body of the pancreas . Follow-up imaging in 6-12 months should be considered. Unchanged appearance of complicated cyst within the anterior left hepatic lobe. Electronically ladonna d by: Bishop Gasca MD 07/16/2024 04:23 PM [facility] Dictated By: Isael Gasca MD Signed By: <[facility] signed by Isael Gasca MD in OV> 07/16/24 1623 DD/ 1240 TD/TT: 07/15/24 1315 Manager Recruiting: JANENE Reason For Referral No Information Immunizations Vaccine Route Administration Date Status Comme nts Influenza Unknown 07/15/2019 Administered Influenza Unknown 03/15/2021 Administered Influenza Unknown 06/20/2024 Administered Influenza Unknown 06/27/2023 Refused Problems Problem Type SNOMED Code ICD Code Onset Dates Problem Status W/U Status Risk Notes Problem 978191094 Colon cancer screening (Z12.11) Active confirmed Problem Diverticular disease of colon (062159221) Diverticulosis (K57.90) Active confirmed Problem 988839879 Gastroesophageal reflux disease without esophagitis (K21.9) Active confirmed Problem 101100862 Fatty liver (K76.0) Active confirmed Problem 535947038 Liver lesion (K76.9) Active confirmed Problem 054304308 Abnormal magneti c resonance imaging of liver (R93.2) Active confirmed Vital Signs Temperature 97.5 degrees Fahrenheit 06/27/2024 Blood pressure diastolic 00 mm Hg 06/27/2024 Height 64.5 in 06/27/2024 Blood pressure systolic 000 mm Hg 06/27/2024 Weight 191 lbs 06/27/2024 BMI 32.28 kg/m2 06/27/2024 Encounters Encounter Location Date Provider Diagnosis [facility] [address] [place] [address] 06/27/2024 Sanchez Hawley Jr Colon cancer screening Z12.11 ; Abnormal magnetic resonance imaging of liver R93.2 and Gastroesophageal reflux disease without esophagitis K21.9 [facility] [address] [place] [address] 07/18/2024 Sanchez Hawley Jr Abnormal magnetic resonance imaging of liver R93.2 [facility] [address] [place] [address] 08/03/2024 Sanchez Hawley Jr [facility] [address] [place] [address] 10/03/2024 Sanchez Hawley Jr Assessments Encounter Date Diagnosis (ICD Code) Assessment Notes Treatment Notes Treatment Clinical Notes Section Notes 06/27/2024 Colon cancer screening (ICD-10 - Z12.11) Colonoscopy material was printed Currently, he is doing well. He will continue diet, lifestyle modifications for control of his reflux symptoms. He remains off pantoprazole. Followup MRI imaging will be arranged including laboratory studies. He is due for followup colonoscopy in September of this will be arranged as well. He understands risks and benefits and agrees to proceed. Today's visit was 30 minutes. 06/27/2024 Abnormal magnetic resonance imaging of liver (ICD-10 - R93.2) Currently, he is doing well. He will continue diet, lifestyle modifications for control of his reflux symptoms. He remains off pantoprazole. Followup MRI imaging will be arranged including laboratory studies. He is due for followup colonoscopy in September of this will be arranged as well. He understands risks and benefits and agrees to proceed. Today's visit was 30 minutes. 07/18/2024 Abnormal magnetic resonance imaging of liver (ICD-10 - R93.2) 06/27/2024 Gastroesophageal reflux disease without esophagitis (ICD-10 - K21.9) Currently, he is doing well. He will continue diet, lifestyle modifications for control of his reflux symptoms. He remains off pantoprazole. Followup MRI imaging will be arranged including laboratory studies. He is due for followup colonoscopy in February of this will be arranged as well. He understands risks and benefits and agrees to proceed. Today's visit was 30 minutes. Plan Of Treatment Pending Test Test Name Order Date BUN 06/27/2024 CREATININE 06/27/2024 LIVER PROFILE 06/27/2024 CBC w/o DIFF 06/27/2024 MRI ABD W&WO CONTRAST 09/09/2023 MRI ABD W&WO CONTRAST 06/27/2024 MRI ABD W&WO CONTRAST 08/18/2023 XR GI SERIES 11/01/2012 XR GI SERIES 11/01/2013 US ABD 06/27/2023 MR abdomen wo/w con 07/18/2024 Future Test Test Name Order Date UPPER GI ENDOSCOPY 08/28/2012 COLONOSCOPY 01/28/2016 COLONOSCOPY 07/25/2019 COLONOSCOPY 06/27/2024 Insurance Providers Payer Name Payer Address Payer Phone Subscriber Number Group Number Insured Name Patient Relationship to Insured Coverage Start Date Coverage End Date MEDICARE OF [place] [address] [place] [address] [id number] SAMPSON MACKEY Self - patient is the insured [employer] ATT[employer] CLAIMS [address] [place] [address] [id number] SAMPSON MACKEY Self - patient is the insured Medical (General) History Medical History History ICD Code colonoscopy 10/12/19, tubular adenoma x1, five-year followup onychomycosis carpal tunnel syndrome Basal cell skin cancers GERD, EGD 11/01/12 elevated cholesterol Intraocular melanoma, left eye, 2018, 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 Bach carpal tunnel
--- OUTSIDE RECORDS SUMMARY | 2024-10-19 09:57 | XMS_ITS | Continuity of Care Document ---
Author Organization [facility] Address [address] [place] [address] [address] [place] [address]- Care Team Providers Care Television Maintenance Worker Name Role Phone Gaudencio Grimes MD, Elvira Luo Primary Care Physician [phone] [id number] Date[facility]s): 09/10/24 - 10/10/24 [facility] [address] [address] Attending Physician: Mercedez Donnelly Admitting Physician: Mercedez Donnelly Referring Physician: Mercedez Donnelly Encounter Type: Triage Allergies, Adverse Reactions, Alerts No Known Allergies [...] Refills, Maintenance, 10/05/12 8:40:09 AM EST, Tablet, [facility] Start Date: 10/05/12 Stop Date: [...] Refills, Maintenance, 05/15/12 1:12:45 PM EDT, [facility] Start Date: 05/15/12 Status: Ordered [...] 3 Confirmed Active 1gi md steinberg 2colo 2010 polyp, repeat 2016 surgery Laboratory * Event Display: Non BH Lab Results Authored Date: * Event Display: Non BH Lab Results Authored Date: Patient Care team information Care Team Personnel Name: Gaudencio Grimes MD , Elvira Luo Position: Reference Physician Member Role: PCP Address: [address] [place] [address] [address] [place] [address] Telecom: Care Team Related Persons Name: TY SARMIENTO Insurance Providers Guarantor name: SHARMIN SARMIENTO Health Plan Information #: 1 Payer: MEDICARE PART B OUTPT Member Number: NA Policy Number: NA Group Number: NA Health Plan Information #: 2 Payer: [employer] ELECT Member Number: NA Policy Number: NA Group Number: NA
--- OUTSIDE RECORDS SUMMARY | 2024-10-19 09:57 | XMS_ITS ---
Author Organization [facility] Address [address] [place] [address] Care Team Providers Care Publicity Agent Name Role Phone Elvira Pang Primary Care Provider Unavailab Sanchez Perez Jr REASON FOR VISIT records Encounters Encounter Location Date Provider Diagnosis [facility] [address] [place] [address] 08/03/2024 Sanchez Hawley Jr Plan Of Treatment No Information Progress Notes * SHARMIN SARMIENTODOB:1955 (69 yo M)Acc No.[id number]:08/03/2024 Patient:?GUILLERMINA SHARMIN :1955???Age:69 Y???Sex:Male Address:[address] [place] [address] * true * Date:? Generated for Phyllis miner/Yas/eTransmitting on:?10/19/2024 09:57 AM EST
--- OUTSIDE RECORDS SUMMARY | 2024-10-19 09:57 | XMS_ITS | Encounter Summary ---
Author Organization [facility] Address [address] [place] [address] Care Team Providers Care Lead Loader Name Role Phone Bari Rick MD Primary Care Provider [phone] Encounter Details Date Type Department Care Team (Late st Contact Info) Description 10/17/2024 Lab Requisition [facility] [address] [facility] [place] [address] Bari Rick MD [address] [place] [address] Chronic embolism and thrombosis of unspecified vein; Malignant melanoma of skin, unspecified (CMS/HCC); Weakness Social History Tobacco Use Types Packs/Day Years Used Date Smoking Tobacco: Never Assessed Sex and Gender Information Value Date Recorded Sex Assigned at Not on file Legal Sex Male 4:06 PM EST Gender Identity Not on file Sexual Orientation Not on file documented as of this encounter Plan of Treatment Not on file documented as of this encounter Visit Diagnoses Diagnosis Chronic embolism and thrombosis of unspecified vein Malignant melanoma of skin, unspecified (CMS/HCC) Weakness Other malaise and fatigue documented in this encounter Care Teams Lead Loader Relationship Specialty Start Date End Date Bari Rick MD [address] [place] [address] PCP - General Internal Medicine 10/14/24 documented as of this encounter
--- OUTSIDE RECORDS SUMMARY | 2024-10-19 09:57 | XMS_ITS ---
Author Organization [facility] Address [address] [place] [address] Care Team Providers Care Cabinet Abrasive Sandblaster Name Role Phone Elvira Pang Primary Care Provider Sanchez Floyd Jr [phone] REASON FOR VISIT screening Encounters Encounter Location Date Provider Diagnosis [facility] Outpatient [address] [place], [place] [id number] 10/09/2024 Sanchez Hawley Jr Plan Of Treatment No Information Progress Notes * GUILLERMINA, SHARMINDOB:1955 (69 yo M)Acc No.[id number]:10/09/2024 COLON WITH MAC Patient:?SHARMIN SARMIENTO Provider:?Sanchez Hawley MD :1955???Age:69 Y???Sex:Male Damian e:10/09/2024 Address:[address] [place] [address] [address] [facility] [facility] Pcp:Elvira Grimes Subjective: * Chief Complaints: * ???1. Screening. * Medical History:? Objective: * Vitals:? Assessment: Plan: * Treatment: * * The named appointment provid er may or may not be the originator of this progress note, and it is not deemed complete until electronically signed by the appointment provider. Sign off status: Pending * Provider:?Sanchez Hawley MD Date:?0 10/09/2024 Generated for Phyllis miner/Yas/eTransmitting on:?10/19/2024 09:57 AM EST
--- OUTSIDE RECORDS SUMMARY | 2024-10-19 09:57 | XMS_ITS | Clinical Summary ---
Author Organization [address] [facility] Address [address] [place] [address] Phone Care Team Providers Care Furniture Mover Driver Name Role Phone Bari Rick MD Primary Care Provider [phone] Encounters Date Type Department Care Team Description 10/17/2024 Lab Requisition [facility] [address] [place] [phone] Bari Rick MD Chronic embolism and thrombosis of unspecified vein; Malignant melanoma of skin, unspecified (CMS/HCC); Weakness 10/15/2024 Lab Requisition [facility] [address] [place] [phone] Bari Rick MD Acute embolism and thrombosis of unspecified deep veins of unspecified lower extremity (CMS/HCC); Weakness; Malignant melanoma of skin, unspecified (CMS/HCC) 10/14/2024 Lab Requisition [facility] [address] [place] [phone] Bari Rick MD Chronic embolism and thrombosis of unspecified vein from Last 3 Months Social History Tobacco Use Types Packs/Day Years Used Date Smoking Tobacco: Never Assessed Sex and Gender Information Value Date Recorded Sex Assigned at Not on file Legal Sex Male 4:06 PM EST Gender Identity Not on file Sexual Orientation Not on file Plan of Treatment Health Maintenance Due Date Last Done Comments COVID-19 Vaccine (#1) 1958 DTaP,Tdap,and Td Vaccines (1 - Tdap) 1972 Hepatitis A Vaccines (1 of 2 - Risk 2-dose series) 1972 Pneumococcal Vaccine: 50+ Ye ars (1 of 2 - PCV) 1972 Zoster Vaccines (1 of 2) 1972 Hepatitis B Vaccines (1 of 3 - Risk 3-dose series) 2013 RSV Immunization Patients 60 + Years Old (1 - Risk 60-74 years 1-dose series) 2013 Abdominal Aortic Aneurysm (A AA) Screen 07/14/2022 Cholesterol Screening (Lipid Panel) 07/14/2022 Colorectal Cancer Screening: Colonoscopy 07/14/2022 Depression Screening 07/14/2022 Falls Risk Assessment 07/14/2022 Hepatitis C Screening 07/14/2022 Medicare Annual Wellness Visit 07/14/2022 Social Influencers of Health Screening 07/14/2022 Influenza Vaccine (#1) 2024 HIB Vaccines Aged Out No longer eligi ble based on patient's age to complete this topic HPV Vaccines Aged Out No longer eligi ble based on patient's age to complete this topic IPV Vaccines Aged Out No longer eligi ble based on patient's age to complete this topic MMR Vaccines Aged Out No longer eligi ble based on patient's age to complete this topic Meningococcal ACWY Vaccine Aged Out N o longer eligible based on patient's age to complete this topic Meningococcal B Vacine Aged Out No lo nger eligible based on patient's age to complete this topic RSV Immunization Patients Un jose 20 months Aged Out No longer eligible b ased on patient's age to complete this topic Varicella Vaccines Aged Out No longer eligible based on patient's age to complete this topic Procedures Procedure Name Priority Date/Time Associated Diagnosis Comments COMPREHENSIVE METABOLIC PANEL Routine 10/15/2024 5:42 AM EST Acute embolism and thrombosis of unspecified deep veins of unspecified lower extremity (CMS/HCC) Weakness Malignant melanoma of skin, unspecified (CMS/HCC) COMPLETE BLOOD COUNT Routine 10/15/2024 5:42 AM EST Acute embolism and thrombosis of unspecified deep veins of unspecified lower extremity (CMS/HCC) Weakness Malignant melanoma of skin, unspecified (CMS/HCC) COMPREHENSIVE METABOLIC PANEL Routine 10/14/2024 6:59 AM EST Chronic embolism and thrombosis of unspecified vein COMPLETE BLOOD COUNT Routine 10/14/2024 6:59 AM EST Chronic embolism and thrombosis of unspecified vein from Last 3 Months Results * (ABNORMAL) Complete blood count (10/15/2024 5:42 AM EST) Only the most recent of2 resultswithin the time period is included. WBC 7.4 4.8 - 10.8 K/mcL LAB HEMETOLOGY METHOD 10/15/2024 1:[address] [facility] RBC 4.50 4.50 - 5.50 M/mcL LAB HEMETOLOGY METHOD 10/15/2024 1:[address] [facility] Hemoglobin 14.8 13.5 - 17.5 g/dL LAB HEMETOLOGY METHOD 10/15/2024 1:[address] [facility] Hematocrit 45.7 42.0 - 54.0 % LAB HEMETOLOGY METHOD 10/15/2024 1:[address] [facility] MCV 102.7(H) 79.0 - 98.0 FL LAB HEMETOLOGY METHOD 10/15/2024 1:[address] [facility] MCH 33.3(H) 27.0 - 32.0 pcg LAB HEMETOLOGY METHOD 10/15/2024 1:[address] [facility] MCHC 32.4 32.0 - 37.0 g/dL LAB HEMETOLOGY METHOD 10/15/2024 1:[address] [facility] RDW 11.9 11.0 - 15.0 % LAB HEMETOLOGY METHOD 10/15/2024 1:[address] [facility] Platelets 347 130 - 400 K/mcL LAB HEMETOLOGY METHOD 10/15/2024 1:[address] [facility] MPV 9.6 7.0 - 11.0 FL LAB HEMETOLOGY METHOD 10/15/2024 1:[address] [facility] NRBC 0.0 <1.0 % LAB HEMETOLOGY METHOD 10/15/2024 1:[address] [facility] NRBC Absolute 0.00 <0.10 K/mcL LAB HEMETOLOGY METHOD 10/15/2024 1:[address] [facility] Blood Venous blood specimen / Unknown Venipuncture / Unknown 10/15/2024 5:42 AM EST 10/15/2024 11:58 AM EST us Bari Rick MD LAB BLOOD ORDERABLES Final Resu lt [facility] [address] [place] [address], [place] [phone] * (ABNORMAL) Comprehensive metabolic panel (10/15/2024 5:42 AM EST) Only the most recent of2 resultswithin the time period is included. Sodium 142 133 - 145 mmol/L LAB CHEMISTRY METHOD 10/15/2024 1:[address] [facility] Potassium 5.0 3.5 - 5.5 mmol/L LAB CHEMISTRY METHOD 10/15/2024 1:[address] [facility] Chloride 108 96 - 110 mmol/L LAB CHEMISTRY METHOD 10/15/2024 1:[address] [facility] CO2 23 21 - 32 mmol/L LAB CHEMISTRY METHOD 10/15/2024 1:[address] [facility] Anion Gap 11 3 - 11 LAB CHEMISTRY METHOD 10/15/2024 1:[address] [facility] Glucose 71 70 - 100 mg/dL LAB CHEMISTRY METHOD 10/15/2024 1:[address] [facility] BUN 18 5 - 25 mg/dL LAB CHEMISTRY METHOD 10/15/2024 1:[address] [facility] Creatinine 0.81 0.70 - 1.30 mg/dL LAB CHEMISTRY METHOD 10/15/2024 1:[address] [facility] eGFR 94 >=60 mL/min/1. 73m2 LAB CHEMISTRY METHOD 10/15/2024 1:40 PM EST [facility] Comment:Calculation based on the??Chronic Kidney Disease Epidemiology Collaboration (CKD-EPI) equation refit??without adjustment for race. BUN/Creatinine Ratio 22.2 LAB CHEMISTRY METHOD 10/15/2024 1:[address] [facility] Calcium 8.4(L) 8.5 - 10.5 mg/dL LAB CHEMISTRY METHOD 10/15/2024 1:[address] [facility] AST (SGOT) 36 10 - 42 unit/L LAB CHEMISTRY METHOD 10/15/2024 1:[address] [facility] ALT (SGPT) 49 10 - 60 unit/L LAB CHEMISTRY METHOD 10/15/2024 1:[address] [facility] Alkaline Phosphatase 68 42 - 121 unit/L LAB CHEMISTRY METHOD 10/15/2024 1:[address] [facility] Total Protein 5.6(L) 6.0 - 8.0 g/dL LAB CHEMISTRY METHOD 10/15/2024 1:[address] [facility] Albumin 2.8(L) 3.2 - 5.0 g/dL LAB CHEMISTRY METHOD 10/15/2024 1:[address] [facility] Total Bilirubin 0.3 0.0 - 1.4 mg/dL LAB CHEMISTRY METHOD 10/15/2024 1:[address] [facility] Blood Venous blood specimen / Unknown Venipuncture / Unknown 10/15/2024 5:42 AM EST 10/15/2024 11:58 AM EST us Bari Rick MD LAB BLOOD ORDERABLES Final Resu lt [facility] [address] [place] [address], [place] [phone] from Last 3 Months Insurance MEDICARE Care Teams Furniture Mover Driver Relationship Specialty Start Date End Date Bari Rick MD [address] [place] [address] PCP - General Internal Medicine 10/14/24
== END 2024-10-19 09:42 | disposition home or self-care (01) ==
PROVIDERS: PCP Internal Medicine; Visit Provider Nurse Practitioner Family
DX: I82.402 Acute embolism and thrombosis of unspecified deep veins of left lower extremity (principal); J94.8 Other specified pleural conditions

== ENCOUNTER → 2024-10-19 09:17 | Outpatient (BNVA) | payer MEDICARE, SELFPAY | PROVIDERS: PCP Internal Medicine; Visit Provider Nurse Practitioner Family | DX: I82.402 Acute embolism and thrombosis of unspecified deep veins of left lower extremity (principal); J94.8 Other specified pleural conditions | CPT/HCPCS: 99212 ==

== ENCOUNTER → 2024-10-25 09:31 | Outpatient (BNV) | payer MEDICARE, SELFPAY | PROVIDERS: PCP Internal Medicine; Visit Provider Internal Medicine | DX: R94.31 Abnormal electrocardiogram [ECG] [EKG] (principal) | CPT/HCPCS: 93010 ==

== ENCOUNTER 2024-10-30 10:28 | Outpatient (REF) | payer MEDICARE, SELFPAY ==
--- NOTE | ~2024-10-30 | XR_ITS ---
EXAMINATION: XR CHEST 2 VIEWS HISTORY: J94.8 - Other specified pleural conditions COMPARISON: Comparison is made with the prior examination dated 10/13/2024. FINDINGS: PA and lateral views of the chest are submitted. There is a large left hydropneumothorax. The right lung is clear. There is no pulmonary vascular congestion. The heart is normal in size. There is mild degenerative disc disease of the spine. XR/XR chest 2V IMPRESSION: Large left hydropneumothorax. Dr. Kendrick was notified of these findings by the technologist immediately after the study was completed. Electronically signed by: Payam Alberts MD 10/30/2024 11:26 AM EDT
== END 2024-10-30 10:29 | disposition home or self-care (01) ==
LOC: HO.XRAY 10:28
PROVIDERS: PCP Internal Medicine; Visit Provider Surgery
DX: Z13.89 Encounter for screening for other disorder (principal)
CPT/HCPCS: 71046

== ENCOUNTER 2024-10-30 10:28 | Outpatient (AMB) | payer MEDICARE, SELFPAY ==
--- NOTE | 2024-10-25 10:52 | MHC.OFFVIS ---
Intake Visit Reasons: s/p Chest Tube removal Allergies No Known Allergies [No Known Allergies*] Allergy (Verified 10/19/24 09:20) FOR[facility]LY [facility], [facility] Medical History Hyperlipidemia Arthritis GERD (gastroesophageal reflux disease) Depression Melanoma metastatic to liver Transaminitis Cyst of right kidney Liver cyst Surgical History History of liver biopsy History of colonoscopy History of knee replacement procedure of right knee History of eye surgery H/O carpal tunnel repair H/O basal cell carcinoma excision History of ear surgery Family History Father Esophageal cancer Mother Hodgkin disease Brother Kidney malignancy Sibling Brother Kidney malignancy Sibling Social History Household Members: None Housing: House Are you a primary primary care nurse to a significant other at home: No Do you presently have visiting nurse or other home services: No Alcohol intake: never Patient Tobacco Use Status: Former Tobacco user e-Cigarette/Vaping Use: Never Used Second Hand Smoke Exposure: No Use of substances other than those prescribed or required for medical reasons: No Have you been hit, kicked, punched, or otherwise hurt by someone within the past year? 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
--- NOTE | 2024-10-30 10:33 | MHC.OFFVIS ---
Intake Visit Reasons: s/p Chest Tube removal Intake Note: Dx: Lt hydropneumothrax. Patient here s/p chest tube removal on 10-13-2024. Patient c/o: coughing. Hx: Metastatic Melanoma~ liver bx 08-27-2024. Scheduled with Dr. Schroeder on 10-31-2024 @ 1pm. Legal Service Specialist Required: No Accompanied by: Self / Same As Patient Allergies No Known Allergies [No Known Allergies*] Allergy (Verified 10/30/24 10:34) HPI Comments Details: Patient presents for follow-up status post left chest tube for recurrent left pleural effusion. Cytology has been negative on this but nonetheless with a history of metastatic melanoma patient underwent pleurodesis. He presents here for follow-up. He has a cough with clear sputum production over the last few days. No yellow or green sputum. No fever or chills. Also being followed by Oncology. [facility] Medical History Hyperlipidemia Arthritis GERD (gastroesophageal reflux disease) Depression Melanoma metastatic to liver Transaminitis Cyst of right kidney Liver cyst Surgical History History of liver biopsy History of colonoscopy History of knee replacement procedure of right knee History of eye surgery H/O carpal tunnel repair H/O basal cell carcinoma excision History of ear surgery Family History Father Esophageal cancer Mother Hodgkin disease Brother Kidney malignancy Sibling Brother Kidney malignancy Sibling Social History Household Members: None Housing: House Are you a primary customer care consultant to a significant other at home: No Do you presently have visiting nurse or other home services: No Alcohol intake: never Patient Tobacco Use Status: Former Tobacco user e-Cigarette/Vaping Use: Never Used Second Hand Smoke Exposure: No Advance Directives Date on File: 10/08/24 service: No Current occupational status: employed and retired 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 Right side clear. Diminished breath sounds left base Assessment & Plan Assessment & Plan (1) Decreased breath sounds at left lung base: Code(s): R06.89 - Other abnormalities of breathing Category: Surgical Plan: Patient will have chest x-ray ordered currently. Further interventions/ studies will be directed by the results. (2) Hydropneumothorax: Code(s): J94.8 - Other specified pleural conditions Category: Surgical Plan: See above (3) Trapped lung: Code(s): J98.19 - Other pulmonary collapse Category: Medical Plan: See above Orders: Orders XR chest 2V Today J94.8 - Other specified pleural conditions, J98.19 - Other pulmonary collapse, R06.89 - Other abnormalities of breathing Coding Level of Care Code Est Pt Level 4 (26757) Diagnoses Decreased breath sounds at left lung base R06.89 Hydropneumothorax J94.8 Trapped lung J98.19
== END 2024-10-30 10:42 | disposition home or self-care (01) ==
LOC: HO.HGS 10:29
PROVIDERS: PCP Internal Medicine; Visit Provider Surgery
DX: R06.89 Other abnormalities of breathing (principal); J94.8 Other specified pleural conditions; J98.19 Other pulmonary collapse
CPT/HCPCS: 99214

== ENCOUNTER → 2024-10-30 10:50 | Outpatient (BNV) | payer MEDICARE, SELFPAY | PROVIDERS: PCP Internal Medicine; Visit Provider Radiology Diagnostic Radiology | DX: J94.8 Other specified pleural conditions (principal) | CPT/HCPCS: 71046 ==

== ENCOUNTER 2024-10-30 12:55 | Outpatient (BNV) | payer MEDICARE, SELFPAY | END 2024-11-01 09:33 | PROVIDERS: Admitting Provider Surgery; PCP Internal Medicine; Visit Provider Radiology Diagnostic Radiology | DX: M34.9 Systemic sclerosis, unspecified (principal) | CPT/HCPCS: 71045 ==

== ENCOUNTER 2024-10-30 12:55 | Outpatient (BNV) | payer MEDICARE, SELFPAY | END 2024-11-02 07:00 | PROVIDERS: Admitting Provider Surgery; PCP Internal Medicine; Visit Provider Radiology Diagnostic Radiology | DX: M34.9 Systemic sclerosis, unspecified (principal) | CPT/HCPCS: 71045 ==

== ENCOUNTER 2024-10-30 12:55 | Outpatient (BNV) | payer MEDICARE, SELFPAY | END 2024-11-05 07:00 | PROVIDERS: Admitting Provider Surgery; PCP Internal Medicine; Visit Provider Specialist | DX: J93.9 Pneumothorax, unspecified (principal) | CPT/HCPCS: 71045 ==

== ENCOUNTER 2024-10-30 12:55 | Outpatient (BNV) | payer MEDICARE, SELFPAY | END 2024-10-31 07:00 | PROVIDERS: Admitting Provider Surgery; PCP Internal Medicine; Visit Provider Radiology Diagnostic Radiology | DX: J93.9 Pneumothorax, unspecified (principal) | CPT/HCPCS: 71045 ==

== ENCOUNTER 2024-10-30 12:55 | Outpatient (BNV) | payer MEDICARE, SELFPAY | END 2024-11-03 07:00 | PROVIDERS: Admitting Provider Surgery; PCP Internal Medicine; Visit Provider Radiology Vascular & Interventional Radiology | DX: J93.9 Pneumothorax, unspecified (principal) | CPT/HCPCS: 71045 ==

== ENCOUNTER 2024-10-30 12:55 | Outpatient (BNV) | payer MEDICARE, SELFPAY | END 2024-11-04 07:00 | PROVIDERS: Admitting Provider Surgery; PCP Internal Medicine; Visit Provider Specialist | DX: J93.9 Pneumothorax, unspecified (principal) | CPT/HCPCS: 71045 ==

== ENCOUNTER 2024-10-30 12:55 | Inpatient (IN) | payer MEDICARE, SELFPAY ==
--- NOTE | ~2024-10-30 | XR_ITS ---
EXAMINATION: XR CHEST CLINICAL INFORMATION: chest tube COMPARISON: October 30, 2024 at 11:14 AM.. TECHNIQUE: Frontal view of the chest was obtained. FINDINGS: Left-sided pigtail chest tube overlapping the medial left hemithorax. The left lung is reexpanded. There is a small to moderate volume left-sided pneumothorax. Cardiomediastinal silhouette size is normal. No gross acute airspace disease in the right lung. XR/XR chest 1V IMPRESSION: Status post left-sided chest tube placement with the nearly complete expansion of the left lung. Small to moderate volume left-sided pneumothorax. Improved. Electronically signed by: Weston Herbert MD 10/30/2024 02:50 PM EDT
--- NOTE | ~2024-10-30 | XR_ITS ---
CLINICAL HISTORY: Follow-up apical airspace, chest tube 1 view chest x-ray Comparison: 11/03/2024 Findings: Appearance of the chest including left pneumothorax volume and positioning of the left chest tube, unchanged IMPRESSION: 1. No significant change from prior study. This document has been electronically signed by: Robert Jay MD on 11/04/2024 07:28:34
--- NOTE | ~2024-10-30 | XR_ITS ---
CLINICAL HISTORY: f u right VATS blebectomy 1 view chest x-ray Comparison: CR/SR - XR CHEST 1V - 11/02/24 07:45 EDT Findings: Trace left apical pneumothorax is present. Subcutaneous emphysema is again noted in the left lateral chest wall. Left chest tube is unchanged in position. Heart size is normal. No new osseous abnormality is identified. IMPRESSION: 1. Trace left apical pneumothorax with left chest tube in place. This document has been electronically signed by: Kehinde Davis on 11/03/2024 07:40:38
--- NOTE | ~2024-10-30 | XR_ITS ---
EXAMINATION: XR CHEST 1 VIEW HISTORY: f/u left pneumothorax COMPARISON: Comparison is made with the prior examination dated 10/30/2024. FINDINGS: A single AP portable view of the chest performed at 6:52 AM is submitted. A left-sided chest tube is unchanged in position. There is a small left apical pneumothorax. There is subsegmental atelectasis at the left lung base. The right lung is clear. The heart is normal in size. There is degenerative disc disease of the spine. XR/XR chest 1V IMPRESSION: Left chest tube in place. Small left pneumothorax without change. Electronically signed by: Payam Alberts MD 10/31/2024 07:18 AM EDT
--- NOTE | ~2024-10-30 | XR_ITS ---
EXAMINATION: XR CHEST CLINICAL INFORMATION: f/u VATS left blebectomy, sclerosis COMPARISON: November 01, 2024 at 9:55 AM. TECHNIQUE: Frontal view of the chest was obtained. FINDINGS: Left-sided chest tube remains in the periphery of the left hemithorax and ends in the left upper hemithorax. Patchy opacity left lung apex. Sutures in the left upper hemithorax. No gross pneumothorax. Subcutaneous emphysema left lateral lower chest wall. No gross pleural effusion. XR/XR chest 1V IMPRESSION: Status post surgical procedure without gross pneumothorax. Left-sided chest tube remains in addition position. Electronically signed by: Weston Herbert MD 11/02/2024 08:31 AM EDT
--- NOTE | ~2024-10-30 | XR_ITS ---
EXAMINATION: XR CHEST 1 VIEW HISTORY: f/u VATS left blebectomy, sclerosis COMPARISON: Comparison is made with the prior examination dated 10/31/2024. FINDINGS: A single AP portable view of the chest performed at 9:55 AM is submitted. The previously seen pigtail catheter on the left has been replaced with a large bore chest tube. There is a tiny left apical pneumothorax. There are low lung volumes. No focal airspace opacities are identified. The heart is normal in size. There is degenerative disc disease of the spine. XR/XR chest 1V IMPRESSION: Left-sided chest tube in place. Tiny left apical pneumothorax. Electronically signed by: Payam Alberts MD 11/01/2024 10:04 AM EDT
--- NOTE | ~2024-10-30 | XR_ITS ---
EXAMINATION: XR CHEST 1 VIEW HISTORY: f/u chest tube removal COMPARISON: Comparison is made with the prior examination performed earlier in the day at 7:14 AM. FINDINGS: A single AP portable view of the chest performed at 10:36 AM is submitted. The left chest tube has been removed. There is a tiny left apical pneumothorax. There is subcutaneous emphysema in the left chest wall. The right is clear. There is no pleural effusion or pulmonary vascular congestion. The heart is normal in size. The aorta is calcified. The bones are intact. XR/XR chest 1V IMPRESSION: Interval removal of a left chest tube. Tiny left apical pneumothorax. Electronically signed by: Payam Alberts MD 11/05/2024 11:00 AM EDT
--- NOTE | ~2024-10-30 | XR_ITS ---
CLINICAL HISTORY: Follow-up pneumothorax chest tube 1 view chest x-ray Comparison: 11/04/2024 Findings: Overall appearance of the chest including positioning of left chest tube and small left apical pneumothorax, is not significantly changed. IMPRESSION: 1. No significant change from yesterday This document has been electronically signed by: Robert Jay MD on 11/05/2024 08:14:05
--- NOTE | 2024-10-30 12:21 | HO.THORH&P ---
History of Present Illness History of Present Illness Date of Service: 10/30/24 Chief complaint: Collapsed lung Narrative: Sampson Mackey is a 69 year old male with a plethora of comorbidities and intercurrent medical problems who presents here with a recurrent spontaneous left pneumothorax. He has had 2 prior tube thoracostomy was within the last several weeks. Because of his significant intercurrent medical problems, VATS blebectomy was attempted to be averted. Patient also had pleurodesis in an attempt to avoid any surgical intervention. He presents to the clinic today for follow-up and although not short of breath and O2 sats were in the 98%, he had minimal breath sounds on the left side. Chest x-ray from the clinic demonstrated significant left pneumothorax. Patient is to be admitted for initial tube thoracostomy and then anticoagulation held and then vats blebectomy for tentatively . Patient as noted above as well known to the surgical service [facility] Past Medical History Medical History Hyperlipidemia Arthritis GERD (gastroesophageal reflux disease) Depression Melanoma metastatic to liver Transaminitis Cyst of right kidney Liver cyst Family History Family History Father Esophageal cancer Mother Hodgkin disease Brother Kidney malignancy Sibling Brother Kidney malignancy Sibling Surgical History Surgical History History of liver biopsy History of colonoscopy History of knee replacement procedure of right knee History of eye surgery H/O carpal tunnel repair H/O basal cell carcinoma excision History of ear surgery Social History Social History Household Members: None Housing: House Are you a primary menagerie caretaker to a significant other at home: No Do you presently have visiting nurse or other home services: No Alcohol intake: never Patient Tobacco Use Status: Former Tobacco user e-Cigarette/Vaping Use: Never Used Second Hand Smoke Exposure: No Advance Directives: Yes Advance Directives Information Provided: Yes Advance Directives on File: No Advance Directives Date on File: 10/08/24 service: No Current occupational status: employed and retired 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 Left side minimal if any breath sounds GI: Other: Abdomen is soft, corpulent, benign Assessment and Plan (1) Recurrent spontaneous pneumothorax: Status: Acute Plan Patient is being admitted as a direct admit for initial tube thoracostomy placement and then tentatively for VATS blebectomy for this once the anticoagulation issue has been addressed. Quality Stroke Does the patient have a stroke diagnosis?: No VTE Prior VTE?: Yes VTE Risk Level:: Surgical - high VTE Device Contraindication: Procedure Contraindicated VTE Drug Contraindication: N/A - Med Ordered Procedures Date of Service Date of Service: 10/30/24
[2024-10-30 13:40] VITALS: BP 140/87; PULSE 85; RESP 16; TEMP 36.6; O2SAT 95
[2024-10-30 13:41] VITALS: BMI 27.5
[2024-10-30] MEDS: Morphine Sulfate 4 MG/ML CARTRIDGE IVPUSH (13:54)
[2024-10-30] MEDS: Lidocaine HCl 1 % 10 ML VIAL 30 ML INFILTRATI (13:54)
[2024-10-30] MEDS: Lactated Ringers 1,000 ML 80 ML IVCONT (13:55)
--- NOTE | 2024-10-30 14:34 | PM.PROC ---
Brief Operative Note Date of procedure: 10/30/24 Pre-op diagnosis: recurrent left pneumothorax Post-op diagnosis: same Procedure: The risks and benefits, alternatives were discussed with the patient and informed consent was obtained. An area of the patient's left anterior chest was prepped with chloraprep and draped in the usual sterile fashion. 10 mL of 1% lidocaine was used for local anesthesia of the skin and subcutaneous tissues. A hypodermic needle was introduced to demonstrate a safe access route, alvarez of air obtained. A [employer] catheter was then used to access the pleural cavity. A guidewire was then placed through the catheter and into the chest cavity. The access site was then dilated. A 14 fr locking catheter was then advanced over the wire and into the chest cavity. The wire was removed and the catheter was secured to the skin with a single suture and a sterile dressing was applied over the site. The catheter was then connected to a closed chest drainage system. The patient tolerated the procedure well. No immediate complications. Chest tube dressing applied. Post procedure CXR was ordered. Anesthesia: local Estimated blood loss (mL): 2 Pathology: none sent Condition: stable Disposition: no change
--- NOTE | 2024-10-30 14:47 | P.CONHOSP_ITS ---
History of Present Illness Data of Consult Service Date: 10/30/24 Primary Care Provider: Elvira Grimes MD HPI 69-year-old man with a history of multiple medical problems admitted by thoracic surgery secondary to left spontaneous pneumothorax. Chest tube placed to left chest. Denies any shortness of breath or chest pain vital signs are stable. Review of Systems 2 Review of Systems: Denies any recent fever chills or decrease in appetite respiratory see HPI cardiovascular denied chest pain gastrointestinal denies any dysphagia abdominal pain nausea vomiting or diarrhea genitourinary denies any dysuria frequency or hematuria musculoskeletal denies any joint pain or swelling neuropsych denies any weakness or seizures all other systems reviewed are negative [facility] Medical History Ruptured aneurysm of artery Hyperlipidemia Arthritis GERD (gastroesophageal reflux disease) Depression Melanoma metastatic to liver Transaminitis Cyst of right kidney Liver cyst Family History Father Esophageal cancer Mother Hodgkin disease Brother Kidney malignancy Sibling Brother Kidney malignancy Sibling Surgical History History of liver biopsy History of colonoscopy History of knee replacement procedure of right knee History of eye surgery H/O carpal tunnel repair H/O basal cell carcinoma excision History of ear surgery Social History Household Members: None Housing: House Are you a primary child care aide to a significant other at home: No Do you presently have visiting nurse or other home services: No Alcohol intake: never Patient Tobacco Use Status: Former Tobacco user Tobacco use type: Cigarette Years Smoked: 4 e-Cigarette/Vaping Use: Never Used Second Hand Smoke Exposure: No Advance Directives Date on File: 10/08/24 service: No Current occupational status: employed and retired 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 Cognitive needs: No Hearing needs: No Vision needs: Yes Meds Allergies Allergy/AdvReac Type Severity Reaction Status Date / Time No Known Allergies Allergy Verified 11/01/24 06:25 [No Known Allergies*] Active Medications: Current Medications Acetaminophen (Acetaminophen 325 Mg Tablet) 650 mg PO Q6H PRN PRN Reason: Pain, Mild 1-3,fever,headache Calcium Carbonate (Calcium Carbonate 750 Mg Tab.Chew) 750 mg PO Q4H PRN PRN Reason: Heartburn Docusate Sodium (Docusate Sodium 100 Mg Capsule) 100 mg PO BID [facility] Lactated Ringer's (Lr) 1,000 mls @ 80 mls/hr IVCONT .[id number] [facility] Last Admin: 10/30/24 13:55 Dose: 80 mls/hr Magnesium Hydroxide (Milk Of Magnesia 30 Ml Oral.Susp) 30 ml PO DAILY PRN PRN Reason: Constipation Melatonin (Melatonin 3 Mg Tablet) 6 mg PO BEDTIME PRN PRN Reason: Insomnia Morphine Sulfate (Morphine Sulfate 4 Mg/Ml Cartridge) 4 mg IVPUSH Q4H PRN; Protocol PRN Reason: Pain, Severe (Pain Scale 7-10) Last Admin: 10/30/24 13:54 Dose: 4 mg Ondansetron HCl (Ondansetron Hcl 4 Mg/2 Ml Vial) 4 mg IVPUSH Q8H PRN PRN Reason: Nausea and Vomiting Oxycodone HCl (Oxycodone Hcl Immed Release 5 Mg Tablet) 5 mg PO Q4H PRN PRN Reason: Pain, Moderate(Pain Scale 4-6) Sodium Chloride (0.9 % Sodium Chloride Flush 3 Ml Syringe) 3 ml IVFLUSH QSHIFT [facility] Home Medications ?Medication ?Instructions ?Recorded ?Confirmed ?Last Taken ?Type sertraline 25 mg tablet 25 mg PO DAILY 10/30/24 11/06/24 10/29/24 History Physical Exam 2 Vital Signs and Narrative: Vital Signs: Last Vital Signs Temp 97.9 F 10/30/24 13:40 Pulse 85 10/30/24 13:40 Resp 16 10/30/24 13:40 BP 140/87 H 10/30/24 13:40 Pulse Ox 95 10/30/24 13:40 O2 Del Method Room Air 10/30/24 13:40 BMI result Body Mass Index 27.5 Appearing in no acute distress head is normocephalic atraumatic eyes pupils are PERRLA sclera is anicteric mouth throat mucous membranes are intact and moist neck is supple no lymphadenopathy, no JVD noted lung sounds are clear to auscultation heart regular rate rhythm, clear S1, S2 positive bowel sounds, abdomen is soft, nontender neuro patient is alert x3, no focal deficits Results Labs 11/02/24 05:11 11/02/24 05:11 Assessment and Plan (1) Left leg DVT: Qualifiers: Affected thrombotic vein of extremity: unspecified vein of extremity C hronicity: acute Qualified Code(s): I82.402 - Acute embolism and thrombosis of unspecified deep veins of left lower extremity Status: Acute Plan 69-year-old man admitted by thoracic surgery secondary to recurrent spontaneous left pneumothorax Spontaneous pneumothorax Management as per surgical team Status post tube thoracostomy placement and possible VATS blebectomy Left lower extremity DVT Has been on Eliquis Stop Eliquis in anticipation for thoracic surgical procedure, transition to Lovenox, stop 12 hours prior to surgery History of metastatic malignant melanoma Reason for spontaneous pneumothorax Currently undergoing chemotherapy treatment DVT prophylaxis as per surgical team Medical consultation complete, we will sign off. Please do not hesitate to contact Hospital Medicine team for further assistance on this case.
--- NOTE | 2024-10-30 15:27 | PHA.MEDREC ---
Pharmacy Consult ? Medication Reconciliation Pharmacy has completed the medication reconciliation. Spoke to patient to confirm medication list. Per patient, he is now taking eliquis 5 mg bid, he finished the starter wilbur already. Also called [facility] and Melvin verified that patient picked up the 5mg rx on 10/25/24. He took dose of eliquis this morning and he last took sertraline 25 mg yesterday.
[2024-10-30] MEDS: Enoxaparin Sodium 80 MG/0.8 ML SYRINGE 70 MG SUBCUT (16:14)
[2024-10-30 17:06] LABS: INTERNATIONAL NORM RATIO 1.4 (0.9-1.1); Prothrombin Time 15.9 SEC (10.9-12.4)
[2024-10-30 19:28] VITALS: BP 124/67; PULSE 86; RESP 18; TEMP 37.2; O2SAT 93
[2024-10-30] MEDS: Docusate Sodium 100 MG CAPSULE PO (19:58)
[2024-10-31] MEDS: Lactated Ringers 1,000 ML 80 ML IVCONT ×2 (01:48→14:14)
[2024-10-31 03:50] VITALS: BP 118/69; PULSE 74; RESP 16; TEMP 36.8; O2SAT 93
[2024-10-31] MEDS: Enoxaparin Sodium 80 MG/0.8 ML SYRINGE 70 MG SUBCUT ×2 (05:07→17:12)
[2024-10-31 06:28] LABS: Basophils Percent Auto 0.4 % (0-2); Eosinophils Absolute Auto 0.2 X10*3/uL (0.0-0.4); Eosinophils Percent Auto 3.4 % (0-4); Hematocrit 41.4 % (42.0-52.0); Hemoglobin 14.5 g/dl (14.0-18.0); Imm Gran Abs Auto 0.02 X10*3/uL (0.00-0.03); Imm Gran Pct Auto 0.3 % (0.0-0.4); Lymphocytes Percent Auto 28.5 % (20-40); MANUAL DIFF FLAG SCAN; Mean Corpuscular Volume 94.3 fL (80.0-98.0); Mean Platelet Volume 9.3 fL (9.4-12.4); Monocytes Absolute Auto 0.9 X10*3/uL (0.1-1.2); Monocytes Percent Auto 13.3 % (2-11); Neutrophils Absolute Auto 3.8 x10*3/uL (2.0-8.3); Neutrophils Percent Auto 54.1 % (45-73); Platelet Count 174 X10*3/uL (160-400); Red Blood Count 4.39 X10*6/uL (4.60-5.80); Red Cell Distribution Width 12.2 % (11.0-16.0); SCAN SMEAR FLAG 1; White Blood Count 7.1 X10*3/uL (4.8-10.8)
[2024-10-31 06:33] LABS: INTERNATIONAL NORM RATIO 1.3 (0.9-1.1); Prothrombin Time 14.9 SEC (10.9-12.4)
[2024-10-31 06:42] LABS: Anion Gap 10 (12-20); Blood Urea Nitrogen 14 mg/dL (9-16); Carbon Dioxide 24 mmol/L (22-29); Chloride 107 mmol/L (96-108); Creatinine Clr Calc Pharmacy 88.9; Estimated Glomerular Filt Rate > 60; Glucose Random 94 mg/dL (60-115); Sodium 137 mmol/L (135-145)
[2024-10-31 07:21] VITALS: BP 130/81; PULSE 70; RESP 14; TEMP 36.4; O2SAT 95
--- NOTE | 2024-10-31 08:16 | PM.PNTS ---
Subjective Subjective Date of Service: 10/31/24 Interval history: Uneventful evening. Respiratory symptoms much improved. Chest tube intact with no air leak. Postprocedure film from yesterday demonstrates much improvement in a patient's left pneumothorax Physical Exam Vital Signs: Vital Signs: Last Vital Signs Temp 97.6 F 10/31/24 07:21 Pulse 70 10/31/24 07:21 Resp 14 10/31/24 07:21 BP 130/81 10/31/24 07:21 Pulse Ox 95 10/31/24 07:21 O2 Del Method Room Air 10/31/24 07:21 BMI result Body Mass Index 27.5 Chest: Other: Dressing clean dry intact were Pleur-evac. Procedures Date of Service Date of Service: 10/31/24 Progress Note: A&P Assessment and plan (1) Recurrent spontaneous pneumothorax: Status: Acute Plan Patient was tentatively scheduled for tomorrow for vats left blebectomy. Risks, benefits, alternatives of procedure reviewed with the patient included but limited to bleeding, infection, recurrence, numbness, pain, scarring , conversion to open procedure and the patient wishes to proceed. All questions answered. Time Spent With Patient Time: Total time managing care of this patient today ____ minutes. Quality Stroke Does the patient have a stroke diagnosis?: No VTE Prior VTE?: Yes VTE Risk Level:: Surgical - high VTE Device Contraindication: Procedure Contraindicated VTE Drug Contraindication: N/A - Med Ordered
[2024-10-31] MEDS: Morphine Sulfate 4 MG/ML CARTRIDGE IVPUSH (08:17)
[2024-10-31] MEDS: Docusate Sodium 100 MG CAPSULE PO ×2 (08:18→20:11)
[2024-10-31 08:19] LABS: SLIDE REVIEW VERIFIED
--- NOTE | 2024-10-31 11:36 | MHC.CM.PN ---
IMM 10/31/24 s/p Chest tube insertion for pneumothorax. Pt reports this is the 3rd chest tube insertion required. He lives with his son Tani/HCP on file. 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 He has been to [facility] for STR recently. If he qualifies for STR he would like to return to [facility]. PT eval is pending. DP [facility] via BLS vs home private transport.
[2024-10-31 15:25] VITALS: BP 127/69; PULSE 71; RESP 14; TEMP 37.1; O2SAT 96
--- NOTE | 2024-10-31 17:18 | HO.ANESPROP2 ---
HPI - Anesthesia Eval Consult details Narrative: 69 yo male patient with h/o metastatic melanoma, recurrent Left hydropneumothorax s/p chest tube placement x 2 and pleuredesis. For Left VATS and blebectomy PMFSH Active Problems Active Problems: mAll Active Problems (Updated 10/30/24 @ 15:03 by Mayo Kendrick MD) Recurrent spontaneous pneumothorax (Acute) Allergic rhinitis (Acute) Trapped lung (Acute) Left leg DVT (Acute) Hydropneumothorax (Acute) DVT (deep venous thrombosis) (Acute) Pneumothorax (Acute) Decreased breath sounds at left lung base (Acute) Edema of left lower extremity (Acute) Depression (Acute) Pleural effusion (Acute) Mild shortness of breath (Acute) Cough (Acute) Decreased breath sounds (Acute) Pneumonia (Acute) Melanoma (Acute) Pancreatic cancer (Acute) Liver mass (Acute) Hypertriglyceridemia (Acute) Liver lesion (Acute) Osteoarthritis of left knee (Acute) Lesion of ala of nose (Acute) Ear lesion (Acute) Encounter for annual wellness exam in Medicare patient (Acute) COVID-19 vaccine series completed (Acute) Intraocular melanoma of left eye (Acute) Adult general medical exam (Acute) Screening for prostate cancer (Acute) Screening for diabetes mellitus (Acute) GERD (gastroesophageal reflux disease) (Acute) Hyperlipidemia (Acute) Transaminitis (Acute) Cyst of right kidney (Acute) Liver cyst (Acute) Past Medical History Medical History Ruptured aneurysm of artery Hyperlipidemia Arthritis GERD (gastroesophageal reflux disease) Depression Melanoma metastatic to liver Transaminitis Cyst of right kidney Liver cyst Family History Family History Father Esophageal cancer Mother Hodgkin disease Brother Kidney malignancy Sibling Brother Kidney malignancy Sibling Family history of problems with anesthesia: No Surgical History Surgical History History of liver biopsy History of colonoscopy History of knee replacement procedure of right knee History of eye surgery H/O carpal tunnel repair H/O basal cell carcinoma excision History of ear surgery History of Problems with Anesthesia: No Social History Social History Household Members: None Housing: House Are you a primary adult caregiver to a significant other at home: No Do you presently have visiting nurse or other home services: No Alcohol intake: never Patient Tobacco Use Status: Former Tobacco user Tobacco use type: Cigarette Years Smoked: 4 e-Cigarette/Vaping Use: Never Used Second Hand Smoke Exposure: No Use of substances other than those prescribed or required for medical reasons: No Currently Displaying Signs/Symptoms of Drug Intoxication Withdrawal: No Have you been hit, kicked, punched, or otherwise hurt by someone within the past year? If so, by whom?: No Do you feel safe in your current relationship?: No Current Relationship Is there a partner from a previous relationship who is making you feel unsafe now?: No Are you made to feel afraid or neglected: No Are you DNR?: No Advance Directives: No Advance Directives Information Provided: Yes (Tani (Son) per patient) Advance Directives on File: No Advance Directives Date on File: 10/08/24 Do you have a plan to hurt others: No Plan Recently lost weight without trying: Yes How much weight loss: 14-23 pounds Eating poorly because of decreased appetite: Yes Nutrition screen score: 5 Nutrition Risks: No Nutritional Risk Poor oral hygiene: No service: No Current occupational status: employed and retired 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 Cognitive needs: No Hearing needs: No Vision needs: Yes Meds Allergies Allergy/AdvReac Type Severity Reaction Status Date / Time No Known Allergies Allergy Verified 11/01/24 06:25 [No Known Allergies*] Active Medications: Current Medications Acetaminophen (Acetaminophen 325 Mg Tablet) 650 mg PO Q6H PRN PRN Reason: Pain, Mild 1-3,fever,headache Calcium Carbonate (Calcium Carbonate 750 Mg Tab.Chew) 750 mg PO Q4H PRN PRN Reason: Heartburn Docusate Sodium (Docusate Sodium 100 Mg Capsule) 100 mg PO BID [facility] Last Admin: 10/31/24 08:18 Dose: 100 mg Enoxaparin Sodium (Enoxaparin Sodium 80 Mg/0.8 Ml Syringe) 70 mg 1 mg/kg (70 mg) SUBCUT Q12H [facility] Stop: 10/31/24 23:59 Last Admin: 10/31/24 17:12 Dose: 70 mg Lactated Ringer's (Lr) 1,000 mls @ 80 mls/hr IVCONT .[id number] [facility] Last Admin: 10/31/24 14:14 Dose: 80 mls/hr Magnesium Hydroxide (Milk Of Magnesia 30 Ml Oral.Susp) 30 ml PO DAILY PRN PRN Reason: Constipation Melatonin (Melatonin 3 Mg Tablet) 6 mg PO BEDTIME PRN PRN Reason: Insomnia Morphine Sulfate (Morphine Sulfate 4 Mg/Ml Cartridge) 4 mg IVPUSH Q4H PRN; Protocol PRN Reason: Pain, Severe (Pain Scale 7-10) Last Admin: 10/31/24 08:17 Dose: 4 mg Ondansetron HCl (Ondansetron Hcl 4 Mg/2 Ml Vial) 4 mg IVPUSH Q8H PRN PRN Reason: Nausea and Vomiting Oxycodone HCl (Oxycodone Hcl Immed Release 5 Mg Tablet) 5 mg PO Q4H PRN PRN Reason: Pain, Moderate(Pain Scale 4-6) Sodium Chloride (0.9 % Sodium Chloride Flush 3 Ml Syringe) 3 ml IVFLUSH QSHIFT [facility] Last Admin: 10/31/24 16:06 Dose: Not Given Home Medications ?Medication ?Instructions ?Recorded ?Confirmed ?Last Taken ?Type sertraline 25 mg tablet 25 mg PO DAILY 10/30/24 10/30/24 10/29/24 History Exam Height,Weight and Vital Signs: Height 5 ft 5 in Weight 74.9 kg Last Vital Signs Temp 98.7 F 10/31/24 15:25 Pulse 71 10/31/24 15:25 Resp 14 10/31/24 15:25 BP 127/69 10/31/24 15:25 Pulse Ox 96 10/31/24 15:25 O2 Del Method Room Air 10/31/24 15:25 Vital Signs Temp Pulse Resp BP Pulse Ox O2 Del Method 11/01/24 06:33 98.0 F 81 16 133/78 94 Room Air 11/01/24 03:33 98.0 F 74 18 109/59 L 95 Room Air 10/31/24 22:00 99.3 F 78 17 147/83 H 93 Room Air 10/31/24 15:25 98.7 F 71 14 127/69 96 Room Air Pertinent Lab Results Pertinent Lab Results: Laboratory Tests 10/30/24 10/30/24 10/31/24 16:46 17:05 06:12 WBC 7.1 RBC 4.39 L Hgb 14.5 Hct 41.4 L MCV 94.3 MCH 33.0 MCHC 35.0 RDW 12.2 Plt Count 174 D MPV 9.3 L Immature Gran % (Auto) 0.3 Neut % (Auto) 54.1 Lymph % (Auto) 28.5 [place] % (Auto) 13.3 H Eos % (Auto) 3.4 Baso % (Auto) 0.4 Lymph # (Auto) 2.0 [place] # (Auto) 0.9 Eos # (Auto) 0.2 Baso # (Auto) 0.0 Abs Immat Gran (auto) 0.02 Absolute Neuts (auto) 3.8 Absolute Nucleated RBC 0.000 Nucleated RBC % (auto) 0.0 Smear Tech's Comments VERIFIED Hold Purple Top SEE NOTE PT 15.9 H D 14.9 H INR 1.4 H 1.3 H Sodium 137 Potassium 4.0 Chloride 107 Carbon Dioxide 24 Anion Gap 10 L BUN 14 Creatinine 0.72 Estim Creat Clear Calc 88.9 Estimated GFR > 60 Random Glucose 94 Calcium 8.0 L D Hold Yellow Top See Note Blood Type Antibody Screen 10/31/24 12:20 WBC RBC Hgb Hct MCV MCH MCHC RDW Plt Count MPV Immature Gran % (Auto) Neut % (Auto) Lymph % (Auto) [place] % (Auto) Eos % (Auto) Baso % (Auto) Lymph # (Auto) [place] # (Auto) Eos # (Auto) Baso # (Auto) Abs Immat Gran (auto) Absolute Neuts (auto) Absolute Nucleated RBC Nucleated RBC % (auto) Smear Tech's Comments Hold Purple Top PT INR Sodium Potassium Chloride Carbon Dioxide Anion Gap BUN Creatinine Estim Creat Clear Calc Estimated GFR Random Glucose Calcium Hold Yellow Top Blood Type O Negative Antibody Screen NEGATIVE Airway Mallampati Class: III TM Dist: >3cm Neck ROM: Full Loose/Missing/Broken Teeth: Yes (Missing several teeth. 1 broken bottom right. Denies loose teeth) Heart: RRR Lungs: CTAB. Diminished Assessment and Plan Assessment Anesthesia Assessment: Anesthesia Plan Discussed and Chart Reviewed Final Anesthetic Review Family History of Problems with Anesthesia: No History of Problems with Anesthesia: No NPO: Yes ASA Class: III Final Preanesthetic Review: No Changes in Pt Med Stat, Meds/Allgs Chart Reviewed, Consent Obtained/Reviewed and Anes Risks/Benef Reviewed Patient Risk: Intermediate Procedure Risk: Intermediate Assessment/Block/Sedation in SS: Assess/Block/Sedation-SS Anesthetic Plan Anesthetic Plan: GA and Other (Arterial line +/- ICU admission ) Disposition: Standard PACU and Inp. Admit - Standard Bed
[2024-10-31 22:00] VITALS: BP 147/83; PULSE 78; RESP 17; TEMP 37.4; O2SAT 93
[2024-11-01] VITALS (13 sets, daily range): BP systolic 109–162; BP diastolic 58–91; PULSE 65–100; RESP 12–20; TEMP 36.1–37; O2SAT 92–98
[2024-11-01] MEDS: Lactated Ringers 1,000 ML 100 ML IVCONT (00:06)
--- NOTE | 2024-11-01 06:53 | PC.NURSE ---
Patient arrived to preop. Left chest tube dressing dry and intact. Drainage noted at 184ml.
--- NOTE | 2024-11-01 09:27 | P.OP_ITS ---
Operative Note Operative Note Date of Service: 11/01/24 Narrative: Preoperative diagnosis: [] Recurrent ipsilateral spontaneous left pneumothorax Postop diagnosis: [] The same Procedure; left VATS apical blebectomy, apical pleurectomy chemical pleurodesis ,pneumonolysis, intercostal nerve block Surgeon; Annabelle: [] Labor Relations Manager; Anushka Type of Anesthesia: [] Double-lumen general Indication for surgery: [] Patient has had recurrent recurrent ipsilateral spontaneous left pneumothorax. Now presents for blebectomy. Intraoperative findings demonstrated isolated apical blebs and scarring of the left upper lobe to apex of hemithorax. No other gross intrathoracic pathology demonstrated. Findings: [] Patient brought to the operating room, placed on operative table supine position, after an adequate level of general anesthesia was induced, patient was was placed in the right lateral decubitus position. Left chest was prepped and draped in usual sterile fashion using anterior and posterior axillary line ports placed In the 6th intercostal space, and a 3rd port in the 4th anterior intercostal space. Intrathoracic findings were as noted above. Apical blebs were identified and adhesions taken down using ligature device to free up the lung for blebectomy. Next uneventful blebectomy was performed with sequential firing of GASPER staplers across the diseased lung. Apical pleurectomy was performed using [place] grasped. Chest cavity was filled with saline and remaining lung re-expanded with staple line found to be pneumostatic. Chest tube placed through anterior port and directed toward the anterior upper mediastinum under direct view. This was secured the skin using 0 silk suture. Wounds were all closed in the following manner; deep followed by dermal interrupted 2-0 and 3-0 Vicryl sutures respectively closed all ports. Chest was filled with sclerosis and via the chest tube and chest tube connected to Pleur- evac to water seal. Intercostal nerve block using Exparel was performed at all port sites. Steri-Strips and sterile dressings were applied. Sponge, needle, and instrument counts reported correct. Patient tolerated the procedure well and emerged from anesthesia stable condition. EBL minimal. Postprocedure chest x-ray pending.
[2024-11-01] MEDS: Lactated Ringers 1,000 ML 80 ML IVCONT ×2 (11:56→23:22)
[2024-11-01] MEDS: Acetaminophen 1,000 MG/100 ML PIGGYBACK 400 MG IV ×3 (11:57→22:34)
[2024-11-01] MEDS: polyethylene glycoL 3350 17 GM POWD.PACK PO (15:20)
[2024-11-01] MEDS: Morphine Sulfate 4 MG/ML CARTRIDGE IVPUSH (15:20)
[2024-11-01 16:16] LABS: Hematocrit 42.8 % (42.0-52.0); Hemoglobin 14.7 g/dl (14.0-18.0); Mean Corpuscular HGB Conc 34.3 g/dl (31.0-36.0); Mean Corpuscular Hemoglobin 32.8 pg (27.0-33.0); Mean Corpuscular Volume 95.5 fL (80.0-98.0); Mean Platelet Volume 9.3 fL (9.4-12.4); Platelet Count 210 X10*3/uL (160-400); Red Blood Count 4.48 X10*6/uL (4.60-5.80); Red Cell Distribution Width 12.2 % (11.0-16.0)
[2024-11-01 16:24] LABS: INTERNATIONAL NORM RATIO 1.1 (0.9-1.1); Prothrombin Time 12.8 SEC (10.9-12.4)
[2024-11-01 16:27] LABS: Partial Thromboplastin Time 30.4 SEC (26.0-36.8)
--- NOTE | 2024-11-01 16:56 | PC.NURSE ---
Pt arrived from PACU 11am - s/p VATs left upper lobe blebectomy. Pt alert but sleepy, CT intact, output marked for pacu. Pt stable, - allowed to sleep
[2024-11-01] MEDS: Enoxaparin Sodium 80 MG/0.8 ML SYRINGE 70 MG SUBCUT (20:29)
[2024-11-01] MEDS: Docusate Sodium 100 MG CAPSULE PO (20:30)
[2024-11-01] MEDS: 0.9 % Sodium Chloride Flush 3 ML SYRINGE IVFLUSH (23:22)
[2024-11-02] VITALS (8 sets, daily range): BP systolic 119–139; BP diastolic 66–77; PULSE 64–74; RESP 14–24; TEMP 36.2–36.4; O2SAT 94–96
[2024-11-02 05:47] LABS: MANUAL DIFF FLAG NO
[2024-11-02 05:55] LABS: Basophils Percent Auto 0.2 % (0-2); Eosinophils Percent Auto 0.4 % (0-4); Hematocrit 42.4 % (42.0-52.0); Hemoglobin 14.6 g/dl (14.0-18.0); Imm Gran Abs Auto 0.02 X10*3/uL (0.00-0.03); Imm Gran Pct Auto 0.2 % (0.0-0.4); Lymphocytes Percent Auto 23.7 % (20-40); Mean Corpuscular HGB Conc 34.4 g/dl (31.0-36.0); Mean Corpuscular Hemoglobin 32.9 pg (27.0-33.0); Mean Corpuscular Volume 95.5 fL (80.0-98.0); Mean Platelet Volume 9.6 fL (9.4-12.4); Monocytes Absolute Auto 1.1 X10*3/uL (0.1-1.2); Monocytes Percent Auto 12.6 % (2-11); Neutrophils Absolute Auto 5.4 x10*3/uL (2.0-8.3); Neutrophils Percent Auto 62.9 % (45-73); Platelet Count 227 X10*3/uL (160-400); Red Blood Count 4.44 X10*6/uL (4.60-5.80); Red Cell Distribution Width 12.1 % (11.0-16.0); White Blood Count 8.6 X10*3/uL (4.8-10.8)
[2024-11-02 05:56] LABS: INTERNATIONAL NORM RATIO 1.2 (0.9-1.1)
[2024-11-02 06:08] LABS: Anion Gap 13 (12-20); Blood Urea Nitrogen 9 mg/dL (9-16); Calcium 8.5 mg/dL (8.4-10.2); Carbon Dioxide 27 mmol/L (22-29); Chloride 106 mmol/L (96-108); Creatinine Clr Calc Pharmacy 88.9; Estimated Glomerular Filt Rate > 60; Glucose Fasting 96 mg/dL (60-99); Potassium 4.9 mmol/L (3.3-5.1); Sodium 141 mmol/L (135-145)
[2024-11-02] MEDS: Acetaminophen 1,000 MG/100 ML PIGGYBACK 400 MG IV ×4 (06:25→23:15)
--- NOTE | 2024-11-02 08:09 | PM.PNTS ---
Subjective Subjective Date of Service: 11/02/24 Interval history: Feels great this morning. Denies significant pain. Denies shortness of breath. Tolerating diet. Physical Exam Vital Signs: Vital Signs: Last Vital Signs Temp 97.4 F 11/02/24 07:04 Pulse 74 11/02/24 07:04 Resp 16 11/02/24 07:04 BP 139/66 11/02/24 07:04 Pulse Ox 95 11/02/24 07:04 O2 Del Method Room Air 11/02/24 07:04 O2 Flow Rate 3 11/01/24 15:29 BMI result Body Mass Index 27.5 Const: General: comfortable, no acute distress and alert Orientation/consciousness: patient oriented x3 Chest: Other: left VATS dressings clean left lateral chest tube in place, some serosanguineous drainage no air leak on exam Resp: Effort & Inspection: normal respiratory effort, not labored, not tachypneic, no tracheal deviation and no use of accessory muscles Skin: General skin exam: no rashes or lesions noted Neuro: General: patient oriented x3 and moves all extremities Procedures Date of Service Date of Service: 11/02/24 Progress Note: A&P Assessment and plan (1) Recurrent spontaneous pneumothorax: Status: Acute (2) Left leg DVT: Status: Acute Plan Admitted for recurrent left pneumothorax failing nonoperative measures. POD #1 s/p left VATS apical blebectomy, apical pleurectomy chemical pleurodesis ,pneumonolysis, intercostal nerve block. Doing well post op, pain well controlled. VSS. VATS dressings clean and intact. Chest tube in place, small amt of drainage, no air leak. CXR shows small left air space in apex. Will place to water seal, repeat CXR in am. Encouraged OOB/ambulation and increasing activity. Incentive spirometer 10x/hr. Lovenox bridge resumed last night for left leg DVT. Likely resume eliquis tomorrow. Time Spent With Patient Time: Total time managing care of this patient today ____ minutes. Quality Stroke Does the patient have a stroke diagnosis?: No VTE Prior VTE?: Yes VTE Risk Level:: Surgical - high VTE Device Contraindication: Procedure Contraindicated VTE Drug Contraindication: N/A - Med Ordered
[2024-11-02] MEDS: Enoxaparin Sodium 80 MG/0.8 ML SYRINGE 70 MG SUBCUT ×2 (08:50→20:52)
[2024-11-02] MEDS: Sertraline HCL 25 MG TABLET PO (08:51)
[2024-11-02] MEDS: Docusate Sodium 100 MG CAPSULE PO ×2 (08:51→20:49)
[2024-11-02] MEDS: polyethylene glycoL 3350 17 GM POWD.PACK PO (08:51)
[2024-11-02] MEDS: 0.9 % Sodium Chloride Flush 3 ML SYRINGE IVFLUSH (08:52)
[2024-11-02] MEDS: guaiFENesin DM 600/30 1 TAB TAB.ER.12H 2 TAB PO ×2 (10:12→20:49)
[2024-11-02] MEDS: Lactated Ringers 1,000 ML 80 ML IVCONT (12:34)
--- NOTE | 2024-11-02 14:37 | MHC.CM.PN ---
EMR REVIEWED. PT IS NOT MEDICALLY CLEARED BY SURGERY (CHEST TUBE) CM WILL CONTINUE TO FOLLOW FOR ANY CHANGE TO DC PLAN.
[2024-11-03 03:43] VITALS: BP 127/76; PULSE 64; RESP 16; TEMP 36.1; O2SAT 95
[2024-11-03] MEDS: Acetaminophen 1,000 MG/100 ML PIGGYBACK 400 MG IV ×4 (05:27→23:55)
[2024-11-03 07:29] VITALS: BP 126/78; PULSE 66; RESP 18; TEMP 36.3; O2SAT 97
[2024-11-03] MEDS: guaiFENesin DM 600/30 1 TAB TAB.ER.12H 2 TAB PO ×2 (07:58→21:09)
[2024-11-03] MEDS: Sertraline HCL 25 MG TABLET PO (07:58)
[2024-11-03] MEDS: Docusate Sodium 100 MG CAPSULE PO ×2 (07:59→21:10)
[2024-11-03] MEDS: polyethylene glycoL 3350 17 GM POWD.PACK PO (07:59)
[2024-11-03] MEDS: 0.9 % Sodium Chloride Flush 3 ML SYRINGE IVFLUSH ×2 (07:59→16:08)
[2024-11-03] MEDS: Enoxaparin Sodium 80 MG/0.8 ML SYRINGE 70 MG SUBCUT ×2 (08:00→21:10)
--- NOTE | 2024-11-03 08:52 | PM.PNGS ---
Subjective Subjective Date of Service: 11/03/24 Interval history: Patient generally feels well this morning with no shortness of breath. Chest tube remains in place. Physical Exam Vital Signs: Vital Signs: Last Vital Signs Temp 97.3 F 11/03/24 07:29 Pulse 66 11/03/24 07:29 Resp 18 11/03/24 07:29 BP 126/78 11/03/24 07:29 Pulse Ox 97 11/03/24 07:29 O2 Del Method Room Air 11/03/24 07:29 O2 Flow Rate 3 11/01/24 15:29 BMI result Body Mass Index 27.5 Const: General: comfortable, no acute distress and alert Orientation/consciousness: patient oriented x3 Chest: Other: Left chest tube in place with no air leak noted with deep inspiration. Thin bloody fluid draining. Vats incisions are clean and and intact Resp: Effort & Inspection: normal respiratory effort, not labored, not tachypneic, no tracheal deviation and no use of accessory muscles Skin: General skin exam: no rashes or lesions noted Neuro: General: patient oriented x3 and moves all extremities Objective Data Active Medications Calcium Carbonate (Calcium Carbonate 750 Mg Tab.Chew) 750 mg PO Q4H PRN PRN Reason: Heartburn Docusate Sodium (Docusate Sodium 100 Mg Capsule) 100 mg PO BID [facility] Last Admin: 11/03/24 07:59 Dose: 100 mg Documented By: EILEEN Enoxaparin Sodium (Enoxaparin Sodium 80 Mg/0.8 Ml Syringe) 70 mg SUBCUT Q12H [facility] Last Admin: 11/03/24 08:00 Dose: 70 mg Documented By: EILEEN Guaifenesin/Dextromethorphan (Guaifenesin Dm 600/30 1 Tab Tab.Er.12h) 2 tab PO BID [facility] Last Admin: 11/03/24 07:58 Dose: 2 tab Documented By: EILEEN Acetaminophen (Ofirmev) 1,000 mg in 100 mls @ 400 mls/hr IV Q6H [facility] Last Infusion: 11/03/24 05:45 Dose: Infused Documented By: ALEJANDRINA Magnesium Hydroxide (Milk Of Magnesia 30 Ml Oral.Susp) 30 ml PO DAILY PRN PRN Reason: Constipation Melatonin (Melatonin 3 Mg Tablet) 6 mg PO BEDTIME PRN PRN Reason: Insomnia Morphine Sulfate (Morphine Sulfate 4 Mg/Ml Cartridge) 4 mg IVPUSH Q4H PRN; Protocol PRN Reason: Pain, Severe (Pain Scale 7-10) Last Admin: 11/01/24 15:20 Dose: 4 mg Documented By: SHAYY Naloxone HCl (Naloxone Hcl 0.4 Mg/Ml Vial) 0.04 mg IVPUSH Q5M PRN PRN Reason: Excessive sedation or RR < 8 Ondansetron HCl (Ondansetron Hcl 4 Mg/2 Ml Vial) 4 mg IVPUSH Q8H PRN PRN Reason: Nausea and Vomiting Oxycodone HCl (Oxycodone Hcl Immed Release 5 Mg Tablet) 5 mg PO Q4H PRN PRN Reason: Pain, Moderate(Pain Scale 4-6) Polyethylene Glycol (Polyethylene Glycol 3350 17 Gm Powd.Pack) 17 gm PO DAILY [facility] Last Admin: 11/03/24 07:59 Dose: 17 gm Documented By: EILEEN Sertraline HCl (Sertraline Hcl 25 Mg Tablet) 25 mg PO DAILY [facility] Last Admin: 11/03/24 07:58 Dose: 25 mg Documented By: EILEEN Sodium Chloride (0.9 % Sodium Chloride Flush 3 Ml Syringe) 3 ml IVFLUSH QSHIFT [facility] Last Admin: 11/03/24 07:59 Dose: 3 ml Documented By: EILEEN Labs 11/02/24 05:11 11/02/24 05:11 Imaging Chest x-ray: Radiologist's impression: Trace left apical pneumothorax is present. Subcutaneous emphysema is again noted in the left lateral chest wall. Left chest tube is unchanged in position. Procedures Date of Service Date of Service: 11/03/24 Progress Note: A&P Assessment and plan (1) Recurrent spontaneous pneumothorax: Status: Acute (2) Left leg DVT: Status: Acute Plan 69-year-old male patient with a recurrent left pneumothorax now pod 2 following left VATS, apical blebectomy, apical pleurectomy, chemical pleurodesis, pneumolysis, and intercostal nerve block. He continues to do well however chest x-rays still shows evidence of airspace in the apex. Patient will continue on water seal. Repeat chest x-ray in a.m.. Time Spent With Patient Time: Total time managing care of this patient today ____ minutes. Quality Stroke Does the patient have a stroke diagnosis?: No VTE Prior VTE?: Yes VTE Risk Level:: Surgical - high VTE Device Contraindication: Procedure Contraindicated VTE Drug Contraindication: N/A - Med Ordered
[2024-11-03 11:39] VITALS: BP 144/72; PULSE 71; RESP 18; TEMP 36.6; O2SAT 97
[2024-11-03 15:22] VITALS: BP 122/71; PULSE 73; RESP 16; TEMP 36.7; O2SAT 95
[2024-11-03 19:33] VITALS: BP 140/80; PULSE 69; RESP 18; TEMP 36.6; O2SAT 96
[2024-11-03 22:40] VITALS: BP 143/88; PULSE 78; RESP 18; TEMP 36.1; O2SAT 96
[2024-11-04] MEDS: 0.9 % Sodium Chloride Flush 3 ML SYRINGE IVFLUSH ×3 (00:02→16:51)
[2024-11-04 02:43] VITALS: BP 154/84; PULSE 78; RESP 18; TEMP 36.7; O2SAT 93
[2024-11-04] MEDS: Acetaminophen 1,000 MG/100 ML PIGGYBACK 400 MG IV ×4 (05:28→22:03)
[2024-11-04 08:09] VITALS: BP 140/72; PULSE 63; RESP 18; TEMP 36.3; O2SAT 98
[2024-11-04] MEDS: guaiFENesin DM 600/30 1 TAB TAB.ER.12H 2 TAB PO ×2 (08:25→22:03)
[2024-11-04] MEDS: Sertraline HCL 25 MG TABLET PO (08:25)
[2024-11-04] MEDS: Enoxaparin Sodium 80 MG/0.8 ML SYRINGE 70 MG SUBCUT ×2 (08:27→22:15)
--- NOTE | 2024-11-04 10:21 | P.PNGS_ITS ---
Subjective Subjective Date of Service: 11/04/24 Interval history: Patient continues to feel well with no significant chest pain other than the chest tube site. Physical Exam 2 Vital Signs: Vital Signs: Last Vital Signs Temp 97.4 F 11/04/24 08:09 Pulse 63 11/04/24 08:09 Resp 18 11/04/24 08:09 BP 140/72 H 11/04/24 08:09 Pulse Ox 98 11/04/24 08:09 O2 Del Method Room Air 11/04/24 08:09 O2 Flow Rate 3 11/01/24 15:29 BMI result Body Mass Index 27.5 Const: General: comfortable, no acute distress and alert O rientation/consciousness: patient oriented x3 Chest: Other: Left chest tube in place with no air leak noted with deep inspiration. Thin bloody fluid draining slightly increased from yesterday. Vats incisions are clean and and intact Resp: Effort & Inspection: normal respiratory effort, not labored, not tachypneic, no tracheal deviation and no use of accessory muscles Skin: General skin exam: no rashes or lesions noted Neuro: General: patient oriented x3 and moves all extremities Objective Data Active Medications Calcium Carbonate (Calcium Carbonate 750 Mg Tab.Chew) 750 mg PO Q4H PRN PRN Reason: Heartburn Docusate Sodium (Docusate Sodium 100 Mg Capsule) 100 mg PO BID [facility] Last Admin: 11/04/24 08:27 Dose: Not Given Documented By: EILEEN Non-Admin Reason: multiple bm overnight Enoxaparin Sodium (Enoxaparin Sodium 80 Mg/0.8 Ml Syringe) 70 mg SUBCUT Q12H [facility] Last Admin: 11/04/24 08:27 Dose: 70 mg Documented By: EILEEN Guaifenesin/Dextromethorphan (Guaifenesin Dm 600/30 1 Tab Tab.Er.12h) 2 tab PO BID [facility] Last Admin: 11/04/24 08:25 Dose: 2 tab Documented By: EILEEN Acetaminophen (Ofirmev) 1,000 mg in 100 mls @ 400 mls/hr IV Q6H [facility] Last Infusion: 11/04/24 06:57 Dose: Infused Documented By: CL Magnesium Hydroxide (Milk Of Magnesia 30 Ml Oral.Susp) 30 ml PO DAILY PRN PRN Reason: Constipation Melatonin (Melatonin 3 Mg Tablet) 6 mg PO BEDTIME PRN PRN Reason: Insomnia Morphine Sulfate (Morphine Sulfate 4 Mg/Ml Cartridge) 4 mg IVPUSH Q4H PRN; Protocol PRN Reason: Pain, Severe (Pain Scale 7-10) Last Admin: 11/01/24 15:20 Dose: 4 mg Documented By: SHAYY Naloxone HCl (Naloxone Hcl 0.4 Mg/Ml Vial) 0.04 mg IVPUSH Q5M PRN PRN Reason: Excessive sedation or RR < 8 Ondansetron HCl (Ondansetron Hcl 4 Mg/2 Ml Vial) 4 mg IVPUSH Q8H PRN PRN Reason: Nausea and Vomiting Oxycodone HCl (Oxycodone Hcl Immed Release 5 Mg Tablet) 5 mg PO Q4H PRN PRN Reason: Pain, Moderate(Pain Scale 4-6) Polyethylene Glycol (Polyethylene Glycol 3350 17 Gm Powd.Pack) 17 gm PO DAILY [facility] Last Admin: 11/04/24 08:28 Dose: Not Given Documented By: EILEEN Non-Admin Reason: multiple bm overnight Sertraline HCl (Sertraline Hcl 25 Mg Tablet) 25 mg PO DAILY [facility] Last Admin: 11/04/24 08:25 Dose: 25 mg Documented By: EILEEN Sodium Chloride (0.9 % Sodium Chloride Flush 3 Ml Syringe) 3 ml IVFLUSH QSHIFT [facility] Last Admin: 11/04/24 08:28 Dose: 3 ml Documented By: EILEEN Labs 11/02/24 05:11 11/02/24 05:11 Procedures Date of Service Date of Service: 11/04/24 Progress Note: A&P Assessment and plan (1) Recurrent spontaneous pneumothorax: Status: Acute (2) Left leg DVT: Status: Acute Plan 69-year-old male patient with a recurrent left pneumothorax now pod 3 following left VATS, apical blebectomy, apical pleurectomy, chemical pleurodesis, pneumolysis, and intercostal nerve block. He continues to do well. Today's x- ray again shows no change in the left pneumothorax. Chest tube remain unchanged. We will reorder chest x-ray for tomorrow. Time Spent With Patient Time: Total time managing care of this patient today ____ minutes. Quality Stroke Does the patient have a stroke diagnosis?: No VTE Prior VTE?: Yes VTE Risk Level:: Surgical - high VTE Device Contraindication: Procedure Contraindicated VTE Drug Contraindication: N/A - Med Ordered
[2024-11-04 12:15] VITALS: BP 111/62; PULSE 70; RESP 18; TEMP 37; O2SAT 97
[2024-11-04 15:49] VITALS: BP 168/89; PULSE 80; RESP 18; TEMP 37; O2SAT 96
[2024-11-04 16:52] VITALS: BP 135/82; PULSE 71
[2024-11-04 19:27] VITALS: BP 126/78; PULSE 65; RESP 18; TEMP 36.2; O2SAT 98
[2024-11-05] VITALS (7 sets, daily range): BP systolic 111–149; BP diastolic 61–76; PULSE 67–84; RESP 14–18; TEMP 36.2–36.9; O2SAT 94–97
[2024-11-05] MEDS: 0.9 % Sodium Chloride Flush 3 ML SYRINGE IVFLUSH ×2 (01:10→08:19)
[2024-11-05] MEDS: Enoxaparin Sodium 80 MG/0.8 ML SYRINGE 70 MG SUBCUT (08:20)
[2024-11-05] MEDS: Sertraline HCL 25 MG TABLET PO (08:20)
[2024-11-05] MEDS: guaiFENesin DM 600/30 1 TAB TAB.ER.12H 2 TAB PO (09:57)
--- NOTE | 2024-11-05 12:09 | P.PNTS_ITS ---
Subjective Subjective Date of Service: 11/05/24 Interval history: Feels well. Pain is minimal. Denies shortness of breath. Ambulating. Would like to go back to [facility]. Physical Exam Vital Signs: Vital Signs: Last Vital Signs Temp 97.6 F 11/05/24 07:54 Pulse 74 11/05/24 07:54 Resp 14 11/05/24 07:54 BP 120/73 11/05/24 07:54 Pulse Ox 96 11/05/24 07:54 O2 Del Method Room Air 11/05/24 07:54 O2 Flow Rate 3 11/01/24 15:29 BMI result Body Mass Index 27.5 Const: Orientation/consciousness: patient oriented x3 Chest: Other: left VATs incisions clean chest tube in place, no air leak Resp: Effort & Inspection: normal respiratory effort, not labored, not tachypneic and no use of accessory muscles Skin: General skin exam: no rashes or lesions noted Neuro: General: patient oriented x3 and moves all extremities Procedures Date of Service Date of Service: 11/05/24 Progress Note: A&P Assessment and plan (1) Recurrent spontaneous pneumothorax: Status: Acute Plan POD #4 s/p left VATS apical blebectomy, apical pleurectomy chemical pleurodesis ,pneumonolysis, intercostal nerve block. Doing well post op, pain well controlled, ambulating. Overall doing well with good pain control, no respiratory symptoms. VSS. Incisions clean. F/u CXR show small air space where apex was. No air leak on exam. Chest tube therefore removed at bedside uneventfully. Obtain post procedure CXR. PT consult for dispo back to [facility]. Hopefully dc later today if xray is status quo and bed available. Resume eliquis tomorrow. Time Spent With Patient Time: Total time managing care of this patient today ____ minutes. Quality Stroke Does the patient have a stroke diagnosis?: No VTE Prior VTE?: Yes VTE Risk Level:: Surgical - high VTE Device Contraindication: Procedure Contraindicated VTE Drug Contraindication: N/A - Med Ordered
--- NOTE | 2024-11-05 13:08 | P.DS_ITS ---
DS: Providers Provider Date of Service: 11/05/24 Date of admission: 10/30/24 12:55 Date of discharge: 11/05/24 Primary care physician: Elvira Grimes MD Attending physician on admission: Mayo Kendrick Consults: 10/30/24 14:33 Consult to Hospitalist Routine Comment: Consulting Provider: [facility] Hospitalists Reason For Exam: recurrent left PTX, DVT on eliquis 11/05/24 07:57 Consult to Case Management Routine Comment: 11/05/24 08:02 Consult to Case Management Routine Comment: Q.o.d. chest tube dressing changes by VNA please Attending physician on discharge: Mayo Kendrick DS: Diagnosis Discharge Diagnosis (1) Recurrent spontaneous pneumothorax: Status: Acute DS: Summary Hospital Course Hospital Course: HPI AT ADMISSION: Sampson Mackey is a 69 year old male with a plethora of comorbidities and intercurrent medical problems who presents here with a recurrent spontaneous left pneumothorax. He has had 2 prior tube thoracostomy within the last several weeks. Because of his significant intercurrent medical problems, VATS blebectomy was attempted to be averted. Patient also had pleurodesis in an attempt to avoid any surgical intervention. He presents to the clinic today for follow-up and although not short of breath and O2 sats were in the 98%, he had minimal breath sounds on the left side. Chest x-ray from the clinic demonstrated significant left pneumothorax. HOSPITAL COURSE: Patient was admitted to the thoracic surgery service for further treatment of the recurrent left pneumothorax. Plan was for initial tube thoracostomy with left VATs blebectomy for tentatively later in the week. Left pigtail chest tube was inserted uneventfully at bedside on the day of presentation, 10/30/24. His eliquis was held. Hospitalist service was consulted for bridging of his anticoagulation and he was started on lovenox 70 mg BID subq which was held the morning of the procedure. On 11/01/24, left VATS apical blebectomy, apical pleurectomy chemical pleurodesis ,pneumonolysis, intercostal nerve block was performed by Dr. Kendrick without immediate complications. He tolerated the procedure well. His lovenox was resumed 12h later following the procedure. He had an uncomplicated post operative course. He had no air leak on POD #1 and very small air space in apex on CXR. His chest tube was placed to water seal. The air space remained stable and unchanged to water seal for a couple of days without air leak on exam. It was therefore decided to remove chest tube and this happened on POD #4 11/05/24 uneventfully. F/u CXR was unchanged. PT was consulted for dispo planning. He overall felt well with minimal discomfort and was ambulating without difficulty. He denied shortness of breath. He was hemodynamically stable. His incisions were clean. He was discharged back to [facility] on 11/05/24 in stable condition. He is to follow up in the office in 1 week. He is to resume his eliquis for his evening dose on 11/05/24. Chest tube site dressing changes every other day with xeroform, 4x4 and tape. Status at Discharge Functional status at discharge: independent ambulation Overall status at discharge: patient is progressing back to baseline Time Attestation Discharge Coordination Time (in mins): 45 Quality: Safe Use of Opioids Does Pt have an Active Cancer Diagnosis on the Problem List?: No Quality: Stroke Does the patient have a stroke diagnosis?: No Physical Exam Vital Signs: Vital Signs: Last Vital Signs Temp 97.7 F 11/05/24 12:00 Pulse 77 11/05/24 12:00 Resp 16 11/05/24 12:00 BP 123/71 11/05/24 12:00 Pulse Ox 97 11/05/24 12:00 O2 Del Method Room Air 11/05/24 12:00 O2 Flow Rate 3 11/01/24 15:29 BMI result Body Mass Index 27.5 Const: General: comfortable, no acute distress and alert Orientation/consciousness: patient oriented x3 Chest: Other: incisions clean, steris intact Resp: Effort & Inspection: normal respiratory effort, not labored, not tachypneic and no use of accessory muscles Skin: General skin exam: no rashes or lesions noted Neuro: General: patient oriented x3 and moves all extremities DS: Data Data Completed and Pending Completed studies during hospitalization [Text1]: Procedures Drainage of Left Pleural Cavity with Drainage Device, Percutaneous Approach (10/08/24) Introduction of Other Therapeutic Substance into Pleural Cavity, Percutaneous Approach (10/08/24) Pending studies at discharge: Pending at discharge 11/01/24 08:43 Surgical [PTH] Routine Discharge Plan Discharge Anticipated Discharge Date/Time: 11/05/24 15:13 Patient Disposition: Home Health Service Discharge Diagnosis: recurrent left pneumothorax Referrals: Elvira Pang MD [Primary Care Provider] - 1 Week Mayo Kendrick MD [Physician] - 1 Week Discharge Medications: New hydrocodone-acetaminophen 5-325 mg tablet 1 tab PO Q4-6H PRN (Reason: pain) Qty: 30 0RF Rx Instructions: Partial Fill upon patient request. Continued Eliquis 5 mg Tablet 5 mg PO BID Qty: 60 6RF sertraline 25 mg tablet 25 mg PO DAILY Discharge Orders: Discharge Order (Routine); Ordered 11/05/24 Ordered By: Clarita Reveles Diet: Advance to usual diet Activity on Discharge: No heavy lifting Stand Alone Forms: Patient Portal Discharge page Print Language: Kittitian Activity Restrictions/Additional Instructions: Ice to wound 20 minutes several times today and tomorrow. May shower in 2 days. Remove outside dressing only. Leave Steri-Strips intact. No strenuous activities. Chest tube site dressing changes every other day with xeroform, 4x4 and tape. Resume eliquis 5mg PO tonight, 11/05/24. Care Plan Goals: Return to baseline health and resume normal activities following recovery period . Health Concerns: recurrent left pneumothorax Plan of Treatment: s/p left VATS blebectomy, pleurodesis Assessment: Doing well post op.
--- NOTE | 2024-11-05 15:33 | MHC.CM.PN ---
PT WILL DC BACK TO STR AT [facility] TODAY AT 1730 HOURS V[address] [facility] HE WILL GO TO [facility] ROOM 101 PT AWARE
--- NOTE | 2024-11-05 18:07 | PC.NURSE ---
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
== END 2024-11-05 19:10 | disposition home health service (06) | DRG 164 ==
LOC: HO.IMC 13:01 → HO.S3 13:04
PROVIDERS: Nurse Practitioner Acute Care; Physician Assistant Surgical; Admitting Provider Surgery; PCP Internal Medicine; Visit Provider Surgery
PROC: 0BBL4ZZ Excision of Left Lung, Percutaneous Endoscopic Approach (ICD-10-PCS; principal; 2024-11-01 07:30)
DX: J93.83 Other pneumothorax (principal); C78.7 Secondary malignant neoplasm of liver and intrahepatic bile duct; C69.92 Malignant neoplasm of unspecified site of left eye; C43.9 Malignant melanoma of skin, unspecified; Z87.891 Personal history of nicotine dependence; Z79.01 Long term (current) use of anticoagulants; Z79.899 Other long term (current) drug therapy; Z86.718 Personal history of other venous thrombosis and embolism
CPT/HCPCS: 36415; 71045; 71046; 80048; 85025; 85027; 85610; 85730; 86850; 86900; 86901; 88307; 88341; 88342; 97161; 99212; 99215; A7041; J0131; J0666; J0690; J1100; J1171; J1596; J1650; J2003; J2250; J2270; J2371; J2405; J2704; J2795; J3010; J7120

== ENCOUNTER → 2024-10-30 12:55 | Outpatient (BNV) | payer MEDICARE, SELFPAY | PROVIDERS: Admitting Provider Surgery; PCP Internal Medicine; Visit Provider Physician Assistant Surgical | DX: J93.83 Other pneumothorax (principal) | CPT/HCPCS: 32556; 99233 ==

== ENCOUNTER → 2024-10-30 12:55 | Outpatient (BNV) | payer MEDICARE, SELFPAY | PROVIDERS: Admitting Provider Surgery; PCP Internal Medicine; Visit Provider Nurse Practitioner Acute Care | DX: I82.402 Acute embolism and thrombosis of unspecified deep veins of left lower extremity (principal) | CPT/HCPCS: 99223 ==

== ENCOUNTER 2024-11-19 12:48 | Outpatient (REF) | payer MEDICARE, SELFPAY ==
--- NOTE | ~2024-11-19 | XR_ITS ---
EXAMINATION: XR CHEST 2 VIEWS HISTORY: Z98.890 - Other specified postprocedural states COMPARISON: Comparison is made with the prior examination dated 11/05/2024. FINDINGS: PA and lateral views of the chest are submitted. Postsurgical changes are noted at the left lung apex. The lungs are clear. There is a tiny left pleural effusion. There is no right pleural effusion, pneumothorax, or pulmonary vascular congestion. The heart is normal in size. The bones are intact. XR/XR chest 2V IMPRESSION: Postsurgical changes at the left lung apex. Trace left pleural effusion. Electronically signed by: Payam Alberts MD 11/20/2024 08:11 AM EDT
--- OUTSIDE RECORDS SUMMARY | 2024-11-19 15:47 | XMS_ITS | Encounter Summary ---
Author Organization [facility] Address [address] [place] [address] Care Team Providers Care Playground Worker Name Role Phone Bari Rick MD Primary Care Provider [phone] Encounter Details Date Type Department Care Team (Late st Contact Info) Description 11/14/2024 Lab Requisition [facility] - Main Lab [address] [place] [address] Bari Rick MD [address] [place] [phone] Hyperlipidemia, unspecified Social History Tobacco Use Types [...] mmol/L LAB CHEMISTRY METHOD 11/15/2024 11:[address] [facility] Potassium 4.4 3.5 - 5.5 mmol/L LAB CHEMISTRY METHOD 11/15/2024 11:[address] [facility] LAB Chloride 107 96 - 110 mmol/L LAB CHEMISTRY METHOD 11/15/2024 11:[address] [facility] CO2 27 21 - 32 mmol/L LAB CHEMISTRY METHOD 11/15/2024 11:[address] [facility] LAB Anion Gap 7 3 - 11 LAB CHEMISTRY METHOD 11/15/2024 11:[address] [facility] Glucose 77 70 - 100 mg/dL LAB CHEMISTRY METHOD 11/15/2024 11:[address] [facility] BUN 13 5 - 25 mg/dL LAB CHEMISTRY METHOD 11/15/2024 11:[address] [facility] Creatinine 0.73 0.70 - 1.30 mg/dL LAB CHEMISTRY METHOD 11/15/2024 11:[address] [facility] LAB eGFR 97 >=60 mL/min/1. 73m2 LAB CHEMISTRY METHOD 11/15/2024 11:[address] [facility] LAB Comment:Calculation based on the??Chronic Kidney Disease Epidemiology Collaboration (CKD-EPI) equation refit??without adjustment for race. BUN/Creatinine Ratio 17.8 LAB CHEMISTRY METHOD 11/15/2024 11:[address] [facility] Calcium 8.5 8.5 - 10.5 mg/dL LAB CHEMISTRY METHOD 11/15/2024 11:[address] [facility] Blood Venous blood specimen / Unknown Venipuncture / Unknown 11/15/2024 6:09 AM EDT 11/15/2024 10:56 AM EDT us Bari Rick MD LAB BLOOD ORDERABLES Final Resu lt [facility] [address] [place] [address], * (ABNORMAL) Complete blood count (11/15/2024 6:09 AM EDT) WBC 8.7 4.8 - 10.8 K/mcL LAB HEMETOLOGY METHOD 11/15/2024 11:[address] [facility] RBC 3.90(L) 4.50 - 5.50 M/mcL LAB HEMETOLOGY METHOD 11/15/2024 11:[address] [facility] Hemoglobin 12.6(L) 13.5 - 17.5 g/dL LAB HEMETOLOGY METHOD 11/15/2024 11:[address] [facility] Hematocrit 38.7(L) 42.0 - 54.0 % LAB HEMETOLOGY METHOD 11/15/2024 11:[address] [facility] MCV 99.7(H) 79.0 - 98.0 FL LAB HEMETOLOGY METHOD 11/15/2024 11:[address] [facility] MCH 32.5(H) 27.0 - 32.0 pcg LAB HEMETOLOGY METHOD 11/15/2024 11:[address] [facility] MCHC 32.6 32.0 - 37.0 g/dL LAB HEMETOLOGY METHOD 11/15/2024 11:[address] [facility] RDW 13.2 11.0 - 15.0 % LAB HEMETOLOGY METHOD 11/15/2024 11:[address] [facility] Platelets 336 130 - 400 K/mcL LAB HEMETOLOGY METHOD 11/15/2024 11:[address] [facility] MPV 9.4 7.0 - 11.0 FL LAB HEMETOLOGY METHOD 11/15/2024 11:[address] [facility] NRBC 0.0 <1.0 % LAB HEMETOLOGY METHOD 11/15/2024 11:[address] [facility] LAB NRBC Absolute 0.00 <0.10 K/mcL LAB HEMETOLOGY METHOD 11/15/2024 11:[address] [facility] Blood Venous blood specimen / Unknown Venipuncture / Unknown 11/15/2024 6:09 AM EDT 11/15/2024 10:56 AM EDT Bari Rick MD LAB BLOOD ORDERABLES Final Resu lt [facility] [address] [place] [address], documented in this encounter Visit Diagnoses Diagnosis Hyperlipidemia, unspecified documented in this encounter Care Teams Playground Worker Relationship Specialty Start Date End Date Bari Rick MD [address] [place] [address] PCP - General Internal Medicine 10/14/24 documented as of this encounter
--- OUTSIDE RECORDS SUMMARY | 2024-11-19 15:47 | XMS_ITS | Encounter Summary ---
Author Organization [facility] Address [address] [place] [address] Care Team Providers Care General Distillery Worker Name Role Phone Bari Rick MD Primary Care Provider [phone] Encounter Details Date Type Department Care Team (Late st Contact Info) Description 10/17/2024 Lab Requisition [facility] - Main Lab [address] [facility] [place] [address] Bari Rick MD [address] [place] [address] Chronic embolism and thrombosis of [...] fatigue documented in this encounter Care Teams General Distillery Worker Relationship Specialty Start Date End Date Bari Rick MD [address] [place] [address] PCP - General Internal Medicine 10/14/24 documented as of this encounter
--- OUTSIDE RECORDS SUMMARY | 2024-11-19 15:47 | XMS_ITS | Encounter Summary ---
Author Organization [facility] Address [address] [place] [address] Care Team Providers Care Wrapper Selector Name Role Phone Bari Rick MD Primary Care Provider [phone] Encounter Details Date Type Department Care Team (Late st Contact Info) Description 11/07/2024 Lab Requisition [facility] - Main Lab [address] [facility] [place] [address] Bari Rick MD [address] [place] [address] Encounter for surgical aftercare following [...] reflex microscopic (11/06/2024 12:00 AM EDT) Specific [place] Urine 1.019 1.003 - 1.030 LAB URINALYSIS [...] MD LAB URINE ORDERABLES Final Resu lt [facility] [address] [place] [address], * Culture urine (11/06/2024 12:00 AM EDT) Culture, Urine No growth 11/08/2024 11:27 AM EDT [facility] Urine Urine specimen obtained by clean catch procedure / Unknown 11/06/2024 11/07/2024 9:39 AM EDT Bari Rick MD LAB MICROBIOLOGY - [facility] Final Result [facility] [address] [place] [address], documented in this encounter Visit Diagnoses Diagnosis Encounter for surgical aftercare following surgery on the respiratory system documented in this encounter Care Teams Wrapper Selector Relationship Specialty Start Date End Date Bari Rick MD [address] [place] [address] PCP - General Internal Medicine 10/14/24 documented as of this encounter
--- OUTSIDE RECORDS SUMMARY | 2024-11-19 15:47 | XMS_ITS | Encounter Summary ---
Author Organization [facility] Address [address] [place] [address] Care Team Providers Care Pathology Assistant Name Role Phone Bari Rick MD Primary Care Provider [phone] Encounter Details Date Type Department Care Team (Late st Contact Info) Description 11/07/2024 Lab Requisition [facility] - Main Lab [address] [place] [address] Bari Rick MD [address] [place] [phone] Hyperlipidemia, unspecified Social History Tobacco Use Types [...] mmol/L LAB CHEMISTRY METHOD 11/08/2024 11:25 AM [facility] Potassium 4.5 3.5 - 5.5 mmol/L LAB CHEMISTRY METHOD 11/08/2024 11:25 AM [facility] Chloride 101 96 - 110 mmol/L LAB CHEMISTRY METHOD 11/08/2024 11:25 AM [facility] CO2 30 21 - 32 mmol/L LAB CHEMISTRY METHOD 11/08/2024 11:25 AM [facility] Anion Gap 6 3 - 11 LAB CHEMISTRY METHOD 11/08/2024 11:25 AM [facility] Glucose 85 70 - 100 mg/dL LAB CHEMISTRY METHOD 11/08/2024 11:25 AM [facility] BUN 14 5 - 25 mg/dL LAB CHEMISTRY METHOD 11/08/2024 11:25 AM [facility] Creatinine 0.83 0.70 - 1.30 mg/dL LAB CHEMISTRY METHOD 11/08/2024 11:25 AM [facility] eGFR 94 >=60 mL/min/1. 73m2 LAB CHEMISTRY METHOD 11/08/2024 11:25 AM [facility] Comment:Calculation based on the??Chronic Kidney Disease Epidemiology Collaboration (CKD-EPI) equation refit??without adjustment for race. BUN/Creatinine Ratio 16.9 LAB CHEMISTRY METHOD 11/08/2024 11:25 AM [facility] Calcium 8.8 8.5 - 10.5 mg/dL LAB CHEMISTRY METHOD 11/08/2024 11:25 AM [facility] Blood Venous blood specimen / Unknown Venipuncture / Unknown 11/08/2024 6:29 AM EDT 11/08/2024 10:00 AM EDT us Bari Rick MD LAB BLOOD ORDERABLES Final Resu lt [facility] [address] [place] [address], * (ABNORMAL) Complete blood count (11/08/2024 6:29 AM EDT) WBC 9.9 4.8 - 10.8 K/mcL LAB HEMETOLOGY METHOD 11/08/2024 10:19 AM [facility] RBC 4.20(L) 4.50 - 5.50 M/mcL LAB HEMETOLOGY METHOD 11/08/2024 10:19 AM [facility] Hemoglobin 13.5 13.5 - 17.5 g/dL LAB HEMETOLOGY METHOD 11/08/2024 10:19 AM [facility] Hematocrit 42.0 42.0 - 54.0 % LAB HEMETOLOGY METHOD 11/08/2024 10:19 AM [facility] MCV 100.2(H) 79.0 - 98.0 FL LAB HEMETOLOGY METHOD 11/08/2024 10:19 AM [facility] MCH 32.2(H) 27.0 - 32.0 pcg LAB HEMETOLOGY METHOD 11/08/2024 10:19 AM [facility] MCHC 32.1 32.0 - 37.0 g/dL LAB HEMETOLOGY METHOD 11/08/2024 10:19 AM [facility] RDW 13.0 11.0 - 15.0 % LAB HEMETOLOGY METHOD 11/08/2024 10:19 AM [facility] Platelets 346 130 - 400 K/mcL LAB HEMETOLOGY METHOD 11/08/2024 10:19 AM [facility] MPV 9.5 7.0 - 11.0 FL LAB HEMETOLOGY METHOD 11/08/2024 10:19 AM [facility] NRBC 0.0 <1.0 % LAB HEMETOLOGY METHOD 11/08/2024 10:19 AM [facility] NRBC Absolute 0.00 <0.10 K/mcL LAB HEMETOLOGY METHOD 11/08/2024 10:19 AM [facility] Blood Venous blood specimen / Unknown Venipuncture / Unknown 11/08/2024 6:29 AM EDT 11/08/2024 10:00 AM EDT Bari Rick MD LAB BLOOD ORDERABLES Final Resu lt [facility] ([facility] [address] [place] [address], documented in this encounter Visit Diagnoses Diagnosis Hyperlipidemia, unspecified documented in this encounter Care Teams Pathology Assistant Relationship Specialty Start Date End Date Bari Rick MD [address] [place] [address] PCP - General Internal Medicine 10/14/24 documented as of this encounter
--- OUTSIDE RECORDS SUMMARY | 2024-11-19 15:47 | XMS_ITS | Clinical Summary ---
Author Organization [address] Address [address] [place] [address] Phone Care Team Providers Care Membership Sales Advisor Name Role Phone Bari Rick MD Primary Care Provider [phone] Encounters Date Type Department Care Team Description 11/14/2024 Lab Requisition [facility] Lab [address] [place] [address] Bari Rick MD Hyperlipidemia, unspecified 11/10/2024 Lab Requisition [facility] Lab [address] [place] [address] Bari Rick MD Hyperlipidemia, unspecified 11/07/2024 Lab Requisition [facility] Lab [address] [place] [address] Bari Rick MD Hyperlipidemia, unspecified 11/07/2024 Lab Requisition [facility] Lab [address] [place] [address] Bari Rick MD Encounter for surgical aftercare following surgery on the respiratory system 11/06/2024 Lab Requisition [facility] Lab [address] [place] [address] Bari Rick MD Hyperlipidemia, unspecified 10/21/2024 Lab Requisition [facility] Lab [address] [place] [address] Bari Rick MD Chronic embolism and thrombosis of unspecified vein; Weakness; Malignant melanoma of skin, unspecified ([facility]/HCC) 10/17/2024 Lab Requisition [facility] Lab [address] [place] [phone] Bari Rick MD Chronic embolism and thrombosis of unspecified vein; Malignant melanoma of skin, unspecified (CMS/HCC); Weakness 10/15/2024 Lab Requisition [facility] - Main Lab [address] [place] [phone] Bari Rick MD Acute embolism and thrombosis of unspecified deep veins of unspecified lower extremity (CMS/HCC); Weakness; Malignant melanoma of skin, unspecified (CMS/HCC) 10/14/2024 Lab Requisition [facility] Lab [address] [place] [address] Bari Rick MD Chronic embolism [...] K/mcL LAB HEMETOLOGY METHOD 11/15/2024 11:12 AM [facility] RBC 3.90(L) 4.50 - 5.50 M/mcL LAB HEMETOLOGY METHOD 11/15/2024 11:12 AM [facility] Hemoglobin 12.6(L) 13.5 - 17.5 g/dL LAB HEMETOLOGY METHOD 11/15/2024 11:12 AM [facility] Hematocrit 38.7(L) 42.0 - 54.0 % LAB HEMETOLOGY METHOD 11/15/2024 11:12 AM [facility] MCV 99.7(H) 79.0 - 98.0 FL LAB HEMETOLOGY METHOD 11/15/2024 11:12 AM [facility] MCH 32.5(H) 27.0 - 32.0 pcg LAB HEMETOLOGY METHOD 11/15/2024 11:12 AM EDT [facility] MCHC 32.6 32.0 - 37.0 g/dL LAB HEMETOLOGY METHOD 11/15/2024 11:12 AM EDT [facility] RDW 13.2 11.0 - 15.0 % LAB HEMETOLOGY METHOD 11/15/2024 11:12 AM EDT [facility] Platelets 336 130 - 400 K/mcL LAB HEMETOLOGY METHOD 11/15/2024 11:12 AM EDT [facility] MPV 9.4 7.0 - 11.0 FL LAB HEMETOLOGY METHOD 11/15/2024 11:12 AM EDT [facility] NRBC 0.0 <1.0 % LAB HEMETOLOGY METHOD 11/15/2024 11:12 AM EDT [facility] NRBC Absolute 0.00 <0.10 K/mcL LAB HEMETOLOGY METHOD 11/15/2024 11:12 AM T [facility] Blood Venous blood specimen / Unknown Venipuncture / Unknown 11/15/2024 6:09 AM EDT 11/15/2024 10:56 AM EDT us Bari Rick MD LAB BLOOD ORDERABLES Final Resu lt [facility] [address] [place] [address], * Basic metabolic panel (11/15/2024 6:09 AM EDT) Only the most recent of2 resultswithin the time period is included. Sodium 141 133 - 145 mmol/L LAB CHEMISTRY METHOD 11/15/2024 11:33 AM EDT [facility] Potassium 4.4 3.5 - 5.5 mmol/L LAB CHEMISTRY METHOD 11/15/2024 11:33 AM [facility] Chloride 107 96 - 110 mmol/L LAB CHEMISTRY METHOD 11/15/2024 11:33 AM [facility] CO2 27 21 - 32 mmol/L LAB CHEMISTRY METHOD 11/15/2024 11:33 AM [facility] Anion Gap 7 3 - 11 LAB CHEMISTRY METHOD 11/15/2024 11:33 AM [facility] Glucose 77 70 - 100 mg/dL LAB CHEMISTRY METHOD 11/15/2024 11:33 AM [facility] BUN 13 5 - 25 mg/dL LAB CHEMISTRY METHOD 11/15/2024 11:33 AM [facility] Creatinine 0.73 0.70 - 1.30 mg/dL LAB CHEMISTRY METHOD 11/15/2024 11:33 AM [facility] eGFR 97 >=60 mL/min/1. 73m2 LAB CHEMISTRY METHOD 11/15/2024 11:33 AM [facility] Comment:Calculation based on the??Chronic Kidney Disease Epidemiology Collaboration (CKD-EPI) equation refit??without adjustment for race. BUN/Creatinine Ratio 17.8 LAB CHEMISTRY METHOD 11/15/2024 11:33 AM [facility] Calcium 8.5 8.5 - 10.5 mg/dL LAB CHEMISTRY METHOD 11/15/2024 11:33 AM [facility] Blood Venous blood specimen / Unknown Venipuncture / Unknown 11/15/2024 6:09 AM EDT 11/15/2024 10:56 AM EDT us Bari Rick MD LAB BLOOD ORDERABLES Final Resu lt [facility] [address] [place] [address], * (ABNORMAL) Comprehensive metabolic panel (11/12/2024 9:27 AM EDT) Only the most recent of4 resultswithin the time period is included. Sodium 140 133 - 145 mmol/L LAB CHEMISTRY METHOD 11/12/2024 12:15 PM [facility] Potassium 4.5 3.5 - 5.5 mmol/L LAB CHEMISTRY METHOD 11/12/2024 12:15 PM [facility] Chloride 105 96 - 110 mmol/L LAB CHEMISTRY METHOD 11/12/2024 12:15 PM [facility] CO2 28 21 - 32 mmol/L LAB CHEMISTRY METHOD 11/12/2024 12:15 PM [facility] Anion Gap 7 3 - 11 LAB CHEMISTRY METHOD 11/12/2024 12:15 PM [facility] Glucose 88 70 - 100 mg/dL LAB CHEMISTRY METHOD 11/12/2024 12:15 PM [facility] BUN 12 5 - 25 mg/dL LAB CHEMISTRY METHOD 11/12/2024 12:15 PM [facility] Creatinine 0.68(L) 0.70 - 1.30 mg/dL LAB CHEMISTRY METHOD 11/12/2024 12:15 PM [facility] eGFR 99 >=60 mL/min/1. 73m2 LAB CHEMISTRY METHOD 11/12/2024 12:15 PM [facility] Comment:Calculation based on the??Chronic Kidney Disease Epidemiology Collaboration (CKD-EPI) equation refit??without adjustment for race. BUN/Creatinine Ratio 17.6 LAB CHEMISTRY METHOD 11/12/2024 12:15 PM [facility] Calcium 8.5 8.5 - 10.5 mg/dL LAB CHEMISTRY METHOD 11/12/2024 12:15 PM [facility] AST (SGOT) 19 10 - 42 unit/L LAB CHEMISTRY METHOD 11/12/2024 12:15 PM [facility] ALT (SGPT) 31 10 - 60 unit/L LAB CHEMISTRY METHOD 11/12/2024 12:15 PM [facility] Alkaline Phosphatase 76 42 - 121 unit/L LAB CHEMISTRY METHOD 11/12/2024 12:15 PM [facility] Total Protein 6.4 6.0 - 8.0 g/dL LAB CHEMISTRY METHOD 11/12/2024 12:15 PM [facility] Albumin 3.0(L) 3.2 - 5.0 g/dL LAB CHEMISTRY METHOD 11/12/2024 12:15 PM [facility] Total Bilirubin 0.7 0.0 - 1.4 mg/dL LAB CHEMISTRY METHOD 11/12/2024 12:15 PM [facility] Blood Venous blood specimen / Unknown Venipuncture / Unknown 11/12/2024 9:27 AM EDT 11/12/2024 10:48 AM EDT us Bari Rick MD LAB BLOOD ORDERABLES Final Resu lt [facility] [address] [place] [address], [place] [phone] * (ABNORMAL) Urinalysis with reflex microscopic (11/06/2024 12:00 AM EDT) Specific [place] Urine 1.019 1.003 - 1.030 LAB URINALYSIS - AUTOMATED METHOD 11/07/2024 10:22 AM [facility] pH, Urine 6.0 5.0 - 8.0 pH LAB URINALYSIS - AUTOMATED METHOD 11/07/2024 10:22 AM [facility] Leukocytes, Urine Negative Negative LAB URINALYSIS - AUTOMATED METHOD 11/07/2024 10:22 AM [facility] Nitrite, Urine Negative Negative LAB URINALYSIS - AUTOMATED METHOD 11/07/2024 10:22 AM EDT [facility] Protein, Urine Trace <=Trace mg/dL LAB URINALYSIS - AUTOMATED METHOD 11/07/2024 10:22 AM EDT [facility] Glucose, Urine Negative Negative mg/dL LAB URINALYSIS - AUTOMATED METHOD 11/07/2024 10:22 AM [facility] Ketones, Urine Trace(A) Negative mg/dL LAB URINALYSIS - AUTOMATED METHOD 11/07/2024 10:22 AM EDT [facility] Urobilinogen, Urine 1.0 0.2 - 1.0 mg/dL LAB URINALYSIS - AUTOMATED METHOD 11/07/2024 10:22 AM [facility] Bilirubin, Urine Negative Negative LAB URINALYSIS - AUTOMATED METHOD 11/07/2024 10:22 AM [facility] Blood, Urine Negative Negative LAB URINALYSIS - AUTOMATED METHOD 11/07/2024 10:22 AM T [facility] Urine Urine specimen obtained by clean catch procedure / Unknown 11/06/2024 11/07/2024 9:39 AM EDT us Bari Rick MD LAB URINE ORDERABLES Final Resu lt Performing Organization Address [facility]/ZIP Co de Phone Number [facility] [address] [place] [address], [place] [phone] * Culture urine (11/06/2024 12:00 AM EDT) Culture, Urine No growth 11/08/2024 11:27 AM EDT [facility] Urine Urine specimen obtained by clean catch procedure / Unknown 11/06/2024 11/07/2024 9:39 AM EDT us Bari Rick MD LAB MICROBIOLOGY - GENERAL ORDMaribel [facility] [place] Result [facility] LAB [address] [place] [address], from Last 3 Months Insurance MEDICARE [facility] Care Teams Membership Sales Advisor Relationship Specialty Start Date End Date Bari Rick MD [address] [place] [address] PCP - General Internal Medicine 10/14/24
--- OUTSIDE RECORDS SUMMARY | 2024-11-19 15:47 | XMS_ITS | Encounter Summary ---
Author Organization [facility] Address [address] [place] [address] Care Team Providers Care Electronic Design Engineer Name Role Phone Bari Rick MD Primary Care Provider [phone] Encounter Details Date Type Department Care Team (Late st Contact Info) Description 10/21/2024 Lab Requisition [facility] - Main Lab [address] [facility] [place] [address] Bari Rick MD [address] [place] [address] Chronic embolism and thrombosis of [...] unspecified documented in this encounter Care Teams Electronic Design Engineer Relationship Specialty Start Date End Date Bari Rick MD [address] [place] [address] PCP - General Internal Medicine 10/14/24 documented as of this encounter
--- OUTSIDE RECORDS SUMMARY | 2024-11-19 15:47 | XMS_ITS | Encounter Summary ---
Author Organization [facility] Address [address] [place] [address] Care Team Providers Care Bulk Filler Name Role Phone Bari Rick MD Primary Care Provider [phone] Encounter Details Date Type Department Care Team (Late st Contact Info) Description 11/06/2024 Lab Requisition [facility] - Main Lab [address] [place] [address] Bari Rick MD [address] [place] [address] Hyperlipidemia, unspecified Social History Tobacco [...] LAB CHEMISTRY METHOD 11/06/2024 12:15 PM EDT [facility] Potassium 4.1 3.5 - 5.5 mmol/L LAB CHEMISTRY METHOD 11/06/2024 12:15 PM EDT [facility] Chloride 105 96 - 110 mmol/L LAB CHEMISTRY METHOD 11/06/2024 12:15 PM [facility] CO2 25 21 - 32 mmol/L LAB CHEMISTRY METHOD 11/06/2024 12:15 PM [facility] Anion Gap 6 3 - 11 LAB CHEMISTRY METHOD 11/06/2024 12:15 PM [facility] Glucose 91 70 - 100 mg/dL LAB CHEMISTRY METHOD 11/06/2024 12:15 PM [facility] BUN 16 5 - 25 mg/dL LAB CHEMISTRY METHOD 11/06/2024 12:15 PM [facility] Creatinine 0.72 0.70 - 1.30 mg/dL LAB CHEMISTRY METHOD 11/06/2024 12:15 PM [facility] eGFR 98 >=60 mL/min/1. 73m2 LAB CHEMISTRY METHOD 11/06/2024 12:15 PM [facility] Comment:Calculation based on the??Chronic Kidney Disease Epidemiology Collaboration (CKD-EPI) equation refit??without adjustment for race. BUN/Creatinine Ratio 22.2 LAB CHEMISTRY METHOD 11/06/2024 12:15 PM [facility] Calcium 8.6 8.5 - 10.5 mg/dL LAB CHEMISTRY METHOD 11/06/2024 12:15 PM [facility] AST (SGOT) 32 10 - 42 unit/L LAB CHEMISTRY METHOD 11/06/2024 12:15 PM [facility] ALT (SGPT) 58 10 - 60 unit/L LAB CHEMISTRY METHOD 11/06/2024 12:15 PM [facility] Alkaline Phosphatase 81 42 - 121 unit/L LAB CHEMISTRY METHOD 11/06/2024 12:15 PM [facility] Total Protein 6.0 6.0 - 8.0 g/dL LAB CHEMISTRY METHOD 11/06/2024 12:15 PM [facility] Albumin 2.9(L) 3.2 - 5.0 g/dL LAB CHEMISTRY METHOD 11/06/2024 12:15 PM EDT [facility] Total Bilirubin 0.7 0.0 - 1.4 mg/dL LAB CHEMISTRY METHOD 11/06/2024 12:15 PM EDT [facility] Blood Venous blood specimen / Unknown Venipuncture / Unknown 11/06/2024 7:40 AM EDT 11/06/2024 10:01 AM EDT us Bari Rick MD LAB BLOOD ORDERABLES Final Resu lt [facility] [address] [place] [address], [place] [phone] * (ABNORMAL) Complete blood count (11/06/2024 7:40 AM EDT) WBC 8.2 4.8 - 10.8 K/mcL LAB HEMETOLOGY METHOD 11/06/2024 11:17 AM [facility] RBC 4.20(L) 4.50 - 5.50 M/mcL LAB HEMETOLOGY METHOD 11/06/2024 11:17 AM [facility] Hemoglobin 13.7 13.5 - 17.5 g/dL LAB HEMETOLOGY METHOD 11/06/2024 11:17 AM [facility] Hematocrit 41.6(L) 42.0 - 54.0 % LAB HEMETOLOGY METHOD 11/06/2024 11:17 AM EDT [facility] MCV 99.5(H) 79.0 - 98.0 FL LAB HEMETOLOGY METHOD 11/06/2024 11:17 AM EDT [facility] MCH 32.8(H) 27.0 - 32.0 pcg LAB HEMETOLOGY METHOD 11/06/2024 11:17 AM [facility] MCHC 32.9 32.0 - 37.0 g/dL LAB HEMETOLOGY METHOD 11/06/2024 11:17 AM EDT [facility] RDW 12.6 11.0 - 15.0 % LAB HEMETOLOGY METHOD 11/06/2024 11:17 AM EDT [facility] Platelets 318 130 - 400 K/mcL LAB HEMETOLOGY METHOD 11/06/2024 11:17 AM EDT [facility] MPV 9.7 7.0 - 11.0 FL LAB HEMETOLOGY METHOD 11/06/2024 11:17 AM EDT [facility] NRBC 0.0 <1.0 % LAB HEMETOLOGY METHOD 11/06/2024 11:17 AM EDT [facility] NRBC Absolute 0.00 <0.10 K/mcL LAB HEMETOLOGY METHOD 11/06/2024 11:17 AM EDT [facility] Blood Venous blood specimen / Unknown Venipuncture / Unknown 11/06/2024 7:40 AM EDT 11/06/2024 10:01 AM EDT us Bari Rick MD LAB BLOOD ORDERABLES Final Resu lt [facility] [address] [place] [address], documented in this encounter Visit Diagnoses Diagnosis Hyperlipidemia, unspecified documented in this encounter Care Teams Bulk Filler Relationship Specialty Start Date End Date Bari Rick MD [address] [place] [address] PCP - General Internal Medicine 10/14/24 documented as of this encounter
--- OUTSIDE RECORDS SUMMARY | 2024-11-19 15:47 | XMS_ITS | Encounter Summary ---
Author Organization [facility] Address [address] [place] [address] Care Team Providers Care Staff Certified Nurse Midwife Name Role Phone Bari Rick MD Primary Care Provider [phone] Encounter Details Date Type Department Care Team (Late st Contact Info) Description 10/15/2024 Lab Requisition [facility] - Main Lab [address] [facility] [place] [address] Bari Rick MD [address] [place] [address] Acute embolism and thrombosis of [...] mmol/L LAB CHEMISTRY METHOD 10/15/2024 1:40 PM [facility] Potassium 5.0 3.5 - 5.5 mmol/L LAB CHEMISTRY METHOD 10/15/2024 1:40 PM [facility] Chloride 108 96 - 110 mmol/L LAB CHEMISTRY METHOD 10/15/2024 1:40 PM [facility] CO2 23 21 - 32 mmol/L LAB CHEMISTRY METHOD 10/15/2024 1:40 PM [facility] Anion Gap 11 3 - 11 LAB CHEMISTRY METHOD 10/15/2024 1:40 PM [facility] Glucose 71 70 - 100 mg/dL LAB CHEMISTRY METHOD 10/15/2024 1:40 PM [facility] BUN 18 5 - 25 mg/dL LAB CHEMISTRY METHOD 10/15/2024 1:40 PM [facility] Creatinine 0.81 0.70 - 1.30 mg/dL LAB CHEMISTRY METHOD 10/15/2024 1:40 PM [facility] eGFR 94 >=60 mL/min/1. 73m2 LAB CHEMISTRY METHOD 10/15/2024 1:40 PM [facility] Comment:Calculation based on the??Chronic Kidney Disease Epidemiology Collaboration (CKD-EPI) equation refit??without adjustment for race. BUN/Creatinine Ratio 22.2 LAB CHEMISTRY METHOD 10/15/2024 1:40 PM [facility] Calcium 8.4(L) 8.5 - 10.5 mg/dL LAB CHEMISTRY METHOD 10/15/2024 1:40 PM [facility] AST (SGOT) 36 10 - 42 unit/L LAB CHEMISTRY METHOD 10/15/2024 1:40 PM [facility] ALT (SGPT) 49 10 - 60 unit/L LAB CHEMISTRY METHOD 10/15/2024 1:40 PM [facility] Alkaline Phosphatase 68 42 - 121 unit/L LAB CHEMISTRY METHOD 10/15/2024 1:40 PM [facility] Total Protein 5.6(L) 6.0 - 8.0 g/dL LAB CHEMISTRY METHOD 10/15/2024 1:40 PM [facility] Albumin 2.8(L) 3.2 - 5.0 g/dL LAB CHEMISTRY METHOD 10/15/2024 1:40 PM [facility] Total Bilirubin 0.3 0.0 - 1.4 mg/dL LAB CHEMISTRY METHOD 10/15/2024 1:40 PM [facility] Blood Venous blood specimen / Unknown Venipuncture / Unknown 10/15/2024 5:42 AM EST 10/15/2024 11:58 AM EST us Bari Rick MD LAB BLOOD ORDERABLES Final Resu lt [facility] [address] [place] [address], * (ABNORMAL) Complete blood count (10/15/2024 5:42 AM EST) WBC 7.4 4.8 - 10.8 K/mcL LAB HEMETOLOGY METHOD 10/15/2024 1:21 PM [facility] RBC 4.50 4.50 - 5.50 M/mcL LAB HEMETOLOGY METHOD 10/15/2024 1:21 PM [facility] Hemoglobin 14.8 13.5 - 17.5 g/dL LAB HEMETOLOGY METHOD 10/15/2024 1:21 PM [facility] Hematocrit 45.7 42.0 - 54.0 % LAB HEMETOLOGY METHOD 10/15/2024 1:21 PM [facility] MCV 102.7(H) 79.0 - 98.0 FL LAB HEMETOLOGY METHOD 10/15/2024 1:21 PM EST [facility] MCH 33.3(H) 27.0 - 32.0 pcg LAB HEMETOLOGY METHOD 10/15/2024 1:21 PM EST [facility] MCHC 32.4 32.0 - 37.0 g/dL LAB HEMETOLOGY METHOD 10/15/2024 1:21 PM [facility] RDW 11.9 11.0 - 15.0 % LAB HEMETOLOGY METHOD 10/15/2024 1:21 PM [facility] Platelets 347 130 - 400 K/mcL LAB HEMETOLOGY METHOD 10/15/2024 1:21 PM [facility] MPV 9.6 7.0 - 11.0 FL LAB HEMETOLOGY METHOD 10/15/2024 1:21 PM [facility] NRBC 0.0 <1.0 % LAB HEMETOLOGY METHOD 10/15/2024 1:21 PM [facility] NRBC Absolute 0.00 <0.10 K/mcL LAB HEMETOLOGY METHOD 10/15/2024 1:21 PM [facility] Blood Venous blood specimen / Unknown Venipuncture / Unknown 10/15/2024 5:42 AM EST 10/15/2024 11:58 AM EST us Bari Rick MD LAB BLOOD ORDERABLES Final Resu lt [facility] [address] [place] [address], documented in this encounter Visit Diagnoses Diagnosis Acute embolism and thrombosis of unspecified deep veins of unspecified lower extremity Weakness Other malaise and fatigue Malignant melanoma of skin, unspecified documented in this encounter Care Teams Staff Certified Nurse Midwife Relationship Specialty Start Date End Date Bari Rick MD [address] [place] [address] PCP - General Internal Medicine 10/14/24 documented as of this encounter
--- OUTSIDE RECORDS SUMMARY | 2024-11-19 15:47 | XMS_ITS | Encounter Summary ---
Author Organization [facility] Address [address] [place] [address] Care Team Providers Care Laundry Machine Mechanic Name Role Phone Bari Rick MD Primary Care Provider [phone] Encounter Details Date Type Department Care Team (Late st Contact Info) Description 10/14/2024 Lab Requisition [facility] - Main Lab [address] [place] [address] Bari Rick MD [address] [place] [address] Chronic embolism and thrombosis of [...] LAB CHEMISTRY METHOD 10/14/2024 10:15 AM EST [facility] Potassium 4.6 3.5 - 5.5 mmol/L LAB CHEMISTRY METHOD 10/14/2024 10:15 AM EST [facility] Chloride 109 96 - 110 mmol/L LAB CHEMISTRY METHOD 10/14/2024 10:15 AM [facility] CO2 24 21 - 32 mmol/L LAB CHEMISTRY METHOD 10/14/2024 10:15 AM [facility] Anion Gap 8 3 - 11 LAB CHEMISTRY METHOD 10/14/2024 10:15 AM [facility] Glucose 86 70 - 100 mg/dL LAB CHEMISTRY METHOD 10/14/2024 10:15 AM [facility] BUN 18 5 - 25 mg/dL LAB CHEMISTRY METHOD 10/14/2024 10:15 AM [facility] Creatinine 0.80 0.70 - 1.30 mg/dL LAB CHEMISTRY METHOD 10/14/2024 10:15 AM [facility] eGFR 95 >=60 mL/min/1. 73m2 LAB CHEMISTRY METHOD 10/14/2024 10:15 AM [facility] Comment:Calculation based on the??Chronic Kidney Disease Epidemiology Collaboration (CKD-EPI) equation refit??without adjustment for race. BUN/Creatinine Ratio 22.5 LAB CHEMISTRY METHOD 10/14/2024 10:15 AM [facility] Calcium 8.6 8.5 - 10.5 mg/dL LAB CHEMISTRY METHOD 10/14/2024 10:15 AM [facility] AST (SGOT) 39 10 - 42 unit/L LAB CHEMISTRY METHOD 10/14/2024 10:15 AM [facility] ALT (SGPT) 59 10 - 60 unit/L LAB CHEMISTRY METHOD 10/14/2024 10:15 AM [facility] Alkaline Phosphatase 71 42 - 121 unit/L LAB CHEMISTRY METHOD 10/14/2024 10:15 AM [facility] Total Protein 5.8(L) 6.0 - 8.0 g/dL LAB CHEMISTRY METHOD 10/14/2024 10:15 AM [facility] Albumin 2.8(L) 3.2 - 5.0 g/dL LAB CHEMISTRY METHOD 10/14/2024 10:15 AM [facility] Total Bilirubin 0.6 0.0 - 1.4 mg/dL LAB CHEMISTRY METHOD 10/14/2024 10:15 AM [facility] Blood Venous blood specimen / Unknown Venipuncture / Unknown 10/14/2024 6:59 AM EST 10/14/2024 9:11 AM EST us Bari Rick MD LAB BLOOD ORDERABLES Final Resu lt [facility] [address] [place] [address], * (ABNORMAL) Complete blood count (10/14/2024 6:59 AM EST) WBC 7.1 4.8 - 10.8 K/mcL LAB HEMETOLOGY METHOD 10/14/2024 10:21 AM [facility] RBC 4.70 4.50 - 5.50 M/mcL LAB HEMETOLOGY METHOD 10/14/2024 10:21 AM [facility] Hemoglobin 15.7 13.5 - 17.5 g/dL LAB HEMETOLOGY METHOD 10/14/2024 10:21 AM [facility] Hematocrit 47.3 42.0 - 54.0 % LAB HEMETOLOGY METHOD 10/14/2024 10:21 AM [facility] MCV 100.9(H) 79.0 - 98.0 FL LAB HEMETOLOGY METHOD 10/14/2024 10:21 AM [facility] MCH 33.5(H) 27.0 - 32.0 pcg LAB HEMETOLOGY METHOD 10/14/2024 10:21 AM [facility] MCHC 33.2 32.0 - 37.0 g/dL LAB HEMETOLOGY METHOD 10/14/2024 10:21 AM [facility] RDW 11.9 11.0 - 15.0 % LAB HEMETOLOGY METHOD 10/14/2024 10:21 AM EST [facility] Platelets 354 130 - 400 K/mcL LAB HEMETOLOGY METHOD 10/14/2024 10:21 AM EST [facility] MPV 9.4 7.0 - 11.0 FL LAB HEMETOLOGY METHOD 10/14/2024 10:21 AM EST [facility] NRBC 0.0 <1.0 % LAB HEMETOLOGY METHOD 10/14/2024 10:21 AM EST [facility] NRBC Absolute 0.00 <0.10 K/mcL LAB HEMETOLOGY METHOD 10/14/2024 10:21 AM EST [facility] Blood Venous blood specimen / Unknown Venipuncture / Unknown 10/14/2024 6:59 AM EST 10/14/2024 10:20 AM EST us Bari Rick MD LAB BLOOD ORDERABLES Final Resu lt [facility] [address] [place] [address], documented in this encounter Visit Diagnoses Diagnosis Chronic embolism and thrombosis of unspecified vein documented in this encounter Care Teams Laundry Machine Mechanic Relationship Specialty Start Date End Date Bari Rick MD [address] [place] [address] PCP - General Internal Medicine 10/14/24 documented as of this encounter
--- OUTSIDE RECORDS SUMMARY | 2024-11-19 15:47 | XMS_ITS | Encounter Summary ---
Author Organization [facility] Address [address] [place] [address] Care Team Providers Care Roofing Contractor Name Role Phone Bari Rick MD Primary Care Provider [phone] Encounter Details Date Type Department Care Team (Late st Contact Info) Description 11/10/[address] [facility] - Main Lab [address] [place] [address] Bari Rick MD [address] [place] [id number] Hyperlipidemia, unspecified Social History Tobacco Use Types [...] LAB CHEMISTRY METHOD 11/12/2024 12:15 PM T [facility] Potassium 4.5 3.5 - 5.5 mmol/L LAB CHEMISTRY METHOD 11/12/2024 12:15 PM EDT [facility] Chloride 105 96 - 110 mmol/L LAB CHEMISTRY METHOD 11/12/2024 12:15 PM [facility] CO2 28 21 - 32 mmol/L LAB CHEMISTRY METHOD 11/12/2024 12:15 PM [facility] Anion Gap 7 3 - 11 LAB CHEMISTRY METHOD 11/12/2024 12:15 PM [facility] Glucose 88 70 - 100 mg/dL LAB CHEMISTRY METHOD 11/12/2024 12:15 PM [facility] BUN 12 5 - 25 mg/dL LAB CHEMISTRY METHOD 11/12/2024 12:15 PM [facility] Creatinine 0.68(L) 0.70 - 1.30 mg/dL LAB CHEMISTRY METHOD 11/12/2024 12:15 PM [facility] eGFR 99 >=60 mL/min/1. 73m2 LAB CHEMISTRY METHOD 11/12/2024 12:15 PM [facility] Comment:Calculation based on the??Chronic Kidney Disease Epidemiology Collaboration (CKD-EPI) equation refit??without adjustment for race. BUN/Creatinine Ratio 17.6 LAB CHEMISTRY METHOD 11/12/2024 12:15 PM [facility] Calcium 8.5 8.5 - 10.5 mg/dL LAB CHEMISTRY METHOD 11/12/2024 12:15 PM [facility] AST (SGOT) 19 10 - 42 unit/L LAB CHEMISTRY METHOD 11/12/2024 12:15 PM [facility] ALT (SGPT) 31 10 - 60 unit/L LAB CHEMISTRY METHOD 11/12/2024 12:15 PM [facility] Alkaline Phosphatase 76 42 - 121 unit/L LAB CHEMISTRY METHOD 11/12/2024 12:15 PM [facility] Total Protein 6.4 6.0 - 8.0 g/dL LAB CHEMISTRY METHOD 11/12/2024 12:15 PM [facility] Albumin 3.0(L) 3.2 - 5.0 g/dL LAB CHEMISTRY METHOD 11/12/2024 12:15 PM EDT [facility] Total Bilirubin 0.7 0.0 - 1.4 mg/dL LAB CHEMISTRY METHOD 11/12/2024 12:15 PM [facility] Blood Venous blood specimen / Unknown Venipuncture / Unknown 11/12/2024 9:27 AM EDT 11/12/2024 10:48 AM EDT us Bari Rick MD LAB BLOOD ORDERABLES Final Resu lt [facility] [address] [place] [address], * (ABNORMAL) Complete blood count (11/12/2024 9:27 AM EDT) WBC 9.9 4.8 - 10.8 K/mcL LAB HEMETOLOGY METHOD 11/12/2024 12:16 PM [facility] RBC 4.00(L) 4.50 - 5.50 M/mcL LAB HEMETOLOGY METHOD 11/12/2024 12:16 PM [facility] Hemoglobin 13.0(L) 13.5 - 17.5 g/dL LAB HEMETOLOGY METHOD 11/12/2024 12:16 PM [facility] Hematocrit 40.3(L) 42.0 - 54.0 % LAB HEMETOLOGY METHOD 11/12/2024 12:16 PM EDT [facility] MCV 101.8(H) 79.0 - 98.0 FL LAB HEMETOLOGY METHOD 11/12/2024 12:16 PM [facility] MCH 32.8(H) 27.0 - 32.0 pcg LAB HEMETOLOGY METHOD 11/12/2024 12:16 PM [facility] MCHC 32.3 32.0 - 37.0 g/dL LAB HEMETOLOGY METHOD 11/12/2024 12:16 PM EDT [facility] RDW 13.0 11.0 - 15.0 % LAB HEMETOLOGY METHOD 11/12/2024 12:16 PM EDT [facility] Platelets 360 130 - 400 K/mcL LAB HEMETOLOGY METHOD 11/12/2024 12:16 PM EDT [facility] MPV 9.5 7.0 - 11.0 FL LAB HEMETOLOGY METHOD 11/12/2024 12:16 PM EDT [facility] NRBC 0.0 <1.0 % LAB HEMETOLOGY METHOD 11/12/2024 12:16 PM EDT [facility] NRBC Absolute 0.00 <0.10 K/mcL LAB HEMETOLOGY METHOD 11/12/2024 12:16 PM EDT [facility] Blood Venous blood specimen / Unknown Venipuncture / Unknown 11/12/2024 9:27 AM EDT 11/12/2024 10:58 AM EDT Bari Rick MD LAB BLOOD ORDERABLES Final Resu lt [facility] [address] [place] [address], documented in this encounter Visit Diagnoses Diagnosis Hyperlipidemia, unspecified documented in this encounter Care Teams Roofing Contractor Relationship Specialty Start Date End Date Bari Rick MD [address] [place] [address] PCP - General Internal Medicine 10/14/24 documented as of this encounter
== END 2024-11-19 12:49 | disposition home or self-care (01) ==
LOC: HO.XRAY 12:48
PROVIDERS: PCP Internal Medicine; Visit Provider Surgery
DX: Z98.890 Other specified postprocedural states (principal)
CPT/HCPCS: 71046; 99212

== ENCOUNTER 2024-11-19 12:48 | Outpatient (AMB) | payer MEDICARE, SELFPAY ==
[2024-11-19 12:55] VITALS: BP 151/77; PULSE 69
--- NOTE | 2024-11-19 12:55 | MHC.OFFVIS ---
Vital Signs 11/19/24 12:55 Weight 172 lb BP 151/77 H Blood Pressure Location Rt brachial Position Sitting Pulse 69 Intake Visit Reasons: s/p collapsed lung Intake Note: Patient here s/p collapsed lung. Tube sites well healed. Reports feeling well. Manager Product Management Required: No Accompanied by: Self / Same As Patient Allergies No Known Allergies [No Known Allergies*] Allergy (Verified 11/19/24 12:56) Medication List - Last Reconciled 11/19/24 by Mayo Kendrick MD apixaban (Eliquis) 5 mg PO BID sertraline 25 mg PO DAILY HPI Comments Details: Patient was status post left apical blebectomy. Presents for follow-up. He has no respiratory issues or complaints. He otherwise doing relatively well. O2 saturation 97%. [facility] Medical History Ruptured aneurysm of artery Hyperlipidemia Arthritis GERD (gastroesophageal reflux disease) Depression Melanoma metastatic to liver Transaminitis Cyst of right kidney Liver cyst Surgical History History of liver biopsy History of colonoscopy History of knee replacement procedure of right knee History of eye surgery H/O carpal tunnel repair H/O basal cell carcinoma excision History of ear surgery Family History Father Esophageal cancer Mother Hodgkin disease Brother Kidney malignancy Sibling Brother Kidney malignancy Sibling Social History Household Members: None Housing: House Are you a primary tire care manager to a significant other at home: No Do you presently have visiting nurse or other home services: No Alcohol intake: never Patient Tobacco Use Status: Former Tobacco user Tobacco use type: Cigarette Years Smoked: 4 e-Cigarette/Vaping Use: Never Used Second Hand Smoke Exposure: No Use of substances other than those prescribed or required for medical reasons: No Have you been hit, kicked, punched, or otherwise hurt by someone within the past year? 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 Breath sounds bilaterally. GI Other: Abdomen corpulent, soft, benign Assessment & Plan Assessment & Plan (1) S/P video-assisted thoracoscopic surgery (VATS): Code(s): Z98.890 - Other specified postprocedural states Category: Surgical Plan: Current plan is to obtain a postprocedure x-ray and patient was otherwise follow-up p.r.n. based on these results. He also has been instructed to contact his oncologist for follow-up regarding his melanoma issues. Chest x-ray within normal limits. Patient was called with these results on 10/20 Orders: Orders XR chest 2V 11/19/24 Z98.890 - Other specified postprocedural states Coding Level of Care Code Global (48770) Diagnoses S/P video-assisted thoracoscopic surgery (VATS) Z98.890
--- OUTSIDE RECORDS SUMMARY | 2024-11-19 15:08 | XMS_ITS | Encounter Summary ---
Author Organization [facility] Address [address] [place] [address] Care Team Providers Care Still Operator Batch Or Continuous Name Role Phone Bari Rick MD Primary Care Provider [phone] Encounter Details Date Type Department Care Team (Late st Contact Info) Description 11/07/2024 Lab Requisition [facility] - Main Lab [address] [place] [address] Bari Rick MD [address] [place] [phone] Hyperlipidemia, unspecified Social History Tobacco Use Types Packs/Day Years [...] Associated Diagnosis Comments COMPLETE BLOOD COUNT Routine 11/08/2024 6:29 AM EDT Hyperlipidemia, unspecified BASIC METABOLIC PANEL Routine 11/08/2024 6:29 AM EDT Hyperlipidemia, unspecified documented in this encounter Results * Basic metabolic panel (11/08/2024 6:29 AM EDT) Sodium 137 133 - 145 mmol/L LAB CHEMISTRY METHOD 11/08/2024 11:25 AM [facility] Potassium 4.5 3.5 - 5.5 mmol/L LAB CHEMISTRY METHOD 11/08/2024 11:25 AM [facility] Chloride 101 96 - 110 mmol/L LAB CHEMISTRY METHOD 11/08/2024 11:25 AM [facility] CO2 30 21 - 32 mmol/L LAB CHEMISTRY METHOD 11/08/2024 11:25 AM [facility] Anion Gap 6 3 - 11 LAB CHEMISTRY METHOD 11/08/2024 11:25 AM [facility] Glucose 85 70 - 100 mg/dL LAB CHEMISTRY METHOD 11/08/2024 11:25 AM [facility] BUN 14 5 - 25 mg/dL LAB CHEMISTRY METHOD 11/08/2024 11:25 AM [facility] Creatinine 0.83 0.70 - 1.30 mg/dL LAB CHEMISTRY METHOD 11/08/2024 11:25 AM [facility] eGFR 94 >=60 mL/min/1. 73m2 LAB CHEMISTRY METHOD 11/08/2024 11:25 AM [facility] Comment:Calculation based on the??Chronic Kidney Disease Epidemiology Collaboration (CKD-EPI) equation refit??without adjustment for race. BUN/Creatinine Ratio 16.9 LAB CHEMISTRY METHOD 11/08/2024 11:25 AM [facility] Calcium 8.8 8.5 - 10.5 mg/dL LAB CHEMISTRY METHOD 11/08/2024 11:25 AM [facility] Blood Venous blood specimen / Unknown Venipuncture / Unknown 11/08/2024 6:29 AM EDT 11/08/2024 10:00 AM EDT us Bari Rick MD LAB BLOOD ORDERABLES Final Resu lt [facility] [address] [place] [address], * (ABNORMAL) Complete blood count (11/08/2024 6:29 AM EDT) WBC 9.9 4.8 - 10.8 K/mcL LAB HEMETOLOGY METHOD 11/08/2024 10:19 AM [facility] RBC 4.20(L) 4.50 - 5.50 M/mcL LAB HEMETOLOGY METHOD 11/08/2024 10:19 AM [facility] Hemoglobin 13.5 13.5 - 17.5 g/dL LAB HEMETOLOGY METHOD 11/08/2024 10:19 AM [facility] Hematocrit 42.0 42.0 - 54.0 % LAB HEMETOLOGY METHOD 11/08/2024 10:19 AM [facility] MCV 100.2(H) 79.0 - 98.0 FL LAB HEMETOLOGY METHOD 11/08/2024 10:19 AM [facility] MCH 32.2(H) 27.0 - 32.0 pcg LAB HEMETOLOGY METHOD 11/08/2024 10:19 AM [facility] MCHC 32.1 32.0 - 37.0 g/dL LAB HEMETOLOGY METHOD 11/08/2024 10:19 AM [facility] RDW 13.0 11.0 - 15.0 % LAB HEMETOLOGY METHOD 11/08/2024 10:19 AM [facility] Platelets 346 130 - 400 K/mcL LAB HEMETOLOGY METHOD 11/08/2024 10:19 AM [facility] MPV 9.5 7.0 - 11.0 FL LAB HEMETOLOGY METHOD 11/08/2024 10:19 AM [facility] NRBC 0.0 <1.0 % LAB HEMETOLOGY METHOD 11/08/2024 10:19 AM [facility] NRBC Absolute 0.00 <0.10 K/mcL LAB HEMETOLOGY METHOD 11/08/2024 10:19 AM [facility] Blood Venous blood specimen / Unknown Venipuncture / Unknown 11/08/2024 6:29 AM EDT 11/08/2024 10:00 AM EDT Bari Rick MD LAB BLOOD ORDERABLES Final Resu lt [facility] [address] [place] [address], documented in this encounter Visit Diagnoses Diagnosis Hyperlipidemia, unspecified documented in this encounter Care Teams Still Operator Batch Or Continuous Relationship Specialty Start Date End Date Bari Rick MD [address] [place] [address] PCP - General Internal Medicine 10/14/24 documented as of this encounter
--- OUTSIDE RECORDS SUMMARY | 2024-11-19 15:08 | XMS_ITS | Encounter Summary ---
Author Organization [facility] Address [address] [place] [address] Care Team Providers Care University President Name Role Phone Bari Rick MD Primary Care Provider [phone] Encounter Details Date Type Department Care Team (Late st Contact Info) Description 11/07/2024 Lab Requisition [facility] - Main Lab [address] [place] [address] Bari Rick MD [address] [place] [address] Encounter for surgical aftercare following surgery on the respiratory system Social History Tobacco Use Types Packs/Day Years [...] Procedure Name Priority Date/Time Associated Diagnosis Comments URINALYSIS WITH REFLEX MICROSCOPIC Routine 11/06/2024 12:00 AM EDT Encounter for surgical aftercare following surgery on the respiratory system URINALYSIS WITH REFLEX MICROSCOPIC Routine 11/06/2024 12:00 AM EDT Encounter for surgical aftercare following surgery on the respiratory system CULTURE URINE Routine 11/06/2024 12:00 AM EDT Encounter for surgical aftercare following surgery on the respiratory system documented in this encounter Results * (ABNORMAL) Urinalysis with reflex microscopic (11/06/2024 12:00 AM EDT) Specific [place] Urine 1.019 1.003 - 1.030 LAB URINALYSIS - AUTOMATED METHOD 11/07/2024 10:22 AM [facility] pH, Urine 6.0 5.0 - 8.0 pH LAB URINALYSIS - AUTOMATED METHOD 11/07/2024 10:22 AM [facility] Leukocytes, Urine Negative Negative LAB URINALYSIS - AUTOMATED METHOD 11/07/2024 10:22 AM [facility] Nitrite, Urine Negative Negative LAB URINALYSIS - AUTOMATED METHOD 11/07/2024 10:22 AM [facility] Protein, Urine Trace <=Trace mg/dL LAB URINALYSIS - AUTOMATED METHOD 11/07/2024 10:22 AM [facility] Glucose, Urine Negative Negative mg/dL LAB URINALYSIS - AUTOMATED METHOD 11/07/2024 10:22 AM [facility] Ketones, Urine Trace(A) Negative mg/dL LAB URINALYSIS - AUTOMATED METHOD 11/07/2024 10:22 AM [facility] Urobilinogen, Urine 1.0 0.2 - 1.0 mg/dL LAB URINALYSIS - AUTOMATED METHOD 11/07/2024 10:22 AM [facility] Bilirubin, Urine Negative Negative LAB URINALYSIS - AUTOMATED METHOD 11/07/2024 10:22 AM [facility] Blood, Urine Negative Negative LAB URINALYSIS - AUTOMATED METHOD 11/07/2024 10:22 AM [facility] Urine Urine specimen obtained by clean catch procedure / Unknown 11/06/2024 11/07/2024 9:39 AM EDT us Bari Rick MD LAB URINE ORDERABLES Final Resu lt [facility] [address] [place] [address], * Culture urine (11/06/2024 12:00 AM EDT) Culture, Urine No growth 11/08/2024 11:27 AM EDT [facility] Urine Urine specimen obtained by clean catch procedure / Unknown 11/06/2024 11/07/2024 9:39 AM EDT Bari Rick MD LAB MICROBIOLOGY - [facility] Final Result [facility] [address] [place] [address], documented in this encounter Visit Diagnoses Diagnosis Encounter for surgical aftercare following surgery on the respiratory system documented in this encounter Care Teams University President Relationship Specialty Start Date End Date Bari Rick MD [address] [place] [address] PCP - General Internal Medicine 10/14/24 documented as of this encounter
--- OUTSIDE RECORDS SUMMARY | 2024-11-19 15:08 | XMS_ITS | Patient Health Record ---
Author Organization [facility] Address [address] [place] [address] Care Team Providers Care Activities Attendant Name Role Phone Elvira Pang Primary Care Provider Unavailab Sanchez Perez Jr Unavailable [phone] Allergies No Known Allergies Results Component Value Reference Range Notes MR abdomen wo/w con Reviewed date:07/18/2024 08:21:58 AM Interpretation: Performing Lab: Notes/Report: [address] [address] Magnetic Resonance Report Signed Patient: Sampson Mackey MR#: [id number] 963 : 1955 Acct:[id number] Age/Sex: 69 / M ADM Date: 07/15/24 Loc: HO.MRI Attending Dr: Sanchez Hawley MD Ordering Physician: Sanchez Hawley MD Date of Service: 07/15/24 Procedure(s): MR abdomen wo/w con Accession Number(s): [id number] cc: Sanchez Hawley MD; Elvira Pang MD [...] by: Bishop Gasca MD 07/16/2024 04:23 PM [facility] Dictated By: Isael Gasca MD Signed By: <Electronically signed by Isael Gasca MD in OV> 07/16/24 1623 DD/ 1240 TD/TT: 07/15/24 [address]: [place] [address] Magnetic Resonance Report Signed Patient: Neil Mackey MR#: [id number] 963 : 1955 Acct:[id number] Age/Sex: 69 / M ADM Date: 07/15/24 Loc: HO.MRI Attending Dr: Yonathan Hawley MD Ordering Physician: Sanchez Hawley MD Date of Service: 07/15/24 Procedure(s): MR alisha byers wo/w con Accession Number(s): [id number] cc: Sanchez Hawley MD; Elvira Pang MD [...] by: Bishop Gasca MD 07/16/2024 04:23 PM [facility] Dictated By: Isael Gasca MD Signed By: <[facility] signed by Isael Gasca MD in OV> 07/16/24 1623 DD/ 1240 TD/TT: 07/15/24 [address] Tailer: JANENE Reason For Referral No Information Immunizations Vaccine Route Administration Date Status Comme nts Influenza Unknown 07/15/2019 Administered Influenza Unknown 03/15/2021 Administered Influenza Unknown 06/20/2024 Administered Influenza Unknown 06/27/2023 Refused Problems Problem Type SNOMED Code ICD Code Onset Dates Problem Status W/U Status Risk Notes Problem 751553239 Colon cancer screening (Z12.11) Active confirmed Problem Diverticular disease of colon (176282458) Diverticulosis (K57.90) Active confirmed Problem 372637329 Gastroesophageal reflux disease without esophagitis (K21.9) Active confirmed Problem 476454837 Fatty liver (K76.0) Active confirmed Problem 749813572 Liver lesion (K76.9) Active confirmed Problem 171149216 Abnormal magneti c resonance imaging of liver (R93.2) Active confirmed Vital Signs Temperature 97.5 degrees Fahrenheit 06/27/2024 Blood pressure diastolic 00 mm Hg 06/27/2024 Height 64.5 in 06/27/2024 Blood pressure systolic 000 mm Hg 06/27/2024 Weight 191 lbs 06/27/2024 BMI 32.28 kg/m2 06/27/2024 Encounters Encounter Location Date Provider Diagnosis [facility] [address] [place] [address] 06/27/2024 Sanchez Hawley Jr Colon cancer screening Z12.11 ; Abnormal magnetic resonance imaging of liver R93.2 and Gastroesophageal reflux disease without esophagitis K21.9 [facility] [address] [place] [address] 07/18/2024 Sanchez Hawley Jr Abnormal magnetic resonance imaging of liver R93.2 [facility] [address] [place] [address] 08/03/2024 Sanchez Hawley Jr [facility] [address] [place] [address] 10/03/2024 Sanchez Hawley Jr Assessments Encounter Date [...] CONTRAST 08/18/2023 MRI ABD W&WO CONTRAST 09/09/2023 MRI ABD W&WO CONTRAST 06/27/2024 XR GI SERIES 11/01/2012 XR GI SERIES 11/01/2013 US ABD 06/27/2023 MR abdomen wo/w con 07/18/2024 Future Test Test Name Order Date UPPER GI ENDOSCOPY 08/28/2012 COLONOSCOPY 01/28/2016 COLONOSCOPY 07/25/2019 COLONOSCOPY 06/27/2024 Insurance Providers Payer Name Payer Address Payer Phone Subscriber Number Group Number Insured Name Patient Relationship to Insured Coverage Start Date Coverage End Date MEDICARE OF [place] [address] [place] [address] [id number] SAMPSON MACKEY Self - patient is the insured [employer] ATT[employer] CLAIMS [address] [place] [address] [id number] SAMPSON MACKEY Self - patient is the insured Medical (General) History Medical History History ICD Code colonoscopy 10/12/19, tubular adenoma x1, five-year followup onychomycosis carpal tunnel syndrome Basal cell skin cancers GERD, EGD 11/01/12 elevated cholesterol Intraocular melanoma, left eye, 2018, 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 Bach carpal tunnel
--- OUTSIDE RECORDS SUMMARY | 2024-11-19 15:08 | XMS_ITS | Encounter Summary ---
Author Organization [facility] Address [address] [place] [address] Care Team Providers Care Cemetery Warden Name Role Phone Bari Rick MD Primary Care Provider [phone] Encounter Details Date Type Department Care Team (Late st Contact Info) Description 10/15/2024 Lab Requisition [facility] - Main Lab [address] [facility] [place] [address] Bari Rick MD [address] [place] [address] Acute embolism and thrombosis of [...] mmol/L LAB CHEMISTRY METHOD 10/15/2024 1:40 PM [facility] Potassium 5.0 3.5 - 5.5 mmol/L LAB CHEMISTRY METHOD 10/15/2024 1:40 PM [facility] Chloride 108 96 - 110 mmol/L LAB CHEMISTRY METHOD 10/15/2024 1:40 PM [facility] CO2 23 21 - 32 mmol/L LAB CHEMISTRY METHOD 10/15/2024 1:40 PM [facility] Anion Gap 11 3 - 11 LAB CHEMISTRY METHOD 10/15/2024 1:40 PM [facility] Glucose 71 70 - 100 mg/dL LAB CHEMISTRY METHOD 10/15/2024 1:40 PM [facility] BUN 18 5 - 25 mg/dL LAB CHEMISTRY METHOD 10/15/2024 1:40 PM [facility] Creatinine 0.81 0.70 - 1.30 mg/dL LAB CHEMISTRY METHOD 10/15/2024 1:40 PM [facility] eGFR 94 >=60 mL/min/1. 73m2 LAB CHEMISTRY METHOD 10/15/2024 1:40 PM [facility] Comment:Calculation based on the??Chronic Kidney Disease Epidemiology Collaboration (CKD-EPI) equation refit??without adjustment for race. BUN/Creatinine Ratio 22.2 LAB CHEMISTRY METHOD 10/15/2024 1:40 PM [facility] Calcium 8.4(L) 8.5 - 10.5 mg/dL LAB CHEMISTRY METHOD 10/15/2024 1:40 PM [facility] AST (SGOT) 36 10 - 42 unit/L LAB CHEMISTRY METHOD 10/15/2024 1:40 PM [facility] ALT (SGPT) 49 10 - 60 unit/L LAB CHEMISTRY METHOD 10/15/2024 1:40 PM [facility] Alkaline Phosphatase 68 42 - 121 unit/L LAB CHEMISTRY METHOD 10/15/2024 1:40 PM [facility] Total Protein 5.6(L) 6.0 - 8.0 g/dL LAB CHEMISTRY METHOD 10/15/2024 1:40 PM [facility] Albumin 2.8(L) 3.2 - 5.0 g/dL LAB CHEMISTRY METHOD 10/15/2024 1:40 PM [facility] Total Bilirubin 0.3 0.0 - 1.4 mg/dL LAB CHEMISTRY METHOD 10/15/2024 1:40 PM [facility] Blood Venous blood specimen / Unknown Venipuncture / Unknown 10/15/2024 5:42 AM EST 10/15/2024 11:58 AM EST us Bari Rick MD LAB BLOOD ORDERABLES Final Resu lt [facility] [address] [place] [address], * (ABNORMAL) Complete blood count (10/15/2024 5:42 AM EST) WBC 7.4 4.8 - 10.8 K/mcL LAB HEMETOLOGY METHOD 10/15/2024 1:21 PM [facility] RBC 4.50 4.50 - 5.50 M/mcL LAB HEMETOLOGY METHOD 10/15/2024 1:21 PM [facility] Hemoglobin 14.8 13.5 - 17.5 g/dL LAB HEMETOLOGY METHOD 10/15/2024 1:21 PM [facility] Hematocrit 45.7 42.0 - 54.0 % LAB HEMETOLOGY METHOD 10/15/2024 1:21 PM [facility] MCV 102.7(H) 79.0 - 98.0 FL LAB HEMETOLOGY METHOD 10/15/2024 1:21 PM EST [facility] MCH 33.3(H) 27.0 - 32.0 pcg LAB HEMETOLOGY METHOD 10/15/2024 1:21 PM EST [facility] MCHC 32.4 32.0 - 37.0 g/dL LAB HEMETOLOGY METHOD 10/15/2024 1:21 PM [facility] RDW 11.9 11.0 - 15.0 % LAB HEMETOLOGY METHOD 10/15/2024 1:21 PM [facility] Platelets 347 130 - 400 K/mcL LAB HEMETOLOGY METHOD 10/15/2024 1:21 PM [facility] MPV 9.6 7.0 - 11.0 FL LAB HEMETOLOGY METHOD 10/15/2024 1:21 PM [facility] NRBC 0.0 <1.0 % LAB HEMETOLOGY METHOD 10/15/2024 1:21 PM [facility] NRBC Absolute 0.00 <0.10 K/mcL LAB HEMETOLOGY METHOD 10/15/2024 1:21 PM [facility] Blood Venous blood specimen / Unknown Venipuncture / Unknown 10/15/2024 5:42 AM EST 10/15/2024 11:58 AM EST us Bari Rick MD LAB BLOOD ORDERABLES Final Resu lt [facility] [address] [place] [address], documented in this encounter Visit Diagnoses Diagnosis Acute embolism and thrombosis of unspecified deep veins of unspecified lower extremity Weakness Other malaise and fatigue Malignant melanoma of skin, unspecified documented in this encounter Care Teams Cemetery Warden Relationship Specialty Start Date End Date Bari Rick MD [address] [place] [address] PCP - General Internal Medicine 10/14/24 documented as of this encounter
--- OUTSIDE RECORDS SUMMARY | 2024-11-19 15:08 | XMS_ITS | Encounter Summary ---
Author Organization [facility] Address [address] [place] [address] Care Team Providers Care Legal Word Processor Name Role Phone Bari Rick MD Primary Care Provider [phone] Encounter Details Date Type Department Care Team (Late st Contact Info) Description 10/14/2024 Lab Requisition [facility] - Main Lab [address] [place] [address] Bari Rick MD [address] [place] [address] Chronic embolism and thrombosis of [...] LAB CHEMISTRY METHOD 10/14/2024 10:15 AM EST [facility] Potassium 4.6 3.5 - 5.5 mmol/L LAB CHEMISTRY METHOD 10/14/2024 10:15 AM EST [facility] Chloride 109 96 - 110 mmol/L LAB CHEMISTRY METHOD 10/14/2024 10:15 AM [facility] CO2 24 21 - 32 mmol/L LAB CHEMISTRY METHOD 10/14/2024 10:15 AM [facility] Anion Gap 8 3 - 11 LAB CHEMISTRY METHOD 10/14/2024 10:15 AM [facility] Glucose 86 70 - 100 mg/dL LAB CHEMISTRY METHOD 10/14/2024 10:15 AM [facility] BUN 18 5 - 25 mg/dL LAB CHEMISTRY METHOD 10/14/2024 10:15 AM [facility] Creatinine 0.80 0.70 - 1.30 mg/dL LAB CHEMISTRY METHOD 10/14/2024 10:15 AM [facility] eGFR 95 >=60 mL/min/1. 73m2 LAB CHEMISTRY METHOD 10/14/2024 10:15 AM [facility] Comment:Calculation based on the??Chronic Kidney Disease Epidemiology Collaboration (CKD-EPI) equation refit??without adjustment for race. BUN/Creatinine Ratio 22.5 LAB CHEMISTRY METHOD 10/14/2024 10:15 AM [facility] Calcium 8.6 8.5 - 10.5 mg/dL LAB CHEMISTRY METHOD 10/14/2024 10:15 AM [facility] AST (SGOT) 39 10 - 42 unit/L LAB CHEMISTRY METHOD 10/14/2024 10:15 AM [facility] ALT (SGPT) 59 10 - 60 unit/L LAB CHEMISTRY METHOD 10/14/2024 10:15 AM [facility] Alkaline Phosphatase 71 42 - 121 unit/L LAB CHEMISTRY METHOD 10/14/2024 10:15 AM [facility] Total Protein 5.8(L) 6.0 - 8.0 g/dL LAB CHEMISTRY METHOD 10/14/2024 10:15 AM [facility] Albumin 2.8(L) 3.2 - 5.0 g/dL LAB CHEMISTRY METHOD 10/14/2024 10:15 AM [facility] Total Bilirubin 0.6 0.0 - 1.4 mg/dL LAB CHEMISTRY METHOD 10/14/2024 10:15 AM [facility] Blood Venous blood specimen / Unknown Venipuncture / Unknown 10/14/2024 6:59 AM EST 10/14/2024 9:11 AM EST us Bari Rick MD LAB BLOOD ORDERABLES Final Resu lt [facility] [address] [place] [address], * (ABNORMAL) Complete blood count (10/14/2024 6:59 AM EST) WBC 7.1 4.8 - 10.8 K/mcL LAB HEMETOLOGY METHOD 10/14/2024 10:21 AM [facility] RBC 4.70 4.50 - 5.50 M/mcL LAB HEMETOLOGY METHOD 10/14/2024 10:21 AM [facility] Hemoglobin 15.7 13.5 - 17.5 g/dL LAB HEMETOLOGY METHOD 10/14/2024 10:21 AM [facility] Hematocrit 47.3 42.0 - 54.0 % LAB HEMETOLOGY METHOD 10/14/2024 10:21 AM [facility] MCV 100.9(H) 79.0 - 98.0 FL LAB HEMETOLOGY METHOD 10/14/2024 10:21 AM [facility] MCH 33.5(H) 27.0 - 32.0 pcg LAB HEMETOLOGY METHOD 10/14/2024 10:21 AM [facility] MCHC 33.2 32.0 - 37.0 g/dL LAB HEMETOLOGY METHOD 10/14/2024 10:21 AM [facility] RDW 11.9 11.0 - 15.0 % LAB HEMETOLOGY METHOD 10/14/2024 10:21 AM EST [facility] Platelets 354 130 - 400 K/mcL LAB HEMETOLOGY METHOD 10/14/2024 10:21 AM EST [facility] MPV 9.4 7.0 - 11.0 FL LAB HEMETOLOGY METHOD 10/14/2024 10:21 AM EST [facility] NRBC 0.0 <1.0 % LAB HEMETOLOGY METHOD 10/14/2024 10:21 AM EST [facility] NRBC Absolute 0.00 <0.10 K/mcL LAB HEMETOLOGY METHOD 10/14/2024 10:21 AM EST [facility] Blood Venous blood specimen / Unknown Venipuncture / Unknown 10/14/2024 6:59 AM EST 10/14/2024 10:20 AM EST us Bari Rick MD LAB BLOOD ORDERABLES Final Resu lt [facility] [address] [place] [address], documented in this encounter Visit Diagnoses Diagnosis Chronic embolism and thrombosis of unspecified vein documented in this encounter Care Teams Legal Word Processor Relationship Specialty Start Date End Date Bari Rick MD [address] [place] [address] PCP - General Internal Medicine 10/14/24 documented as of this encounter
--- OUTSIDE RECORDS SUMMARY | 2024-11-19 15:08 | XMS_ITS | Encounter Summary ---
Author Organization [facility] Address [address] [place] [address] Care Team Providers Care Manager Mechanical Maintenance Name Role Phone Bari Rick MD Primary Care Provider [phone] Encounter Details Date Type Department Care Team (Late st Contact Info) Description 11/14/[address] [facility] - Main Lab [address] [place] [address] Bari Rick MD [address] [place] [phone] Hyperlipidemia, unspecified Social History Tobacco Use Types [...] Associated Diagnosis Comments COMPLETE BLOOD COUNT Routine 11/15/2024 6:09 AM EDT Hyperlipidemia, unspecified BASIC METABOLIC PANEL Routine 11/15/2024 6:09 AM EDT Hyperlipidemia, unspecified documented in this encounter Results * Basic metabolic panel (11/15/2024 6:09 AM EDT) Sodium 141 133 - 145 mmol/L LAB CHEMISTRY METHOD 11/15/2024 11:33 AM [facility] Potassium 4.4 3.5 - 5.5 mmol/L LAB CHEMISTRY METHOD 11/15/2024 11:33 AM [facility] Chloride 107 96 - 110 mmol/L LAB CHEMISTRY METHOD 11/15/2024 11:33 AM [facility] CO2 27 21 - 32 mmol/L LAB CHEMISTRY METHOD 11/15/2024 11:33 AM [facility] Anion Gap 7 3 - 11 LAB CHEMISTRY METHOD 11/15/2024 11:33 AM [facility] Glucose 77 70 - 100 mg/dL LAB CHEMISTRY METHOD 11/15/2024 11:33 AM [facility] BUN 13 5 - 25 mg/dL LAB CHEMISTRY METHOD 11/15/2024 11:33 AM [facility] Creatinine 0.73 0.70 - 1.30 mg/dL LAB CHEMISTRY METHOD 11/15/2024 11:33 AM [facility] eGFR 97 >=60 mL/min/1. 73m2 LAB CHEMISTRY METHOD 11/15/2024 11:33 AM [facility] Comment:Calculation based on the??Chronic Kidney Disease Epidemiology Collaboration (CKD-EPI) equation refit??without adjustment for race. BUN/Creatinine Ratio 17.8 LAB CHEMISTRY METHOD 11/15/2024 11:33 AM [facility] Calcium 8.5 8.5 - 10.5 mg/dL LAB CHEMISTRY METHOD 11/15/2024 11:33 AM [facility] Blood Venous blood specimen / Unknown Venipuncture / Unknown 11/15/2024 6:09 AM EDT 11/15/2024 10:56 AM EDT us Bari Rick MD LAB BLOOD ORDERABLES Final Resu lt [facility] [address] [place] [address], * (ABNORMAL) Complete blood count (11/15/2024 6:09 AM EDT) WBC 8.7 4.8 - 10.8 K/mcL LAB HEMETOLOGY METHOD 11/15/2024 11:12 AM [facility] RBC 3.90(L) 4.50 - 5.50 M/mcL LAB HEMETOLOGY METHOD 11/15/2024 11:12 AM [facility] Hemoglobin 12.6(L) 13.5 - 17.5 g/dL LAB HEMETOLOGY METHOD 11/15/2024 11:12 AM [facility] Hematocrit 38.7(L) 42.0 - 54.0 % LAB HEMETOLOGY METHOD 11/15/2024 11:12 AM [facility] MCV 99.7(H) 79.0 - 98.0 FL LAB HEMETOLOGY METHOD 11/15/2024 11:12 AM [facility] MCH 32.5(H) 27.0 - 32.0 pcg LAB HEMETOLOGY METHOD 11/15/2024 11:12 AM [facility] MCHC 32.6 32.0 - 37.0 g/dL LAB HEMETOLOGY METHOD 11/15/2024 11:12 AM [facility] RDW 13.2 11.0 - 15.0 % LAB HEMETOLOGY METHOD 11/15/2024 11:12 AM [facility] Platelets 336 130 - 400 K/mcL LAB HEMETOLOGY METHOD 11/15/2024 11:12 AM [facility] MPV 9.4 7.0 - 11.0 FL LAB HEMETOLOGY METHOD 11/15/2024 11:12 AM [facility] NRBC 0.0 <1.0 % LAB HEMETOLOGY METHOD 11/15/2024 11:12 AM [facility] NRBC Absolute 0.00 <0.10 K/mcL LAB HEMETOLOGY METHOD 11/15/2024 11:12 AM [facility] Blood Venous blood specimen / Unknown Venipuncture / Unknown 11/15/2024 6:09 AM EDT 11/15/2024 10:56 AM EDT Bari Rick MD LAB BLOOD ORDERABLES Final Resu lt [facility] [address] [place] [address], documented in this encounter Visit Diagnoses Diagnosis Hyperlipidemia, unspecified documented in this encounter Care Teams Manager Mechanical Maintenance Relationship Specialty Start Date End Date Bari Rick MD [address] [place] [address] PCP - General Internal Medicine 10/14/24 documented as of this encounter
--- OUTSIDE RECORDS SUMMARY | 2024-11-19 15:08 | XMS_ITS ---
Author Organization [facility] Address [address] [place] [address] Care Team Providers Care Barge Captain Name Role Phone Elvira Pang Primary Care Provider Sanchez Floyd Jr REASON FOR VISIT screening Encounters Encounter Location Date Provider Diagnosis [facility] Outpatient [address] [place], [place] [id number] 10/09/2024 Sanchez Hawley Jr Plan Of Treatment No Information Progress Notes * GUILLERMINA, SHARMINDOB:1955 (69 yo M)Acc No.[id number]:10/09/2024 COLON WITH MAC Patient:?SHARMIN SARMIENTO Provider:?Sanchez Hawley MD :1955???Age:69 Y???Sex:Male Damian e:10/09/2024 Address:[address] [place] [address] [id number] Pcp:Elvira Grimes Subjective: * Chief Complaints: * [...] MD Date:?0 10/09/2024 Generated for Phyllis miner/Yas/eTransmitting on:?11/19/2024 03:08 PM EDT
--- OUTSIDE RECORDS SUMMARY | 2024-11-19 15:08 | XMS_ITS | Encounter Summary ---
Author Organization [facility] Address [address] [place] [address] Care Team Providers Care Speech Teacher Name Role Phone Bari Rick MD Primary Care Provider [phone] Encounter Details Date Type Department Care Team (Late st Contact Info) Description 11/10/[address] [facility] - Main Lab [address] [place] [address] Bari Rick MD [address] [place] [phone] Hyperlipidemia, unspecified Social History Tobacco Use Types [...] Associated Diagnosis Comments COMPLETE BLOOD COUNT Routine 11/12/2024 9:27 AM EDT Hyperlipidemia, unspecified COMPREHENSIVE METABOLIC PANEL Routine 11/12/2024 9:27 AM EDT Hyperlipidemia, unspecified documented in this encounter Results * (ABNORMAL) Comprehensive metabolic panel (11/12/2024 9:27 AM EDT) Sodium 140 133 - 145 mmol/L LAB CHEMISTRY METHOD 11/12/2024 12:15 PM T [facility] Potassium 4.5 3.5 - 5.5 mmol/L LAB CHEMISTRY METHOD 11/12/2024 12:15 PM EDT [facility] Chloride 105 96 - 110 mmol/L LAB CHEMISTRY METHOD 11/12/2024 12:15 PM [facility] CO2 28 21 - 32 mmol/L LAB CHEMISTRY METHOD 11/12/2024 12:15 PM [facility] Anion Gap 7 3 - 11 LAB CHEMISTRY METHOD 11/12/2024 12:15 PM [facility] Glucose 88 70 - 100 mg/dL LAB CHEMISTRY METHOD 11/12/2024 12:15 PM [facility] BUN 12 5 - 25 mg/dL LAB CHEMISTRY METHOD 11/12/2024 12:15 PM [facility] Creatinine 0.68(L) 0.70 - 1.30 mg/dL LAB CHEMISTRY METHOD 11/12/2024 12:15 PM [facility] eGFR 99 >=60 mL/min/1. 73m2 LAB CHEMISTRY METHOD 11/12/2024 12:15 PM [facility] Comment:Calculation based on the??Chronic Kidney Disease Epidemiology Collaboration (CKD-EPI) equation refit??without adjustment for race. BUN/Creatinine Ratio 17.6 LAB CHEMISTRY METHOD 11/12/2024 12:15 PM [facility] Calcium 8.5 8.5 - 10.5 mg/dL LAB CHEMISTRY METHOD 11/12/2024 12:15 PM [facility] AST (SGOT) 19 10 - 42 unit/L LAB CHEMISTRY METHOD 11/12/2024 12:15 PM [facility] ALT (SGPT) 31 10 - 60 unit/L LAB CHEMISTRY METHOD 11/12/2024 12:15 PM [facility] Alkaline Phosphatase 76 42 - 121 unit/L LAB CHEMISTRY METHOD 11/12/2024 12:15 PM [facility] Total Protein 6.4 6.0 - 8.0 g/dL LAB CHEMISTRY METHOD 11/12/2024 12:15 PM [facility] Albumin 3.0(L) 3.2 - 5.0 g/dL LAB CHEMISTRY METHOD 11/12/2024 12:15 PM EDT [facility] Total Bilirubin 0.7 0.0 - 1.4 mg/dL LAB CHEMISTRY METHOD 11/12/2024 12:15 PM [facility] Blood Venous blood specimen / Unknown Venipuncture / Unknown 11/12/2024 9:27 AM EDT 11/12/2024 10:48 AM EDT us Bari Rick MD LAB BLOOD ORDERABLES Final Resu lt [facility] [address] [place] [address], * (ABNORMAL) Complete blood count (11/12/2024 9:27 AM EDT) WBC 9.9 4.8 - 10.8 K/mcL LAB HEMETOLOGY METHOD 11/12/2024 12:16 PM [facility] RBC 4.00(L) 4.50 - 5.50 M/mcL LAB HEMETOLOGY METHOD 11/12/2024 12:16 PM [facility] Hemoglobin 13.0(L) 13.5 - 17.5 g/dL LAB HEMETOLOGY METHOD 11/12/2024 12:16 PM [facility] Hematocrit 40.3(L) 42.0 - 54.0 % LAB HEMETOLOGY METHOD 11/12/2024 12:16 PM EDT [facility] MCV 101.8(H) 79.0 - 98.0 FL LAB HEMETOLOGY METHOD 11/12/2024 12:16 PM [facility] MCH 32.8(H) 27.0 - 32.0 pcg LAB HEMETOLOGY METHOD 11/12/2024 12:16 PM [facility] MCHC 32.3 32.0 - 37.0 g/dL LAB HEMETOLOGY METHOD 11/12/2024 12:16 PM EDT [facility] RDW 13.0 11.0 - 15.0 % LAB HEMETOLOGY METHOD 11/12/2024 12:16 PM EDT [facility] Platelets 360 130 - 400 K/mcL LAB HEMETOLOGY METHOD 11/12/2024 12:16 PM EDT [facility] MPV 9.5 7.0 - 11.0 FL LAB HEMETOLOGY METHOD 11/12/2024 12:16 PM EDT [facility] NRBC 0.0 <1.0 % LAB HEMETOLOGY METHOD 11/12/2024 12:16 PM EDT [facility] NRBC Absolute 0.00 <0.10 K/mcL LAB HEMETOLOGY METHOD 11/12/2024 12:16 PM EDT [facility] Blood Venous blood specimen / Unknown Venipuncture / Unknown 11/12/2024 9:27 AM EDT 11/12/2024 10:58 AM EDT Bari Rick MD LAB BLOOD ORDERABLES Final Resu lt [facility] [address] [place] [address], documented in this encounter Visit Diagnoses Diagnosis Hyperlipidemia, unspecified documented in this encounter Care Teams Speech Teacher Relationship Specialty Start Date End Date Bari Rick MD [address] [place] [address] PCP - General Internal Medicine 10/14/24 documented as of this encounter
--- OUTSIDE RECORDS SUMMARY | 2024-11-19 15:08 | XMS_ITS | Encounter Summary ---
Author [facility] Address [address] [place] [address] Care Team Providers Care Lever Operator Name Role Phone Bari Rick MD Primary Care Provider [phone] Encounter Details Date Type Department Care Team (Late st Contact Info) Description 10/21/[address] [facility] - Main Lab [address] [facility] [place] [address] Bari Rick MD [address] [place] [address] Chronic embolism and thrombosis of unspecified vein; Weakness; Malignant melanoma of skin, unspecified (CMS/HCC) [...] Chronic embolism and thrombosis of unspecified vein Weakness Other malaise and fatigue Malignant melanoma of skin, unspecified documented in this encounter Care Teams Lever Operator Relationship Specialty Start Date End Date Bari Rick MD [address] [place] [address] PCP - General Internal Medicine 10/14/24 documented as of this encounter
--- OUTSIDE RECORDS SUMMARY | 2024-11-19 15:09 | XMS_ITS ---
Author Organization [facility] Address [address] [place] [address] Care Team Providers Care Osteopathic Medicine Teacher Name Role Phone Elvira Pang Primary Care Provider Sanchez Floyd Jr REASON FOR VISIT cancelling his colonoscopy for 09/2024 Encounters Encounter Location Date Provider Diagnosis [facility] [address] [place] [phone] 10/03/2024 Sanchez Hawley Jr Plan Of Treatment No Information Progress Notes * SHARMIN SARMIENTODOB:1955 (69 yo M)Acc No.[id number]:10/03/2024 Patient:?SHARMIN SARMIENTO :1955???Age:69 Y???Sex:Male Address:[address] [place] [address] * true * Date:? Generated for Phyllis miner/Yas/eTransmitting on:?11/19/2024 03:08 PM EDT
--- OUTSIDE RECORDS SUMMARY | 2024-11-19 15:09 | XMS_ITS ---
Author Organization [facility] Address [address] [place] [address] Care Team Providers Care Wrapper Stemmer Hand Name Role Phone Elvira Pang Primary Care Provider Unavailab Sanchez Perez Jr [phone] REASON FOR VISIT records Encounters Encounter Location Date Provider Diagnosis [facility] [address] [place] [address] 08/03/2024 Sanchez Hawley Jr Plan Of Treatment No Information Progress Notes * SHARMIN SARMIENTODOB:1955 (69 yo M)Acc No.[id number]:08/03/2024 Patient:?GUILLERMINA SHARMIN :1955???Age:69 Y???Sex:Male Address:[address] [place] [address] * true * Date:? Generated for Phyllis miner/Yas/eTransmitting on:?11/19/2024 03:08 PM EDT
--- OUTSIDE RECORDS SUMMARY | 2024-11-19 15:09 | XMS_ITS | Encounter Summary ---
Author Organization [facility] Address [address] [place] [address] Care Team Providers Care Clinical Law Professor Name Role Phone Bari Rick MD Primary Care Provider [phone] Encounter Details Date Type Department Care Team (Late st Contact Info) Description 10/17/2024 Lab Requisition [facility] - Main Lab [address] [facility] [place] [address] Bari Rick MD [address] [place] [address] Chronic embolism and thrombosis of [...] unspecified vein Malignant melanoma of skin, unspecified Weakness Other malaise and fatigue documented in this encounter Care Teams Clinical Law Professor Relationship Specialty Start Date End Date Bari Rick MD [address] [place] [address] PCP - General Internal Medicine 10/14/24 documented as of this encounter
--- OUTSIDE RECORDS SUMMARY | 2024-11-19 15:09 | XMS_ITS | Clinical Summary ---
Author Organization [address] Address [address] [place] [address] Phone Care Team Providers Care Client Care Consultant Name Role Phone Bari Rick MD Primary Care Provider [phone] Encounters Date Type Department Care Team Description 11/14/2024 Lab Requisition [facility] Lab [address] [place] [address] Bari Rick MD Hyperlipidemia, unspecified 11/10/2024 Lab Requisition [facility] Lab [address] [place] [address] Bari Rick MD Hyperlipidemia, unspecified 11/07/2024 Lab Requisition [facility] Lab [address] [place] [address] Bari Rick MD Hyperlipidemia, unspecified 11/07/2024 Lab Requisition [facility] Lab [address] [place] [address] Bari Rick MD Encounter for surgical aftercare following surgery on the respiratory system 11/06/2024 Lab Requisition [facility] Lab [address] [place] [address] Bari Rick MD Hyperlipidemia, unspecified 10/21/2024 Lab Requisition [facility] Lab [address] [place] [address] Bari Rick MD Chronic embolism and thrombosis of unspecified vein; Weakness; Malignant melanoma of skin, unspecified ([facility]/HCC) 10/17/2024 Lab Requisition [facility] Lab [address] [place] [phone] Bari Rick MD Chronic embolism and thrombosis of unspecified vein; Malignant melanoma of skin, unspecified (CMS/HCC); Weakness 10/15/[address] [facility] Lab [address] [place] [phone] Bari Rick MD Acute embolism and thrombosis of unspecified deep veins of unspecified lower extremity (CMS/HCC); Weakness; Malignant melanoma of skin, unspecified (CMS/HCC) 10/14/2024 Lab Requisition [facility] Lab [address] [place] [address] Bari Rick MD Chronic embolism and thrombosis [...] Last Done Comments COVID-19 Vaccine (#1) 1960 Hepatitis A Vaccines (1 of 2 - Risk 2-dose series) 1972 Pneumococcal Vaccine: 50+ Ye ars (1 of 2 - PCV) 1972 Zoster Vaccines (1 of 2) 1972 Hepatitis B Vaccines (1 of 3 - Risk 3-dose series) 2013 RSV Immunization Adult Patie nts (1 - Risk 60-74 years 1-dose series) 2013 DTaP,Tdap,and Td Vaccines (2 - Td or Tdap) 08/15/2014 08/15/2004 Abdominal Aortic Aneurysm (A AA) Screen 07/14/2022 Cholesterol Screening (Lipid Panel) 07/14/2022 Colorectal Cancer Screening: Colonoscopy 07/14/2022 Depression Screening 07/14/2022 Falls Risk Assessment 07/14/2022 Hepatitis C Screening 07/14/2022 Medicare Annual Wellness Visit 07/14/2022 Social Influencers of Health Screening 07/14/2022 Influenza Vaccine (Season Ended) 2025 04/28/20 09 HIB Vaccines Aged Out No longer eligi [...] age to complete this topic Meningococcal B Vaccine Aged Out No l onger eligible based on patient's age to complete this topic RSV Immunization Patients Un jose 20 months Aged Out No longer eligible b ased on patient's age to complete this topic Varicella Vaccines Aged Out No longer eligible based on patient's age to complete this topic Procedures Procedure Name Priority Date/Time Associated Diagnosis Comments BASIC METABOLIC PANEL Routine 11/15/2024 6:09 AM EDT Hyperlipidemia, unspecified COMPLETE BLOOD COUNT Routine 11/15/2024 6:09 AM EDT Hyperlipidemia, unspecified COMPREHENSIVE METABOLIC PANEL Routine 11/12/2024 9:27 AM EDT Hyperlipidemia, unspecified COMPLETE BLOOD COUNT Routine 11/12/2024 9:27 AM EDT Hyperlipidemia, unspecified BASIC METABOLIC PANEL Routine 11/08/2024 6:29 AM EDT Hyperlipidemia, unspecified COMPLETE BLOOD COUNT Routine 11/08/2024 6:29 AM EDT Hyperlipidemia, unspecified COMPREHENSIVE METABOLIC PANEL Routine 11/06/2024 7:40 AM EDT Hyperlipidemia, unspecified COMPLETE BLOOD COUNT Routine 11/06/2024 7:40 AM EDT Hyperlipidemia, unspecified URINALYSIS WITH REFLEX MICROSCOPIC Routine 11/06/2024 12:00 AM EDT Encounter for surgical aftercare following surgery on the respiratory system URINALYSIS WITH REFLEX MICROSCOPIC Routine 11/06/2024 12:00 AM EDT Encounter for surgical aftercare following surgery on the respiratory system CULTURE URINE Routine 11/06/2024 12:00 AM EDT Encounter for surgical aftercare following surgery on the respiratory system COMPREHENSIVE METABOLIC PANEL Routine 10/15/2024 5:42 AM [...] Months Results * (ABNORMAL) Complete blood count (11/15/2024 6:09 AM EDT) Only the most recent of6 resultswithin the time period is included. WBC 8.7 4.8 - 10.8 K/mcL LAB HEMETOLOGY METHOD 11/15/2024 11:12 AM [facility] LAB RBC 3.90(L) 4.50 - 5.50 M/mcL LAB HEMETOLOGY METHOD 11/15/2024 11:12 AM [facility] LAB Hemoglobin 12.6(L) 13.5 - 17.5 g/dL LAB HEMETOLOGY METHOD 11/15/2024 11:12 AM [facility] LAB Hematocrit 38.7(L) 42.0 - 54.0 % LAB HEMETOLOGY METHOD 11/15/2024 11:12 AM [facility] LAB MCV 99.7(H) 79.0 - 98.0 FL LAB HEMETOLOGY METHOD 11/15/2024 11:12 AM [facility] LAB MCH 32.5(H) 27.0 - 32.0 pcg LAB HEMETOLOGY METHOD 11/15/2024 11:12 AM EDT [facility] LAB MCHC 32.6 32.0 - 37.0 g/dL LAB HEMETOLOGY METHOD 11/15/2024 11:12 AM EDT [facility] LAB RDW 13.2 11.0 - 15.0 % LAB HEMETOLOGY METHOD 11/15/2024 11:12 AM EDT [facility] LAB Platelets 336 130 - 400 K/mcL LAB HEMETOLOGY METHOD 11/15/2024 11:12 AM EDT [facility] LAB MPV 9.4 7.0 - 11.0 FL LAB HEMETOLOGY METHOD 11/15/2024 11:12 AM EDT [facility] LAB NRBC 0.0 <1.0 % LAB HEMETOLOGY METHOD 11/15/2024 11:12 AM EDT [facility] LAB NRBC Absolute 0.00 <0.10 K/mcL LAB HEMETOLOGY METHOD 11/15/2024 11:12 AM T [facility] LAB Blood Venous blood specimen / Unknown Venipuncture / Unknown 11/15/2024 6:09 AM EDT 11/15/2024 10:56 AM EDT us Bari Rick MD LAB BLOOD ORDERABLES Final Resu lt [facility] LAB [address] [place] [address], * Basic metabolic panel (11/15/2024 6:09 AM EDT) Only the most recent of2 resultswithin the time period is included. Sodium 141 133 - 145 mmol/L LAB CHEMISTRY METHOD 11/15/2024 11:33 AM EDT [facility] LAB Potassium 4.4 3.5 - 5.5 mmol/L LAB CHEMISTRY METHOD 11/15/2024 11:33 AM [facility] LAB Chloride 107 96 - 110 mmol/L LAB CHEMISTRY METHOD 11/15/2024 11:33 AM [facility] LAB CO2 27 21 - 32 mmol/L LAB CHEMISTRY METHOD 11/15/2024 11:33 AM [facility] LAB Anion Gap 7 3 - 11 LAB CHEMISTRY METHOD 11/15/2024 11:33 AM [facility] LAB Glucose 77 70 - 100 mg/dL LAB CHEMISTRY METHOD 11/15/2024 11:33 AM [facility] LAB BUN 13 5 - 25 mg/dL LAB CHEMISTRY METHOD 11/15/2024 11:33 AM [facility] LAB Creatinine 0.73 0.70 - 1.30 mg/dL LAB CHEMISTRY METHOD 11/15/2024 11:33 AM [facility] LAB eGFR 97 >=60 mL/min/1. 73m2 LAB CHEMISTRY METHOD 11/15/2024 11:33 AM [facility] LAB Comment:Calculation based on the??Chronic Kidney Disease Epidemiology Collaboration (CKD-EPI) equation refit??without adjustment for race. BUN/Creatinine Ratio 17.8 LAB CHEMISTRY METHOD 11/15/2024 11:33 AM [facility] LAB Calcium 8.5 8.5 - 10.5 mg/dL LAB CHEMISTRY METHOD 11/15/2024 11:33 AM [facility] LAB Blood Venous blood specimen / Unknown Venipuncture / Unknown 11/15/2024 6:09 AM EDT 11/15/2024 10:56 AM EDT us Bari Rick MD LAB BLOOD ORDERABLES Final Resu lt [facility] LAB [address] [place] [address], * (ABNORMAL) Comprehensive metabolic panel (11/12/2024 9:27 AM EDT) Only the most recent of4 resultswithin the time period is included. Sodium 140 133 - 145 mmol/L LAB CHEMISTRY METHOD 11/12/2024 12:15 PM [facility] LAB Potassium 4.5 3.5 - 5.5 mmol/L LAB CHEMISTRY METHOD 11/12/2024 12:15 PM [facility] LAB Chloride 105 96 - 110 mmol/L LAB CHEMISTRY METHOD 11/12/2024 12:15 PM [facility] LAB CO2 28 21 - 32 mmol/L LAB CHEMISTRY METHOD 11/12/2024 12:15 PM [facility] LAB Anion Gap 7 3 - 11 LAB CHEMISTRY METHOD 11/12/2024 12:15 PM [facility] LAB Glucose 88 70 - 100 mg/dL LAB CHEMISTRY METHOD 11/12/2024 12:15 PM [facility] LAB BUN 12 5 - 25 mg/dL LAB CHEMISTRY METHOD 11/12/2024 12:15 PM [facility] LAB Creatinine 0.68(L) 0.70 - 1.30 mg/dL LAB CHEMISTRY METHOD 11/12/2024 12:15 PM [facility] LAB eGFR 99 >=60 mL/min/1. 73m2 LAB CHEMISTRY METHOD 11/12/2024 12:15 PM [facility] LAB Comment:Calculation based on the??Chronic Kidney Disease Epidemiology Collaboration (CKD-EPI) equation refit??without adjustment for race. BUN/Creatinine Ratio 17.6 LAB CHEMISTRY METHOD 11/12/2024 12:15 PM [facility] LAB Calcium 8.5 8.5 - 10.5 mg/dL LAB CHEMISTRY METHOD 11/12/2024 12:15 PM [facility] LAB AST (SGOT) 19 10 - 42 unit/L LAB CHEMISTRY METHOD 11/12/2024 12:15 PM [facility] LAB ALT (SGPT) 31 10 - 60 unit/L LAB CHEMISTRY METHOD 11/12/2024 12:15 PM [facility] LAB Alkaline Phosphatase 76 42 - 121 unit/L LAB CHEMISTRY METHOD 11/12/2024 12:15 PM [facility] LAB Total Protein 6.4 6.0 - 8.0 g/dL LAB CHEMISTRY METHOD 11/12/2024 12:15 PM [facility] LAB Albumin 3.0(L) 3.2 - 5.0 g/dL LAB CHEMISTRY METHOD 11/12/2024 12:15 PM [facility] LAB Total Bilirubin 0.7 0.0 - 1.4 mg/dL LAB CHEMISTRY METHOD 11/12/2024 12:15 PM [facility] LAB Blood Venous blood specimen / Unknown Venipuncture / Unknown 11/12/2024 9:27 AM EDT 11/12/2024 10:48 AM EDT us Bari Rick MD LAB BLOOD ORDERABLES Final Resu lt [facility] LAB [address] [place] [address], [place] [phone] * (ABNORMAL) Urinalysis with reflex microscopic (11/06/2024 12:00 AM EDT) Specific [place] Urine 1.019 1.003 - 1.030 LAB URINALYSIS - AUTOMATED METHOD 11/07/2024 10:22 AM [facility] LAB pH, Urine 6.0 5.0 - 8.0 pH LAB URINALYSIS - AUTOMATED METHOD 11/07/2024 10:22 AM [facility] LAB Leukocytes, Urine Negative Negative LAB URINALYSIS - AUTOMATED METHOD 11/07/2024 10:22 AM [facility] LAB Nitrite, Urine Negative Negative LAB URINALYSIS - AUTOMATED METHOD 11/07/2024 10:22 AM EDT [facility] LAB Protein, Urine Trace <=Trace mg/dL LAB URINALYSIS - AUTOMATED METHOD 11/07/2024 10:22 AM EDT [facility] LAB Glucose, Urine Negative Negative mg/dL LAB URINALYSIS - AUTOMATED METHOD 11/07/2024 10:22 AM [facility] LAB Ketones, Urine Trace(A) Negative mg/dL LAB URINALYSIS - AUTOMATED METHOD 11/07/2024 10:22 AM EDT [facility] LAB Urobilinogen, Urine 1.0 0.2 - 1.0 mg/dL LAB URINALYSIS - AUTOMATED METHOD 11/07/2024 10:22 AM [facility] LAB Bilirubin, Urine Negative Negative LAB URINALYSIS - AUTOMATED METHOD 11/07/2024 10:22 AM [facility] LAB Blood, Urine Negative Negative LAB URINALYSIS - AUTOMATED METHOD 11/07/2024 10:22 AM T [facility] LAB Urine Urine specimen obtained by clean catch procedure / Unknown 11/06/2024 11/07/2024 9:39 AM EDT us Bari Rick MD LAB URINE ORDERABLES Final Resu lt Performing Organization Address [facility]/ZIP Co de Phone Number [facility] LAB [address] [place] [address], [place] [phone] * Culture urine (11/06/2024 12:00 AM EDT) Culture, Urine No growth 11/08/2024 11:27 AM EDT [facility] LAB Urine Urine specimen obtained by clean catch procedure / Unknown 11/06/2024 11/07/2024 9:39 AM EDT us Bari Rick MD LAB MICROBIOLOGY - GENERAL ORDMaribel [facility] Final Result [facility] LAB [address] [place] [address], from Last 3 Months Insurance MEDICARE [facility] Care Teams Client Care Consultant Relationship Specialty Start Date End Date Bari Rick MD [address] [place] [address] PCP - General Internal Medicine 10/14/24
--- OUTSIDE RECORDS SUMMARY | 2024-11-19 15:09 | XMS_ITS | Encounter Summary ---
Author Organization [facility] Address [address] [place] [address] Care Team Providers Care Pay Station Attendant Name Role Phone Bari Rick MD Primary Care Provider [phone] Encounter Details Date Type Department Care Team (Late st Contact Info) Description 11/06/2024 Lab Requisition [facility] - Main Lab [address] [place] [address] Bari Rick MD [address] [place] [address] Hyperlipidemia, unspecified Social History Tobacco Use Types [...] Associated Diagnosis Comments COMPLETE BLOOD COUNT Routine 11/06/2024 7:40 AM EDT Hyperlipidemia, unspecified COMPREHENSIVE METABOLIC PANEL Routine 11/06/2024 7:40 AM EDT Hyperlipidemia, unspecified documented in this encounter Results * (ABNORMAL) Comprehensive metabolic panel (11/06/2024 7:40 AM EDT) Sodium 136 133 - 145 mmol/L LAB CHEMISTRY METHOD 11/06/2024 12:15 PM EDT [facility] Potassium 4.1 3.5 - 5.5 mmol/L LAB CHEMISTRY METHOD 11/06/2024 12:15 PM EDT [facility] LAB Chloride 105 96 - 110 mmol/L LAB CHEMISTRY METHOD 11/06/2024 12:15 PM [facility] LAB CO2 25 21 - 32 mmol/L LAB CHEMISTRY METHOD 11/06/2024 12:15 PM [facility] LAB Anion Gap 6 3 - 11 LAB CHEMISTRY METHOD 11/06/2024 12:15 PM [facility] LAB Glucose 91 70 - 100 mg/dL LAB CHEMISTRY METHOD 11/06/2024 12:15 PM [facility] BUN 16 5 - 25 mg/dL LAB CHEMISTRY METHOD 11/06/2024 12:15 PM [facility] LAB Creatinine 0.72 0.70 - 1.30 mg/dL LAB CHEMISTRY METHOD 11/06/2024 12:15 PM [facility] LAB eGFR 98 >=60 mL/min/1. 73m2 LAB CHEMISTRY METHOD 11/06/2024 12:15 PM [facility] LAB Comment:Calculation based on the??Chronic Kidney Disease Epidemiology Collaboration (CKD-EPI) equation refit??without adjustment for race. BUN/Creatinine Ratio 22.2 LAB CHEMISTRY METHOD 11/06/2024 12:15 PM [facility] LAB Calcium 8.6 8.5 - 10.5 mg/dL LAB CHEMISTRY METHOD 11/06/2024 12:15 PM [facility] LAB AST (SGOT) 32 10 - 42 unit/L LAB CHEMISTRY METHOD 11/06/2024 12:15 PM [facility] LAB ALT (SGPT) 58 10 - 60 unit/L LAB CHEMISTRY METHOD 11/06/2024 12:15 PM [facility] LAB Alkaline Phosphatase 81 42 - 121 unit/L LAB CHEMISTRY METHOD 11/06/2024 12:15 PM [facility] LAB Total Protein 6.0 6.0 - 8.0 g/dL LAB CHEMISTRY METHOD 11/06/2024 12:15 PM [facility] LAB Albumin 2.9(L) 3.2 - 5.0 g/dL LAB CHEMISTRY METHOD 11/06/2024 12:15 PM EDT [facility] LAB Total Bilirubin 0.7 0.0 - 1.4 mg/dL LAB CHEMISTRY METHOD 11/06/2024 12:15 PM EDT [facility] LAB Blood Venous blood specimen / Unknown Venipuncture / Unknown 11/06/2024 7:40 AM EDT 11/06/2024 10:01 AM EDT us Bari Rick MD LAB BLOOD ORDERABLES Final Resu lt [facility] [address] [place] [address], [place] [phone] * (ABNORMAL) Complete blood count (11/06/2024 7:40 AM EDT) WBC 8.2 4.8 - 10.8 K/mcL LAB HEMETOLOGY METHOD 11/06/2024 11:17 AM [facility] LAB RBC 4.20(L) 4.50 - 5.50 M/mcL LAB HEMETOLOGY METHOD 11/06/2024 11:17 AM [facility] LAB Hemoglobin 13.7 13.5 - 17.5 g/dL LAB HEMETOLOGY METHOD 11/06/2024 11:17 AM [facility] LAB Hematocrit 41.6(L) 42.0 - 54.0 % LAB HEMETOLOGY METHOD 11/06/2024 11:17 AM EDT [facility] LAB MCV 99.5(H) 79.0 - 98.0 FL LAB HEMETOLOGY METHOD 11/06/2024 11:17 AM EDT [facility] LAB MCH 32.8(H) 27.0 - 32.0 pcg LAB HEMETOLOGY METHOD 11/06/2024 11:17 AM [facility] LAB MCHC 32.9 32.0 - 37.0 g/dL LAB HEMETOLOGY METHOD 11/06/2024 11:17 AM EDT [facility] LAB RDW 12.6 11.0 - 15.0 % LAB HEMETOLOGY METHOD 11/06/2024 11:17 AM EDT [facility] LAB Platelets 318 130 - 400 K/mcL LAB HEMETOLOGY METHOD 11/06/2024 11:17 AM EDT [facility] MPV 9.7 7.0 - 11.0 FL LAB HEMETOLOGY METHOD 11/06/2024 11:17 AM EDT [facility] NRBC 0.0 <1.0 % LAB HEMETOLOGY METHOD 11/06/2024 11:17 AM EDT [facility] NRBC Absolute 0.00 <0.10 K/mcL LAB HEMETOLOGY METHOD 11/06/2024 11:17 AM EDT [facility] Blood Venous blood specimen / Unknown Venipuncture / Unknown 11/06/2024 7:40 AM EDT 11/06/2024 10:01 AM EDT us Bari Rick MD LAB BLOOD ORDERABLES Final Resu lt [facility] [address] [place] [address], documented in this encounter Visit Diagnoses Diagnosis Hyperlipidemia, unspecified documented in this encounter Care Teams Pay Station Attendant Relationship Specialty Start Date End Date Bari Rick MD [address] [place] [address] PCP - General Internal Medicine 10/14/24 documented as of this encounter
== END 2024-11-19 13:12 | disposition home or self-care (01) ==
LOC: HO.HGS 12:49
PROVIDERS: PCP Internal Medicine; Visit Provider Surgery
DX: Z98.890 Other specified postprocedural states (principal)
CPT/HCPCS: 99024

== ENCOUNTER → 2024-11-19 13:21 | Outpatient (BNV) | payer MEDICARE, SELFPAY | PROVIDERS: PCP Internal Medicine; Visit Provider Radiology Diagnostic Radiology | DX: Z98.890 Other specified postprocedural states (principal) | CPT/HCPCS: 71046 ==

== ENCOUNTER → 2024-11-20 08:40 | Outpatient (REF) | payer MEDICARE, SELFPAY ==
--- OUTSIDE RECORDS SUMMARY | 2024-11-20 09:11 | XMS_ITS | Encounter Summary ---
[facility] Address [address] [place] [address] Care Team Providers Care Network Strategist Name Role Phone Bari Rick MD Primary Care Provider [phone] Encounter Details Date Type Department Care Team (Late st Contact Info) Description 10/17/2024 Lab Requisition [facility] - Main Lab [address] [facility] [place] [address] Bari Rick MD [address] [place] [address] Chronic embolism and thrombosis of [...] fatigue documented in this encounter Care Teams Network Strategist Relationship Specialty Start Date End Date Bari Rick MD [address] [place] [address] PCP - General Internal Medicine 10/14/24 documented as of this encounter
--- OUTSIDE RECORDS SUMMARY | 2024-11-20 09:11 | XMS_ITS | Encounter Summary ---
Author Organization [facility] Address [address] [place] [address] Care Team Providers Care Director Of Pupil Personnel Program Name Role Phone Bari Rick MD Primary Care Provider [phone] Encounter Details Date Type Department Care Team (Late st Contact Info) Description 10/15/2024 Lab Requisition [facility] - Main Lab [address] [facility] [place] [address] Bari Rick MD [address] [place] [address] Acute embolism and thrombosis of [...] mmol/L LAB CHEMISTRY METHOD 10/15/2024 1:40 PM [facility] Potassium 5.0 3.5 - 5.5 mmol/L LAB CHEMISTRY METHOD 10/15/2024 1:40 PM [facility] Chloride 108 96 - 110 mmol/L LAB CHEMISTRY METHOD 10/15/2024 1:40 PM [facility] CO2 23 21 - 32 mmol/L LAB CHEMISTRY METHOD 10/15/2024 1:40 PM [facility] Anion Gap 11 3 - 11 LAB CHEMISTRY METHOD 10/15/2024 1:40 PM [facility] Glucose 71 70 - 100 mg/dL LAB CHEMISTRY METHOD 10/15/2024 1:40 PM [facility] BUN 18 5 - 25 mg/dL LAB CHEMISTRY METHOD 10/15/2024 1:40 PM [facility] Creatinine 0.81 0.70 - 1.30 mg/dL LAB CHEMISTRY METHOD 10/15/2024 1:40 PM [facility] eGFR 94 >=60 mL/min/1. 73m2 LAB CHEMISTRY METHOD 10/15/2024 1:40 PM [facility] Comment:Calculation based on the??Chronic Kidney Disease Epidemiology Collaboration (CKD-EPI) equation refit??without adjustment for race. BUN/Creatinine Ratio 22.2 LAB CHEMISTRY METHOD 10/15/2024 1:40 PM [facility] Calcium 8.4(L) 8.5 - 10.5 mg/dL LAB CHEMISTRY METHOD 10/15/2024 1:40 PM [facility] AST (SGOT) 36 10 - 42 unit/L LAB CHEMISTRY METHOD 10/15/2024 1:40 PM [facility] ALT (SGPT) 49 10 - 60 unit/L LAB CHEMISTRY METHOD 10/15/2024 1:40 PM [facility] Alkaline Phosphatase 68 42 - 121 unit/L LAB CHEMISTRY METHOD 10/15/2024 1:40 PM [facility] Total Protein 5.6(L) 6.0 - 8.0 g/dL LAB CHEMISTRY METHOD 10/15/2024 1:40 PM [facility] Albumin 2.8(L) 3.2 - 5.0 g/dL LAB CHEMISTRY METHOD 10/15/2024 1:40 PM [facility] Total Bilirubin 0.3 0.0 - 1.4 mg/dL LAB CHEMISTRY METHOD 10/15/2024 1:40 PM [facility] Blood Venous blood specimen / Unknown Venipuncture / Unknown 10/15/2024 5:42 AM EST 10/15/2024 11:58 AM EST us Bari Rick MD LAB BLOOD ORDERABLES Final Resu lt [facility] [address] [place] [address], * (ABNORMAL) Complete blood count (10/15/2024 5:42 AM EST) WBC 7.4 4.8 - 10.8 K/mcL LAB HEMETOLOGY METHOD 10/15/2024 1:21 PM [facility] RBC 4.50 4.50 - 5.50 M/mcL LAB HEMETOLOGY METHOD 10/15/2024 1:21 PM [facility] Hemoglobin 14.8 13.5 - 17.5 g/dL LAB HEMETOLOGY METHOD 10/15/2024 1:21 PM [facility] Hematocrit 45.7 42.0 - 54.0 % LAB HEMETOLOGY METHOD 10/15/2024 1:21 PM [facility] MCV 102.7(H) 79.0 - 98.0 FL LAB HEMETOLOGY METHOD 10/15/2024 1:21 PM EST [facility] MCH 33.3(H) 27.0 - 32.0 pcg LAB HEMETOLOGY METHOD 10/15/2024 1:21 PM EST [facility] MCHC 32.4 32.0 - 37.0 g/dL LAB HEMETOLOGY METHOD 10/15/2024 1:21 PM [facility] RDW 11.9 11.0 - 15.0 % LAB HEMETOLOGY METHOD 10/15/2024 1:21 PM [facility] Platelets 347 130 - 400 K/mcL LAB HEMETOLOGY METHOD 10/15/2024 1:21 PM [facility] MPV 9.6 7.0 - 11.0 FL LAB HEMETOLOGY METHOD 10/15/2024 1:21 PM [facility] NRBC 0.0 <1.0 % LAB HEMETOLOGY METHOD 10/15/2024 1:21 PM [facility] NRBC Absolute 0.00 <0.10 K/mcL LAB HEMETOLOGY METHOD 10/15/2024 1:21 PM [facility] Blood Venous blood specimen / Unknown Venipuncture / Unknown 10/15/2024 5:42 AM EST 10/15/2024 11:58 AM EST us Bari Rick MD LAB BLOOD ORDERABLES Final Resu lt [facility] [address] [place] [address], documented in this encounter Visit Diagnoses Diagnosis Acute embolism and thrombosis of unspecified deep veins of unspecified lower extremity Weakness Other malaise and fatigue Malignant melanoma of skin, unspecified documented in this encounter Care Teams Director Of Pupil Personnel Program Relationship Specialty Start Date End Date Bari Rick MD [address] [place] [address] PCP - General Internal Medicine 10/14/24 documented as of this encounter
--- OUTSIDE RECORDS SUMMARY | 2024-11-20 09:11 | XMS_ITS | Patient Health Record ---
Author Organization [facility] Address [address] [place] [address] Care Team Providers Care Client Business Manager Name Role Phone Elvira Pang Primary Care Provider Unavailab Sanchez Perez Jr Unavailable Allergies No Known Allergies Results Component Value Reference Range Notes MR abdomen wo/w con Reviewed date:07/18/2024 08:21:58 AM Interpretation: Performing Lab: Notes/Report: [address] [address] Magnetic Resonance Report Signed Patient: Sampson Mackey MR#: [id number] 963 : 1955 Acct:[id number] Age/Sex: 69 / M ADM Date: 07/15/24 Loc: HO.MRI Attending Dr: Sanchez Hawley MD Ordering Physician: Sanchez Hawley MD Date of Service: 07/15/24 Procedure(s): MR abdomen wo/w con Accession Number(s): [id number] cc: Sanchez Hawley MD; Elvira Pang MD [...] by: Bishop Gasca MD 07/16/2024 04:23 PM [facility] Dictated By: Isael Gasca MD Signed By: <Electronically signed by Isael Gasca MD in OV> 07/16/24 1623 DD/ 1240 TD/TT: 07/15/24 1315 Hip Hop Performers: [place] [address] Magnetic Resonance Report Signed Patient: Neil Mackey MR#: [id number] : 1955 Acct:[id number] Age/Sex: 69 / M ADM Date: 07/15/24 Loc: HO.MRI Attending Dr: Yonathan Hawley MD Ordering Physician: Sanchez Hawley MD Date of Service: 07/15/24 Procedure(s): MR alisha byers wo/w con Accession Number(s): [id number] cc: Sanchez Hawley MD; Elvira Pang MD [...] by: Bishop Gasca MD 07/16/2024 04:23 PM [facility] Dictated By: Isael Gasca MD Signed By: <[facility] signed by Isael Gasca MD in OV> 07/16/24 1623 DD/ 1240 TD/TT: 07/15/24 1315 Hip Hop Performers: JANENE Reason For Referral No Information Immunizations Vaccine Route Administration Date Status Comme nts Influenza Unknown 07/15/2019 Administered Influenza Unknown 03/15/2021 Administered Influenza Unknown 06/20/2024 Administered Influenza Unknown 06/27/2023 Refused Problems Problem Type SNOMED Code ICD Code Onset Dates Problem Status W/U Status Risk Notes Problem 096104066 Colon cancer screening (Z12.11) Active confirmed Problem Diverticular disease of colon (675747670) Diverticulosis (K57.90) Active confirmed Problem 819702012 Gastroesophageal reflux disease without esophagitis (K21.9) Active confirmed Problem 437071165 Fatty liver (K76.0) Active confirmed Problem 994754643 Liver lesion (K76.9) Active confirmed Problem 924566676 Abnormal magneti c resonance imaging of liver (R93.2) Active confirmed Vital Signs Temperature 97.5 degrees Fahrenheit 06/27/2024 Blood pressure diastolic 00 mm Hg 06/27/2024 Height 64.5 in 06/27/2024 Blood pressure systolic 000 mm Hg 06/27/2024 Weight 191 lbs 06/27/2024 BMI 32.28 kg/m2 06/27/2024 Encounters Encounter Location Date Provider Diagnosis [facility] [address] [place] [address] 06/27/2024 Sanchez Hawley Jr Colon cancer screening Z12.11 ; Abnormal magnetic resonance imaging of liver R93.2 and Gastroesophageal reflux disease without esophagitis K21.9 [facility] [address] [place] [address] 07/18/2024 Sanchez Hawley Jr Abnormal magnetic resonance imaging of liver R93.2 [facility] [address] [place] [address] 08/03/2024 Sanchez Hawley Jr [facility] [address] [place] [address] 10/03/2024 Sanchez Hawley Jr Assessments Encounter Date [...] Date MEDICARE OF [place] [address] [place] [address] [id number] SAMPSON MACKEY Self - patient is the insured [employer] CLAIMS [address] [place] [address] [id number] SAMPSON MACKEY Self - patient is the insured Medical (General) History Medical History History ICD Code colonoscopy 10/12/19, tubular adenoma x1, five-year followup onychomycosis carpal tunnel syndrome Basal cell skin cancers GERD, EGD 11/01/12 elevated cholesterol Intraocular melanoma, left eye, 2018, 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 Bach carpal tunnel
--- OUTSIDE RECORDS SUMMARY | 2024-11-20 09:11 | XMS_ITS ---
Author Organization [facility] Address [address] [place] [address] Care Team Providers Care Plaster Tender Name Role Phone Elvira Pang Primary Care Provider Sanchez Floyd Jr REASON FOR VISIT screening Encounters Encounter Location Date Provider Diagnosis [facility] Out[facility] [address] [place], [place] [id number] 10/09/2024 Sanchez Hawley Jr Plan Of Treatment No Information Progress Notes * GUILLERMINA, SHARMINDOB:1955 (69 yo M)Acc No.[id number]:10/09/2024 COLON WITH MAC Patient:?SHARMIN SARMIENTO Provider:?Sanchez Hawley MD :1955???Age:69 Y???Sex:Male Damian e:10/09/2024 Address:[address] [place] [address] [facility] Pcp:Elvira Grimes Subjective: * Chief Complaints: * [...] MD Date:?0 10/09/2024 Generated for Phyllis miner/Yas/eTransmitting on:?11/20/2024 09:10 AM EDT
--- OUTSIDE RECORDS SUMMARY | 2024-11-20 09:11 | XMS_ITS | Encounter Summary ---
Author Organization [facility] Address [address] [place] [address] Care Team Providers Care Blacksmith Helper Name Role Phone Bari Rick MD Primary Care Provider [phone] Encounter Details Date Type Department Care Team (Late st Contact Info) Description 11/07/2024 Lab Requisition [facility] - Main Lab [address] [place] [address] Bari Rick MD [address] [place] [phone] Hyperlipidemia, unspecified Social History Tobacco Use Types [...] mmol/L LAB CHEMISTRY METHOD 11/08/2024 11:25 AM [facility] Potassium 4.5 3.5 - 5.5 mmol/L LAB CHEMISTRY METHOD 11/08/2024 11:25 AM [facility] Chloride 101 96 - 110 mmol/L LAB CHEMISTRY METHOD 11/08/2024 11:25 AM [facility] CO2 30 21 - 32 mmol/L LAB CHEMISTRY METHOD 11/08/2024 11:25 AM [facility] Anion Gap 6 3 - 11 LAB CHEMISTRY METHOD 11/08/2024 11:25 AM [facility] Glucose 85 70 - 100 mg/dL LAB CHEMISTRY METHOD 11/08/2024 11:25 AM [facility] BUN 14 5 - 25 mg/dL LAB CHEMISTRY METHOD 11/08/2024 11:25 AM [facility] Creatinine 0.83 0.70 - 1.30 mg/dL LAB CHEMISTRY METHOD 11/08/2024 11:25 AM [facility] eGFR 94 >=60 mL/min/1. 73m2 LAB CHEMISTRY METHOD 11/08/2024 11:25 AM [facility] Comment:Calculation based on the??Chronic Kidney Disease Epidemiology Collaboration (CKD-EPI) equation refit??without adjustment for race. BUN/Creatinine Ratio 16.9 LAB CHEMISTRY METHOD 11/08/2024 11:25 AM [facility] Calcium 8.8 8.5 - 10.5 mg/dL LAB CHEMISTRY METHOD 11/08/2024 11:25 AM [facility] Blood Venous blood specimen / Unknown Venipuncture / Unknown 11/08/2024 6:29 AM EDT 11/08/2024 10:00 AM EDT us Bari Rick MD LAB BLOOD ORDERABLES Final Resu lt [facility] [address] [place] [address], * (ABNORMAL) Complete blood count (11/08/2024 6:29 AM EDT) WBC 9.9 4.8 - 10.8 K/mcL LAB HEMETOLOGY METHOD 11/08/2024 10:19 AM [facility] RBC 4.20(L) 4.50 - 5.50 M/mcL LAB HEMETOLOGY METHOD 11/08/2024 10:19 AM [facility] Hemoglobin 13.5 13.5 - 17.5 g/dL LAB HEMETOLOGY METHOD 11/08/2024 10:19 AM [facility] Hematocrit 42.0 42.0 - 54.0 % LAB HEMETOLOGY METHOD 11/08/2024 10:19 AM [facility] MCV 100.2(H) 79.0 - 98.0 FL LAB HEMETOLOGY METHOD 11/08/2024 10:19 AM [facility] MCH 32.2(H) 27.0 - 32.0 pcg LAB HEMETOLOGY METHOD 11/08/2024 10:19 AM [facility] MCHC 32.1 32.0 - 37.0 g/dL LAB HEMETOLOGY METHOD 11/08/2024 10:19 AM [facility] RDW 13.0 11.0 - 15.0 % LAB HEMETOLOGY METHOD 11/08/2024 10:19 AM [facility] Platelets 346 130 - 400 K/mcL LAB HEMETOLOGY METHOD 11/08/2024 10:19 AM [facility] MPV 9.5 7.0 - 11.0 FL LAB HEMETOLOGY METHOD 11/08/2024 10:19 AM [facility] NRBC 0.0 <1.0 % LAB HEMETOLOGY METHOD 11/08/2024 10:19 AM [facility] NRBC Absolute 0.00 <0.10 K/mcL LAB HEMETOLOGY METHOD 11/08/2024 10:19 AM [facility] Blood Venous blood specimen / Unknown Venipuncture / Unknown 11/08/2024 6:29 AM EDT 11/08/2024 10:00 AM EDT Bari Rick MD LAB BLOOD ORDERABLES Final Resu lt [facility] [address] [place] [address], documented in this encounter Visit Diagnoses Diagnosis Hyperlipidemia, unspecified documented in this encounter Care Teams Blacksmith Helper Relationship Specialty Start Date End Date Bari Rick MD [address] [place] [address] PCP - General Internal Medicine 10/14/24 documented as of this encounter
--- OUTSIDE RECORDS SUMMARY | 2024-11-20 09:11 | XMS_ITS | Encounter Summary ---
Author Organization [facility] Address [address] [place] [address] Care Team Providers Care Day Care Attendant Name Role Phone Bari Rick MD Primary Care Provider Encounter Details Date Type Department Care Team (Late st Contact Info) Description 11/06/2024 Lab Requisition [facility] - Main Lab [address] [place] [address] Bari Rick MD [address] [place] [address] Hyperlipidemia, unspecified Social History Tobacco [...] mmol/L LAB CHEMISTRY METHOD 11/06/2024 12:15 PM [facility] CO2 25 21 - 32 mmol/L LAB CHEMISTRY METHOD 11/06/2024 12:15 PM [facility] Anion Gap 6 3 - 11 LAB CHEMISTRY METHOD 11/06/2024 12:15 PM [facility] Glucose 91 70 - 100 mg/dL LAB CHEMISTRY METHOD 11/06/2024 12:15 PM [facility] BUN 16 5 - 25 mg/dL LAB CHEMISTRY METHOD 11/06/2024 12:15 PM [facility] Creatinine 0.72 0.70 - 1.30 mg/dL LAB CHEMISTRY METHOD 11/06/2024 12:15 PM [facility] eGFR 98 >=60 mL/min/1. 73m2 LAB CHEMISTRY METHOD 11/06/2024 12:15 PM [facility] Comment:Calculation based on the??Chronic Kidney Disease Epidemiology Collaboration (CKD-EPI) equation refit??without adjustment for race. BUN/Creatinine Ratio 22.2 LAB CHEMISTRY METHOD 11/06/2024 12:15 PM [facility] Calcium 8.6 8.5 - 10.5 mg/dL LAB CHEMISTRY METHOD 11/06/2024 12:15 PM [facility] AST (SGOT) 32 10 - 42 unit/L LAB CHEMISTRY METHOD 11/06/2024 12:15 PM [facility] ALT (SGPT) 58 10 - 60 unit/L LAB CHEMISTRY METHOD 11/06/2024 12:15 PM [facility] Alkaline Phosphatase 81 42 - 121 unit/L LAB CHEMISTRY METHOD 11/06/2024 12:15 PM [facility] Total Protein 6.0 6.0 - 8.0 g/dL LAB CHEMISTRY METHOD 11/06/2024 12:15 PM [facility] Albumin 2.9(L) 3.2 - 5.0 [...] Resu lt [facility] [address] [place] [address], [place] [phone] * (ABNORMAL) Complete blood count (11/06/2024 7:40 AM EDT) WBC 8.2 4.8 - 10.8 K/mcL LAB HEMETOLOGY METHOD 11/06/2024 11:17 AM [facility] RBC 4.20(L) 4.50 - 5.50 M/mcL LAB HEMETOLOGY METHOD 11/06/2024 11:17 AM [facility] Hemoglobin 13.7 13.5 - 17.5 g/dL LAB HEMETOLOGY METHOD 11/06/2024 11:17 AM [facility] Hematocrit 41.6(L) 42.0 - 54.0 % LAB HEMETOLOGY METHOD 11/06/2024 11:17 AM EDT [facility] MCV 99.5(H) 79.0 - 98.0 FL LAB HEMETOLOGY METHOD 11/06/2024 11:17 AM EDT [facility] MCH 32.8(H) 27.0 - 32.0 pcg LAB HEMETOLOGY METHOD 11/06/2024 11:17 AM [facility] MCHC 32.9 32.0 - 37.0 [...] EDT 11/06/2024 10:01 AM EDT us Bari Rikc MD LAB BLOOD ORDERABLES Final Resu lt [facility] [address] [place] [address], documented in this encounter Visit Diagnoses Diagnosis Hyperlipidemia, unspecified documented in this encounter Care Teams Day Care Attendant Relationship Specialty Start Date End Date Bari Rick MD [address] [place] [address] PCP - General Internal Medicine 10/14/24 documented as of this encounter
--- OUTSIDE RECORDS SUMMARY | 2024-11-20 09:11 | XMS_ITS | Encounter Summary ---
Author Organization [facility] Address [address] [place] [address] Care Team Providers Care Director Of Graduate Admissions Name Role Phone Bari Rick MD Primary Care Provider [phone] Encounter Details Date Type Department Care Team (Late st Contact Info) Description 10/14/2024 Lab Requisition [facility] - Main Lab [address] [facility] [place] [address] Bari Rick MD [address] [place] [address] Chronic embolism and thrombosis of [...] LAB CHEMISTRY METHOD 10/14/2024 10:15 AM EST [facility] Potassium 4.6 3.5 - 5.5 mmol/L LAB CHEMISTRY METHOD 10/14/2024 10:15 AM EST [facility] Chloride 109 96 - 110 mmol/L LAB CHEMISTRY METHOD 10/14/2024 10:15 AM [facility] CO2 24 21 - 32 mmol/L LAB CHEMISTRY METHOD 10/14/2024 10:15 AM [facility] Anion Gap 8 3 - 11 LAB CHEMISTRY METHOD 10/14/2024 10:15 AM [facility] Glucose 86 70 - 100 mg/dL LAB CHEMISTRY METHOD 10/14/2024 10:15 AM [facility] BUN 18 5 - 25 mg/dL LAB CHEMISTRY METHOD 10/14/2024 10:15 AM [facility] Creatinine 0.80 0.70 - 1.30 mg/dL LAB CHEMISTRY METHOD 10/14/2024 10:15 AM [facility] eGFR 95 >=60 mL/min/1. 73m2 LAB CHEMISTRY METHOD 10/14/2024 10:15 AM [facility] Comment:Calculation based on the??Chronic Kidney Disease Epidemiology Collaboration (CKD-EPI) equation refit??without adjustment for race. BUN/Creatinine Ratio 22.5 LAB CHEMISTRY METHOD 10/14/2024 10:15 AM [facility] Calcium 8.6 8.5 - 10.5 mg/dL LAB CHEMISTRY METHOD 10/14/2024 10:15 AM [facility] AST (SGOT) 39 10 - 42 unit/L LAB CHEMISTRY METHOD 10/14/2024 10:15 AM [facility] ALT (SGPT) 59 10 - 60 unit/L LAB CHEMISTRY METHOD 10/14/2024 10:15 AM [facility] Alkaline Phosphatase 71 42 - 121 unit/L LAB CHEMISTRY METHOD 10/14/2024 10:15 AM [facility] Total Protein 5.8(L) 6.0 - 8.0 g/dL LAB CHEMISTRY METHOD 10/14/2024 10:15 AM [facility] Albumin 2.8(L) 3.2 - 5.0 g/dL LAB CHEMISTRY METHOD 10/14/2024 10:15 AM [facility] Total Bilirubin 0.6 0.0 - 1.4 mg/dL LAB CHEMISTRY METHOD 10/14/2024 10:15 AM [facility] Blood Venous blood specimen / Unknown Venipuncture / Unknown 10/14/2024 6:59 AM EST 10/14/2024 9:11 AM EST us Bari Rick MD LAB BLOOD ORDERABLES Final Resu lt [facility] [address] [place] [address], * (ABNORMAL) Complete blood count (10/14/2024 6:59 AM EST) WBC 7.1 4.8 - 10.8 K/mcL LAB HEMETOLOGY METHOD 10/14/2024 10:21 AM [facility] RBC 4.70 4.50 - 5.50 M/mcL LAB HEMETOLOGY METHOD 10/14/2024 10:21 AM [facility] Hemoglobin 15.7 13.5 - 17.5 g/dL LAB HEMETOLOGY METHOD 10/14/2024 10:21 AM [facility] Hematocrit 47.3 42.0 - 54.0 % LAB HEMETOLOGY METHOD 10/14/2024 10:21 AM [facility] MCV 100.9(H) 79.0 - 98.0 FL LAB HEMETOLOGY METHOD 10/14/2024 10:21 AM [facility] MCH 33.5(H) 27.0 - 32.0 pcg LAB HEMETOLOGY METHOD 10/14/2024 10:21 AM [facility] MCHC 33.2 32.0 - 37.0 g/dL LAB HEMETOLOGY METHOD 10/14/2024 10:21 AM [facility] RDW 11.9 11.0 - 15.0 % LAB HEMETOLOGY METHOD 10/14/2024 10:21 AM EST [facility] Platelets 354 130 - 400 K/mcL LAB HEMETOLOGY METHOD 10/14/2024 10:21 AM EST [facility] MPV 9.4 7.0 - 11.0 FL LAB HEMETOLOGY METHOD 10/14/2024 10:21 AM EST [facility] NRBC 0.0 <1.0 % LAB HEMETOLOGY METHOD 10/14/2024 10:21 AM EST [facility] NRBC Absolute 0.00 <0.10 K/mcL LAB HEMETOLOGY METHOD 10/14/2024 10:21 AM EST [facility] Blood Venous blood specimen / Unknown Venipuncture / Unknown 10/14/2024 6:59 AM EST 10/14/2024 10:20 AM EST us Bari Rick MD LAB BLOOD ORDERABLES Final Resu lt [facility] [address] [place] [address], documented in this encounter Visit Diagnoses Diagnosis Chronic embolism and thrombosis of unspecified vein documented in this encounter Care Teams Director Of Graduate Admissions Relationship Specialty Start Date End Date Bari Rick MD [address] [place] [address] PCP - General Internal Medicine 10/14/24 documented as of this encounter
--- OUTSIDE RECORDS SUMMARY | 2024-11-20 09:11 | XMS_ITS ---
Author Organization [facility] Address [address] [place] [address] Care Team Providers Care Wrapper Sizer Name Role Phone Elvira Pang Primary Care Provider Sanchez Floyd Jr [phone] REASON FOR VISIT cancelling his colonoscopy for 09/2024 Encounters Encounter Location Date Provider Diagnosis [facility] [address] [place] [phone] 10/03/2024 Sanchez Hawley Jr Plan Of Treatment No Information Progress Notes * SHARMIN SARMIENTODOB:1955 (69 yo M)Acc No.[id number]:10/03/2024 Patient:?SHARMIN SARMIENTO :1955???Age:69 Y???Sex:Male Address:[address] [place] [address] * true * Date:? Generated for Phyllis miner/Yas/eTransmitting on:?11/20/2024 09:10 AM EDT
--- OUTSIDE RECORDS SUMMARY | 2024-11-20 09:11 | XMS_ITS | Encounter Summary ---
Author Organization [facility] Address [address] [place] [address] Care Team Providers Care Veneer Sawyer Name Role Phone Bari Rick MD Primary Care Provider Encounter Details Date Type Department Care Team (Late st Contact Info) Description 11/14/2024 Lab Requisition [facility] - Main Lab [address] [place] [address] Bari Rick MD [address] [place] [id number] Hyperlipidemia, unspecified Social History Tobacco Use Types [...] mmol/L LAB CHEMISTRY METHOD 11/15/2024 11:33 AM [facility] Potassium 4.4 3.5 - 5.5 mmol/L LAB CHEMISTRY METHOD 11/15/2024 11:33 AM [facility] Chloride 107 96 - 110 mmol/L LAB CHEMISTRY METHOD 11/15/2024 11:33 AM [facility] CO2 27 21 - 32 mmol/L LAB CHEMISTRY METHOD 11/15/2024 11:33 AM [facility] Anion Gap 7 3 - 11 LAB CHEMISTRY METHOD 11/15/2024 11:33 AM [facility] Glucose 77 70 - 100 mg/dL LAB CHEMISTRY METHOD 11/15/2024 11:33 AM [facility] BUN 13 5 - 25 mg/dL LAB CHEMISTRY METHOD 11/15/2024 11:33 AM [facility] Creatinine 0.73 0.70 - 1.30 mg/dL LAB CHEMISTRY METHOD 11/15/2024 11:33 AM [facility] eGFR 97 >=60 mL/min/1. 73m2 LAB CHEMISTRY METHOD 11/15/2024 11:33 AM [facility] Comment:Calculation based on the??Chronic Kidney Disease Epidemiology Collaboration (CKD-EPI) equation refit??without adjustment for race. BUN/Creatinine Ratio 17.8 LAB CHEMISTRY METHOD 11/15/2024 11:33 AM [facility] Calcium 8.5 8.5 - 10.5 mg/dL LAB CHEMISTRY METHOD 11/15/2024 11:33 AM [facility] Blood Venous blood specimen / Unknown Venipuncture / Unknown 11/15/2024 6:09 AM EDT 11/15/2024 10:56 AM EDT us Bari Rick MD LAB BLOOD ORDERABLES Final Resu lt [facility] [address] [place] [address], * (ABNORMAL) Complete blood count (11/15/2024 6:09 AM EDT) WBC 8.7 4.8 - 10.8 K/mcL LAB HEMETOLOGY METHOD 11/15/2024 11:12 AM [facility] RBC 3.90(L) 4.50 - 5.50 M/mcL LAB HEMETOLOGY METHOD 11/15/2024 11:12 AM [facility] Hemoglobin 12.6(L) 13.5 - 17.5 g/dL LAB HEMETOLOGY METHOD 11/15/2024 11:12 AM [facility] Hematocrit 38.7(L) 42.0 - 54.0 % LAB HEMETOLOGY METHOD 11/15/2024 11:12 AM [facility] MCV 99.7(H) 79.0 - 98.0 FL LAB HEMETOLOGY METHOD 11/15/2024 11:12 AM [facility] MCH 32.5(H) 27.0 - 32.0 pcg LAB HEMETOLOGY METHOD 11/15/2024 11:12 AM [facility] MCHC 32.6 32.0 - 37.0 g/dL LAB HEMETOLOGY METHOD 11/15/2024 11:12 AM [facility] RDW 13.2 11.0 - 15.0 % LAB HEMETOLOGY METHOD 11/15/2024 11:12 AM [facility] Platelets 336 130 - 400 K/mcL LAB HEMETOLOGY METHOD 11/15/2024 11:12 AM [facility] MPV 9.4 7.0 - 11.0 FL LAB HEMETOLOGY METHOD 11/15/2024 11:12 AM [facility] NRBC 0.0 <1.0 % LAB HEMETOLOGY METHOD 11/15/2024 11:12 AM [facility] NRBC Absolute 0.00 <0.10 K/mcL LAB HEMETOLOGY METHOD 11/15/2024 11:12 AM [facility] Blood Venous blood specimen / Unknown Venipuncture / Unknown 11/15/2024 6:09 AM EDT 11/15/2024 10:56 AM EDT Bari Rick MD LAB BLOOD ORDERABLES Final Resu lt [facility] [address] [place] [address], documented in this encounter Visit Diagnoses Diagnosis Hyperlipidemia, unspecified documented in this encounter Care Teams Veneer Sawyer Relationship Specialty Start Date End Date Bari Rick MD [address] [place] [address] PCP - General Internal Medicine 10/14/24 documented as of this encounter
--- OUTSIDE RECORDS SUMMARY | 2024-11-20 09:11 | XMS_ITS ---
Author Organization [facility] Address [address] [place] [address] Care Team Providers Care Float Builder Name Role Phone Elvira Pang Primary Care Provider Unavailab Sanchez Perez Jr REASON FOR VISIT records Encounters Encounter Location Date Provider Diagnosis [facility] [address] [place] [address] 08/03/2024 Sanchez Hawley Jr Plan Of Treatment No Information Progress Notes * SHARMIN SARMIENTODOB:1955 (69 yo M)Acc No.[id number]:08/03/2024 Patient:?GUILLERMINA SHARMIN :1955???Age:69 Y???Sex:Male Address:[address] [place] [address] * true * Date:? Generated for Phyllis miner/Yas/eTransmitting on:?11/20/2024 09:10 AM EDT
--- OUTSIDE RECORDS SUMMARY | 2024-11-20 09:11 | XMS_ITS | Encounter Summary ---
Author Organization [facility] Address [address] [place] [address] Care Team Providers Care Upper And Bottom Lacer Hand Name Role Phone Bari Rick MD Primary Care Provider [phone] Encounter Details Date Type Department Care Team (Late st Contact Info) Description 11/07/2024 Lab Requisition [facility] - Main Lab [address] [facility] [address] Bari Rick MD [address] [place] [address] Encounter for surgical aftercare following [...] reflex microscopic (11/06/2024 12:00 AM EDT) Specific [place] Urine 1.019 1.003 - 1.030 LAB URINALYSIS - AUTOMATED METHOD 11/07/2024 10:22 AM [facility] pH, Urine 6.0 5.0 - 8.0 pH LAB URINALYSIS - AUTOMATED METHOD 11/07/2024 10:22 AM [facility] Leukocytes, Urine Negative Negative LAB URINALYSIS - AUTOMATED METHOD 11/07/2024 10:22 AM [facility] Nitrite, Urine Negative Negative LAB URINALYSIS - AUTOMATED METHOD 11/07/2024 10:22 AM [facility] Protein, Urine Trace <=Trace mg/dL LAB URINALYSIS - AUTOMATED METHOD 11/07/2024 10:22 AM [facility] Glucose, Urine Negative Negative mg/dL LAB URINALYSIS - AUTOMATED METHOD 11/07/2024 10:22 AM [facility] Ketones, Urine Trace(A) Negative mg/dL LAB URINALYSIS - AUTOMATED METHOD 11/07/2024 10:22 AM [facility] Urobilinogen, Urine 1.0 0.2 - 1.0 mg/dL LAB URINALYSIS - AUTOMATED METHOD 11/07/2024 10:22 AM [facility] Bilirubin, Urine Negative Negative LAB URINALYSIS - AUTOMATED METHOD 11/07/2024 10:22 AM [facility] Blood, Urine Negative Negative LAB URINALYSIS - AUTOMATED METHOD 11/07/2024 10:22 AM [facility] Urine Urine specimen obtained by clean catch procedure / Unknown 11/06/2024 11/07/2024 9:39 AM EDT us Bari Rick MD LAB URINE ORDERABLES Final Resu lt [facility] [address] [place] [address], * Culture urine (11/06/2024 12:00 AM EDT) Culture, Urine No growth 11/08/2024 11:27 AM EDT [facility] Urine Urine specimen obtained by clean catch procedure / Unknown 11/06/2024 11/07/2024 9:39 AM EDT Bari Rick MD LAB MICROBIOLOGY - [facility] Final Result [facility] [address] [place] [address], documented in this encounter Visit Diagnoses Diagnosis Encounter for surgical aftercare following surgery on the respiratory system documented in this encounter Care Teams Upper And Bottom Lacer Hand Relationship Specialty Start Date End Date Bari Rick MD [address] [place] [address] PCP - General Internal Medicine 10/14/24 documented as of this encounter
--- OUTSIDE RECORDS SUMMARY | 2024-11-20 09:11 | XMS_ITS | Encounter Summary ---
Author Organization [facility] Address [address] [place] [address] Care Team Providers Care Chair Post Machine Operator Name Role Phone Bari Rick MD Primary Care Provider [phone] Encounter Details Date Type Department Care Team (Late st Contact Info) Description 10/21/2024 Lab Requisition [facility] - Main Lab [address] [facility] [place] [address] Bari Rick MD [address] [place] [address] Chronic embolism and thrombosis of [...] unspecified documented in this encounter Care Teams Chair Post Machine Operator Relationship Specialty Start Date End Date Bari Rick MD [address] [place] [address] PCP - General Internal Medicine 10/14/24 documented as of this encounter
--- OUTSIDE RECORDS SUMMARY | 2024-11-20 09:11 | XMS_ITS | Encounter Summary ---
Author Organization [facility] Address [address] [place] [address] Care Team Providers Care Electric Trucker Name Role Phone Bari Rick MD Primary Care Provider [phone] Encounter Details Date Type Department Care Team (Late st Contact Info) Description 11/10/[address] [facility] - Main Lab [address] [place] [address] Bari Rick MD [address] [place] [phone] Hyperlipidemia, unspecified Social History Tobacco Use Types [...] LAB CHEMISTRY METHOD 11/12/2024 12:15 PM T [facility] Potassium 4.5 3.5 - 5.5 mmol/L LAB CHEMISTRY METHOD 11/12/2024 12:15 PM EDT [facility] Chloride 105 96 - 110 mmol/L LAB CHEMISTRY METHOD 11/12/2024 12:[address] [facility] CO2 28 21 - 32 mmol/L LAB CHEMISTRY METHOD 11/12/2024 12:[address] [facility] Anion Gap 7 3 - 11 LAB CHEMISTRY METHOD 11/12/2024 12:[address] [facility] Glucose 88 70 - 100 mg/dL LAB CHEMISTRY METHOD 11/12/2024 12:[address] [facility] BUN 12 5 - 25 mg/dL LAB CHEMISTRY METHOD 11/12/2024 12:[address] [facility] Creatinine 0.68(L) 0.70 - 1.30 mg/dL LAB CHEMISTRY METHOD 11/12/2024 12:[address] [facility] eGFR 99 >=60 mL/min/1. 73m2 LAB CHEMISTRY METHOD 11/12/2024 12:[address] [facility] Comment:Calculation based on the??Chronic Kidney Disease Epidemiology Collaboration (CKD-EPI) equation refit??without adjustment for race. BUN/Creatinine Ratio 17.6 LAB CHEMISTRY METHOD 11/12/2024 12:[address] [facility] Calcium 8.5 8.5 - 10.5 mg/dL LAB CHEMISTRY METHOD 11/12/2024 12:[address] [facility] AST (SGOT) 19 10 - 42 unit/L LAB CHEMISTRY METHOD 11/12/2024 12:[address] [facility] ALT (SGPT) 31 10 - 60 unit/L LAB CHEMISTRY METHOD 11/12/2024 12:[address] [facility] Alkaline Phosphatase 76 42 - 121 unit/L LAB CHEMISTRY METHOD 11/12/2024 12:[address] [facility] Total Protein 6.4 6.0 - 8.0 g/dL LAB CHEMISTRY METHOD 11/12/2024 12:[address] [facility] Albumin 3.0(L) 3.2 - 5.0 g/dL LAB CHEMISTRY METHOD 11/12/2024 12:15 PM EDT [facility] Total Bilirubin 0.7 0.0 - 1.4 mg/dL LAB CHEMISTRY METHOD 11/12/2024 12:[address] [facility] Blood Venous blood specimen / Unknown Venipuncture / Unknown 11/12/2024 9:27 AM EDT 11/12/2024 10:48 AM EDT us Bari Rick MD LAB BLOOD ORDERABLES Final Resu lt [facility] [address] [place] [address], * (ABNORMAL) Complete blood count (11/12/2024 9:27 AM EDT) WBC 9.9 4.8 - 10.8 K/mcL LAB HEMETOLOGY METHOD 11/12/2024 12:[address] [facility] RBC 4.00(L) 4.50 - 5.50 M/mcL LAB HEMETOLOGY METHOD 11/12/2024 12:[address] [facility] Hemoglobin 13.0(L) 13.5 - 17.5 g/dL LAB HEMETOLOGY METHOD 11/12/2024 12:[address] [facility] Hematocrit 40.3(L) 42.0 - 54.0 % LAB HEMETOLOGY METHOD 11/12/2024 12:16 PM EDT [facility] MCV 101.8(H) 79.0 - 98.0 FL LAB HEMETOLOGY METHOD 11/12/2024 12:[address] [facility] MCH 32.8(H) 27.0 - 32.0 pcg LAB HEMETOLOGY METHOD 11/12/2024 12:[address] [facility] MCHC 32.3 32.0 - 37.0 g/dL LAB HEMETOLOGY METHOD 11/12/2024 12:16 PM EDT [facility] RDW 13.0 11.0 - 15.0 % LAB HEMETOLOGY METHOD 11/12/2024 12:16 PM EDT [facility] Platelets 360 130 - 400 K/mcL LAB HEMETOLOGY METHOD 11/12/2024 12:16 PM EDT [facility] MPV 9.5 7.0 - 11.0 FL LAB HEMETOLOGY METHOD 11/12/2024 12:16 PM EDT [facility] NRBC 0.0 <1.0 % LAB HEMETOLOGY METHOD 11/12/2024 12:16 PM EDT [facility] NRBC Absolute 0.00 <0.10 K/mcL LAB HEMETOLOGY METHOD 11/12/2024 12:16 PM EDT [facility] Blood Venous blood specimen / Unknown Venipuncture / Unknown 11/12/2024 9:27 AM EDT 11/12/2024 10:58 AM EDT Bari Rick MD LAB BLOOD ORDERABLES Final Resu lt [facility] [address] [place] [address], documented in this encounter Visit Diagnoses Diagnosis Hyperlipidemia, unspecified documented in this encounter Care Teams Electric Trucker Relationship Specialty Start Date End Date Bari Rick MD [address] [place] [address] PCP - General Internal Medicine 10/14/24 documented as of this encounter
--- OUTSIDE RECORDS SUMMARY | 2024-11-20 09:11 | XMS_ITS | Clinical Summary ---
Author Organization [address] Address [address] [place] [address] Phone Care Team Providers Care Chairman And Ceo Name Role Phone Bari Rick MD Primary Care Provider [phone] Encounters Date Type Department Care Team Description 11/14/2024 Lab Requisition [facility] Lab [address] [place] [address] Bari Rick MD Hyperlipidemia, unspecified 11/10/2024 Lab Requisition [facility] [address] [place] [address] Bari Rick MD Hyperlipidemia, unspecified 11/07/2024 Lab Requisition [facility] [address] [place] [address] Bari Rick MD Hyperlipidemia, unspecified 11/07/2024 Lab Requisition [facility] Lab [address] [place] [address] Bari Rick MD Encounter for surgical aftercare following surgery on the respiratory system 11/06/2024 Lab Requisition [facility] Lab [address] [place] [address] Bari Rick MD Hyperlipidemia, unspecified 10/21/2024 Lab Requisition [facility] Lab [address] [place] [address] Bari Rick MD Chronic embolism and thrombosis of unspecified vein; Weakness; Malignant melanoma of skin, unspecified ([facility]/HCC) 10/17/2024 Lab Requisition [facility] Lab [address] [place] [phone] Bari Rick MD Chronic embolism and thrombosis of unspecified vein; Malignant melanoma of skin, unspecified (CMS/HCC); Weakness 10/15/2024 Lab Requisition [facility] - Main Lab [address] [place] [phone] Bari Rick MD Acute embolism and thrombosis of unspecified deep veins of unspecified lower extremity (CMS/HCC); Weakness; Malignant melanoma of skin, unspecified (CMS/HCC) 10/14/2024 Lab Requisition [facility] Lab [address] [place] [address] Bari Rick MD Chronic embolism [...] K/mcL LAB HEMETOLOGY METHOD 11/15/2024 11:12 AM [facility] RBC 3.90(L) 4.50 - 5.50 M/mcL LAB HEMETOLOGY METHOD 11/15/2024 11:12 AM [facility] Hemoglobin 12.6(L) 13.5 - 17.5 g/dL LAB HEMETOLOGY METHOD 11/15/2024 11:12 AM [facility] Hematocrit 38.7(L) 42.0 - 54.0 % LAB HEMETOLOGY METHOD 11/15/2024 11:12 AM [facility] MCV 99.7(H) 79.0 - 98.0 FL LAB HEMETOLOGY METHOD 11/15/2024 11:12 AM [facility] MCH 32.5(H) 27.0 - 32.0 pcg LAB HEMETOLOGY METHOD 11/15/2024 11:12 AM EDT [facility] MCHC 32.6 32.0 - 37.0 g/dL LAB HEMETOLOGY METHOD 11/15/2024 11:12 AM EDT [facility] RDW 13.2 11.0 - 15.0 % LAB HEMETOLOGY METHOD 11/15/2024 11:12 AM EDT [facility] Platelets 336 130 - 400 K/mcL LAB HEMETOLOGY METHOD 11/15/2024 11:12 AM EDT [facility] MPV 9.4 7.0 - 11.0 FL LAB HEMETOLOGY METHOD 11/15/2024 11:12 AM EDT [facility] NRBC 0.0 <1.0 % LAB HEMETOLOGY METHOD 11/15/2024 11:12 AM EDT [facility] NRBC Absolute 0.00 <0.10 K/mcL LAB HEMETOLOGY METHOD 11/15/2024 11:12 AM T [facility] Blood Venous blood specimen / Unknown Venipuncture / Unknown 11/15/2024 6:09 AM EDT 11/15/2024 10:56 AM EDT us Bari Rick MD LAB BLOOD ORDERABLES Final Resu lt [facility] [address] [place] [address], * Basic metabolic panel (11/15/2024 6:09 AM EDT) Only the most recent of2 resultswithin the time period is included. Sodium 141 133 - 145 mmol/L LAB CHEMISTRY METHOD 11/15/2024 11:33 AM EDT [facility] Potassium 4.4 3.5 - 5.5 mmol/L LAB CHEMISTRY METHOD 11/15/2024 11:33 AM [facility] Chloride 107 96 - 110 mmol/L LAB CHEMISTRY METHOD 11/15/2024 11:33 AM [facility] CO2 27 21 - 32 mmol/L LAB CHEMISTRY METHOD 11/15/2024 11:33 AM [facility] Anion Gap 7 3 - 11 LAB CHEMISTRY METHOD 11/15/2024 11:33 AM [facility] Glucose 77 70 - 100 mg/dL LAB CHEMISTRY METHOD 11/15/2024 11:33 AM [facility] BUN 13 5 - 25 mg/dL LAB CHEMISTRY METHOD 11/15/2024 11:33 AM [facility] Creatinine 0.73 0.70 - 1.30 mg/dL LAB CHEMISTRY METHOD 11/15/2024 11:33 AM [facility] eGFR 97 >=60 mL/min/1. 73m2 LAB CHEMISTRY METHOD 11/15/2024 11:33 AM [facility] Comment:Calculation based on the??Chronic Kidney Disease Epidemiology Collaboration (CKD-EPI) equation refit??without adjustment for race. BUN/Creatinine Ratio 17.8 LAB CHEMISTRY METHOD 11/15/2024 11:33 AM [facility] Calcium 8.5 8.5 - 10.5 mg/dL LAB CHEMISTRY METHOD 11/15/2024 11:33 AM [facility] Blood Venous blood specimen / Unknown Venipuncture / Unknown 11/15/2024 6:09 AM EDT 11/15/2024 10:56 AM EDT us Bari Rick MD LAB BLOOD ORDERABLES Final Resu lt [facility] [address] [place] [address], * (ABNORMAL) Comprehensive metabolic panel (11/12/2024 9:27 AM EDT) Only the most recent of4 resultswithin the time period is included. Sodium 140 133 - 145 mmol/L LAB CHEMISTRY METHOD 11/12/2024 12:15 PM [facility] Potassium 4.5 3.5 - 5.5 mmol/L LAB CHEMISTRY METHOD 11/12/2024 12:15 PM [facility] Chloride 105 96 - 110 mmol/L LAB CHEMISTRY METHOD 11/12/2024 12:15 PM [facility] CO2 28 21 - 32 mmol/L LAB CHEMISTRY METHOD 11/12/2024 12:15 PM [facility] Anion Gap 7 3 - 11 LAB CHEMISTRY METHOD 11/12/2024 12:15 PM [facility] Glucose 88 70 - 100 mg/dL LAB CHEMISTRY METHOD 11/12/2024 12:15 PM [facility] BUN 12 5 - 25 mg/dL LAB CHEMISTRY METHOD 11/12/2024 12:15 PM [facility] Creatinine 0.68(L) 0.70 - 1.30 mg/dL LAB CHEMISTRY METHOD 11/12/2024 12:15 PM [facility] eGFR 99 >=60 mL/min/1. 73m2 LAB CHEMISTRY METHOD 11/12/2024 12:15 PM [facility] Comment:Calculation based on the??Chronic Kidney Disease Epidemiology Collaboration (CKD-EPI) equation refit??without adjustment for race. BUN/Creatinine Ratio 17.6 LAB CHEMISTRY METHOD 11/12/2024 12:15 PM [facility] Calcium 8.5 8.5 - 10.5 mg/dL LAB CHEMISTRY METHOD 11/12/2024 12:15 PM [facility] AST (SGOT) 19 10 - 42 unit/L LAB CHEMISTRY METHOD 11/12/2024 12:15 PM [facility] ALT (SGPT) 31 10 - 60 unit/L LAB CHEMISTRY METHOD 11/12/2024 12:15 PM [facility] Alkaline Phosphatase 76 42 - 121 unit/L LAB CHEMISTRY METHOD 11/12/2024 12:15 PM [facility] Total Protein 6.4 6.0 - 8.0 g/dL LAB CHEMISTRY METHOD 11/12/2024 12:15 PM [facility] Albumin 3.0(L) 3.2 - 5.0 g/dL LAB CHEMISTRY METHOD 11/12/2024 12:15 PM [facility] Total Bilirubin 0.7 0.0 - 1.4 mg/dL LAB CHEMISTRY METHOD 11/12/2024 12:15 PM [facility] Blood Venous blood specimen / Unknown Venipuncture / Unknown 11/12/2024 9:27 AM EDT 11/12/2024 10:48 AM EDT us Bari Rick MD LAB BLOOD ORDERABLES Final Resu lt [facility] [address] [place] [address], [place] [phone] * (ABNORMAL) Urinalysis with reflex microscopic (11/06/2024 12:00 AM EDT) Specific [place] Urine 1.019 1.003 - 1.030 LAB URINALYSIS - AUTOMATED METHOD 11/07/2024 10:22 AM [facility] pH, Urine 6.0 5.0 - 8.0 pH LAB URINALYSIS - AUTOMATED METHOD 11/07/2024 10:22 AM [facility] Leukocytes, Urine Negative Negative LAB URINALYSIS - AUTOMATED METHOD 11/07/2024 10:22 AM [facility] Nitrite, Urine Negative Negative LAB URINALYSIS - AUTOMATED METHOD 11/07/2024 10:22 AM EDT [facility] Protein, Urine Trace <=Trace mg/dL LAB URINALYSIS - AUTOMATED METHOD 11/07/2024 10:22 AM EDT [facility] Glucose, Urine Negative Negative mg/dL LAB URINALYSIS - AUTOMATED METHOD 11/07/2024 10:22 AM [facility] Ketones, Urine Trace(A) Negative mg/dL LAB URINALYSIS - AUTOMATED METHOD 11/07/2024 10:22 AM EDT [facility] Urobilinogen, Urine 1.0 0.2 - 1.0 mg/dL LAB URINALYSIS - AUTOMATED METHOD 11/07/2024 10:22 AM [facility] Bilirubin, Urine Negative Negative LAB URINALYSIS - AUTOMATED METHOD 11/07/2024 10:22 AM [facility] Blood, Urine Negative Negative LAB URINALYSIS - AUTOMATED METHOD 11/07/2024 10:22 AM T [facility] Urine Urine specimen obtained by clean catch procedure / Unknown 11/06/2024 11/07/2024 9:39 AM EDT us Bari Rick MD LAB URINE ORDERABLES Final Resu lt Performing Organization Address [facility]/ZIP Co de Phone Number [facility] [address] [place] [address], [place] [phone] * Culture urine (11/06/2024 12:00 AM EDT) Culture, Urine No growth 11/08/2024 11:27 AM EDT [facility] Urine Urine specimen obtained by clean catch procedure / Unknown 11/06/2024 11/07/2024 9:39 AM EDT us Bari Rick MD LAB MICROBIOLOGY - GENERAL ORDMaribel [facility] Final Result [facility] [address] [place] [address], from Last 3 Months Insurance MEDICARE [facility] Care Teams Chairman And Ceo Relationship Specialty Start Date End Date Bari Rick MD [address] [place] [address] PCP - General Internal Medicine 10/14/24
== END ==
LOC: HO.CARD 08:40
PROVIDERS: PCP Internal Medicine; Visit Provider Internal Medicine Medical Oncology
DX: Z13.89 Encounter for screening for other disorder (principal)